=== PATIENT | female | born 1965 | race Caucasian/White ===

== ENCOUNTER 2022-10-21 08:56 | Outpatient (OUT) | payer OTHER, SELFPAY ==
[2022-10-21 11:32] LABS: Basophils Absolute Auto 0.2 10^3/uL (0.0-0.1); Basophils Percent Auto 1.2 % (0.2-2.0); Eosinophils Absolute Auto 0.4 10^3/uL (0.0-0.7); Eosinophils Percent Auto 2.8 % (0.9-7.0); Hematocrit 42.2 % (36.0-48.0); Hemoglobin 12.5 g/dL (12.0-16.0); Immature Granulocytes Abs Auto 0.09 10^3/uL (0.00-0.03); Immature Granulocytes Pct Auto 0.7 % (0.0-0.5); Lymphocytes Absolute Auto 3.2 10^3/uL (1.2-3.8); Lymphocytes Percent Auto 23.2 % (20.5-60.0); Mean Corpuscular HGB Conc 29.6 g/dL (29.9-35.2); Mean Corpuscular Volume 87.7 fL (81.0-99.0); Mean Platelet Volume 10.6 fL (9.5-13.5); Monocytes Absolute Auto 0.8 10^3/uL (0.3-0.8); Monocytes Percent Auto 5.6 % (1.7-12.0); Neutrophils Absolute Auto 9.1 10^3/uL (1.4-6.5); Neutrophils Percent Auto 66.5 % (43.0-75.0); Platelet Count 333 10^3/uL (150-450); Red Blood Count 4.81 10^6/uL (4.20-5.40); Red Cell Distribution Width 16.1 % (11.0-15.0); White Blood Count 13.6 10^3/uL (4.0-11.0)
[2022-10-21 12:19] LABS: Estimated Average Glucose 160 mg/dL; Glycohemoglobin A1C 7.2 % (4.5-6.2)
[2022-10-21 12:38] LABS: Alanine Aminotransferase 27 U/L (14-59); Albumin Globulin Ratio 0.7; Albumin Level 3.2 g/dL (3.4-5.0); Alkaline Phosphatase 132 U/L (46-116); Anion Gap 15.5; Aspartate Amino Transferase 16 U/L (15-37); BUN Creatinine Ratio 18.8; Bilirubin Total 0.3 mg/dL (0.2-1.0); Calcium 9.4 mg/dL (8.5-10.1); Carbon Dioxide 24.5 mmol/L (21.0-32.0); Chloride 103 mmol/L (98-107); Cholesterol 189 mg/dL (<=200); Estimated GFR (African America >60 (>=60); Estimated GFR (Non-African Ame >60 (>=60); Free T3 2.15 pg/mL (2.18-3.98); Globulin 4.3 g/dL; Glucose 158 mg/dL (74-106); HDL Cholesterol 62 mg/dL (40-60); Sodium 139 mmol/L (136-145); Thyroid Stimulating Hormone 1.273 uIU/mL (0.358-3.740); Total Protein 7.5 g/dL (6.4-8.2); Triglycerides 117 mg/dL (<=150); VLDL CHOLESTEROL 23.4 mg/dL
[2022-10-22 11:09] LABS: Insulin 53.9 uIU/mL (2.6-24.9)
== END 2022-10-21 08:57 ==
LOC: LAB 10-28 08:57
PROVIDERS: PCP Internal Medicine; Visit Provider Family Medicine
DX: J43.2 Centrilobular emphysema (principal); B37.0 Candidal stomatitis; G47.10 Hypersomnia, unspecified; I51.89 Other ill-defined heart diseases
CPT/HCPCS: 36415; 80053; 80061; 82306; 83036; 83525; 83540; 84436; 84443; 84481; 85025

== ENCOUNTER 2022-11-16 21:00 | Outpatient (OUT) | payer OTHER, SELFPAY | END 2022-11-16 21:01 | disposition home or self-care (01) | LOC: SLEEP 11-17 07:30 | PROVIDERS: PCP Internal Medicine; Visit Provider Internal Medicine | DX: G47.33 Obstructive sleep apnea (adult) (pediatric) (principal) | CPT/HCPCS: 95810 ==

== ENCOUNTER 2022-12-15 10:11 | Outpatient (OUT) | payer OTHER, SELFPAY ==
--- NOTE | 2022-12-15 10:42 | CT_ITS ---
[address] [address] Patient Name: NITIN LEONARD MRN: [id number] date: 1965 Sex: F Assigned Patient Location: CT Current Patient Location: Accession/Order Number: [id number] Exam Date: 12/15/2022 10:38 Report Date: 12/16/2022 08:05 At the request of: PUJA LOPEZ Procedure: CT lung screening low-dose EXAMINATION: CT lung screening low-dose HISTORY: History of tobacco dependence Z87.891 COMPARISON: No relevant comparison available. TECHNIQUE: Axial, Coronal, and Sagittal images were created without the administration of IV contrast material. Dose reduction techniques were achieved by using automated exposure control and/or adjustment of mA and/or kV according to patient size and/or use of iterative reconstruction technique. FINDINGS: LUNGS: Mild emphysematous changes and scattered mild discoid atelectasis or scarring. No suspicious nodules. PLEURA: No mass, effusion, or pneumothorax. VASCULATURE: No abnormality. DANIEL: No mass or pathologic adenopathy. MEDIASTINUM: No mass or pathologic adenopathy. CARDIAC: No enlargement, pericardial thickening, or significant calcification. AORTA: No aneurysm or dissection. CHEST WALL: No mass or axillary adenopathy BONES: No bone lesion or fracture. LIMITED ABDOMEN: No suspicious findings. Limited images of the upper abdomen. OTHER: Negative. CT/CT lung screening low-dose IMPRESSION: 1. Lung-RADS Category 1 Negative. No nodules and definitely benign nodules. Continue annual screening with LDCT in 12 months. Electronically authenticated by: CELIA MUSE Date: 12/16/2022 08:05
== END 2022-12-15 10:12 | disposition home or self-care (01) ==
LOC: CT 10:11
PROVIDERS: PCP Internal Medicine; Visit Provider Internal Medicine
DX: Z87.891 Personal history of nicotine dependence (principal)
CPT/HCPCS: 71271

== ENCOUNTER 2023-01-14 07:11 | Outpatient (RCR) | payer OTHER, SELFPAY ==
--- NOTE | 2022-10-08 12:10 | CR1_ITS ---
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
--- NOTE | 2022-10-08 12:11 | CR1_ITS ---
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
--- NOTE | 2022-11-05 15:31 | CR1_ITS ---
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
--- NOTE | 2022-12-04 08:02 | CR1_ITS ---
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
--- NOTE | 2023-01-01 15:22 | CR1_ITS ---
The [facility] Test Date: 2023-01-01 Pat Name: NITIN LEONARD Department: Room: - Gender: Female Director Of Guidance: : 1965 Requested By: JARRELL COPE Order Number: [id number] Ricki MD: OMID MATUTE Interpretive Statements Session Date: Electronically Signed On 01-02-2023 7:36:34 EDT by OMID MATUTE
--- NOTE | 2023-01-14 15:24 | CR1_ITS ---
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
== END 2023-01-14 15:57 | disposition home or self-care (01) ==
LOC: CR 07:11
PROVIDERS: PCP Family Medicine; Visit Provider Internal Medicine
DX: J43.2 Centrilobular emphysema (principal)
CPT/HCPCS: 94625

== ENCOUNTER 2023-03-06 12:43 | Outpatient (OUT) | payer OTHER, SELFPAY ==
[2023-03-06 12:56] LABS: Hemoglobin 11.9 g/dL (12.0-16.0)
--- NOTE | 2023-03-06 13:00 | RT_ITS ---
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 Findings were considered accurate and reproducible, with exception of plethysmography which did not meet ATS standards. Both pre- and post-bronchodilator values utilized for spirometry. Due to software limitations, no prior studies (if performed previously) are currently available for comparison. Spirometry (based on pre-bronchodilator values): -FEV1/FVC: Reduced @ 46% -FEV1: Severely reduced @ 42% -FVC: Reduced @ 71% -There is no significant bronchodilator response. Lung volumes by plethysmography: -RV: Increased @ 179% -TLC: Increased @ 130% Diffusion capacity: -DLCO: Normal @ 86% when corrected for Hb 11.9g/dL Flow-volume loop: -Severe obstructive pattern Impressions: -Spirometry suggests severe obstruction. An elevated RV and TLC suggest air trapping and hyperinflation respectively. The diffusion capacity is normal. Overall study compatible with COPD or asthma with loss of bronchoreversibility. Clinical correlation required. Electronically Signed On 03-09-2023 17:07:31 EST by Michael Archibald
[2023-03-06] MEDS: ALBUTEROL SULFATE 2.5 MG/3 ML VIAL NEB IH (14:28)
== END 2023-03-06 12:44 | disposition home or self-care (01) ==
LOC: CARD 12:44
PROVIDERS: PCP Internal Medicine; Visit Provider Internal Medicine
DX: J45.50 Severe persistent asthma, uncomplicated (principal); Z51.81 Encounter for therapeutic drug level monitoring
CPT/HCPCS: 36415; 85018; 94060; 94726; 94729

== ENCOUNTER 2023-03-13 11:36 | Outpatient (OUT) | payer OTHER, SELFPAY ==
[2023-03-13 12:00] LABS: Theophylline 9.4 ug/mL (10.0-20.0)
== END 2023-03-13 11:37 | disposition home or self-care (01) ==
LOC: LAB 11:37
PROVIDERS: PCP Family Medicine; Visit Provider Internal Medicine
DX: Z51.81 Encounter for therapeutic drug level monitoring (principal); Z79.899 Other long term (current) drug therapy; J45.50 Severe persistent asthma, uncomplicated
CPT/HCPCS: 36415; 80198

== ENCOUNTER 2023-04-16 09:27 | Outpatient (OUT) | payer OTHER, SELFPAY ==
[2023-04-16 10:11] LABS: Chol HDL Ratio 2.6; Cholesterol 188 mg/dL (<=200); HDL Cholesterol 71 mg/dL (40-60); Triglycerides 108 mg/dL (<=150); VLDL CHOLESTEROL 21.6 mg/dL
== END 2023-04-16 09:28 | disposition home or self-care (01) ==
LOC: LAB 09:27
PROVIDERS: PCP Family Medicine; Visit Provider Internal Medicine Interventional Cardiology
DX: E78.2 Mixed hyperlipidemia (principal)
CPT/HCPCS: 36415; 80061

== ENCOUNTER 2023-04-16 09:32 | Outpatient (OUT) | payer OTHER, SELFPAY ==
[2023-04-16 10:05] LABS: Anion Gap 12.4; BUN Creatinine Ratio 17.4; Calcium 9.1 mg/dL (8.5-10.1); Carbon Dioxide 27.6 mmol/L (21.0-32.0); Chloride 104 mmol/L (98-107); Estimated GFR (African America >60 (>=60); Estimated GFR (Non-African Ame >60 (>=60); Glucose 123 mg/dL (74-106); Sodium 140 mmol/L (136-145)
[2023-04-16 10:23] LABS: Estimated Average Glucose 180 mg/dL; Glycohemoglobin A1C 7.9 % (4.5-6.2)
== END 2023-04-16 09:33 | disposition home or self-care (01) ==
LOC: LAB 09:32
PROVIDERS: PCP Family Medicine; Visit Provider Family Medicine
DX: E78.2 Mixed hyperlipidemia (principal); R73.09 Other abnormal glucose
CPT/HCPCS: 36415; 80048; 80061; 83036

== ENCOUNTER 2023-06-26 11:05 | Outpatient (OUT) | payer OTHER, SELFPAY ==
--- OUTSIDE RECORDS SUMMARY | 2023-06-26 11:20 | XMS_ITS | CCD ---
Author Name Unknown Address [address] [place] [address] Organization [facility] Care Team Providers Care Gis Manager Name Role Phone Jarrell Rouse Primary Care Physician [phone] SAMSA ., PUJA Attending Unavailable HOY ., DR VIEYRA Primary Care Unavailable SAMSA ., PUJA Admitting Unavailable SAMSA ., PUJA Consulting Unavailable AHDOOTPHUC Consulting Unavailable SAMSA ., PUJA Attending Unavailable SAMSA ., PUJA Admitting Unavailable HOY ., DR VIEYRA Primary Care Unavailable SAMSA ., PUJA Consulting Unavailable HOY ., DR VIEYRA Primary Care Unavailable HOY ., DR VIEYRA Consulting Unavailable HOY ., DR VIEYRA Admitting Unavailable HOY ., DR VIEYRA Attending Unavailable SAMSA ., PUJA Consulting Unavailable HOY ., DR VIEYRA Primary Care Unavailable HOY ., DR VIEYRA Admitting Unavailable HOY ., DR VIEYRA Attending Unavailable HOY ., DR VIEYRA Primary Care Unavailable HOY ., DR VIEYRA Consulting Unavailable HOY ., DR VIEYRA Admitting Unavailable HOY ., DR VIEYRA Attending Unavailable ZILUCINDA, DR ANDRIY Abarca Consulting Unavailable JAYASHREECHNY .CEDRIC Consulting Unavailabl e HOY ., DR VIEYRA Primary Care Unavailable WEST, DR DANTE Boone Consulting Unavailable PAY ., DR VAIL Attending Unavailable PAY ., DR VAIL Admitting Unavailable PAY ., DR VAIL Consulting Unavailable HOY ., DR VIEYRA Primary Care Unavailable TAWNY, DR DANTE Boone Attending Unavailable TAWNY, DR DANTE Boone Admnelson Unavailable TAWNY, DR DANTE Boone Consulting Unavailable HOY ., DR VIEYRA Primary Care Unavailable HOY ., DR VIEYRA Consulting Unavailable HOY ., DR VIEYRA Admitting Unavailable HOY ., DR VIEYRA Attending Unavailable ZILUCINDA, DR ANDRIY Abarca Consulting Unavailable HOY ., DR VIEYRA Primary Care Unavailable TAWNY, DR DANTE Boone Consulting Unavailable HOY ., DR VIEYRA Attending Unavailable HOY ., DR VIEYRA Admitting Unavailable SAMSA ., PUJA Admitting Unavailable SAMSA ., PUJA Consulting Unavailable HOY ., DR VIEYRA Primary Care Unavailable SAMSA ., PUJA Attending Unavailable SAMSA ., PUJA Attending Unavailable HOY ., DR VIEYRA Primary Care Unavailable KENYON, DR DANTE Boone Consulting Unavailable SAMSA ., PUJA Admitting Unavailable SAMSA ., PUJA Consulting Unavailable HOY ., DR VIEYRA Primary Care Unavailable HOY ., DR VIEYRA Consulting Unavailable HOY ., DR VIEYRA Admitting Unavailable HOY ., DR VIEYRA Attending Unavailable SAMSA ., PUJA Admitting Unavailable HOY ., DR VIEYRA Primary Care Unavailable SAMSA ., PUJA Attending Unavailable HOY ., DR VIEYRA Primary Care Unavailable HOY ., DR VIEYRA Consulting Unavailable HOY ., DR VIEYRA Admitting Unavailable HOY ., DR VIEYRA Attending Unavailable WEST, DR DANTE Boone Consulting Unavailable ASHLEY, CORWIN Consulting Unavailable STANG, Candace L Admitting Unavailable STANG Candace L Attending Unavailable NONE, XXXX Referring Unavailable Evin RENTERIA Attending Unavailable NONE, XXXX Referring Unavailable MYRA, Evin J Admitting Unavailable Evin RENTERIA Attending Unavailable MYRA, Evin J Referring Unavailable MYRA, Evin J Admitting Unavailable Stanton Holt Consulting UnavailStanton Pagan Consulting Unavaila Stanton Sebastian Consulting Unavaila ble Evin RENTERIA Attending Unavailable MYRA, Evin J Referring Unavailable RENTERIA, Evin J Admitting Unavailable RENTERIA, Evin J Attending Unavailable RENTERIA, Evin J Admitting Unavailable SAMSA, PUJA P Referring Unavailable Evin RENTERIA J Attending Unavailable Bradley RENTERIAel J Admitting Unavailable ANDREA JOHN Attending Unavailable ANDREA JOHN Attending Unavailable JUDE CHAN Attending Unavailable JUDE CHAN Attending Unavailable JUDE CHAN M Attending Unavailable JUDE CHAN M Attending Unavailable JUDE CHAN M Attending Unavailable JUDE CHAN M Attending Unavailable Allergies Allergy Classification Reported Allergen(s) Allergy Type Date of Onset Reaction(s) Facility (7 sources) Acetaminophen / oxyCODONE; Translations: [acetaminophen-ox ycodone] Drug Allergy Eruption of skin (disorder) [facility] [place] (7 sources) acetaminophen / propoxyphene; Translations: [acetaminophen-pr opoxyphene] Drug Allergy Eruption of skin (disorder) [facility] [place] (1 source) Acetaminophen / oxyCODONE Drug Allergy [address] [facility] (1 source) Darvocet-N 100 Drug allergy (disorder) [address] [facility] (1 source) No Known Medication Allergies; Translations: [No Known Medication Allergies] Propensity to adverse reactions (disorder) [facility] (1 source) Acetaminophen / oxyCODONE; Translations: [OXYCODONE-ACETAM INOPHEN] Drug Allergy 3 [facility] Rep[facility] (1 source) PROPOXYPHENE N-ACETAMINOPHEN; Translations: [PROPOXYPHENE N-ACETAMINOPHEN] Propensity to adverse reactions to drug (disorder) 3 [facility] Medications Current Medications Medication Drug Class(es) Dates Sig (Normalized) Sig (Original) ALPRAZolam 0.5 mg oral tablet (6 sources) Benzodiazepine Start: 12-26-19 take 1 tablet by mouth three times daily as needed for anxiety Xanax 0.5 mg Tab 0.5 mg = 1 tab(s), Oral, TID, PRN for anxiety, Refills(s) 0 Start Date: 12/26/19 Status: Ordered atorvastatin 40 mg oral tablet (2 sources) HMG-CoA Reductase Inhibitor Start: 07-15-19 take 1 tablet by mouth at bedtime atorvastatin 40 mg Tab 40 mg = 1 tab(s), Oral, Bedtime, # 30 tab(s), Refills(s) 5, [id number], 153, cm, 07/14/22 10:59:00 EDT, Height/Length Dosing, 97, kg, 07/14/22 10:59:00 EDT, Weight Dosing Start Date: 07/14/22 Status: Ordered Breztri Aerosphere inhalation aerosol (6 sources) Start: 06-05-19 Breztri Aerosphere inhalation aerosol Refill(s) 0 Start Date: 06/05/22 Status: Ordered 24 hr buPROPion hydrochloride 300 mg extended release oral tablet (6 sources) Aminoketone Start: 12-26-19 take 1 tablet by mouth once daily buPROPion 300 mg XL /24 hrs 300 mg = 1 tab(s), Oral, Daily, Refills(s) 0, Depression Start Date: 12/26/19 Status: Ordered Dupixent Pre-filled Syringe (6 sources) Start: 06-05-19 Dupixent Pre-filled Syringe Refills(s) 0 Start Date: 06/05/22 Status: Ordered fluticasone / salmeterol (6 sources) Corticosteroid, beta2-Adrenergic Agonist Start: 12-26-19 Advair 250 mcg-50 mcg Powder 1 inh, Inhalation, BID, Refill(s) 0, Shortness of breath or wheezing Start Date: 12/26/19 Status: Ordered Home Oxygen (6 sources) Start: 06-05-19 Home Oxygen L/min, Daily, Refill(s) 0, Oxygen - Continuous or Nocturnal Diagnosis: Portable 02 for physician visits, oxygen conservation Start Date: 06/05/22 Status: Ordered hydroCHLOROthiazide 12.5 mg oral capsule (2 sources) Thiazide Diuretic Start: 10-14-19 End: 04-11-20 take 1 capsule by mouth once daily hydrochlorothiazide 12.5 mg Cap 12.5 mg = 1 cap(s), Oral, Daily, X 30 day(s), # 30 cap(s), Refills(s) 5, [facility]: [id number], 153, cm, 10/13/22 11:19:00 EDT, Height/Length Dosing, 101.4, kg, 10/13/22 11:19:00 EDT, Weight Dosing Start Date: 10/13/22 Stop Date: 04/11/23 Status: Ordered lisinopril 10 mg oral tablet (6 sources) Angiotensin Converting Enzyme Inhibitor Start: 12-26-19 take 1 tablet by mouth once daily lisinopril 10 mg Tab 10 mg = 1 tab(s), Oral, Daily, Refills(s) 0, High blood pressure Start Date: 12/26/19 Status: Ordered meloxicam 15 mg oral tablet (6 sources) Nonsteroidal Anti-inflammatory Drug Start: 12-26-19 take 1 tablet by mouth once daily meloxicam 15 mg Tab 15 mg = 1 tab(s), Oral, Daily, Refills(s) 0, Inflammation Start Date: 12/26/19 Status: Ordered pantoprazole 40 mg delayed release oral tablet (6 sources) Proton Pump Inhibitor Start: 12-26-19 Protonix 40 mg Tab-DR 40 mg = 1 tab(s), Oral, Daily, Refills(s) 0, Control of stomach acid Start Date: 12/26/19 Status: Ordered simvastatin 20 mg oral tablet (4 sources) HMG-CoA Reductase Inhibitor Start: 12-26-19 take 1 tablet by mouth once daily at bedtime simvastatin 20 mg Tab 20 mg = 1 tab(s), Oral, Once a day (at bedtime), Refills(s) 0, High cholesterol Start Date: 12/26/19 Status: Ordered Ventolin HFA 90 mcg/inh Aerosol (6 sources) Start: 12-26-19 take 2 puff(s) by inhalation four times daily Ventolin HFA 90 mcg/inh Aerosol 2 puff(s), Inhalation, QID Shortness of breath or wheezing, Refill(s) 0 Start Date: 12/26/19 Status: Ordered Completed/Discontinued Medications Medication Drug Class(es) Dates Sig (Normalized) Sig (Original) Vitamin B12 500 mcg oral tablet (5 sources) Start: 12-28-2019 take 1 tablet by mouth once daily Vitamin B12 500 mcg oral tablet 500 microgram = 1 tab(s), Oral, Daily, Refills(s) 0, Prophylaxis Start Date: 12/28/19 Status: Ordered Vitamin D3 5000 intl units oral tab (5 sources) Start: 12-28-2019 take 1 tablet by mouth once daily Vitamin D3 5000 intl units oral tab 5,000 International_Unit = 1 tab(s), Oral, Daily, Refills(s) 0, Prophylaxis Start Date: 12/28/19 Status: Ordered Problems Active Problems Problem Classification Problem Date Documented Da te Episodic/Chronic Anxiety disorders (7 sources) Mixed anxiety and depressive disorder; Translations: [Anxiety disorder, unspecified] Onset: 2 12-26-2019 Chronic Asthma (11 sources) Asthma; Translations: [Severe persistent asthma, uncomplicated] Onset: 2 12-26-2019 Chronic Chronic obstructive pulmonary disease and bronchiectasis (7 sources) Chronic obstructive lung disease; Translations: [Chronic obstructive pulmonary disease, unspecified] Onset: 2 Chronic Congestive heart failure; nonhypertensive (1 source) Unspecified diastolic (congestive) heart failure; Translations: [UNSPECIFIED DIASTOLIC HEART FAILURE] Onset: 2 Chronic Disorders of lipid metabolism (9 sources) Hypercholesterolemia; Translations: [Hyperlipidemia] Onset: 3 12-26-2019 Chronic Esophageal disorders (6 sources) Gastroesophageal reflux disease 12-28-2019 Chronic Essential hypertension (3 sources) Essential (primary) hypertension; Translations: [ESSENTIAL PRIMARY HYPERTENSION] Onset: 2 Chronic Headache; including migraine (4 sources) Headache; including migraine; Translations: [HEADACHE UNSPECIFIED] Onset: 2 Hypertension with complications and secondary hypertension (1 source) Hypertensive heart disease with heart failure; Translations: [HTN HEART DISEASE W/HEART FAIL] Onset: 2 Chronic Nutritional deficiencies (6 sources) Vitamin D deficiency 12-26-2019 Chronic Other gastrointestinal disorders (6 sources) Dysphagia 12-28-2019 Episodic Other gastrointestinal disorders (6 sources) Occult blood in stools 12-28-2019 Episodic Other lower respiratory disease (1 source) Dyspnea; Translations: [Shortness of breath] Onset: 3 Episodic Other nutritional; endocrine; and metabolic disorders (6 sources) Body mass index 30+ - obesity 12-28-2019 Chronic Respiratory failure; insufficiency; arrest (adult) (5 sources) Chronic respiratory failure with hypoxia; Translations: [Dependence on supplemental oxygen] Onset: 2 Chronic Substance-related disorders (7 sources) Smoker; Translations: [Nicotine dependence] Onset: 3 12-26-2019 Chronic Unclassified (1 source) CONTACT W/AND (SUSP) EXPOS COVID-19; Translations: [CONTACT W/AND (SUSP) EXPOS COVID-19] Onset: 2 Past or Other Problems Problem Classification Problem Date Documented Da te Episodic/Chronic Cardiac dysrhythmias (1 source) Tachycardia, unspecified; Translations: [TACHYCARDIA UNSPECIFIED] Onset: 01-10-2022 Episodic Deficiency and other anemia (1 source) Anemia, unspecified; Translations: [ANEMIA UNSPECIFIED] Onset: 10-24-2021 Episodic Other aftercare (1 source) Other custodial (current) drug therapy; Translations: [OTH FCI CURRENT DRUG THERAPY] Onset: 01-15-2022 Episodic Other connective tissue disease (1 source) Myalgia, unspecified site; Translations: [MYALGIA UNSPECIFIED SITE] Onset: 01-10-2022 Episodic Other lower respiratory disease (1 source) Other nonspecific abnormal finding of lung field; Translations: [OTH NONSPECIFIC ABN FIND LNG FIELD] Onset: 12-11-2021 Episodic Other lower respiratory disease (4 sources) Other forms of dyspnea; Translations: [OTHER FORMS OF DYSPNEA] Onset: 10-22-2021 Episodic Other lower respiratory disease (2 sources) Shortness of breath; Translations: [Shortness of breath] Onset: 10-23-2022 Episodic Other skin disorders (3 sources) Localized swelling, mass and lump, head; Translations: [LOCALIZED SWELLING MASS AND LUMP HEAD] Onset: 01-10-2022 Episodic Residual codes; unclassified (5 sources) Localized edema; Translations: [LOCALIZED EDEMA] Onset: 10-24-2021 Episodic Screening and history of mental health and substance abuse codes (5 sources) Personal history of nicotine dependence; Translations: [PERSONAL HISTORY OF NICOTINE DEPEND] Onset: 12-10-2021 Episodic Skin and subcutaneous tissue infections (1 source) Cellulitis of face; Translations: [CELLULITIS OF FACE] Onset: 01-15-2022 Episodic Varicose veins of lower extremity (1 source) Varicose veins of bilateral lower extremities with pain; Translations: [VARICOSE VNS REG LOW EXTREM W/PAIN] Onset: 12-06-2021 Episodic Viral infection (1 source) Zoster with other complications; Translations: [ZOSTER WITH OTHER COMPLICATIONS] Onset: 01-15-2022 Episodic Results Test Name Value Interpretation Reference Range Facility Office Visiton 04-22-2023 Follow-up visit [id number] Nitin Leonard 1965 F Date Provider Department Center 04/22/2023 ANDREA VILLAFANA [facility] Family History Problem Relation Age of Onset Diabetes Mother Stroke Father Family Status - Relation Status Age at Mother Father Level of Service:73089 NM OFFICE/OUTPATIENT ESTABLISHED MOD MDM 30 MIN Normal [facility] Referrals Officeon 3 Referrals Office [id number] CD:127 Reached patient on the phone, she states she found a boat finisher in [place]. 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 She is a former patient of Dr. Meng ennis and does not wish to follow-up with him. She also has a known history of hypertension as well as COPD diagnosed by PFTs several years ago. She is on intermittent oxygen. She claims that she may have had COVID diagnosed in around 2019 and 2019 but did not have testing available at that time. Ever since she is gotten sick she has had progressively worsening shortness of breath, dyspnea on exertion to the point where she gets short of breath just getting dressed. She was scheduled for PFTs recently but had to cancel due to exposure to COVID. In addition the patient complains of substernal chest pressure particularly when she gets anxious, described as an elephant pushing on her chest. The patient has decreased exercise capacity over the last several months to the point where she is unable to walk 2 blocks or 2 flights of stairs. She also has unilateral right lower extremity edema on occasion. She has never been tested for sleep apnea. She currently sees a boat finisher who referred her to our office. Apparently she had undergone a stress test in Dr. Mann's office a couple years ago which was reportedly abnormal but she did not receive a cardiac catheterization. We do not have those records available today. On further history her father has no coronary disease but her mother had coronary disease and PCI. Sister has no coronary disease. Patient is a very pleasant 57-year-old referred to our office for shortness of breath. To better evaluate her dyspnea on exertion she underwent a 2D echo with Doppler on 07/09/2022 with the following results: (07/09/2022 11:28 EST Echo Transthoracic Complete) Interpretation Summary Normal LV and RV. No significant valve disease. Normal estimated PA pressure. Abnormal diastolic filling pattern. In addition she underwent a Lexiscan/MPI on 06/12/2022 with the following results: (06/12/2022 14:52 EST NM Myocardial Spect Rest/Stress 1 Day) CONCLUSIONS: Negative Lexiscan nuclear stress test. Overall low risk stress. [1] Patient is now here in follow-up to go over her testing. Testing results given to the patient. Patient's main complaint is retention of water. Patient's main complaint is dyspnea on exertion, as well as severe fatigue and tiredness all day long. The patient is an active snore, wakes up tired, and takes a nap every single day just to function. She has never had a sleep study. She denies any exertional anginal symptoms. In our office today her blood pressure is 138/92and pulse is 76 and regular. Physical exam demonstrates very distant breath sounds, moderate obesity, 2+ carotid upstroke, no carotid bruits, regular rate and rhythm with normal S1/S2, no S3, S4 or murmurs are noted. She has trivial lower extremity edema.. EKG dated 06/05/2022 shows normal sinus rhythm, normal axis, normal intervals, no evidence of previous myocardial infarction, essentially normal EKG. Lipids dated 06/10/2022 show an HDL of 67 and LDL 223. [1] Review of Systems Constitutional: no fever, no chills, no weakness, no fatigue Respiratory: no shortness of breath, no cough, no orthopnea, no wheezing Cardiovascular: no chest pain, no palpitations, no edema Neuro: no dizziness no light headed no syncope Additional ROS info: Except as noted in the above Review of Systems and in the History of Present Illness all other systems have been reviewed and are negative or noncontributory. Physical Exam General: alert, no acute distress Neck: Supple, noJVD nocarotid bruit Cardiovascular: regular rate and rhythm, no murmur normal peripheral perfusion Respiratory: Lungs CTA, respirations non labored Extremities: no edema Neurological: oriented x 4, LOC appropriate for age, sensation equal & normal bilaterally, speech normal Skin: Warm, dry, intact- no rash or concerning lesions Follow-up No qualifying data available Problem List/Past Medical History Ongoing Anxiety and depression Asthma BMI 33.0-33.9,adult Dysphagia GERD (gastroesophageal reflux disease) Hypercholesterolemia Occult blood in stools Smoker Vitamin D deficiency Historical No qualifying data Procedure/Surgical History Ablation, Closed fracture of tibia and fibula, shaft, Lumbar discectomy. Medications Advair 250 mcg-50 mcg Powder, 1 inh, Inhalation, BID atorvastatin 40 mg Tab, 40 mg= 1 tab(s), Oral, Bedtime, 5 refills Breztri Aerosphere inhalation aerosol buPROPion 300 mg XL /24 hrs, 300 mg= 1 tab(s), Oral, Daily Dupixent Pre-filled Syringe Home Oxygen, Daily hydrochlorothiazide 12.5 mg Cap hydrochlorothiazide 12.5 mg Cap, 12.5 mg= 1 cap(s), Oral, Daily, 5 refills lisinopril 10 mg Tab, 10 mg= 1 tab(s), Oral, Daily (more content not included)... Normal [facility] Comment on above: Result Comment: Elec tronically Signed By: Myra CAMPBELL, Evin Pearce Other Comment: Proba ble no-show. Office Visiton 10-23-2022 Follow-up visit [id number] Nitin Leonard 1965 F Date Provider Department Center 10/23/2022 ANDREA VILLAFANA [facility] Family History Problem Relation Age of Onset Diabetes Mother Stroke Father Family Status - Relation Status Age at Mother Father Level of Service:40945 NM OFFICE/OUTPATIENT NEW MODERATE MDM 45-59 MINUTES Reason for Visit and Comments: Establish Care [42] - DIASTOLIC DYSFUNCTION HOY Normal [facility] Consent for Treatmenton 10-02 Consent for Treatment [id number] D:127 Normal [facility] Heart and Vascular Office/Cl inic Noteon 10-13-2022 Heart and Vascular Office/Clinic Note History of Present Illness Patient is a very pleasant 57-year-old moderately obese nondiabetic female with ongoing tobacco use of about 3 cigarettes/day but 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 She is a former patient of Dr. Meng ennis and does not wish to follow-up with him. She also has a known history of hypertension as well as COPD diagnosed by PFTs several years ago. She is on intermittent oxygen. She claims that she may have had COVID diagnosed in around 2018 and 2019 but did not have testing available at that time. Ever since she is gotten sick she has had progressively worsening shortness of breath, dyspnea on exertion to the point where she gets short of breath just getting dressed. She was scheduled for PFTs recently but had to cancel due to exposure to COVID. In addition the patient complains of substernal chest pressure particularly when she gets anxious, described as an elephant pushing on her chest. The patient has decreased exercise capacity over the last several months to the point where she is unable to walk 2 blocks or 2 flights of stairs. She also has unilateral right lower extremity edema on occasion. She has never been tested for sleep apnea. She currently sees a boat finisher who referred her to our office. Apparently she had undergone a stress test in Dr. Mann's office a couple years ago which was reportedly abnormal but she did not receive a cardiac catheterization. We do not have those records available today. On further history her father has no coronary disease but her mother had coronary disease and PCI. Sister has no coronary disease. Patient is a very pleasant 57-year-old referred to our office for shortness of breath. To better evaluate her dyspnea on exertion she underwent a 2D echo with Doppler on 07/09/2022 with the following results: (07/09/2022 11:28 EST Echo Transthoracic Complete) Interpretation Summary Normal LV and RV. No significant valve disease. Normal estimated PA pressure. Abnormal diastolic filling pattern. In addition she underwent a Lexiscan/MPI on 06/12/2022 with the following results: (06/12/2022 14:52 EST NM Myocardial Spect Rest/Stress 1 Day) CONCLUSIONS: Negative Lexiscan nuclear stress test. Overall low risk stress. [1] Patient is now here in follow-up to go over her testing. Testing results given to the patient. Patient's main complaint is retention of water. Patient's main complaint is dyspnea on exertion, as well as severe fatigue and tiredness all day long. The patient is an active snore, wakes up tired, and takes a nap every single day just to function. She has never had a sleep study. She denies any exertional anginal symptoms. In our office today her blood pressure is 138/92and pulse is 76 and regular. Physical exam demonstrates very distant breath sounds, moderate obesity, 2+ carotid upstroke, no carotid bruits, regular rate and rhythm with normal S1/S2, no S3, S4 or murmurs are noted. She has trivial lower extremity edema.. EKG dated 06/05/2022 shows normal sinus rhythm, normal axis, normal intervals, no evidence of previous myocardial infarction, essentially normal EKG. Lipids dated 06/10/2022 show an HDL of 67 and LDL 223. Review of Systems Constitutional: no fever, no chills, no weakness, no fatigue Respiratory: no shortness of breath, no cough, no orthopnea, no wheezing Cardiovascular: no chest pain, no palpitations, no edema Neuro: no dizziness no light headed no syncope Additional ROS info: Except as noted in the above Review of Systems and in the History of Present Illness all other systems have been reviewed and are negative or noncontributory. Physical Exam General: alert, no acute distress Neck: Supple, noJVD nocarotid bruit Cardiovascular: regular rate and rhythm, no murmur normal peripheral perfusion Respiratory: Lungs CTA, respirations non labored Extremities: 1+ edema Neurological: oriented x 4, LOC appropriate for age, sensation equal & normal bilaterally, speech normal Skin: Warm, dry, intact- no rash or concerning lesions Assessment/Plan 1. Dyspnea on exertion: The patient has known COPD, and has never been evaluated for obstructive sleep apnea. Recommend that she have a sleep study. Patient has excessive daytime somnolence and mild lower extremity edema. 2. Lower extremity edema: Recommend starting her on hydrochlorothiazide 12.5 mg p.o. daily going forward. I advised her to use her KATHY hose as well. 3. Hyperlipidemia: The patient has profoundly elevated LDL but has not had a repeat check. Recommend repeating her fasting lipid profile. We switched her from Zocor to Lipitor back in June 2022. If her LDL is less than 130 will continue her Lipitor if not she may require switching to high-dose Crestor. 4. Return to office with Dr. Renteria in 1 month. Follow-up No qualifying data available Problem List/Past Medical History Ongoing Anxiety and depression Ast (more content not included)... Normal [facility] Comment on above: Result Comment: Elec tronically Signed By: Myra CAMPBELL, Evin Pearce\.trever\Date and Time Signed: 10/13/22 11:50 EDT Physician Orderon 10-13-2022 Physician Order [id number] CD:127 Normal [facility] Coding Summary.on 07-23-2022 Coding Summary. CD:[id number] Gh0 bWw+PGhlYWQ+CU2HWDBuX36 gvPUmsF1yO9BJFGrOWidmDL PVVNbMQjRmexCzJQ6xrFFfC XJu IC8+YZ6wMRUaQtxlnOKnw0N 8lQD7J42jmz7cSOulwNC1WZ AlPwDeojlqk2zrlHz7BIppI mluOyBt UFLvzU00AVY3xY81Nu27kPX hhSEtw9axcQo1CdDzTITwHL N0hYebWDimq6GcHUSeA72ba WKlz9V8 HBMoyLbexNXvUcShwSF1gH7 iGCefclauo3ypqbzoHzq7oo 90qWGpe6M4tHW5H3EltoE5D GJvbGQg GxjxkBAZpJ5dxnvzl1baccx tLoVkCACyPQe0MNr7MZJinC odLnPpQV29NEJ8PXRrgjUmQ 2FsLWFs dByjOxO1i6X1Yc3HG5ZIKqj cU2YLOARHHHkakJR+PC90cj 26P7RrCphgLsu7XTAxQVM2z LB5bW3c PYIjGGfiv1I0nPG9S6SwmuZ kra0pm3sfVGUyYFsgE68hnS Xkw5E1XAAzgLF0KBAedFbeC iBzaG93 Oyc+SGUkzEzgh1QpBoueg4i nc6fwcXv0IfmuLWVpagRejF ulZDG9s0HaBg5pWJOpeMC4y NA0pB8b RxLlPhK2MDmuF502ThYblIH oAhxbU78oU8SzgXG+PHRyPj n9CBXqwIwxAX0mP5BvNVGxs mctbGVm kInuUM9pDBPmeqviWFTjlS4 vCPGyG4l1FdErSuG7OMnpT6 AxACLkhfxxFj93oO0wBvHxF dS9OMcf F5EvbmU5ABFdoHQbVVyeVZZ 4U65ny2K5QQNxQZCpXWG8aP T6oJ5gvYgdiggspTActXcxf mVydGlj XSubAMcaO461SYDcoCfcZpM vZGluZyBEYXRlOiAgMDMvMj IvMjAyMzwvdGQ+CHJyHAE2x WxlPSAn wMIrTUldSa7mhHcsrKycXU3 rPHWgovlbKAVsbA5eDJCtrX BlrFbkCQ5rUYSiyxtmq941P iAxMHB0 RXVrqWEuX6TyoE2cBtHvGYX cMVHlC8AndPToJLnxY668YE hsUsX1UEHniqSmD3KgPIEvu WduOiB0 q6K3Qp4Up4UbrvvpX2DejTY gNnIvCfdhPSd6D6CdPmeplE I+LG19EFPrXZ01DQo1ZCE3i WxlPSdi NYBwR5MxuB6kKbGjEPZlOCT kOyc+PHRhYmxlIHdpZHRoPS qxFVTlQsZcwXysGH0aEf0nR GVyLWNv mKgwmEWnSmNos4xiCWOwMRx sDJ9uoNytH9SnrRH4CERqa8 y0Nt35D82dX5AeiGS+PGNvb KW2iMZ0 nX4iPcTxZhX7ISwoB367XtW fkSBoBojxz0vri3asrDc6Ja Z8YQXcfeJkvRchQFY4q4CgM w29H37b IHdpZHRoPSIxNSUiIHZhbGl wmp4yxB4fRj3+UPRouDJ5oJ S1eY4kWfVjJgK2WOwpS976Z nRvcCIv Odrpt0qum6rngYh1NxIuILR jtkFlhNofGTR1z7UgNr96Z3 PpqHyle7AsWot8tl93tDKgh 9Z9uNY8 J7XrMFJaxjuciOVvoRwpCK6 iUMBbgvluSBAahE8qOFIgN1 i2PzCrLpW9DFahH2WirqW0O GJvbGQg GOCxpKFCyR9djzdbu6dxebh mXvQmKWQfHQy0PDn8JCKjkI koDyRhZDB5CuA4YTZ8gKTnj M9loAjo wpiihP9zYlk+RNI5nMAjcVO EWZ6zGjynqBY+RKAxKTQ8bK nbETooZSQkdW1nXQXrG2h5W iAwLjA1 IBshX0IznfC2TLFhoVFyRUJ ydQRHiS7isskvn3qqddvdZy QkCJXaQDg6HGw8BHMzoXoaH iBsZWZ0 LvK4QSD5eXTdnV1rsNyctnb yrM8nDyt+LgwaeYixYEY5BN t8O0AzKjh1SXXpkWlgGX9sj GFkZGlu Tk4pjKsdzEmzZM2iMQIawlw kv438AuOof1ykMHHvwJGpXM spPJI1Q24oo8N1CVIiJKWfG KZ7xGX5 aU6bvKajxofybLJysOsimoR tnNyfILceQIzbY743CPTfnO uwAyGnHFr0K1JwLox3CWBew HfaBB0x dYYvNPqbTf7bwMiepJqfUS5 fAJUmqznud088WfYge4wxAG NmcVYsDKgvBKB4L93ef9B1B CMwMDAw SRM5oCZ5iY7puMsbbfplfHQ mdDsgdmVydGljYWwtYWxpZ2 34YRIyvWvkSeFtaJt1Y9GfI pw8BRXi lAlyYC6bnKVpRNliWo7tsVv ibViuQW5zPTLcjigmb818Nt Lxq9dnHSAgtFJuPBehIVY1N 80ft4I1 NSPaTUBtXFA1wHA5fD9qiAq nbjogbGVmdDsgdmVydGljYW zbPLrbM917ZZFnsJjbAfSnl GllbnQg VCuzXZw0S5TpKvqqyND+PC9 2TWMcCJ01fNEwqFRyo0nbxD n2CwVdNVWkQSI4kTeeGZull 3JkZXIt J30kaWXtj4T6BOYmfDzyeVB sCdVifRP2fK4eNYxluqrwm5 fyevlpPdzcc2qulm24mX20L 29sIHdp ZHRoPSIzMCUiIHZhbGlnbj0 trQ5oKw4+XDUdeIM5mRF5vY 0pOUWnZiA2NOjlC992CfCce CIvPjxj q2ryg9nmbBt4PtT1UDTonqE siMtwHCS6j2VuWa25I66rBJ dpZHRoPSIyMCUiIHZhbGlnb d4gfW4b Ii8+SXVvuXZ5cNV7sU0lGsG cSvV8UAikN598CmBcxPCsGo xyG12kZ2JncGP+FYIhUck0N CBzdHls YS0liNRcSSsbRy4nWSU6LgV iXrSbTZglO5YzNTTzglmvvt vdsCI5EZMmTASsbF87Tu3rs DogMTBw oZBNzF3usphha7nuazehMlA kMRCuKRq9PUq8BWDpfXyaPo RmWAC3ZoJ0CMM5yATgiJ3vp Glnbjog vE6jH5LwHNNzwvtuLo46eG1 iEdPuKfO9ACvkYtm+WlVSQS nrCGNTC9mkNVzysJP+PHRkI HJ5aBkx GRppIZKuhP2mTTRiA2x9TkX aKiE4PIpcM7WcFMOdsjmkCc 23uK8nExHePfS2TJshI8Wdk qK4SDKd yOEiGJmpGEW7S67dd6T5NQE rFHUkADQ0fMZ5cC6ifSewog ogbGVmdDsgdmVydGljYWwtY JzdS573 ZXXigIyuXqE9PjIvEoR6QlT 6U8FjPrz6QFCqsVuqIB5dsT MnNSngYm5czUqrzRlaHL8gE TBpbjtw ITQrsJ1uKJIleQNppIybPN2 eJHLodgomf366HtGbXKI4DO QfvZGxH3QnyW6iSuVgYGRpA XClK0Zw eMOcJWwoZ205KHibEfP8DGX epgFvX3TxMYTkuOdpBcZ5n7 W2Wx42YBOHTWJndrmicEM+P HRkIHN0 yRjgNKszMOTtjB7rVHOtN4q 8KlAfTkW7BVtmV2KzPAFici dfXh92lT1oJoUhBaK5CVzbJ 6JorkL6 KZSvpHDjUXfiCUO3U48tq7U 4YLDxMAPiGTD8hLU9nR1kjH lnbjogbGVmdDsgdmVydGljY WwtYWxp O147VEVreAnoVhKgqGIoXHi vdGQ+IQMhZDE6bGsbKKnfTM UulI7gQIKxB3t4SoRsDxG0J StnT0Np AIWeonvpAc46kJ9aWyEkZlD 3ONiuG3NguqQ0RXZhfCMpTB dePUK1J16ah6P7IGRhUJVkL TZ7wKZ3 iN6taMbmnywykEKhhNwywxZ ajAatLYeiGEmkY726LAXnwA sbUs17yQSqnLgdyyY5S3MxP jwvdHI+ PC26ZYBhFF67eLLhjGGse1a kuBv5ZtPvNPElPTD4rDkvEO unn6FxTYLaH11wnSUwn1X9M GNvbGxh rDBiZhYdoSH7eN6tEPvgysj tw0ynqmmaJalnu1nxzj26iW 08P38jRMhaDQInLRNsJZKcS HZhbGln ox0ztS9nPr8+MFXawEY2aJQ 3xE6uNsKrCpZ1OGogQ933Vo TptILbHzfew4wgk8glxJg3M jIwJSIg isUmtYtgPSP6j0MnZe04S51 sIHdpZHRoPSIyMCUiIHZhbG rohw7zuG3zDl1+DT2ct0uxm t43aR51 dHI+QQJeTRX3wVsaUOknDZH gkW6iQMdpXtZ9RRJlMbMatH 92kPPgUCfaAc7csYytzNzcN C1qASPl zaksj747GsPpu0cqGUKosWR uLMnbCDW1Y69vo4I1GVBiGZ RrJKO2fQU3pF8pqIzjgbhfi GVmdDsg udVdzZtfOTsbQSfpN663EIK ogDzfBkCdwSKlH9omrgQFEX 1lOjwvdGQ+WFTaAKX6zAcoD SdwYWRk sK7bXHWtQ3c3WcUbMsW1RXb zQ7VxvrC6NQJvmHEcSBDjiT LTmQ0rywltd5oilqjxRrNlJ DAwMDt0 JDq9SDNjhImqWzBeAKG1KwE 3RSN5dZCpnM4tzNkenakkiK 9wOyc+RklOOjwvdGQ+PHRkI PF2aIrz HBrgSKUvsF1qOWLmI6t5RaZ qGjJ0PFkoH7SkiyK2BBRpkI GtPPHbfGXOyQ2qwiuqe9kac jogIzAw YVIaRSn3ROg4XDMynMpeQbU gNRY3AfR6PUA2xLZhbJ2ddG cuucrlxA1rQbr+TVJOOjwvd GQ+PHRk RMQ6kTtpLDpnSCZfsW3nPSZ eA5k3QyRzYcV2SCjsI4Anjt F8SRDkyDIlLENasUWJzX3jo worm2tu kmqzOjYrFZWfALc3DBs9BQF itVqnRfMoMIA9MaF9QAE3jM CvoM8jzPmnemumyZ0uXxq+U XC1BKK3 NB64JO90M1VkBupmdHMocSU +PHRhYmxlIHdpZHRoPScxMD UpRwHpaGxnUK4bHf5hSYVhF WNvbGxh cHNl (more content not included)... Normal [facility] Coding Summary.on 07-16-2022 Coding Summary. CD:[id number] Gh0 bWw+PGhlYWQ+EL6NRKUvK14 knJArzV1fQ3MTDCxGFdcmLY DVDMcUOjNftkAyYS9qoGPeY XJu IC8+BO9wFBYdHmkggMIga0W 0rKT9M59pru6lYXnwtVY4PJ DsBjWqtnpez3dcoIc6BGiwQ mluOyBt LERldL50LBT9jF70Bm74yZB diQPot9tzwJk4FeUfSYDoQW W5dAacDKppw2BpYQBjB64yu MCej2D9 ODSnqYzqyILkHgYilPO7gI9 mMQbedqxwm0mspuavNqm0hp 70pYMxi3Y5rDQ8A6WufmV0T GJvbGQg YceavKSUnM1jhcgrq5aoaxi xOtAxYWZnVOh0KSu0DOQhyW xfQjTtCP70LEQ1TKKvftLkR 2FsLWFs kOohFgV3e8S5Xe7RI4BWHzv wP8QJIVJBWZrzjOP+PC90cj 47O8QjQckrQuq7ULGiYTV1x XD2lD3e DSIyDOukb0A7dMS3W3GwtiQ kli6uj5jeBPMfSCbqY67skZ Dqm5R7HJWgfEK0IQFibEbkP iBzaG93 Oyc+QFRlcWtey2TzCkvyf9w th1bvlTe7WcevYTWbvmPwuR coIJF7b9KcNq3aKNSgbUS1q KF7kO7f AaSsEpC0FVlrF589EiGngWD uTuukZ54aT2WweQL+PHRyPj v8SOAayAqaVG1tX2DxUDMvu mctbGVm hEouYJ0lSLXqvlsyPVYcsW7 tHPVtD2z3MzOqRgZ7YYflR9 SrBMZzcbpjFh77mG4mCrReU rM5XJwm Z7LkdwT0KYWiyLPsSCucRGK 3R92po1X8JOTxXDOhHTH9tG R1mC0mhEwzgabnxDCfiKkkt mVydGlj NAzsTYyxW504SZBbfLkbDbH vZGluZyBEYXRlOiAgMDMvMT UvMjAyMzwvdGQ+MIYvBKO9x WxlPSAn kIYmPRcnNx9lzDyhfSwzDQ3 yAJMvxiytYYNoxY5wRAGriD WdfGvfBX6fYEQnsubaa080R iAxMHB0 GHKifZSxT0PzxQ6jFoGfGAT cFGOfF2WokXXpSWvrJ859IW qlUpQ2CXPnrzEoC9VeCYTua WduOiB0 x4X9Ot6Vt8DcjkgzG5RkhMB vXgGuOtkvGVo8R4MaKztlgK I+IA75ZLFaRZ06TQs6AUO7l WxlPSdi OGPkD6BvgV8jIoMjTVFhBBI kOyc+PHRhYmxlIHdpZHRoPS kwRDOcAiUkeVsvPQ9qQl6yF GVyLWNv hSnabXRoOfZyo1lgGXKcPPp sUF9ffOycZ6DvbSS6SQQnt4 x6My92I41hY2CkxDP+PGNvb ZD9zMH5 yX0uWfCfVwT0YQpwD988YcX yxCCgFxxrz6kfq0regBl0Kj X4MRJkvkMkdGzdHBJ2n7UpV x97P21p IHdpZHRoPSIxNSUiIHZhbGl wnj4xoQ3yVo9+OEIafVW5dF X4dD5nEyLtLkT2GHvkV533M nRvcCIv Xpymo6ksy6karJm8XiEbXKV rbmHtyLgaIEE4b8BqAa25E4 PxrRfvh9MyKge8ly71qYRux 3G1rUM9 O7AxFOQiwiusqUMkgWlkXH4 gVJBtfvtcFLQhtT1aIVWyJ1 n8GxEcMyW1QBdxF2VaknJ2U GJvbGQg SKAmsJSAqC5evffam2kmiyl iVeKhASAxHGl1BRx3FYMavD jxOoXfONS0EsO3XAV0kZFig X4gbQpr mpfgeB3bUwc+RGT3hGUjyWK SER1nXvedsVW+JQJjAGQ7lK yjGTqfWTHyoE9mXEPtE1o0P iAwLjA1 TLhkR9QwzxS3WCBfgOTjAON sdJWGyU4eiutht5wnzqorUt TuCRWnKLd3ZSm0BAAyaPueP iBsZWZ0 RsD8RMY2tWQntR9hjZapipw idN3kYcz+ZsknhClaTYY5ZO c2T1XvVgt6HVQxlShnZA5xf GFkZGlu Zb7skQxkwLkmRY0rFNEfszt yd745FgApa8isRFZhgJWrLE bhOKX2M29ea6E2KFOrVCOtG HN3lMS0 bB0cnJeriwioaVTzpXagvmR xvXcbQBvtHLzpM905DRAhzM uiEoVkNNe5M2MqLlx7TTDdd RrpRV9p nBDeJEjbQh6pqTyshEupYU2 wMOLnivpii143UaSxz0leCG RffSYsUTmjYYJ8H04ms6V9A CMwMDAw MZQ3aNY3aP9rxHttyscehFJ mdDsgdmVydGljYWwtYWxpZ2 07WPOasJiqDoBuqGg1W0EzF sw7ERBi yMkgXA4qlBFfQXgqVz6ohIm rgUomCW7xDTRvffwin076Nm Qqz9zpNDWrxPSzYJghQPJ1R 47qa0N2 JZBrBQRcVGN3rKH4nI7goXa nbjogbGVmdDsgdmVydGljYW aaIGivJ404QBWrdHkhBzBuo GllbnQg ZUkqSDo6O9JpVaesgRH+PC9 1ZMSxNI28tVXiaMHkd4cdgB j7TaQaWLQrLKY7dWqcLBnvx 3JkZXIt X70zbNXzn0Q9WREsoWbgaZV jJiPofTJ5yH9lEGnfdhdde0 sajaazYygbt8clyt06jM66U 29sIHdp ZHRoPSIzMCUiIHZhbGlnbj0 jvC8dKe3+AYNaxBT0cNG5nQ 8zZVWuHzP9LLptI066ZtQyy CIvPjxj w6hdd4zayKj3IfS5KXOiboB ruLjzUAD7r1QiXa01E95rTH dpZHRoPSIyMCUiIHZhbGlnb f9feZ4k Ii8+OVBnzAR1nFX4nJ5wFnW aRdM4EAxtV067UoZxsIPrYw dkN18kD8HgeJK+SUGxJjg2U CBzdHls HV2qjREjHOfkZk6xWKG8XpE tBeKbDTekT2HjJSFjhwcrlf pgcLE6NLDlZCKhkQ87Ld4qy DogMTBw qEZWcB6ipsbpm4uivpzcWmC rWYWoCMx0LOc4KIOqyOdrGv KcKGZ4XmA0ATQ4yCGmhO9fw Glnbjog xB5aZ0LzAQLokyvtXp12qA7 pNiXuVjM1PQhsOmi+WlVSQS rfQXVEP2huCXoggUD+PHRkI CJ2aTie RNecOHThsU1kHYCvL3j5RtF yDoQ1DEwdA7AmAPWzuwbpHs 61fX3iFjEjBaI9MNwgZ5Nkx jP9ZQYe tFAaQUdbZCK2Q92yj3L0HYD rNNUgFQB4lSY5vM4yfHgavo ogbGVmdDsgdmVydGljYWwtY EqpG541 FGHffVveOyY6OqYhAtM2LqX 5N6ZqXvh2EGSusXgrWX9ixJ RmVFyfGy2hrZhxlQsxWB6qH TBpbjtw PDMarT5cUOZavICxtVelDL2 tTOYvkeilt405MuTaHUF3MW GqcMTbE1ZtdR5uHpQwSFPgO IQeF2Aq uJNeYMvqY620STuyQyM4UDW cniGrE5OkGXDoiJalKoU6u5 N4Fg19FODNSZOjzfcjmUA+P HRkIHN0 cBfsBUxuGWDwkQ6uUBSyQ0a 4TiWkAlA4KIjoM6FdRKXjxo afBt31jL8vSpYpPcS4VTqbE 1PiinT5 DUBvqPZjVTjsBJA1I67qk4C 4TIMrOVYsONG9sPO0pX7qiJ lnbjogbGVmdDsgdmVydGljY WwtYWxp F008CUGfiCizWaMnuJYyFPo vdGQ+WGXkCQN8xVnpLUiyPM NdtO1kBXMoB8j4HxKqFbZ4Y NyuC6Ot EGEgjllfFi77lE6xIhHnJiU 3PCjjT2RcoeX7YVPbcIXfSH mcSEH1E27od8J4CLVdWYGxY AL3hTU3 aF5gjYdbnukccPLbxXtoxjJ etIkpACawSMdlA339JOLieN lnYe00rOTfiIvdurI0E7IdL jwvdHI+ EV78ZGEyPX91nIEqmZFpl7c bbYg1GbPtCAAcPPY6eFlvZA bfn4XkJGErK66xkVBlm8F7W GNvbGxh eIVlNyTwvMH8jF1qAZmcuqe of1afsvbmDfdbw7vrhd68zB 76X96aMQojFIMdRROrSIEdO HZhbGln vk4ujU0kQb8+DBZvqTN2zXD 7qU5rRiXpVqV6QDciP698Yd CnpNWfHfvgo4pzn3vgoIb6T jIwJSIg uyLqoHyvKHN3m9IvZb11Y78 sIHdpZHRoPSIyMCUiIHZhbG tfpj9qrF7zTy8+UK0ie1wck w59tO58 dHI+ECVhWIW9gJwtOFulQZR rxL0vQVpbKkU5REUhFaErdG 91oYQwCXliJa5fyMlzmRkcQ G8dCZIt sllel118KyKkb5tkAMPplJS nGWzfZSI3X31jn6N5QLBsIK NjSBC6fLI3dH0mbCiezvaxp GVmdDsg taNsoIfjYSxoTIvrR206PJD kuIrkVzHxkTEiL1zvcjUKXF 1lOjwvdGQ+LNDuWQJ1jKcnT SdwYWRk tP7hMFAeJ1v2MwSjHuJ0WBv gT6JhgaK3ZEUhhBSpZKGycW LEaF1cgolge2qzbqnuQhVyV DAwMDt0 YOa6ZBFwkNdfAoCgRPZ8QrD 8NXQ5aHGzaV2vtOtpcrktrJ 9wOyc+RklOOjwvdGQ+PHRkI TH0tLuw OUpxTLSozS4dOQCuB2m6DmX fBgF8WGioT7ShxzU0ZUKtzD DbSHOztUKAhZ7uvcjqv6wxs jogIzAw LGCvNCp3ABs9TWJnoPslOwX yQWJ1OtG7JGZ5sZKcaQ1exF epncmtsC9iCky+TVJOOjwvd GQ+PHRk SIH9jJmxSRhgNVBaeR8uJBZ cB9d7UbKoRaR5GIjuV5Sfsk Z8UHZfpALaNZZjmRLUeU7im ckxb5th sbmuEjHcMAJoBLy4WQr3CGX gjUwaSaZeWIG1EbT4ROI6lI LymJ2juLghfwlcsM8sTju+U YT4GIY6 GJ73JQ07H5VrGiqsjXJhdDF +PHRhYmxlIHdpZHRoPScxMD GkVaHrgClzKO9sVl6mCYZvU WNvbGxh cHNl (more content not included)... Normal [facility] Consent for Treatmenton 07-02 Consent for Treatment [id number]#1.00C D:127 Normal [facility] Heart and Vascular Office/Cl inic Noteon 07-14-2022 Heart and Vascular Office/Clinic Note Chief Complaint testing f/u History of Present Illness Nitin Leonard is a 57 year old female patient recently seen by Dr. Renteria for further evaluation of dyspnea with exertion. She was referred to MD by her boat finisher. She has hypertension and hyperlipidemia. She is a recently reformed cigarette smoker with 33-[id number]-lvxv history. She states since her last visit with Dr. Renteria she quit with assistance of [employer]. She was ordered echocardiogram and stress testing and is here today to review results. Stress was negative for ischemia/infarction. Echocardiogram shows normal LV, no significant valve disease, normal RVSP, diastolic dysfunction. Since her last visit, she had PFTs ordered by her boat finisher. I do not have these results at time of exam, but she tells me they worsened . Sees her boat finisher next month. She has stopped smoking and feels that her breathing is improving with this. She denies any real chest discomfort. Review of Systems PHQ Score Initial Depression Screen Score: 0 Constitutional: no fever, no chills, no weakness, no fatigue Respiratory: Positive, chronic, improving post smoking cessation shortness of breath, no cough, no orthopnea, no wheezing Cardiovascular: no chest pain, no palpitations, no edema Neuro:no dizziness no light headed no syncope Additional ROS info: Except as noted in the above Review of Systems and in the History of Present Illness all other systems have been reviewed and are negative or noncontributory. Physical Exam Vitals & Measurements HR: 84(Peripheral) BP: 124/72 SpO2: 93% HT: 60 in HT: 153 cm WT: 97 kg WT: 213.4 lb BMI: 41.44 General: alert, no acute distress Neck: Supple, noJVD nocarotid bruit Cardiovascular: regular rate and rhythm, no murmur normal peripheral perfusion Respiratory: Lungs CTA, respirations non labored Extremities:no edema Neurological: oriented x 4, LOC appropriate for age, sensation equal & normal bilaterally, speech normal Skin: Warm, dry, intact- no rash or concerning lesions Cardiac Diagnostics (06/12/2022 14:52 EST NM Myocardial Spect Rest/Stress 1 Day) FINDINGS: Uptake of the tracer was homogeneous with no identifiable ischemia or infarction. The TID ratio was 1.07. The ejection fraction was 74%. End-diastolic volume was 76 mL. CONCLUSIONS: Negative Lexiscan nuclear stress test. Overall low risk stress. [1] (07/09/2022 11:28 EST Echo Transthoracic Complete) Interpretation Summary Normal LV and RV. No significant valve disease. Normal estimated PA pressure. Abnormal diastolic filling pattern. [2] Assessment/Plan 1. Shortness of breath (R06.02: Shortness of breath) Shortness of breath that is multifactorial. She does have known COPD and has home oxygen. She tells me her recent PFTs showed worsening of function, she follows up with her boat finisher next month. She does state that her breathing is improved since smoking cessation. Her echocardiogram shows normal LV function, no significant valve disease, normal RVSP, diastolic dysfunction. Her stress MPI was negative for ischemia. We discussed potential causes of dyspnea could be obstructive CAD, however, as her symptoms are improving, her noninvasive cardiac testing is reassuring, and abnormal PFTs, will hold off on coronary angiogram at this time. Offered to get a CT coronary artery calcium score. Patient declines. She will follow-up closely with MD in the office. She is on aspirin and statin. 2. Hyperlipidemia (E78.5: Hyperlipidemia, unspecified) Reviewed recent lipid panel. LDL is significantly uncontrolled. Recommend stopping simvastatin and using higher dose atorvastatin. Check lipids in 6 to 8 weeks after making change. Ordered: Lipid Panel 3. COPD without exacerbation (J44.9: Chronic obstructive pulmonary disease, unspecified) She reports recent PFTs with worsening function. She will follow-up with her boat finisher. 4. Smoker (F17.200: Nicotine dependence, unspecified, uncomplicated) She has quite smoking since last visit and her breathing is improved. Orders: atorvastatin, 40 mg = 1 tab(s), Oral, Bedtime, # 30 tab(s), Refills(s) 5, Pharmacy: [facility] #[id number], 153, cm, 07/14/22 10:59:00 EDT, Height/Length Dosing, 97, kg, 07/14/22 10:59:00 EDT, Weight Dosing Follow-up With When Contact Information Myra CAMPBELL, Evin Pearce Within 3 months [address] [place] [address]- [phone] Additional Instructions: 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 Problem List/Past Medical History Ongoing Anxiety and depression Asthma BMI 33.0-33.9,adult Dysphagia GERD (gastroesophageal reflux disease) Hypercholesterolemia Occult blood in stools Smoker Vitamin D deficiency Historical No qualifying data Procedure/Surgical History Ablation, Closed fracture of tibia and fibula, shaft, Lumbar discectomy. Medications Advair 250 mcg-50 mcg Powder, 1 inh, Inhalation, BID atorvastatin 40 mg Tab, 40 mg= 1 tab(s), Oral, Bedtime, 5 refills Alba (more content not included)... Normal [facility] Comment on above: Result Comment: Elec tronically Signed By: Candace LOPEZ CNP\.trever\Date and Time Signed: 07/14/22 16:02 EDT Progress Note-Nurseon 2022 Progress Note-Nurse [id number]#1.00 CD:127 Normal [facility] Consent for Treatmenton Consent for Treatment [id number]#1.00C D:127 Normal [facility] Pre-Certification Formon Pre-Certification Form [id number]#1.00C D:127 Normal [facility] Stress EKG Tracingson 2022 Stress EKG Tracings [id number]#1.00 CD:127 Normal [facility] Physician Orderon 06-18-2022 Physician Order [id number]#1.00 CD:127 Normal [facility] Coding Summary.on 06-17-2022 Coding Summary. CD:[id number] Gh0 bWw+PGhlYWQ+IV5YEYNvT23 yqWQzwX6OY1aWXV6KHYMZJX JHOJ6IIZ5cuIQ9UPxsN2Shn iAv PxgrfKMyOT83KPv7VDB1yVn yEHwlmV6ojJVuO7a8EiMbBZ 30xD96UZhvZNJmNaJ8NuCxu jsgbWFy K1xcThNssICoShw+PHRhYmx lIHdpZHRoPScxMDAlJyBzdH toET2uVr7iALOkTTSdqLnxy HNlOiBj f3tsRMPwBMwjIE1hxLqgK1I lgLP6YGUve0j3Wt94tJC+PH QtADW5sYodLIanw378AgBhd 7zlCYU7 lERmPNbkOTV1Z19di0U3GRH nGVAzZKG6bYM8oV2fhHnrbi giQ4BrxJUgVoO8NNU5uSHjo U5yqIva rmdikN1xWcp+I41UDW8KHNP PFX5OJez6J2RzMqnqbGB+PC 90RROrYP93mCMowFXaw3afg Og8PzVi XSEoEYS8xFmtQPkgp0InHVO oT30kfIHpc7A2GECycZpafB ZrEtWdxMU9kH8iFWhuxkwox 2hvdzsn Oqtna5iaam01nX34P13rTAn xDZVyDYE5NMQrXUBhgLynom 4axV5cUb6+TXdka0ruq9oto Jy6ViKc JMCudvNdbNyhSHH2l0IqYk2 5K8LciLxdq8DkHei3ov74kG Ank8M2rMT7CUjbKAAmgV4bH WxlZnQ6 ZYPaCgQbfA64pEIiGIazVe9 khNpevEnfVE7gVSRojxuhLT TezS9oSASujQLdkXroOE7jO TBpbjtm z735AiCzHDE0GUHnpQJtB1U ryC2qEoUqPILhDDJuA3YtkW TbORhsW677LMjbAgA5RJMiy xMmV8Es WPSvxRsyFrV8l4P4Xp4Hb5G yqsgoUVE4KNjiTJIpWeC1Df SqAcC6O2TzFpb2OBBowNxdS M1eF2Uq AUSibbubtvsmjUV4ZJXcKXJ pbY64lBDdSQsnWn5fv9P4w4 96AYFhNEVtuX26Fd4wiZxjU TBwdCBU gC0vnnjrh6yztiieBuZrMRN hVTd7APj0EALpxGqvWpIkJV O8EvZ0FQS0nOOtgZ4wuWmam kgtgH4o Oyc+O73obM7bBVB6LXV7tjx nXQGilyEaYR20CB43F9OyNd wvdGFibGU+PGRpdiBzdHlsZ Z7wOoLi u6nrf5XnYJtzP9SoBRFzJTk fAxj7FJKwWOU7bHR8jB6gQY BaNQcyf0Y2nAJ9D1FdjcDim g4hm6mm TPAuQFlbI98gsWMdx2F9OBH qfEP1QUJgnDkrBvGztM20Cs c+YEHeiQmzg4JpLyghh1fzh 0sknGt3 EwEsHOFpuoDqhPfnFBZ1i0H dMz81U11rQAdsWXItIIIrQH ImFAQlaAvclq2qzV5zZh0+P GNvbCB3 zRL1nH2iFOXaKpK3ARihW79 5VjRqvTLeQsyig9dsp8oovY n3CjFkYZOuaeSixJklGMW7b 6HyBo79 Z46gBMxlLCSiOEEgILFqSPH prIaoyd3dhY0gFi0+PC9jb2 biys28sG41qBJ+LGVgGHN5f WxlPSdw THXzeA7fXIaaQcB0YUOcYjG wrX74mYJtQLubSu1nwMqjnC okPY1lMGXfptaha183FzJmw 2xkIDEw fLNkYYqdYQS7P84pp8T2LEB eSYIrJVI7sQT8pY6rhQjdsc ogbGVmdDsgdmVydGljYWwtY PwvJ953 IHRvcDsnPlBhdGllbnQgTmF cFPh3N7HmIkx5TRZmnQfzFA 6fsVPlIOtfXh1dtTexbFfrH S1pBMMh phvry107ZuDqd1rfJGPimWH lQUxwMEW0T68ij3V4FICtCB ZyTHJ1mZM9yT4nhQwzrfpws GVmdDsg wzZkcTqjBMbbDNdeY559GEW qiSbaAvIzvwQqMLVmmDU4LR 30TU03vJNyu7U6aME4B7NhN GRpbmct azazcNN2WMWmIJPwcG63Qb9 ygYdiNr6jGSIjACG2NIZexK DxF3MniV0sFdVrOLHvXEEkA 3RleHQt AWkxW720CUtgScU8IJZmdrT hK5YyZAJhlBzsSpP5m2N0Ko 7RA0T5EU41OX22vIXwp5N3d UP0N2Zz RYTahvhhtitqnIQ6ZBFbAQW tcG81Qy9mvPzfVh0rERIgBU D7PFEokZVpB4LkaK3nNqKjY DAwMDAw Y8BrgWPhYDiqO615NUaeMcZ 1OUHvfpRuD4DtGMEylZqaZs Q3j0K2Zg5PZCn2PN59VU91m QGmc9G1 sCI4I3TuCYWtflpyunqsqOH 8GYSbALKrhR94Ja4ayNhyNl 6sIUTnHOA2EYSenYBhK6Pyx G7jMyUl NOKsXFXmI9TphKFiTUtcM99 1FGfaMvX3EVDaeyEsS9DhJD MwrUznSqQ8x4L2Lu2ORLYbQ Y04HEE3 xNT6LH26CH63M0AeLwhnqYO ibGU+PHRhYmxlIHdpZHRoPS guKCOaCoQtmNwlZC9cXd8kF GVyLWNv lZoohQBjSpUvs0qfRHKaBSv bGH6xuUjrI3JghYK8DYCap8 d9Mg68T66vS2KuyFI+PGNvb SN1sUE0 hQ6iJyKcInH5GHpeZ409ZmM xhGPxNnghk7tvu8gehVc4Iz X1ODPmcpDjmZmqCEF1w0QiV z95C47j IHdpZHRoPSIxNSUiIHZhbGl lme5awP2sMw7+CWKfzSR0dR N5mQ2zAfBeLpJ4LWpfE910U nRvcCIv Ebgsb0xwy9onjRm9BqKlTGI iijDitLjeFSO1z7UwUc06I5 JlyOrob0IlXkd6tf99wARqa 2T6kXZ5 U5PmPDUjgatgtAGoaXfhMS7 wUVZgdpgoMSKkoP3jCQIkX5 r7OlOpYiZ1AFdyJ1JbjpB2Q DEwcHQg QTsvWKO3R12si9X0JGTcGAE zSLD9zMD2bG4lyVjbmyngqB VmdDsgdmVydGljYWwtYWxpZ 246IHRv mAnfTWAknP2wANGisOZqoPg gHW1gNQXslrrfDvyFPkHpED VXE9kRSTx8E8FvQiv6BOOnj QffFF9g vYLhINawPb2sbZxnmRtoUJ7 vDUZenhewWATlnL6fVHUeuW OyqGpgJL8xZAGlzjdii820J iAxMHB0 YPWzyDGjN3WdzK2zFdMmJDA uXGUxJ7ZadADtQOggG504MW xaDbL8HZImyzNsA1IlJSLll WduOiB0 k2Z1Gq7iWZ9bJw0cNIM3WI3 9JJ23wBCbf4Y3lGY1A3NgJA DewlknevzzeGV1WDLiFUCmx Q63hIYl SGurUg3mn3M0c503EJXbGRE anE67Kr7kqSwtHVTpeIEQuT 2cvoafh0seozskZwMpSJXcE Vu8TFr7 KQEzyRiwDgGzLDL3RrW3KNQ 3tUFtzG0pwHaqwtdtgO1iNz c+XRppJDUayaC2A6RyVxe9W CBzdHls FQ2bqARvFUdtRc2kpXxqfVb zCL2pBXZazblwZAKewX6uXD BsjRNgvHelGN6dVYXofwsdm 250OiAx KEE1LTKmkCUeE1BqrO9zVsY xJNKvVGPqZ1SfvJLlNBrdH5 53AUpqNjO1RELficHrC7LtE WFsaWdu IqR5l7I2Ug3GTU9xrPL9O3U ySxa3ZENvvHijJA9gcPHtTU lqUu6rxWobrDlcIZ6vGCIrb jtwYWRk iI7vCRTodROjiVouDM8jEYG uicddy660XgKfJDL2COSssD SoP7WvrW2mOcTtBQEzVOXnQ 3RleHQt GBqyE980XFauSuW2ZLZjayM hX0SsYMQkhBscJoN9f0R3Mo 8ElXCkKRKsEJ88OZ89MC41X 3RyPjwv dGFibGU+PHRhYmxlIHdpZHR iGFyzVMDzEuUguNbxRF1iCi 9yZGVyLWNvbGxhcHNlOiBjb 2xsYXBz TJaiPV7vfOtfS9GuvTT0OSI hq6z5Wq13Y45zB4PgiES+PG EihVS6kOT2uU8wPsXzOxK4V SuvV173 JpNjbJVbVxkyd9yrh5noiIs 5KwGqUSJebiWwkDnuXCY1d5 RnMp75L64xJIfaQDOvFDYgS CUiIHZh dWetye2apT8pHr8+PGNvbCB 1dRS7iS6iDjDoReG2AOpcT1 76BwRzbOPhAoheG97rB7Msr XA+PHRy Sfg8EJDviAblGA7mkHPlJDa xBy8sRQT7OoBvAaAwMVkzV2 BlZJElhvmxrhqotTY9DAOzD DUwaW47 Zk0jjPldUr1yJDXsVIY8JQK ubOHtP1SvfN1wRkUoYGAsRV AcI4OaoWWeKXsvA320HTiqY cQ0OQPz rvByB9KpFYGnwDgrSsE8c4G 6Rz4VgOpoySFmMY0xOyIbSE p2D8KxJtp2GFXomNtbVV2vj GFkZGlu Mi3uvVqvkIzpCH0oWKNflnc xc732AhKrs5hrVSNqcPUsSZ xvNUK7B03iy6E0SDMmWWQwK PS3gWO5 oW1blLyxmzsnyOZdvOyxlpZ snNzvOJtqWXknX451XKGfcN efOcLIQji9L4KnCur7TIKue BooHT9p gZNiKNdjNt3abEepoUxaKP7 zGTOjgpmyy691LrIds3baNV ArzQYtVGioJAS8M63dy4O0F CMwMDAw KXB9fHQ2yM9fiDxioglvqBT mdDsgdmVydGljYWwtYWxpZ2 91LYUngGbuSn9NVey1A4VzU ty9NGYt fBxsLQ9wrMCsULgjCr5yuCr bbYtwEA2iUDHfuuams591Qh Ogu1crFBVawMVvPUbjGTN6W 22vc8N1 IWCkNIKnNXF2aCF7sF3njRy nbjogbGVmdDsgdmVydGljYW suPFrkV262ERIaxGbjJrEkc WVyOjwv dGQ+CG88eh33A2EpGkzeWid 3NERaBEA8kFI4tM6qOKZfUQ hdb1L7mWS8F7QjbvBhwx1fe 2xsYXBz ZTog (more content not included)... Normal [facility] NM Myocardial Spect Rest/Str ess 1 Dayon 06-17-2022 NM Myocardial Spect Rest/Stress 1 Day Exam Date/Time: 06/12/2022 14:52 EST Reason for Exam: R06.09;Chest pain Report PROCEDURE: Lexiscan nuclear stress test. INDICATIONS: Chest pain. PROCEDURE DETAILS: The patient was stressed according to Lexiscan protocol without event. The patient had no symptoms. Heart rate and blood pressure were appropriate. EKG was sinus rhythm with premature atrial complexes, nonspecific ST-T wave changes. This did not change throughout the test. The patient received 9.8 mCi of Cardiolite for rest images and 26.9 mCi of Cardiolite for stress images. Review of raw images did not demonstrate motion or attenuation artifact. FINDINGS: Uptake of the tracer was homogeneous with no identifiable ischemia or infarction. The TID ratio was 1.07. The ejection fraction was 74%. End-diastolic volume was 76 mL. CONCLUSIONS: Negative Lexiscan nuclear stress test. Overall low risk stress. FINAL REPORT Signed (Electronic Signature): 06/17/2022 12:42 pm Signed by: Yanet CAMPBELL, Stanton Bautista Transcribed by: chelle Technologist: VARUN Technical Comments Rest Dose (mCi Tc99m Cardiolite): 9.8 Stress Dose (mCi Tc99M Cardiolite): 26.9 Normal [facility] Coding Summary.on 06-16-2022 Coding Summary. CD:[id number] Gh0 bWw+PGhlYWQ+XN3PPQAvW50 ydFBhoR7ON9yQCG1PYHPDYD MIGG1FKL1ifKD7CNfoY3Vbi iAv XetimSUkRR32TQb8YYN2yMz xWYqtxS0rzYKgM2i9NsUiII 64xH34HVtuAUSdApF1HcKng jsgbWFy O2zjPtIypQMaLes+PHRhYmx lIHdpZHRoPScxMDAlJyBzdH wuSE0fFa3kOYNlHGAoxOoqd HNlOiBj v4bpIVMeHQrfOG1ycUnvO4F vbXB9XYTon2w0Vh54sZA+PH XzJON6wPpgHZsqk075EvDoj 9dmNWR1 bUErSAqsEPQ7N48ds4A3YVW eQDYuNGI7yCF7wT9shQazjs ayU1BkfDAyAcV2TSA3sDQyd J3zyVle jegntG9qCtl+G81XDK6MDNU UQP1RMaw5C1VuWqrrnKD+PC 90KSGiDX08bBVleDXqm0qel Dd8AeGu WQZuSJP0eMpbNSlsl2HgOAD mD59geYJsq6T3ANSjgCtjoC GnJjJicDE4rF3iDRhpfuyoo 2hvdzsn Whnts0ftah13rI62P39kVVp mMVNyKFB4WDIiEYZgfBtypq 9txM1tOe3+PDncj3aul9cgp Ct5SrGn LAMszlCqbFfiJIS0d7JhJv7 0V4IqsWunw7IcMdh6wv10aW Kwx3D9qEH2YYsnEQRxaZ6bE WxlZnQ6 JGUjBhSkyF73fWCzVUndMp7 erQigaBcbCP7kWLBbwravRN QaeS6aKDPijCYliFuiPU8qB TBpbjtm a009JmZjSIV1LVJquPCmR6H yqI0wAcTfSQSwCAQmU8XquJ EfGSvsX529YShrXpP2UTKmz tObI2Lm OSKqjHwoGhF1a4J0Ft9Lx5J ioqxtENU8MEzgTJTgOfIiTe RcArQ0C8SpMtf5JAWoyJxlG U6hA3Jp CAHnpjlyuprjfWH2JQQpGHC xfY33eABqTFobUx4at8X7b7 88LRQjOZTfwW08Rm5ggNewI TBwdCBU fQ8oyzzaa2mlzgpnXgQqNQS kVKo0NEr2CHEgpDlcBgNtXC Y8LoE4VGP7zWIgoS5vmFnrl iayzB7m Oyc+Z03iaD1nBAP6EKV8lew bZKKgruKrGE47PS45O3IxDh wvdGFibGU+PGRpdiBzdHlsZ P1zXgWn e8xjm8FoNQnvO2AfUWPbIEm mHvn4YSCrIHT9aEB2eM8pTR YnCFezs3G0kTO1W1CmowYks u7mn8xf RUHjYWxdB88apJCbt7P1ZKV ckGC3JUCbqNecOhVuuK77Gk c+ZQJhnQshe1AqVjsqy9jer 2ulvGk8 HeCyMRTfrkKutWttRCK1w7Y xMl58M01jENutOGMhQBFiPC QiXMNgaLecdm0lzG9lWt4+P GNvbCB3 mME2uS5mASMrWqL6XNwpB41 8AwCmzWJkEqgfg4weq1vpjM o8SeDfXTDvguDphGgyPSW0j 7GeIx90 J69lQOifHQHnZBJeDZEdIOX xtGnycg5koX2dEk2+PC9jb2 ngzj41eS78yRA+FCRgYEO2z WxlPSdw VINgaB6vFLctKlX4AUBiLkH fmE84wOZhTIpaBh4sgUzmwP aoNQ2wGPWgvjear495VdQeg 2xkIDEw nEAuTYlcLWI1V74fw3K1TDT gWYEfPPX9tVD3jM4stDpikd ogbGVmdDsgdmVydGljYWwtY PooI629 IHRvcDsnPlBhdGllbnQgTmF mYAl2K0LjHpf8FTHkvFsjXK 0doQAgPUwjIy1luMgsqMmyQ K8nDPXc ldbit487GpKqn7ueMIYzwKJ jTBvhHIU6I76qp9S9MLOqFI NlHQR2rUT8kX1xqLpvsnlvv GVmdDsg wdUfbQnmACooIUgmR378KBD gyMwzYkJajkRyEZPcpCV5MW 37CN97cBYgp1R0kTW5G1TtT GRpbmct xzuegNJ6ULIiJHFzgS79Ob0 keSrmOy4dOBUfGFS0VIAmmM QmX6FooN2iWcOkMTIqXJHkZ 3RleHQt CUzhW241HZwsBmV6PYBiccE vP7GkQSZekBmfGxO1a8B8Bi 4ZY2Z4LM68MT33wXSfs2C7e UO7F5Ku ARZyqzqrstwfnXB4VSToBZP kvH31Zn6gdDquFo4bGWOwGA W2JXWgjDRaH5CvnQ4bRaDpO DAwMDAw E8WunLDzTPceA556RYiuZhE 8UNNjvmFhQ4NxKOAvhMumIf V5u3M7Sy7RSEy9PY40ID13l JBbl9O2 eHJ5P5IqUEUlrgcvdjjqtIA 0BDJmHDCweX12Po2kqFfnQd 5dQDOlDPD5YGOuaPAsX8Xku P9xPlPf WZUqSGNdA2LfdEGjPYkcC01 0VYkiNtH3BTAeagVzE5VjFJ NviYwuIhC6p0A1Hq4PLEDeF X03ZQM8 wYE4WE11LM88M5EjAbnimRP ibGU+PHRhYmxlIHdpZHRoPS inFXZkFqGsuBjdQS1aEg2bV GVyLWNv iOnroNEeBzOcv3lmHBKiZNt nEC0skDlnK6YqnIP4ISFzl6 x3Ev06M08gS5NziUK+PGNvb FA4eOK8 yI0rJnFiCqC0TRpbB357PjY urGStRgpup1ggv0xngRl9Hs H2WGCfstQleLplXTG7d0QgC p22Y04f IHdpZHRoPSIxNSUiIHZhbGl rez6mpS7iXh0+SIUxoXW2lZ X9hJ1aDhYlFvP0OUzzE616O nRvcCIv Ighdd6czf4pzaDu1NxPzBMM dvaBzzRjaYIK7f4WvQj65W2 PzuJdqu8CnGjm7qy08dKHar 1Q9gFK9 Q7MaDQIjwkkdwTWkgZwsTN6 sDWVjnnipUAHydN2rWEZlG9 k0LtZiGyH5NZezE1EiibC7L DEwcHQg MOlkPJQ3C44ox5J0MKRsTAF mXFH2cVT0sK6awCmcicyiiR VmdDsgdmVydGljYWwtYWxpZ 246IHRv pBtmXQUsnU9qAIVbpJGbcZw fPI1mJRLybcjpRmnRFoMiCL YJD1gPPAw6I9PwWwl1XYSif BnaZG3a zBTzKVvrDq0yzAkidNdzRD6 wQIVkzjlfYQMndO6wVVSfoF DvjXngJD6bZWYrdqmsy508Q iAxMHB0 NNJmoAJyC6IygS5mLpMxKKL uXZYhM1NcdUMdUQseZ465TY qmYmW3EEYmohOjA9KsQEYlj WduOiB0 w6J0Cb6lSD6sEg9bTSY1BX1 9CW05nLSbj6H7lAL6H8LdGN BgiqmvkrluvPS2ZHDtBRBrk E56hGDo MKcwSu8wk8X8u090BLRvPDI uwU60Ol2zqEraIDLvtWOWzP 5qnxvgz5ofrthhWnRkKCVaZ Pb5QUn7 SREyvDpaUxGpRGJ6YkT3YNP 9zKNlcZ1anNoesgkqgR3fZg c+NLwfCKWgcyM6H1ZmKxx9A CBzdHls GX9foBShMSzeBu8ebZvjkDd xTM4tDVIcdnhrCQHmjS5uSY MbnQKfmLleXH9aMACuxcsdn 250OiAx GJU0RGTxgNAfB1UetK0aWwC hZYYwRPPsB5CnfFZkJXbqD0 45JBkbQpJ5PTXxjsTjC0CwW WFsaWdu TlI9p9Z7Xy0XGR7lqCO4E6M rUry7PSCncLpsIH7wzWZcOR yuEf2uoCrhbFufDW1sCVAxn jtwYWRk zC4xYELocEPxuXgfEX9sFQF gwciwc451TlRpODV1KMHkaV BxV7VnzP5eSgRsZCMyUWXdE 3RleHQt FYjjZ632GDghKqX5GKRouyZ oR9UiEDHpmItcNgC7q8I9Jh 2QtMZnOGGnTY20OK94TP59D 3RyPjwv dGFibGU+PHRhYmxlIHdpZHR uWTflCTJyUtThiTunSG0nKt 9yZGVyLWNvbGxhcHNlOiBjb 2xsYXBz OGjmDQ2ooCouG5YtbSN7RRI zs5x3Pr16Y40cE6KtdYJ+PG XlmDN5bGI2bL1lYfQjWkJ2T OhvW028 BjVgxALxSqhpj9zol1nyrBu 9QsQpSWFkicSlxGggISF9w6 PcFk42G63dHVkuAOSwJSNuY CUiIHZh tIindl5ccG8pDc1+PGNvbCB 5fDA0wK4yChFoKsJ4JXveX4 98QcRssQUeOxhxF35aH4Yfg XA+PHRy Zor9HIJruIyrNO2plHQhFBe pOh6aQXL3ZcWuXpAlSUbzJ6 GxPOJqqpozseabpEQ3DBPzR DUwaW47 Kc5ppCjoVp8gFLDcWYK5DQL mfOYlL3FifJ9xQzYmVZHpQC YaS1RtkOLsXNhlW989FSilZ yA6YXTo dhDmW4BbFBQngNfkFsP2w7L 7Bo6PgEwvwZXvNC1fJvJsSY c0K4ZgKmg2OCLacHbwIE3rc GFkZGlu Oj6rmJmdcAcoEZ1aQZJufro gr797AcCfh2lhJOFgqJFkZE umCPZ9Z50gw2W9GQLmMHQtX CQ8cKC3 nU2ihJimhzihiEBnkEsytiS koTyzMWboHXkbR098BTCduV qcLxGINge6O7NnCtv4ENEfl QxiWX5c iADqGZzwUn6tvQtbeQvzND4 iWGLbbvwat574DyKke8mtJO FapWGnKKuwRDU4Q57sa8U7X CMwMDAw HZK1nYD4kD3gqQyxjmkwtFD mdDsgdmVydGljYWwtYWxpZ2 48BQJkiNzbTp6XEse0N0WmI bl1FEVv jXucYZ1sbQUaNPuqHn9diRs kkZroAG1eQKLtyjyhl958Rh Pqb4mpHNZvzJAoYCufVJR4I 67fo0V2 WTZvQEMjRAN9iJY3wG8cnYa nbjogbGVmdDsgdmVydGljYW wfOUklF671ITMwfGiyGpBew WVyOjwv dGQ+VK11ue01M8JwPscuGsb 3WLXpHFV9fJI2xC1fYCZgBO ppo7V1wWQ7E6QgjnUynn6mk 2xsYXBz ZTog (more content not included)... Normal [facility] Coding Summary.on 06-13-2022 Coding Summary. CD:[id number] Gh0 bWw+PGhlYWQ+JT3CIFKqD91 frZGowT3AA5mFTS6LIFJQTJ HVGU8XYP5scXO1PUitX9Ghu iAv WzavfVYtJM50DOm8IFC4rYf tSWsusN0nyZCsX2s2DeRpAS 30lF65LWdfBAKiFnA0LoYlg jsgbWFy P3ngQkHneJYcQsf+PHRhYmx lIHdpZHRoPScxMDAlJyBzdH fhAV3nYn4yQZBwFKGfxMovf HNlOiBj l9txRELcKWejWR9vjVckU9M ntHR4VLVwr6i2Zy83eZM+PH BjDVQ9zZraFLkzc683PlGqt 4lsDKD4 bQYlSUvsTLC7V11zh5E7FZO tPSJsGZK4iFH0dN9uqWunlw nhL6XedEOrLsP6BGI4qJHsh U1wtPrq vxqgmY6nZbk+V43DUJ3SOZP FPL8FWki7P7IgXvmnvUM+PC 94UPHnAU38xXEdaFDmd7sgg Oz9AsDd XSMvVVW3bEytJGuwn5XiIXR hL14swXZay1K7OPLxzGhdxP DhRwDjuFV7qX2dEDijmdbmq 2hvdzsn Ecmgh7nebd02aI09E85dVJp cZLLiIBL6SCYmXGQymGetxk 7dvJ2jNk6+PHtdw0ivv8bny Ni9RiBl BHOfxcUztHfpIQR1k5CzMf6 3U7MhvXgaf5NvIns3gg39vV Tcj7J0aYL4KYkvEBPblA5uG WxlZnQ6 WIXgQkRorW63dZVdUZjvXq7 imZpvdHqxAB0oCNYlcmibTO KcyO1uQQNtuUOnvTwlLJ0vS TBpbjtm v119XjOcOQE1ZISjzISjJ8T mbQ5bThPkFXGhPNNdE6HipM QuAPodI543VOanVhC4EUJkx aYpK4Bk RHJlbWjyDaP5v0X2Pq0Nd4N nifyuQUY4SIkvCGScRyHdZi PkEwC0M2VyKos2XKVrqBcsM U0oY6Tr HLZvakjvyckljVV1RGScNXT ioF31aHGwZAebZr6ga6D4m0 86OXFcEJGcrE13Gp3gxHnnB TBwdCBU mR1sbrisd7nijsadGlBuDKY iGUg5RWe7LWMkzGwpXwEvSL B2UeI5AIE0ySYrcM0zjTyth fxrcP4i Oyc+W07vfE3bSML4ZDA6mmj dUXEloiVtFM36NS27G8CdSp wvdGFibGU+PGRpdiBzdHlsZ G3xRuJu l9ulm4YlUMhvP0TeKEKmWHd vFvf0EUKvKPY7kOA9oW9oWD KmOFtla2R6yFA2Y9WqutShj y3ou0tk BPYyKSvaN32xiQCvh3X0SQF jlIY5OWCcaXueWoImcK44Jb c+DVGosSwpu3CqMdwbw7zad 0tiqCq0 PmWqRQOprnShqIedYOQ4y4A tWm89K36lMHwqIJGfGCGyMU ToBIRxcJkolf2kuM8qXn2+P GNvbCB3 fLA2hB7qKIOuXkC3BAgzP45 9AjGnwVWoZlemq0utw5kexN r8JfZqOCJtoeElfCrrWVL1m 2AfVh16 Y96hHVraVCUuVDSqTBOeAMD jhKpwdm3ksX6wQa4+PC9jb2 xeuk48vB70hOC+EVDxMMW8v WxlPSdw CFWmxC4dYWfcYfL0CJPnTgV wnK46nIEkIWxaWa2qnWnkgH yjGM2cHWBbtywmd459UlNtl 2xkIDEw gUPeHMoyDRJ8C68hl0P4LHQ cZOMyGNB3ePA2oF6gxQvvyc ogbGVmdDsgdmVydGljYWwtY TbuQ798 IHRvcDsnPlBhdGllbnQgTmF bUQh3U3EhSkv0SPYimStfIU 3pgCKeFFqsFw6ydYlxhSfyE I3lYNFc soxto119HhGix9yrOUFqoLN kFZtmKBQ9E05bd8I7WDVvUV ZkXNC3rYC9iO6zsUjtqykof GVmdDsg ykJvnHvyYCmhZIovC142MOR rzCwfHiVmtdZrWZXpvEH6LQ 77FK89sWZlw8Q9xHG2E7WaP GRpbmct trdzbAO4JEQpZGCisZ71Nk0 fzPhiWa1eXDPiVOD9UCXboX TvQ0HnjM5yYeDnWKEzUKZiQ 3RleHQt TCilI086TBufXtL3PTXeakY iH0AgLBDhlNvoUoS0r4V2Yd 3VB1E1YO86YL88lGXlm9X6u FQ5I2Sh HUGpsxdwxycirQX4LPFeHHT jvL37Kg2elWydKd6kHGMjQD M9MCVibBJsC9RtbX7dOmJiR DAwMDAw Z9XebPLvHSvvJ716CGbhBfF 6TTYkqfNtV6TtRNZcyObiPh D5n0K1Su0GMBz3PA19JG00t HVdb9J9 pXU6G9FlBFWyncbiovpcwWZ 2NMErMDGipA17Ch9pgLhbBh 8oOSBkKMR5ODUssVWfT8Jfs K8qOqTz UUJqSSCgJ3HsgJFwNDlyA13 8LChiWrM6FJOyzdQmT9FzLW VzlPjbStG1z6P7Pw2DZHYtE Q41QCR8 xRY8WU62ID36C1TnWqekfBQ ibGU+PHRhYmxlIHdpZHRoPS qxHLSbXqJeaSyvSX6xDd6wS GVyLWNv sAnyxMNeBjHfg6dlOWGjTWf sMN3ztElcV7VrnMG1REGzi0 w8Wz31R55vF8NpjLM+PGNvb JN3oAG6 nK8uFoYiRbL9KNpkD388AtO saAJcPdhlm8qoj0bkzKo0Ie S3YUSyzrQzaRkqYLH7t5TqC z75R37b IHdpZHRoPSIxNSUiIHZhbGl avv7wfZ1jRw5+DFUhfJO1pO I1cG7jLgPiEvE5YIhkP832W nRvcCIv Pypde1jap9mrcNx4XxQaKKK lwdLowGzoIQB5a9CfOp67V6 KtxQqwm1RwBab5no73sJIkd 6H4jVY6 F1AaUBHlzrgktMVoiUbsGN7 uABKxwvdtBJRgsY8jXYUtS9 o7PyHuWlA5GDznH8XyruU1Q DEwcHQg KRrdMLR4F32qb5X7GXQeBQO pQFW2jPG5zK4rhBndyjxlnV VmdDsgdmVydGljYWwtYWxpZ 246IHRv fVehAYDorL9kHZNicLCnhXo wTY0uKCLfgscrAedJEtXrMJ SML7dCAKv9G2DlKrr7FZSui IabWX1v jXHyKWtqRg6pmKiggLihYI0 oJLElayehCZUooE1hRMNsxD HfgQvrUA5bFIIwaykty929L iAxMHB0 LJZotODtY5IlyM3vHyXmPKO mHLCzR2MrqQGtNAysP050SZ qgZfM5LZCoxbLmD7DjRKDrd WduOiB0 j5G0Wb4oEF2tPf2sNIA3ZS6 5XJ04xRIov1L5rRY1C6CbPV WyqrcesgeriXP4NFJjGFUtd Z26wIOq TFpjHh6vl0K0k842IFOaAMO gpK85Rb4ttDmdQFQbpASEnH 8qfopjo5ogjphcKzNnIDLcB St6SKi9 ICVwvSnbJzAbYMG6HqD0IYJ 1nSEwtE4nwFkqqtbwhG2yHr c+CFbyGQYrocP6E7EpZoh7I CBzdHls MN1qtUSzQDkxXr3kqYtpkXw lZR4mVSAkkmmxGUIsrT1hYJ CsxHUjuVutAX8eQXExowafq 250OiAx GIC7DBYetMHmG9TrzL6qHhK oDMWqKMWbM1LjtLLaTBqnY7 73TOsnBmY4QQRmlzTiK8PuW WFsaWdu GsH6t8B4Bk4QRB3kzAS6G7J kTro6SPUiaLadAO1wgSRrDR ktDd6zhNltyJnbON8lMBDvp jtwYWRk iN7mSRTdrOXyoPbqRE1eWTI apbrhe690UsBeFZD3DTGdvM TiG3IkiX5mGzXiJJEhWSUfO 3RleHQt QPzmM795HHpaXqT2VVJyhzE mD8FmBZTkhLufRqK8z8E4Yi 6DkCVwNVCxMT56KF05ZJ17K 3RyPjwv dGFibGU+PHRhYmxlIHdpZHR iFGeyIOJjWfUkkFuaVT0mXo 9yZGVyLWNvbGxhcHNlOiBjb 2xsYXBz NJvbMG4ffQshY2WfsVS1QPN wt0k4Dm59Z29dV1NqzJY+PG SofTT4bMF2yC0pPrWgGeX3B OczA197 HfKygPFqYtsvf0fwk7bieMk 3UdOgHZKwwtHofFtiLFE9r1 EiUv13D23oEVmoZLDeQNRbB CUiIHZh zEvlku7ztK6xHc3+PGNvbCB 4mAQ5jS7iCnQkRuY5MLbgP4 72ZoUhcWAcIaxsR17hF2Ngc XA+PHRy Cjc8XFKudUfqAR2ciIKxZVm hOa3cFGW0HjZxUtMoDXicV8 SkWPQabjliahxqfEJ2HOXhZ DUwaW47 Dt4rmQlvOx1eGFOgWUR2BIC ggIPxF7FokS5sYfGcNERuKR NoB0QiuDEgUGlqZ277ZTimS zZ3IEEd bnXjK4BbFMLfeWrjXzA8u7O 5Ho3PnGyptGLvRK8wWpHwTB t3I0GyCdu2XQNqcNkxVB9kc GFkZGlu Hw0vwZoeqBjuUR0rJYLtyei rf077ShGsy4ufNPUgwPAuTN uzMRG4N18sq1C3GWMhKAQbW CN8lZT8 lV6xjFrzwibbdZYynPjgghE mtNifLSksQUtfN511LWMkvP gqCbFYPhv0R7LtMdq2VBYyt FoqJJ9d dKLqVWmgRb4tbLiufFfzCN6 eVKHmijuya415ByRie7zrAW VtwMMgBEepQOD0Y84zz9Z4K CMwMDAw NLH6lCL5kD1lxIyrzvtbpRU mdDsgdmVydGljYWwtYWxpZ2 01PCIfyFadWv8LZkf1P9NtJ yg1STMz fEthBM0wgTQkYUsqHt7sgZl fuIeeMY5vYFJpzsloq005Tl Ifq6dyHIHpfYLpLPacKKM9B 82gm6J7 COOpBKAbPQZ5jHX5vH1chVf nbjogbGVmdDsgdmVydGljYW tzUVfxT147HGDwoOajPiWkn WVyOjwv dGQ+IX26ae70T9SaNkmfGxv 7QHVlHWE8bPZ1wT8hLSTsFT bza2W1cXV1Y3GgdqXxkt9cx 2xsYXBz ZTog (more content not included)... Normal [facility] Consent for Treatmenton Consent for Treatment [id number]#1.00C D:127 Normal [facility] CHEMISTRYOrdered By: SYSTEM SYSTEM on 06-10-2022 Cholesterol [Mass/Vol] 298 mg/dL High 120 - 200 mg/dL [facility] Cholesterol in HDL [Mass/Vol] 67 mg/dL Invalid Interpretation Code [facility] Cholesterol in LDL [Mass/Vol] 223 mg/dL High <=129mg/dL [facility] Cholesterol in VLDL [Mass/Vol] 25 mg/dL Normal 7 - 40 mg/dL [facility] Triglyceride [Mass/Vol] 123 mg/dL Normal <=149mg/dL [facility] Consent for Treatmenton Consent for Treatment [id number]#1.00C D:127 Normal [facility] Lipid Panelon 06-10-2022 Cholesterol [Mass/Vol] 298 mg/dL High 120-200 [facility] Comment on above: Performed By: #### [id number] ####[facility] [address] [place] [address] Cholesterol in HDL [Mass/Vol] 67 mg/dL Invalid Interpretation Code [facility] Comment on above: Result Comment: HDL > or equal to 60 mg/dL: Low cardiovascular risk HDL < 40 mg/dL : High cardiovascular risk Performed By: #### 2 [id number] ####[facility] [address] [place] [address] Cholesterol in LDL [Mass/Vol] 223 mg/dL High <=129 [facility] Comment on above: Performed By: #### 2 [id number] ####[facility] [address] [place] [address] Cholesterol in VLDL [Mass/Vol] 25 mg/dL Normal 7-40 [facility] Comment on above: Performed By: #### 2 [id number] ####[facility] [address] [place] [address] Triglyceride [Mass/Vol] 123 mg/dL Normal <=149 [facility] Comment on above: Performed By: #### 2 [id number] ####[facility] [address] [place] [address] Pre-Certification Formon Pre-Certification Form [id number]#1.00 CD:127 Normal [facility] CARDIAC STRESS TESTon 2022 CARDIAC STRESS TEST CARDIAC STRESS TEST NOTE DATE: 06/06/2022 SIX MINUTE WALK STUDY INDICATIONS: Chronic hypoxic respiratory failure. Six minute walk study was initiated according to standard protocol. Baseline blood pressure was 145/90, heart rate 81, saturation was 92% on room air. MMRC was 3. Patient ambulated for two minutes with desaturation dropping to 88% on room air. This test was stopped and a new six minute walk test was initiated. Patient was placed on 2 liters a minute oxygen, with a saturation of 96% on this flow rate, with a heart rate of 81. Patient ambulated for six minutes with oxygenation remaining at 91% or greater on 2 liters a minute. At end of six minutes, heart rate was 110 with a Luis Angel Score of 4. At recovery, on 2 liters a minute, she was 95% with a Luis Angel Score of 1, heart rate 91 and blood pressure of 145/80. There was one stop secondary to knee pain. Total distance ambulated was 283 meters which is 63% predicted walk distance. IMPRESSIONS: Ambulatory desaturations noted, with recovery achieved at 2 liters a minute supplemental O2. RECOMMENDATIONS: Oxygen at 2 liters a minute with ambulation/activity. Clinical correlation required. Normal [facility] HEMOGLOBINon 06-06-2022 Hemoglobin (Bld) [Mass/Vol] 12.9 g/dL Normal 12.0-16.[address] [facility] Comment on above: Performed By: #### H GB #### [facility] [address] [place] [address] Dr. Saroj Cano PULMONARY FUNCTION TESTon PULMONARY FUNCTION TEST PULMONARY FUNCTION TEST NOTE DATE: 06/06/2022 SIX MINUTE WALK STUDY INDICATIONS: Chronic hypoxic respiratory failure. Six minute walk study was initiated according to standard protocol. Baseline blood pressure was 145/90, heart rate 81, saturation was 92% on room air. MMRC was 3. Patient ambulated for two minutes with desaturation dropping to 88% on room air. This test was stopped and a new six minute walk test was initiated. Patient was placed on 2 liters a minute oxygen, with a saturation of 96% on this flow rate, with a heart rate of 81. Patient ambulated for six minutes with oxygenation remaining at 91% or greater on 2 liters a minute. At end of six minutes, heart rate was 110 with a Luis Angel Score of 4. At recovery, on 2 liters a minute, she was 95% with a Luis Angel Score of 1, heart rate 91 and blood pressure of 145/80. There was one stop secondary to knee pain. Total distance ambulated was 283 meters which is 63% predicted walk distance. IMPRESSIONS: Ambulatory desaturations noted, with recovery achieved at 2 liters a minute supplemental O2. RECOMMENDATIONS: Oxygen at 2 liters a minute with ambulation/activity. Clinical correlation required. 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 She no longer works in a [employer]a shop. She is a former patient of Dr. Meng ennis and does not wish to follow-up with him. She also has a known history of hypertension as well as COPD diagnosed by PFTs several years ago. She is on intermittent oxygen. She claims that she may have had COVID diagnosed in around 2018 and 2019 but did not have testing available at that time. Ever since she is gotten sick she has had progressively worsening shortness of breath, dyspnea on exertion to the point where she gets short of breath just getting dressed. She was scheduled for PFTs recently but had to cancel due to exposure to COVID. In addition the patient complains of substernal chest pressure particularly when she gets anxious, described as an elephant pushing on her chest. The patient has decreased exercise capacity over the last several months to the point where she is unable to walk 2 blocks or 2 flights of stairs. She also has unilateral right lower extremity edema on occasion. She has never been tested for sleep apnea. She currently sees a boat finisher who referred her to our office. Apparently she had undergone a stress test in Dr. Meng Berrios's office a couple years ago which was reportedly abnormal but she did not receive a cardiac catheterization. We do not have those records available today. On further history her father has no coronary disease but her mother had coronary disease and PCI. Sister has no coronary disease. Patient is a very pleasant 57-year-old referred to our office for shortness of breath. In our office today her blood pressure is 131/78 and pulse is 84 and regular. Physical exam demonstrates very distant breath sounds, moderate obesity, 2+ carotid upstroke, no carotid bruits, regular rate and rhythm with normal S1/S2, no S3, S4 or murmurs are noted. She has trivial lower extremity edema.. EKG dated 06/05/2022 shows normal sinus rhythm, normal axis, normal intervals, no evidence of previous myocardial infarction, essentially normal EKG. Lipids are pending. Review of Systems Constitutional: no fever, no sweats, no weakness Skin: no rash, no lesions, nobruising/petechiae ENMT: no sore throat, no congestion, no hoarseness Respiratory: no shortness of breath, no cough, no orthopnea, no wheezing Cardiovascular: no chest pain, no palpitations, no edema Gastrointestinal: no nausea, no vomiting, no diarrhea, no GI bleeding Genitourinary: no anuria/oliguria no hematuria Musculoskeletal: no back pain, no trauma Neurologic: no headache, no dizziness, no numbness, no weakness Psychiatric: no sleeping problems, no irritability, no anxiety/depression. Heme/Lymph: no bleeding tendency, no bruising tendency Allergy/Immunologic: no recurrent infections, no impaired immunity Additional ROS info: Except as noted in the above Review of Systems and in the History of Present Illness all other systems have been reviewed and are negative or noncontributory. Physical Exam General: alert, no acute distress Skin: warm, dry intact Head: atraumatic, normocephalic Neck: Trachea midline, no JVD, no bruit Eye: normal conjunctiva, sclera clear ENMT: oral mucosa moist Cardiovascular: regular rate and rhythm, nomurmur normal peripheral perfusion Respiratory: Lungs CTA, respirations non labored Chest wall: no deformity. Gastrointestinal: soft, non distended, no tenderness, no guarding. Back: No tenderness, Normal ROM, Normal alignment. Extremities: no edema, no deformity, no trauma Neurological: oriented x 4, LOC appropriate for agesensation equal & normal bilaterally, speech normal Psychiatric: cooperative, affect appropriate for age, normal judgement, normal psychiatric thoughts. Assessment/Plan 1. Dyspnea on exertion: The patient has known COPD, and is awaiting repeat pulmonary function test. I strongly recommended that she discontinue all tobacco products. In addition recommend that she undergo a repeat 2D echo with Doppler to evaluate her LV function, pulmonary pressures and valvular status. In addition she will undergo a Lexiscan/MPI to evaluate for possible ischemia given her chest pain/pressure. If either 1 of these are grossly abnormal, she may require additional evaluation with a cardiac catheterization and possibly right heart catheterization as well. In the meantime we will start the patient on baby aspirin and she will continue her lisinopril. Patient may benefit from diuretic therapy once we can evaluate her LV function and pulmonary pressures. 2. Hyperlipidemia: Patient has known hyperlipidemia and is currently on simvastatin. Repeat lipids are pending. 3. Tobacco cessation: I strongly recommended the patient discontinue all tobacco products. She is going to reschedule her pulmonary function t (more content not included)... Normal [facility] Comment on above: Result Comment: Elec tronically Signed By: Myra CAMPBELL, Evin Green.br\Date and Time Signed: 06/05/22 11:21 EST Referrals Officeon 3 Referrals Office [id number] D:127 Normal [facility] XR CHEST 2 Von 04-22-2022 XR CHEST 2 V EXAMINATION: XR CHES T 2 V, , 04/22/2022 11:33 AM EST INDICATION: Acute severe exacerbation of severe persistent asthma HISTORY: Ordering Provider Reason for Exam: Technologist Note: Additional: COMPARISON: Chest x-ray of 01/07/2022. TECHNIQUE: Chest x-ray: Two views. FINDINGS: No pneumothorax, pleural effusion or focal airspace consolidation. Heart is normal in size. Bony thorax is unremarkable. IMPRESSION: No acute cardiopulmonary process. Electronically authenticated by: PHUC LEMON Date: 2022-04-22 17:[address] [facility] CBC AUTO DIFFon 01-12-2022 BASO # 0.0 103/ul Normal 0.0-0.1 [facility] Comment on above: Performed By: #### C BC #### [facility] [address] [place], [place] [address] Dr. Saroj Cano Basophils/100 WBC (Bld) 0.3 % Normal 0.2-2.0 [facility] Comment on above: Performed By: #### C BC #### [facility] [address] [place], [place] [address] Dr. Saroj Cano EO # 0.0 103/ul Normal 0.0-0.7 [facility] Comment on above: Performed By: #### C BC #### [facility] [address] [place] [address] [address] Saroj Cano Eosinophils/100 WBC (Bld) 0.1 % Critically low 0.9-7.0 [facility] Comment on above: Performed By: #### C BC #### [facility] [address] [place] [address] [address] Saroj Cano Erythrocyte distribution width (RBC) [Ratio] 15.0 % Normal 11.0-15.0 [facility] Comment on above: Performed By: #### C BC #### [facility] [address] [place] [address] Dr. Saroj Cano Hematocrit (Bld) [Volume fraction] 38.0 % Normal 36.0-48.0 [facility] Comment on above: Performed By: #### C BC #### [facility] [address] [place] [address] Dr. Saroj Cano Hemoglobin (Bld) [Mass/Vol] 11.6 g/dL Critically low 12.0-16.0 [facility] Comment on above: Performed By: #### C BC #### [facility] [address] [place] [address] Dr. Saroj Cano IG # 0.11 10e3/ul Critically high 0.00-0.03 [facility] Comment on above: Performed By: #### C BC #### [facility] [address] [place] [address] Dr. Saroj Cano IG % 0.8 % Critically high 0.0-0.5 [facility] Comment on above: Performed By: #### C BC #### [facility] [address] [place] [address] Dr. Saroj Cano LYMPH # 3.8 103/ul Normal 1.2-3.[address] [facility] Comment on above: Performed By: #### C BC #### [facility] [address] [place] [address] Dr. Saroj Cano Lymphocytes/100 WBC (Bld) 26.4 % Normal 20.5-60.0 [facility] Comment on above: Performed By: #### C BC #### [facility] [address] [place] [address] Dr. Saroj Cano MANUAL DIFF REQ NO Normal [facility] Comment on above: Performed By: #### C BC #### [facility] [address] [place] [address] Dr. Saroj Cano MCH (RBC) [Entitic mass] 28.2 pg Normal 26.7-34.0 [facility] Comment on above: Performed By: #### C BC #### [facility] [address] [place] [address] Dr. Saroj Cano MCHC (RBC) [Mass/Vol] 30.5 g/dL Normal 29.9-35.2 [facility] Comment on above: Performed By: #### C BC #### [facility] [address] [place] [address] Dr. Saroj Cano MCV (RBC) [Entitic vol] 92.5 fL Normal 81.0-99.0 [facility] Comment on above: Performed By: #### C BC #### [facility] [address] [place] [address] Dr. Saroj Cano MONO # 1.0 103/ul Critically high 0.3-0.8 [facility] Comment on above: Performed By: #### C BC #### [facility] [address] [place] [address] Dr. Saroj Cano Monocytes/100 WBC (Bld) 7.2 % Normal 1.7-12.0 [facility] Comment on above: Performed By: #### C BC #### [facility] [address] [place] [address] Dr. Saroj Cano NEUT # 9.4 103/ul Critically high 1.4-6.5 [facility] Comment on above: Performed By: #### C BC #### [facility] [address] [place] [address] Dr. Saroj Cano Neutrophils/100 WBC (Bld) 65.2 % Normal 43.0-75.0 [facility] Comment on above: Performed By: #### C BC #### [facility] [address] [address] [address] Saroj Cano Platelet mean volume (Bld) [Entitic vol] 10.5 fL Normal 9.5-13.5 [facility] Comment on above: Performed By: #### C BC #### [facility] [address] [address] [address] Saroj Cano PLT 263 103/ul Normal 150-450 [facility] Comment on above: Performed By: #### C BC #### [facility] [address] [address] [address] Saroj Cano RBC 4.11 106/ul Critically low 4.20-5.40 [facility] Comment on above: Performed By: #### C BC #### [facility] [address] [address] [address] Saroj Cano WBC 14.5 103/ul Critically high 4.0-11.0 [facility] Comment on above: Performed By: #### C BC #### [facility] [address] [address] [address] Saroj Cano CRPon 01-12-2022 CRP 0.2 mg/dL Normal <=1.0 [facility] Comment on above: Performed By: #### C MP, CRP #### [facility] [address] [place] [address] Dr. Saroj Cano PROF 14(COMP METB)on 022 Albumin [Mass/Vol] 2.6 g/dL Critically low 3.4-5.0 [facility] Comment on above: Performed By: #### C MP, CRP #### [facility] [address] [address] [address] Saroj Cano Albumin/Globulin [Mass ratio] 0.8 {ratio} Normal [facility] Comment on above: Performed By: #### C MP, CRP #### [facility] [address] [place] [address] Dr. Saroj Cano ALP [Catalytic activity/Vol] 80 U/L Normal 46-116 [facility] Comment on above: Performed By: #### C MP, CRP #### [facility] [address] [address] [address] Saroj Cano ALT [Catalytic activity/Vol] 27 U/L Normal 14-59 [facility] Comment on above: Performed By: #### C MP, CRP #### [facility] [address] [address] [address] Saroj Cano Anion gap [Moles/Vol] 13.1 mmol/L Normal [facility] Comment on above: Performed By: #### C MP, CRP #### [facility] [address] [address] [address] Saroj Cano AST [Catalytic activity/Vol] 8 U/L Critically low 15-37 [facility] Comment on above: Performed By: #### C MP, CRP #### [facility] [address] [address] [address] Saroj Cano Bilirubin [Mass/Vol] 0.1 mg/dL Critically low 0.2-1.0 [facility] Comment on above: Performed By: #### C MP, CRP #### [facility] [address] [address] [address] Saroj Cano Calcium [Mass/Vol] 8.9 mg/dL Normal 8.5-10.1 [facility] Comment on above: Performed By: #### C MP, CRP #### [facility] [address] [address] [address] Saroj Cano Chloride [Moles/Vol] 107 mmol/L Normal 98-[address] [facility] Comment on above: Performed By: #### C MP, CRP #### [facility] [address] [address] [address] Saroj Cano CO2 [Moles/Vol] 26.8 mmol/L Normal 21.0-32.0 [facility] Comment on above: Performed By: #### C MP, CRP #### [facility] [address] [address] [address] Saroj Cano Creatinine [Mass/Vol] 0.70 mg/dL Normal 0.55-1.02 [facility] Comment on above: Performed By: #### C MP, CRP #### [facility] [address] [address] [address] Saroj Cano EGFR-AF [place]THER[place] >60 Normal >=60 [facility] Comment on above: Performed By: #### C MP, CRP #### [facility] [address] [address] [address] Saroj Cano EGFR-NON AF [place] >60 Normal >=60 [facility] Comment on above: Performed By: #### C MP, CRP #### [facility] [address] [address] [address] Saroj Cano Globulin (S) [Mass/Vol] 3.3 g/dL Normal [facility] Comment on above: Performed By: #### C MP, CRP #### [facility] [address] [address] [address] Saroj Cano Glucose [Mass/Vol] 153 mg/dL Critically high 74-106 [facility] Comment on above: Performed By: #### C MP, CRP #### [facility] [address] [address] [address] Saroj Cano Potassium [Moles/Vol] 3.9 mmol/L Normal 3.5-5.1 [facility] Comment on above: Performed By: #### C MP, CRP #### [facility] [address] [address] [address] Saroj Cano Protein [Mass/Vol] 5.9 g/dL Critically low 6.4-8.2 [facility] Comment on above: Performed By: #### C MP, CRP #### [facility] [address] [address] [address] Saroj Cano Sodium [Moles/Vol] 143 mmol/L Normal 136-145 [facility] Comment on above: Performed By: #### C MP, CRP #### [facility] [address] [address] [address] Saroj Cano Urea nitrogen [Mass/Vol] 23.0 mg/dL Critically high 7.0-18.0 [facility] Comment on above: Performed By: #### C MP, CRP #### [facility] [address] [place] [address] Dr. Saroj Cano Urea nitrogen/Creatinine [Mass ratio] 32.9 mg/mg Normal [facility] Comment on above: Performed By: #### C MP, CRP #### [facility] [address] [place] [address] Dr. Saroj Cano CBC AUTO DIFFon 01-11-2022 BASO # 0.0 103/ul Normal 0.0-0.1 [facility] Comment on above: Performed By: #### P TT, PT #### [facility] [address] [place] [address] Dr. Saroj Cano Basophils/100 WBC (Bld) 0.3 % Normal 0.2-2.0 [facility] Comment on above: Performed By: #### P TT, PT #### [facility] [address] [place] [address] Dr. Saroj Cano EO # 0.0 103/ul Normal 0.0-0.7 [facility] Comment on above: Performed By: #### P TT, PT #### [facility] [address] [place] [address] Dr. Saroj Cano Eosinophils/100 WBC (Bld) 0.0 % Critically low 0.9-7.0 [facility] Comment on above: Performed By: #### P TT, PT #### [facility] [address] [place] [address] Dr. Saroj Cano Erythrocyte distribution width (RBC) [Ratio] 14.7 % Normal 11.0-15.0 [facility] Comment on above: Performed By: #### P TT, PT #### [facility] [address] [place] [address] Dr. Saroj Cano Hematocrit (Bld) [Volume fraction] 41.1 % Normal 36.0-48.0 [facility] Comment on above: Performed By: #### P TT, PT #### [facility] [address] [place] [address] Dr. Saroj Cano Hemoglobin (Bld) [Mass/Vol] 12.5 g/dL Normal 12.0-16.0 [facility] Comment on above: Performed By: #### P TT, PT #### [facility] [address] [place] [address] Dr. Saroj Cano IG # 0.05 10e3/ul Critically high 0.00-0.03 [facility] Comment on above: Performed By: #### P TT, PT #### [facility] [address] [place] [address] Dr. Saroj Cano IG % 0.7 % Critically high 0.0-0.5 [facility] Comment on above: Performed By: #### P TT, PT #### [facility] [address] [place] [address] Dr. Saroj Cano LYMPH # 1.7 103/ul Normal 1.2-3.8 [facility] Comment on above: Performed By: #### P TT, PT #### [facility] [address] [place] [address] Dr. Saroj Cano Lymphocytes/100 WBC (Bld) 23.5 % Normal 20.5-60.0 [facility] Comment on above: Performed By: #### P TT, PT #### [facility] [address] [place] [address] Dr. Saroj Cano MANUAL DIFF REQ NO Normal [facility] Comment on above: Performed By: #### P TT, PT #### [facility] [address] [place] [address] Dr. Saroj Cano MCH (RBC) [Entitic mass] 27.8 pg Normal 26.7-34.0 [facility] Comment on above: Performed By: #### P TT, PT #### [facility] [address] [place] [address] Dr. Saroj Cano MCHC (RBC) [Mass/Vol] 30.4 g/dL Normal 29.9-35.2 [facility] Comment on above: Performed By: #### P TT, PT #### [facility] [address] [place] [address] Dr. Saroj Cano MCV (RBC) [Entitic vol] 91.3 fL Normal 81.0-99.[address] [facility] Comment on above: Performed By: #### P TT, PT #### [facility] [address] [place] [address] Dr. Saroj Cano MONO # 0.2 103/ul Critically low 0.3-0.8 [facility] Comment on above: Performed By: #### P TT, PT #### [facility] [address] [place] [address] Dr. Saroj Cano Monocytes/100 WBC (Bld) 2.7 % Normal 1.7-12.[address] [facility] Comment on above: Performed By: #### P TT, PT #### [facility] [address] [place] [address] Dr. Saroj Cano NEUT # 5.2 103/ul Normal 1.4-6.5 [facility] Comment on above: Performed By: #### P TT, PT #### [facility] [address] [place] [address] Dr. Saroj Cano Neutrophils/100 WBC (Bld) 72.8 % Normal 43.0-75.0 [facility] Comment on above: Performed By: #### P TT, PT #### [facility] [address] [place] [address] Dr. Saroj Cano Platelet mean volume (Bld) [Entitic vol] 10.1 fL Normal 9.5-13.[address] [facility] Comment on above: Performed By: #### P TT, PT #### [facility] [address] [place] [address] Dr. Saroj Cano PLT 220 103/ul Normal 150-[address] [facility] Comment on above: Performed By: #### P TT, PT #### [facility] [address] [place] [address] Dr. Saroj Cano RBC 4.50 106/ul Normal 4.20-5.[address] [facility] Comment on above: Performed By: #### P TT, PT #### [facility] [address] [place] [address] Dr. Saroj Cano WBC 7.2 103/ul Normal 4.0-11.0 [facility] Comment on above: Performed By: #### P TT, PT #### [facility] [address] [place] [address] Dr. Saroj Cano CRPon 01-11-2022 CRP 1.9 mg/dL Critically high <=1.0 [facility] Comment on above: Performed By: #### I HANNAH #### [facility] [address] [place] [address] Dr. Saroj Cano PROF 14(COMP METB)on 022 Albumin [Mass/Vol] 2.8 g/dL Critically low 3.4-5.0 [facility] Comment on above: Performed By: #### I HANNAH #### [facility] [address] [place] [address] Dr. Saroj Cano Albumin/Globulin [Mass ratio] 0.8 {ratio} Normal [facility] Comment on above: Performed By: #### I HANNAH #### [facility] [address] [place] [address] Dr. Saroj Cano ALP [Catalytic activity/Vol] 96 U/L Normal 46-116 [facility] Comment on above: Performed By: #### I HANNAH #### [facility] [address] [place] [address] Dr. Saroj Cano ALT [Catalytic activity/Vol] 35 U/L Normal 14-59 [facility] Comment on above: Performed By: #### I HANNAH #### [facility] [address] [place] [address] Dr. Saroj Cano Anion gap [Moles/Vol] 12.2 mmol/L Normal [facility] Comment on above: Performed By: #### I HANNAH #### [facility] [address] [place] [address] Dr. Saroj Cano AST [Catalytic activity/Vol] 11 U/L Critically low 15-37 [facility] Comment on above: Performed By: #### I HANNAH #### [facility] [address] [place] [address] Dr. Saroj Cano Bilirubin [Mass/Vol] 0.2 mg/dL Normal 0.2-1.0 [facility] Comment on above: Performed By: #### I HANNAH #### [facility] [address] [place] [address] Dr. Saroj Cano Calcium [Mass/Vol] 9.1 mg/dL Normal 8.5-10.1 [facility] Comment on above: Performed By: #### I HANNAH #### [facility] [address] [place] [address] Dr. Saroj Cano Chloride [Moles/Vol] 105 mmol/L Normal 98-107 [facility] Comment on above: Performed By: #### I HANNAH #### [facility] [address] [place] [address] Dr. Saroj Cano CO2 [Moles/Vol] 25.8 mmol/L Normal 21.0-32.0 [facility] Comment on above: Performed By: #### I HANNAH #### [facility] [address] [place] [address] Dr. Saroj Cano Creatinine [Mass/Vol] 0.66 mg/dL Normal 0.55-1.02 [facility] Comment on above: Performed By: #### I HANNAH #### [facility] [address] [place] [address] Dr. Saroj Cano EGFR-AF [place] >60 Normal >=60 [facility] Comment on above: Performed By: #### I HANNAH #### [facility] [address] [place] [address] Dr. Saroj Cano EGFR-NON AF [place] >60 Normal >=60 [facility] Comment on above: Performed By: #### I HANNAH #### [facility] [address] [place] [address] Dr. Saroj Cano Globulin (S) [Mass/Vol] 3.5 g/dL Normal [facility] Comment on above: Performed By: #### I HANNAH #### [facility] [address] [place] [address] Dr. Saroj Cano Glucose [Mass/Vol] 166 mg/dL Critically high 74-106 [facility] Comment on above: Performed By: #### I HANNAH #### [facility] [address] [address] [address] Saroj Cano Potassium [Moles/Vol] 4.0 mmol/L Normal 3.5-5.1 [facility] Comment on above: Performed By: #### I HANNAH #### [facility] [address] [address] [address] Saroj Cano Protein [Mass/Vol] 6.3 g/dL Critically low 6.4-8.2 [facility] Comment on above: Performed By: #### I HANNAH #### [facility] [address] [address] [address] Saroj Cano Sodium [Moles/Vol] 139 mmol/L Normal 136-145 [facility] Comment on above: Performed By: #### I HANNAH #### [facility] [address] [place] [address] Dr. Saroj Cano Urea nitrogen [Mass/Vol] 10.0 mg/dL Normal 7.0-18.0 [facility] Comment on above: Performed By: #### I HANNAH #### [facility] [address] [place] [address] Dr. Saroj Cano Urea nitrogen/Creatinine [Mass ratio] 15.2 mg/mg Normal [facility] Comment on above: Performed By: #### I HANNAH #### [facility] [address] [place] [address] Dr. Saroj Cano ACETONE SERUMon 01-10-2022 ACETONE Negative Normal NEGATIVE [facility] Comment on above: Performed By: #### P TT, PT #### [facility] [address] [place] [address] Dr. Saroj Cano CBC AUTO DIFFon 01-10-2022 BASO # 0.1 103/ul Normal 0.0-0.1 [facility] Comment on above: Performed By: #### I HANNAH #### [facility] [address] [place] [address] Dr. Saroj Cano Basophils/100 WBC (Bld) 0.9 % Normal 0.2-2.0 [facility] Comment on above: Performed By: #### I HANNAH #### [facility] [address] [address] [address] Saroj Cano EO # 0.1 103/ul Normal 0.0-0.7 [facility] Comment on above: Performed By: #### I HANNAH #### [facility] [address] [address] [address] Saroj Cano Eosinophils/100 WBC (Bld) 0.8 % Critically low 0.9-7.0 [facility] Comment on above: Performed By: #### I HANNAH #### [facility] [address] [place] [address] Dr. Saroj Cano Erythrocyte distribution width (RBC) [Ratio] 15.1 % Critically high 11.0-15.0 [facility] Comment on above: Performed By: #### I HANNAH #### [facility] [address] [place] [address] Dr. Saroj Cano Hematocrit (Bld) [Volume fraction] 46.1 % Normal 36.0-48.0 [facility] Comment on above: Performed By: #### I HANNAH #### [facility] [address] [place] [address] Dr. Saroj Cano Hemoglobin (Bld) [Mass/Vol] 14.1 g/dL Normal 12.0-16.0 [facility] Comment on above: Performed By: #### I HANNAH #### [facility] [address] [place] [address] Dr. Saroj Cano IG # 0.05 10e3/ul Critically high 0.00-0.03 [facility] Comment on above: Performed By: #### I HANNAH #### [facility] [address] [place] [address] Dr. Saroj Cano IG % 0.6 % Critically high 0.0-0.5 [facility] Comment on above: Performed By: #### I HANNAH #### [facility] [address] [place] [address] Dr. Saroj Cano LYMPH # 2.7 103/ul Normal 1.2-3.[address] [facility] Comment on above: Performed By: #### I HANNAH #### [facility] [address] [place] [address] Dr. Saroj Cano Lymphocytes/100 WBC (Bld) 30.5 % Normal 20.5-60.0 [facility] Comment on above: Performed By: #### I HANNAH #### [facility] [address] [place] [address] Dr. Saroj Cano MANUAL DIFF REQ NO Normal [facility] Comment on above: Performed By: #### I HANNAH #### [facility] [address] [place] [address] Dr. Saroj aCno MCH (RBC) [Entitic mass] 28.3 pg Normal 26.7-34.[address] [facility] Comment on above: Performed By: #### I HANNAH #### [facility] [address] [place] [address] Dr. Saroj Cano MCHC (RBC) [Mass/Vol] 30.6 g/dL Normal 29.9-35.[address] [facility] Comment on above: Performed By: #### I HANNAH #### [facility] [address] [place] [address] Dr. Saroj Cano MCV (RBC) [Entitic vol] 92.4 fL Normal 81.0-99.0 [facility] Comment on above: Performed By: #### I HANNAH #### [facility] [address] [place] [address] Dr. Saroj Cano MONO # 0.9 103/ul Critically high 0.3-0.8 [facility] Comment on above: Performed By: #### I HANNAH #### [facility] [address] [place] [address] Dr. Saroj Cano Monocytes/100 WBC (Bld) 9.8 % Normal 1.7-12.[address] [facility] Comment on above: Performed By: #### I HANNAH #### [facility] [address] [place] [address] Dr. Saroj Cano NEUT # 5.1 103/ul Normal 1.4-6.[address] [facility] Comment on above: Performed By: #### I HANNAH #### [facility] [address] [address] [address] Saroj Cano Neutrophils/100 WBC (Bld) 57.4 % Normal 43.0-75.[address] [facility] Comment on above: Performed By: #### I HANNAH #### [facility] [address] [place] [address] Dr. Saroj Cano Platelet mean volume (Bld) [Entitic vol] 9.6 fL Normal 9.5-13.[address] [facility] Comment on above: Performed By: #### I HANNAH #### [facility] [address] [address] [address] Saroj Cano PLT 214 103/ul Normal 150-450 [facility] Comment on above: Performed By: #### I HANNAH #### [facility] [address] [place] [address] Dr. Saroj Cano RBC 4.99 106/ul Normal 4.20-5.[address] [facility] Comment on above: Performed By: #### I HANNAH #### [facility] [address] [place] [address] Dr. Saroj Cano WBC 8.9 103/ul Normal 4.0-11.[address] [facility] Comment on above: Performed By: #### I HANNAH #### [facility] [address] [place] [address] FACIAL BONES W CONon 09-0 CT FACIAL BONES W CON EXAMINATION: CT FACIAL BONES W CON HISTORY: Orbital cellulitis ; right eye pain and swelling for 4 days; new onset left eye swelling COMPARISON: No relevant comparison available. TECHNIQUE: Axial, Coronal, and Sagittal CT images created with IV contrast. Dose reduction techniques were achieved by using automated exposure control and/or adjustment of mA and/or kV according to patient size and/or use of iterative reconstruction technique. FINDINGS: FACIAL BONES: No bony lesion or fracture. SINUSES: No visible mass, significant fluid or mucosal thickening. NASAL FOSSA: No mass, fracture, or significant septal deviation. SKULL BASE: No mass or bone destruction. ORBITS: Edema/swelling of the periorbital soft tissues/subcutaneous fat without involvement of the globes or intraorbital contents. OTHER: No lymphadenopathy. Unremarkable nasopharynx, oropharynx, and oral cavity. IMPRESSION: 1. Bilateral periorbital edema without intraorbital involvement. Electronically authenticated by: ANDRIY VASQUEZ Date: 2022-01-10 16:[address] [facility] CULTURE BLOODon 01-10-2022 Microscopic examination of blood, culture Culture Observations: NO GROWTH AT 5 DAYS. Normal [facility] Comment on above: Performed By: #### P TT, PT #### [facility] [address] [address] [address] Saroj Cano Microscopic examination of blood, culture Culture Observations: NO GROWTH AT 5 DAYS. Normal [facility] Comment on above: Performed By: #### P TT, PT #### [facility] [address] [place] [address] Dr. Saroj Cano [facility] SARS-CoV-2 (COVID-19) RNA RIC+probe Ql (Unsp spec) Not detected Normal NOT DETECTED [facility] Comment on above: Result Comment: When diagnostic testing is negative, the possibility of a false negative should be considered in the context of a patient's recent exposures and the presence of clinical signs and symptoms consistent with SARS-CoV-2. This test is not yet approved or cleared by the [place] FDA. When there are no FDA-approved or cleared tests available, and other criteria are met, FDA can make tests available under an emergency access mechanism called an Emergency Use Authorization (EUA). The EUA for this test is supported by the [place] Health and Human Service's declaration that circumstances exist to justify the emergency use of in vitro diagnostics for the detection and/or diagnosis of the virus that causes COVID-19. This EUA will remain in effect for the duration of the COVID-19 declaration justifying emergency of IVDs, unless it is terminated or revoked by the FDA (after which the test may no longer be used). Performed By: #### I HANNAH #### [facility] [address] [place] [address] Dr. Saroj Cano LACTATE/LACTIC ACIDon 2021 Lactate [Moles/Vol] 1.7 mmol/L Normal 0.4-1.9 [facility] Comment on above: Performed By: #### L ACT #### [facility] [address] [address] [address] Saroj Cano PH VENOUS BLOODon 01-10-2022 PCO2 VENOUS 44.1 mmHg Normal 40.0-52.0 [facility] Comment on above: Performed By: #### P HVEN #### [facility] [address] [address] [address] Saroj Cano pH VENOUS 7.403 Normal 7.330-7.430 [facility] Comment on above: Performed By: #### P HVEN #### [facility] [address] [place] [address] Dr. Saroj Cano PROF 14(COMP METB)on 022 Albumin [Mass/Vol] 3.3 g/dL Critically low 3.4-5.0 [facility] Comment on above: Performed By: #### P TT, PT #### [facility] [address] [place] [address] Dr. Saroj Cano Albumin/Globulin [Mass ratio] 0.9 {ratio} Normal [facility] Comment on above: Performed By: #### P TT, PT #### [facility] [address] [place] [address] Dr. Saroj Cano ALP [Catalytic activity/Vol] 103 U/L Normal 46-116 [facility] Comment on above: Performed By: #### P TT, PT #### [facility] [address] [place] [address] Dr. Saroj Cano ALT [Catalytic activity/Vol] 43 U/L Normal 14-59 [facility] Comment on above: Performed By: #### P TT, PT #### [facility] [address] [place] [address] Dr. Saroj Cano Anion gap [Moles/Vol] 15.6 mmol/L Normal [facility] Comment on above: Performed By: #### P TT, PT #### [facility] [address] [address] [address] Saroj Cano AST [Catalytic activity/Vol] 16 U/L Normal 15-37 [facility] Comment on above: Performed By: #### P TT, PT #### [facility] [address] [address] [address] Saroj Cano Bilirubin [Mass/Vol] 0.3 mg/dL Normal 0.2-1.0 [facility] Comment on above: Performed By: #### P TT, PT #### [facility] [address] [address] [address] Saroj Cano Calcium [Mass/Vol] 9.4 mg/dL Normal 8.5-10.1 [facility] Comment on above: Performed By: #### P TT, PT #### [facility] [address] [address] [address] Saroj Cano Chloride [Moles/Vol] 103 mmol/L Normal 98-107 [facility] Comment on above: Performed By: #### P TT, PT #### [facility] [address] [place] [address] Dr. Saroj Cano CO2 [Moles/Vol] 26.8 mmol/L Normal 21.0-32.0 [facility] Comment on above: Performed By: #### P TT, PT #### [facility] [address] [place] [address] Dr. Saroj Cano Creatinine [Mass/Vol] 1.00 mg/dL Normal 0.55-1.02 [facility] Comment on above: Performed By: #### P TT, PT #### [facility] [address] [place] [address] Dr. Saroj Cano EGFR-AF [place] >60 Normal >=60 [facility] Comment on above: Performed By: #### P TT, PT #### [facility] [address] [place] [address] Dr. Saroj Cano EGFR-NON AF [place] 57 mL/min/1.73m2 Critically low >=60 [facility] Comment on above: Performed By: #### P TT, PT #### [facility] [address] [place] [address] Dr. Saroj Cano Globulin (S) [Mass/Vol] 3.7 g/dL Normal [facility] Comment on above: Performed By: #### P TT, PT #### [facility] [address] [address] [address] Saroj Cano Glucose [Mass/Vol] 151 mg/dL Critically high 74-106 [facility] Comment on above: Performed By: #### P TT, PT #### [facility] [address] [address] [address] Saroj Cano Potassium [Moles/Vol] 3.5 mmol/L Normal 3.5-5.1 [facility] Comment on above: Performed By: #### P TT, PT #### [facility] [address] [place] [address] Dr. Saroj Cano Protein [Mass/Vol] 7.0 g/dL Normal 6.4-8.2 [facility] Comment on above: Performed By: #### P TT, PT #### [facility] [address] [place] [address] Dr. Saroj Cano Sodium [Moles/Vol] 142 mmol/L Normal 136-145 [facility] Comment on above: Performed By: #### P TT, PT #### [facility] [address] [place] [address] Dr. Saroj Cano Urea nitrogen [Mass/Vol] 9.0 mg/dL Normal 7.0-18.0 [facility] Comment on above: Performed By: #### P TT, PT #### [facility] [address] [place] [address] Dr. Saroj Cano Urea nitrogen/Creatinine [Mass ratio] 9.0 mg/mg Normal [facility] Comment on above: Performed By: #### P TT, PT #### [facility] [address] [place] [address] Dr. Saroj Cano PROTIMEon 01-10-2022 INR Coag (PPP) [Relative time] 1.01 {INR} Normal [facility] Comment on above: Performed By: #### P TT, PT #### [facility] [address] [place] [address] Dr. Saroj Cano INR GUIDELINES SEE BELOW Normal [facility] Comment on above: Result Comment: EVGENY RED INR: 2.0 - 3.0 CONDITIONS NOT LISTED BELOW 2.5 - 3.5 FOR PROSTHETIC HEART VALVE REPLACEMENT 2.5 - 3.5 RECURRENT THROMBOSIS Performed By: #### P TT, PT #### [facility] [address] [place] [address] Dr. Saroj Cano PT Coag (PPP) [Time] 10.9 s Normal 9.0-11.[address] [facility] Comment on above: Performed By: #### P TT, PT #### [facility] [address] [place] [address] Dr. Saroj Cano PTTon 01-10-2022 aPTT Coag (Bld) [Time] 25.2 s Normal 22.3-36.[address] [facility] Comment on above: Performed By: #### P TT, PT #### [facility] [address] [place] [address] Dr. Saroj Cano BNPon 01-07-2022 Natriuretic peptide B (Bld) [Mass/Vol] 246.0 pg/mL Normal <=900.[address] [facility] Comment on above: Performed By: #### I HANNAH #### [facility] [address] [place] [address] Dr. Saroj Cano CBC AUTO DIFFon 01-07-2022 BASO # 0.1 103/ul Normal 0.0-0.1 [facility] Comment on above: Performed By: #### I HANNAH #### [facility] [address] [place] [address] Dr. Saroj Cano Basophils/100 WBC (Bld) 0.6 % Normal 0.2-2.[address] [facility] Comment on above: Performed By: #### I HANNAH #### [facility] [address] [place] [address] Dr. Saroj Cano EO # 0.1 103/ul Normal 0.0-0.[address] [facility] Comment on above: Performed By: #### I HANNAH #### [facility] [address] [place] [address] Dr. Saroj Cano Eosinophils/100 WBC (Bld) 0.5 % Critically low 0.9-7.0 [facility] Comment on above: Performed By: #### I HANNAH #### [facility] [address] [place] [address] Dr. Saroj Cano Erythrocyte distribution width (RBC) [Ratio] 15.2 % Critically high 11.0-15.0 [facility] Comment on above: Performed By: #### I HANNAH #### [facility] [address] [place] [address] Dr. Saroj Cano Hematocrit (Bld) [Volume fraction] 47.5 % Normal 36.0-48.0 [facility] Comment on above: Performed By: #### I HANNAH #### [facility] [address] [place] [address] Dr. Saroj Cano Hemoglobin (Bld) [Mass/Vol] 14.6 g/dL Normal 12.0-16.0 [facility] Comment on above: Performed By: #### I HANNAH #### [facility] [address] [place] [address] Dr. Saroj Cano IG # 0.05 10e3/ul Critically high 0.00-0.03 [facility] Comment on above: Performed By: #### I HANNAH #### [facility] [address] [place] [address] Dr. Saroj Cano IG % 0.5 % Normal 0.0-0.5 [facility] Comment on above: Performed By: #### I HANNAH #### [facility] [address] [place] [address] Dr. Saroj Cano LYMPH # 1.4 103/ul Normal 1.2-3.[address] [facility] Comment on above: Performed By: #### I HANNAH #### [facility] [address] [place] [address] Dr. Saroj Cano Lymphocytes/100 WBC (Bld) 15.4 % Critically low 20.5-60.0 [facility] Comment on above: Performed By: #### I HANNAH #### [facility] [address] [place] [address] Dr. Saroj Cano MANUAL DIFF REQ NO Normal [facility] Comment on above: Performed By: #### I HANNAH #### [facility] [address] [place] [address] Dr. Saroj Cano MCH (RBC) [Entitic mass] 27.9 pg Normal 26.7-34.0 [facility] Comment on above: Performed By: #### I HANNAH #### [facility] [address] [place] [address] Dr. Saroj Cano MCHC (RBC) [Mass/Vol] 30.7 g/dL Normal 29.9-35.2 [facility] Comment on above: Performed By: #### I HANNAH #### [facility] [address] [place] [address] Dr. Saroj Cano MCV (RBC) [Entitic vol] 90.6 fL Normal 81.0-99.0 [facility] Comment on above: Performed By: #### I HANNAH #### [facility] [address] [place] [address] Dr. Saroj Cano MONO # 0.8 103/ul Normal 0.3-0.8 [facility] Comment on above: Performed By: #### I HANNAH #### [facility] [address] [place] [address] Dr. Saroj Cano Monocytes/100 WBC (Bld) 8.9 % Normal 1.7-12.0 [facility] Comment on above: Performed By: #### I HANNAH #### [facility] [address] [place] [address] Dr. Saroj Cano NEUT # 6.9 103/ul Critically high 1.4-6.5 [facility] Comment on above: Performed By: #### I HANNAH #### [facility] [address] [place] [address] Dr. Saroj Cano Neutrophils/100 WBC (Bld) 74.1 % Normal 43.0-75.0 [facility] Comment on above: Performed By: #### I HANNAH #### [facility] [address] [place] [address] Dr. Saroj Cano Platelet mean volume (Bld) [Entitic vol] 9.3 fL Critically low 9.5-13.[address] [facility] Comment on above: Performed By: #### I HANNAH #### [facility] [address] [address] [address] Saroj Cano PLT 213 103/ul Normal 150-[address] [facility] Comment on above: Performed By: #### I HANNAH #### [facility] [address] [address] [address] Saroj Cano RBC 5.24 106/ul Normal 4.20-5.40 [facility] Comment on above: Performed By: #### I HANNAH #### [facility] [address] [address] [address] Saroj Cano WBC 9.3 103/ul Normal 4.0-11.[address] [facility] Comment on above: Performed By: #### I HANNAH #### [facility] [address] [place] [address] HEAD WO CONon 01-07-2022 CT HEAD WO CON EXAMINATION: CT HEAD WO CON, 01/07/2022 11:03 AM EDT HISTORY: pain COMPARISON: None. TECHNIQUE: CT scan of the head was performed without IV contrast. CT dose reduction technique was used, including Automated Exposure Control. FINDINGS: BRAIN: No edema, hemorrhage, mass, acute infarction, or inappropriate atrophy. CSF SPACES: No hydrocephalus, subarachnoid hemorrhage, or mass. Appropriate for age. SKULL: No fracture, mass, or other significant visible lesion. SINUSES: No significant mucosal thickening or fluid on the limited views. ORBITS: No appreciable abnormality on the limited views. OTHER: Negative IMPRESSION: No acute intracranial abnormality Electronically authenticated by: DANTE HECTOR Date: 2022-01-07 12:[address] [facility]on SARS-CoV-2 (COVID-19) RNA RIC+probe Ql (Unsp spec) Not detected Normal NOT DETECTED [facility] Comment on above: Result Comment: When diagnostic testing is negative, the possibility of a false negative should be considered in the context of a patient's recent exposures and the presence of clinical signs and symptoms consistent with SARS-CoV-2. This test is not yet approved or cleared by the [place] FDA. When there are no FDA-approved or cleared tests available, and other criteria are met, FDA can make tests available under an emergency access mechanism called an Emergency Use Authorization (EUA). The EUA for this test is supported by the [place] of Health and Human Service's declaration that circumstances exist to justify the emergency use of in vitro diagnostics for the detection and/or diagnosis of the virus that causes COVID-19. This EUA will remain in effect for the duration of the COVID-19 declaration justifying emergency of IVDs, unless it is terminated or revoked by the FDA (after which the test may no longer be used). Performed By: #### C VDTB #### [facility] [address] [place] [address] Dr. Saroj Cano PROF CHEM 8 (BAS METB)on Anion gap [Moles/Vol] 9.7 mmol/L Normal [facility] Comment on above: Performed By: #### I HANNAH #### [facility] [address] [place] [address] Dr. Saroj Cano Calcium [Mass/Vol] 9.5 mg/dL Normal 8.5-10.1 [facility] Comment on above: Performed By: #### I HANNAH #### [facility] [address] [place] [address] Dr. Saroj Cano Chloride [Moles/Vol] 103 mmol/L Normal 98-[address] [facility] Comment on above: Performed By: #### I HANNAH #### [facility] [address] [place] [address] Dr. Saroj Cano CO2 [Moles/Vol] 29.3 mmol/L Normal 21.0-32.0 [facility] Comment on above: Performed By: #### I HANNAH #### [facility] [address] [place] [address] Dr. Saroj Cano Creatinine [Mass/Vol] 0.90 mg/dL Normal 0.55-1.[address] [facility] Comment on above: Performed By: #### I HANNAH #### [facility] [address] [place] [address] Dr. Saroj Cano EGFR-AF [place] >60 Normal >=60 [facility] Comment on above: Performed By: #### I HANNAH #### [facility] [address] [address] [address] Saroj Cano EGFR-NON AF [place] >60 Normal >=60 [facility] Comment on above: Performed By: #### I HANNAH #### [facility] [address] [address] [address] Saroj Cano Glucose [Mass/Vol] 151 mg/dL Critically high 74-106 [facility] Comment on above: Performed By: #### I HANNAH #### [facility] [address] [address] [address] Saroj Cano Potassium [Moles/Vol] 4.0 mmol/L Normal 3.5-5.1 [facility] Comment on above: Performed By: #### I HANNAH #### [facility] [address] [address] [address] Saroj Cano Sodium [Moles/Vol] 138 mmol/L Normal 136-145 [facility] Comment on above: Performed By: #### I HANNAH #### [facility] [address] [address] [address] Saroj Cano Urea nitrogen [Mass/Vol] 15.0 mg/dL Normal 7.0-18.0 [facility] Comment on above: Performed By: #### I HANNAH #### [facility] [address] [address] [address] Saroj Cano Urea nitrogen/Creatinine [Mass ratio] 16.7 mg/mg Normal [facility] Comment on above: Performed By: #### I HANNAH #### [facility] [address] [address] [address] Saroj Cano TROPONIN, HIGH SENSITIVITYon 01-07-2022 HSTROP 9.6 pg/mL Normal 4.0-51.3 [facility] Comment on above: Result Comment: CUT- OFF POINTS HAVE BEEN ESTABLISHED BASED ON THE FOURTH UNIVERSAL DEFINITIONS OF MYOCARDIAL INFARCTION. THE UPPER REFERENCE LIMIT (URL) OF TROPONIN, DEFINED THE 99TH PERCENTILE OF cTnI DISTRIBUTION IN A REFERENCE POPULATION, HAS BEEN CONFIRMED THE DECISION THRESHOLD FOR [place] DIAGNOSIS. Performed By: #### I HANNAH #### [facility] [address] [address] [address] Saroj Cano XR CHEST 1 Von 01-07-2022 XR CHEST 1 V EXAMINATION: XR CHES T 1 V HISTORY: SHORTNESS OF BREATH COMPARISON: 10/21/2021 TECHNIQUE: AP portable erect FINDINGS: LUNGS: No significant pulmonary parenchymal abnormalities. VASCULATURE: No increased pulmonary vasculature. PLEURA: No pneumothorax, effusion, or pleural thickening. CARDIAC: No cardiomegaly or cardiac silhouette abnormality. MEDIASTINUM: No visible mass or adenopathy. BONES: No fracture or visible bone lesion. OTHER: Negative. IMPRESSION: No acute disease. Electronically authenticated by: DANTE HECTOR Date: 2022-01-07 10:39 Normal [facility] CT LUNG CANCER SCREENINGon 0 12-10-2021 CT LUNG CANCER SCREENING EXAMINATION: CT LUNG CANCER SCREENING HISTORY: Nicotine dependence COMPARISON: No relevant comparison available. TECHNIQUE: Axial, Coronal, and Sagittal images were created without the administration of IV contrast material. Dose reduction techniques were achieved by using automated exposure control and/or adjustment of mA and/or kV according to patient size and/or use of iterative reconstruction technique. FINDINGS: LUNGS: Mild centrilobular emphysema. Scattered subcentimeter solid pulmonary nodules the largest is identified in the left lower lobe axial image 125 measuring 5 mm in diameter. Some linear opacities are identified in the lingula and right middle lobe, atelectasis and/or scar is favored. PLEURA: No mass, effusion, or pneumothorax. VASCULATURE: No abnormality. DANIEL: No mass or pathologic adenopathy. MEDIASTINUM: No mass or pathologic adenopathy. CARDIAC: No enlargement, pericardial thickening, or significant calcification. AORTA: No aneurysm or dissection. CHEST WALL: No mass or axillary adenopathy BONES: No bone lesion or fracture. LIMITED ABDOMEN: No suspicious findings. Limited images of the upper abdomen. OTHER: Negative. IMPRESSION: Mild emphysema and scattered subcentimeter solid pulmonary nodules. LUNG SCREENING: Lung-RADS Category 2- Benign Appearance or Behavior. Nodules with a very low likelihood of becoming a clinically active cancer due to size or lack of growth. 2. Continue annual screening with LDCT in 12 months. Electronically authenticated by: DANTE HECTOR Date: 2021-12-10 14:[address] [facility] VC COMP CONSULTATIONon 12-02 VC COMP CONSULTATION Patient: ELZA LEONARD Exam Date: 12/02/2021 : 1965 Gender:F Ordering : DR JARRELL ROUSE . Admission #: [id number] Family : Order #: [id number] CLICK HERE TO VIEW EXAM RADIOLOGY REPORT PROCEDURE: VC VEIN CENTER CONSULTATION VEIN CENTER - OFFICE VISIT INITIAL COMPARISON: None. PROGRESS NOTES: [age] year old female who presents with a 15 year history of bulging, dilated veins, leg pain and swelling, muscle cramping, edema. The patient's back space leg symptoms symmetric bilaterally. There has been a progression of symptoms. This increases with prolonged standing and prolonged sitting which the patient does for her job. The patient describes an improvement with rest and elevation. The patient denies any signs and symptoms to suggest arterial ischemia. The patient describes a family history varicose veins, diabetes mellitus, and hypertension. The patient has drinking and smoking history of prior smoker; occasional alcohol consumption. Patient has a past medical history significant for tobacco abuse, long-term use of inhaled steroids, asthma, hypertension, hyperlipidemia. The patient denies a history of deep venous thrombus or pulmonary embolus. See separate history and physical for medication list. No prior treatment for varicose or spider veins. Current occasional use of compression stockings. After review of nurse notes, history and physical exam I discussed at length the pathophysiology of venous hypertension and possible treatments, therapies and strategies available. We discussed at length the importance of elevating the lower extremities above the level of the heart, increased physical activity and compression stocking use. Ultrasound venous reflux study performed on November 25, 2021 was discussed at length with the patient. The report demonstrates dilated, incompetent great saphenous vein bilaterally with associated branch saphenous varicosities. Back space. PHYSICAL EXAM: The right leg demonstrates several varicosities, a few spider veins, no ulceration, mild edema, no skin discoloration. The left leg demonstrates several varicosities, a few spider veins, no ulceration, mild edema, no skin discoloration. Both thighs, legs and feet were symmetrically warm to the touch. Good posterior tibial and dorsalis pedis pulses were present bilaterally. IMPRESSION: 1. Bilateral lower extremity venous insufficiency 2. Bilateral lower extremity varicose veins 3. Mild bilateral lower extremity subcutaneous edema 4. No flow significant arterial disease 5. CEAP: C3, EC, , NM PLAN: 1. Continued use of compression stockings 2. Elevated legs and increased physical activity symptomatic relief 3. Endovenous laser ablation of bilateral great saphenous veins followed by microfoam chemical ablation of incompetent branch saphenous varicosities bilaterally. Nurse notes, history and physical were reviewed and confirmed, see attached forms. The nurse was present throughout the physical exam and consultation Dictated by: Andriy Vasquez M.D. on 12/02/2021 at 15:34 Approved by: Andriy Vasquez M.D. on 12/02/2021 at 15:40 Normal [facility] ECHOCARDIO M/2D COMPLETEon 0 11-29-2021 ECHOCARDIO M/2D COMPLETE Patient: NITIN LEONARD Exam Date: 11/29/2021 : 1965 Gender:F Ordering : DR JARRELL ROUSE . Admission #: [id number] Family : Order #: [id number] CLICK HERE TO VIEW EXAM ECHOCARDIOGRAM REPORT PROCEDURE: CARDIO PULMONARY ECHOCARDIO M/2D COMP INDICATIONS: Edema, COPD, hypertension COMPARISON: None. DESCRIPTION: COMPLETE ECHOCARDIOGRAM Real-time transthoracic echocardiography with 2D, M-mode, spectral and color flow Doppler performed. QUALITY: 60 200# BP 120/82 HR 73 Technically difficult due to patients condition. LEFT VENTRICLE: Normal chamber size. Normal left ventricular wall thickness. Normal ventricular systolic function. LV EF: Normal left ventricular ejection fraction, (>55%). DIASTOLIC: Normal diastolic function. ATRIAL SEPTUM: Visually appears intact. LEFT ATRIUM: Normal chamber size. RIGHT ATRIUM: Normal chamber size. RIGHT VENTRICLE: Normal chamber size. Normal right ventricular systolic function. TRICUSPID VALVE: Normal mobility and thickness. No stenosis with no regurgitation. Unable to assess right-sided pressures due to lack of measurable tricuspid regurgitation. MITRAL VALVE: Normal mobility and thickness. No evidence of mitral valve stenosis. Mitral annular calcification. No mitral regurgitation. AORTIC VALVE: Normal trileaflet appearance. No visible sclerosis. Normal leaflet mobility. No evidence of aortic valve stenosis. No aortic regurgitation. AORTIC ROOT: Normal diameter and appearance. PULMONIC VALVE: Not well visualized. No stenosis. No regurgitation. PERICARDIUM: No evidence of pericardial effusion. IVC: Collapses with inspirations. PLEURA: CONCLUSION: 1. Normal ventricular systolic function. LVEF is 55 to 60%. 2. No significant valvular dysfunction. 3. No pericardial effusion. Dictated by: Andrea John M.D. on 11/29/2021 at 17:41 Approved by: Andrea John M.D. on 11/29/2021 at 17:43 Normal [facility] VC VENOUS REFLUX REG LMTon 0 11-25-2021 VC VENOUS REFLUX REG LMT Patient: NITIN LEONARD Exam Date: 11/25/2021 : 1965 Gender:F Ordering : DR JARRELL ROUSE . Admission #: [id number] Family : Order #: [id number] CLICK HERE TO VIEW EXAM RADIOLOGY REPORT PROCEDURE: VEIN CENTER ULTRASOUND VENOUS REFLUX BILATERAL LIMTED COMPARISON: None. INDICATIONS: Localized edema R60.0 TECHNIQUE: Duplex imaging of the lower extremity to assess the deep and superficial venous system for the presence of deep or superficial venous incompetence and to document the location and severity of disease. The study includes evaluation of the great saphenous vein (GSV), anterior accessory saphenous vein (AASV) and small saphenous vein (SSV). Patient scanned in reverse Trendelenburg and standing. FINDINGS: RIGHT LOWER EXTREMITY: Saphenofemoral Junction Reflux: Yes 8.0mm 2.2 sec GSV: Diam (mm) Reflux/ Time (sec) Proximal Thigh 7.5 Yes 1.1 Mid Thigh 6.3 Yes 1.2 Distal Thigh 6.6 Yes 1.0 Prox Calf 4.4 No Mid Calf 3.1 Yes 0.7 Saphenopopliteal Junction Reflux: 4.1mm No SSV: Proximal Calf 3.5 No Mid Calf 2.8 No AASV: Proximal Thigh 5.1 Yes 0.4 Mid Thigh 3.5 No Distal Thigh Thrombi: No acute or chronic thrombus visualized Compressibility: Normal Flow: Normal Preforator: Dist/med calf 2.7mm with 0s reflux. Mid/med calf 3.8mm with 0s reflux. Tech Note: Incompetent SFJ and GSV. Patent varicose vein mid/med calf 2.2mm with 0s reflux. Patient varicose vein dist/med thigh arising off of GSV 5.2mm with 0.4s reflux. Patent varicose vein mid/posterior thigh 4.6mm with 0s reflux. LEFT LOWER EXTREMITY: Saphenofemoral Junction Reflux: Yes 9.3 mm 0.9 sec GSV: Diam (mm) Reflux/Time (sec) Proximal Thigh 8.0 No Mid Thigh 7.0 Yes 0.8 Distal Thigh 6.2 Yes 0.8 Prox Calf 3.9 No Mid Calf 3.2 Yes 1.0 Saphenopopliteal Junction Relux: 3.4 mm No SSV: Proximal Calf 2.9 Yes 0.4 Mid Calf 2.8 No AASV: Proximal Thigh 4.6 No Mid Thigh 3.6 No Distal Thigh Thrombi: No acute or chronic thrombus visualized Compressibility: Normal Flow: Normal Pipe Chipper: Dist/med calf 2.2mm with 0s reflux. Tech Note: Incompetent SFJ and GSV. Patent varicose vein dist/med calf 2.3mm with 0s reflux. Patent varicose vein anterior knee 2.4mm with 0s reflux. CONCLUSION: 1. Dilated, incompetent great saphenous vein bilaterally along with a few abnormally dilated branch saphenous varicosities, right greater than left. 2. Correlate with clinical symptoms. Consultation for venous ablation should be considered.. Dictated by: Andriy Vasquez M.D. on 11/26/2021 at 13:20 Approved by: Andriy Vasquez M.D. on 11/26/2021 at 14:[address] [facility] BNPon 10-22-2021 Natriuretic peptide B (Bld) [Mass/Vol] 207.0 pg/mL Normal <=900.0 [facility] Comment on above: Performed By: #### I HANNAH #### [facility] [address] [place] [address] Dr. Saroj Cano CBC AUTO DIFFon 10-22-2021 BASO # 0.1 103/ul Normal 0.0-0.1 [facility] Comment on above: Performed By: #### P TT, PT #### [facility] [address] [address] [address] Saroj Cano Basophils/100 WBC (Bld) 0.9 % Normal 0.2-2.0 [facility] Comment on above: Performed By: #### P TT, PT #### [facility] [address] [place] [address] Dr. Saroj Cano EO # 0.2 103/ul Normal 0.0-0.[address] [facility] Comment on above: Performed By: #### P TT, PT #### [facility] [address] [place] [address] Dr. Saroj Cano Eosinophils/100 WBC (Bld) 1.6 % Normal 0.9-7.[address] [facility] Comment on above: Performed By: #### P TT, PT #### [facility] [address] [place] [address] Dr. Saroj Cano Erythrocyte distribution width (RBC) [Ratio] 14.3 % Normal 11.0-15.[address] [facility] Comment on above: Performed By: #### P TT, PT #### [facility] [address] [place] [address] Dr. Saroj Cano Hematocrit (Bld) [Volume fraction] 41.6 % Normal 36.0-48.[address] [facility] Comment on above: Performed By: #### P TT, PT #### [facility] [address] [place] [address] Dr. Saroj Cano Hemoglobin (Bld) [Mass/Vol] 12.9 g/dL Normal 12.0-16.[address] [facility] Comment on above: Performed By: #### P TT, PT #### [facility] [address] [place] [address] Dr. Saroj Cano IG # 0.05 10e3/ul Critically high 0.00-0.03 [facility] Comment on above: Performed By: #### P TT, PT #### [facility] [address] [place] [address] Dr. Saroj Cano IG % 0.5 % Normal 0.0-0.[address] [facility] Comment on above: Performed By: #### P TT, PT #### [facility] [address] [place] [address] Dr. Saroj Cano LYMPH # 2.5 103/ul Normal 1.2-3.[address] [facility] Comment on above: Performed By: #### P TT, PT #### [facility] [address] [place] [address] Dr. Saroj Cano Lymphocytes/100 WBC (Bld) 25.0 % Normal 20.5-60.[address] [facility] Comment on above: Performed By: #### P TT, PT #### [facility] [address] [place] [address] Dr. Saroj Cano MANUAL DIFF REQ NO Normal [facility] Comment on above: Performed By: #### P TT, PT #### [facility] [address] [place] [address] Dr. Saroj Cano MCH (RBC) [Entitic mass] 27.7 pg Normal 26.7-34.[address] [facility] Comment on above: Performed By: #### P TT, PT #### [facility] [address] [place] [address] Dr. Sraoj Cano MCHC (RBC) [Mass/Vol] 31.0 g/dL Normal 29.9-35.[address] [facility] Comment on above: Performed By: #### P TT, PT #### [facility] [address] [place] [address] Dr. Saroj Cano MCV (RBC) [Entitic vol] 89.3 fL Normal 81.0-99.[address] [facility] Comment on above: Performed By: #### P TT, PT #### [facility] [address] [place] [address] Dr. Saroj Cano MONO # 0.9 103/ul Critically high 0.3-0.8 [facility] Comment on above: Performed By: #### P TT, PT #### [facility] [address] [place] [address] Dr. Saroj Cano Monocytes/100 WBC (Bld) 8.8 % Normal 1.7-12.[address] [facility] Comment on above: Performed By: #### P TT, PT #### [facility] [address] [place] [address] Dr. Saroj Cano NEUT # 6.2 103/ul Normal 1.4-6.[address] [facility] Comment on above: Performed By: #### P TT, PT #### [facility] [address] [address] [address] Saroj Cano Neutrophils/100 WBC (Bld) 63.2 % Normal 43.0-75.0 [facility] Comment on above: Performed By: #### P TT, PT #### [facility] [address] [place] [address] Dr. Saroj Cano Platelet mean volume (Bld) [Entitic vol] 9.9 fL Normal 9.5-13.5 [facility] Comment on above: Performed By: #### P TT, PT #### [facility] [address] [place] [address] Dr. Saroj Cano PLT 305 103/ul Normal 150-[address] [facility] Comment on above: Performed By: #### P TT, PT #### [facility] [address] [place] [address] Dr. Saroj Cano RBC 4.66 106/ul Normal 4.20-5.[address] [facility] Comment on above: Performed By: #### P TT, PT #### [facility] [address] [place] [address] Dr. Saroj Cano WBC 9.8 103/ul Normal 4.0-11.0 [facility] Comment on above: Performed By: #### P TT, PT #### [facility] [address] [place] [address] Dr. Saroj Cano FREE THYROXINE INDEX T7on FTI 3.70 Normal 1.30-4.[address] [facility] Comment on above: Performed By: #### P TT, PT #### [facility] [address] [place] [address] Dr. Saroj Cano T3U 37.0 % Normal 30.0-39.[address] [facility] Comment on above: Performed By: #### P TT, PT #### [facility] [address] [place] [address] Dr. Saroj Cano T4 [Mass/Vol] 10.00 ug/dL Normal 4.80-13.90 [facility] Comment on above: Performed By: #### P TT, PT #### [facility] [address] [place] [address] Dr. Saroj Cano IRONon 10-22-2021 Iron [Mass/Vol] 68.0 ug/dL Normal 50.0-170.0 [facility] Comment on above: Performed By: #### I HANNAH #### [facility] [address] [place] [address] Dr. Saroj Cano PROF 14(COMP METB)on 022 Albumin [Mass/Vol] 3.0 g/dL Critically low 3.4-5.0 [facility] Comment on above: Performed By: #### P TT, PT #### [facility] [address] [place] [address] Dr. Saroj Cano Albumin/Globulin [Mass ratio] 0.8 {ratio} Normal [facility] Comment on above: Performed By: #### P TT, PT #### [facility] [address] [place] [address] Dr. Saroj Cano ALP [Catalytic activity/Vol] 129 U/L Critically high 46-116 [facility] Comment on above: Performed By: #### P TT, PT #### [facility] [address] [place] [address] Dr. Saroj Cano ALT [Catalytic activity/Vol] 23 U/L Normal 14-59 [facility] Comment on above: Performed By: #### P TT, PT #### [facility] [address] [place] [address] Dr. Saroj Cano Anion gap [Moles/Vol] 12.7 mmol/L Normal [facility] Comment on above: Performed By: #### P TT, PT #### [facility] [address] [place] [address] Dr. Saroj Caon AST [Catalytic activity/Vol] 13 U/L Critically low 15-37 [facility] Comment on above: Performed By: #### P TT, PT #### [facility] [address] [place] [address] Dr. Saroj Cano Bilirubin [Mass/Vol] 0.2 mg/dL Normal 0.2-1.0 [facility] Comment on above: Performed By: #### P TT, PT #### [facility] [address] [place] [address] Dr. Saroj Cano Calcium [Mass/Vol] 8.8 mg/dL Normal 8.5-10.1 [facility] Comment on above: Performed By: #### P TT, PT #### [facility] [address] [place] [address] Dr. Saroj Cano Chloride [Moles/Vol] 106 mmol/L Normal 98-107 [facility] Comment on above: Performed By: #### P TT, PT #### [facility] [address] [place] [address] Dr. Saroj Cano CO2 [Moles/Vol] 28.1 mmol/L Normal 21.0-32.0 [facility] Comment on above: Performed By: #### P TT, PT #### [facility] [address] [place] [address] Dr. Saroj Cano Creatinine [Mass/Vol] 0.72 mg/dL Normal 0.55-1.02 [facility] Comment on above: Performed By: #### P TT, PT #### [facility] [address] [place] [address] Dr. Saroj Cano EGFR-AF NORTHER[place] IRISH >60 Normal >=60 [facility] Comment on above: Performed By: #### P TT, PT #### [facility] [address] [place] [address] Dr. Saroj Cano EGFR-NON AF [place]THER[place]ISH >60 Normal >=60 [facility] Comment on above: Performed By: #### P TT, PT #### [facility] [address] [place] [address] Dr. Saroj Cano Globulin (S) [Mass/Vol] 3.7 g/dL Normal [facility] Comment on above: Performed By: #### P TT, PT #### [facility] [address] [place] [address] Dr. Saroj Cano Glucose [Mass/Vol] 122 mg/dL Critically high 74-106 [facility] Comment on above: Performed By: #### P TT, PT #### [facility] [address] [address] [address] Saroj Cano Potassium [Moles/Vol] 3.8 mmol/L Normal 3.5-5.1 [facility] Comment on above: Performed By: #### P TT, PT #### [facility] [address] [address] [address] Saroj Cano Protein [Mass/Vol] 6.7 g/dL Normal 6.4-8.2 [facility] Comment on above: Performed By: #### P TT, PT #### [facility] [address] [address] [address] Saroj Cano Sodium [Moles/Vol] 143 mmol/L Normal 136-145 [facility] Comment on above: Performed By: #### P TT, PT #### [facility] [address] [address] [address] Saroj Cano Urea nitrogen [Mass/Vol] 13.0 mg/dL Normal 7.0-18.0 [facility] Comment on above: Performed By: #### P TT, PT #### [facility] [address] [address] [address] Saroj Cano Urea nitrogen/Creatinine [Mass ratio] 18.1 mg/mg Normal [facility] Comment on above: Performed By: #### P TT, PT #### [facility] [address] [address] [address] Saroj Cano TSHon 10-22-2021 TSH 1.202 uIU/mL Normal 0.358-3.740 [facility] Comment on above: Performed By: #### I HANNAH #### [facility] [address] [place] [address] Dr. Saroj Cano US ELVA DOP LEG LTon 10-23-19 US ELVA DOP LEG LT EXAMINATION: US ELVA DOP LEG LT HISTORY: Dyspnea COMPARISON: No relevant comparison available. TECHNIQUE: Grayscale, color and Doppler ultrasound FINDINGS: Region: Left leg Thrombus: None Flow: Normal Augmentation: Normal Compressibility: Normal IMPRESSION: No deep vein thrombus in the left leg *Exam performed in accordance with [facility] practice guidelines- Peripheral venous ultrasound, July 28, 2009. Electronically authenticated by: DANTE HECTOR Date: 2021-10-22 07:07 Normal [facility] XR CHEST 2 Von 10-21-2021 XR CHEST 2 V EXAM: XR CHEST 2 V EXAM: XR CHEST 2 V INDICATION: 56 years old Female Dyspnea COMPARISON: April 24, 2021 FINDINGS: The cardiac silhouette is normal. There is no pulmonary edema. The lungs are clear. There is no pneumonia. There is no pneumothorax. There is no abnormal foreign body. IMPRESSION: There is no acute abnormality. Electronically authenticated by: CORWIN ASHLEY Date: 2021-10-21 17:53 Normal [facility] CARDIAC STRESS/REST INJE CTIONon 10-09-2020 [facility] CARDIAC STRESS/REST INJECTION Patient Name: NITIN LEONARD STUDY: MYOCARDIAL PERFUSION STRESS TEST WITH LEXISCAN Performing facility: [facility], [address] [place] [address], [address], [address] Provider: Chiquis Laguna MD PCP: Dr. Lily Rouse Supervising provider: Carlos Knox DO, [facility] INDICATION: Chest Pain; HISTORY: Gender: F; Age: 55 y/o ; Height: 154.94 cm; Weight: 84.2532158 kg. High Cholesterol; Palpitations; HTN; Chest Pain; SOB; COPD; Denies smoking. COMPARISON: No comparison. ACCESSION NUMBER(S): [id number]; [id number]; [id number] ORDERING CLINICIAN: CHIQUIS LAGUNA TECHNIQUE: ONE DAY protocol. Stress injection: Date:10-09-20, 34.1 mCi of Myoview IV 20 seconds after rapid injection of Lexiscan. Rest injection: Date: 10-09-20, 11.1 mCi of Myoview IV at rest. The patient had a rapid injection of 0.4 mg of Lexiscan IV over 10 seconds. Imaging was performed by gated tomographic technique. Reason for Lexiscan: dizziness/unsteady/fall risk STRESS TEST DATA: Resting heart rate was 81 BPM. Resting blood pressure was 150/100 mmHg. Peak blood pressure was 160/100 mmHg. Peak heart rate was 104 BPM. TEST TERMINATED DUE TO: Protocol completed FINDINGS: STRESS TEST RESULTS: Resting electrocardiogram revealed normal sinus rhythm. There were no significant ischemic ECG changes or dysrhythmias. The patient did not have chest pains/symptoms during procedure. There was a normal recovery phase. IMAGING RESULTS: Image quality was good. Rest and stress tomographic images were reviewed and revealed normal perfusion without evidence of ischemia, myocardial infarction, or left ventricular dilatation with stress. Overall left ventricular systolic function appeared to be normal without regional wall motion abnormalities. Ejection fraction was 68%. TID is 0.87 and is normal. There was no evidence of attenuation artifact. IMPRESSION: Normal Lexiscan Myoview cardiac perfusion stress test. No evidence of ischemia or myocardial infarction by perfusion imaging. Normal left ventricular systolic function, ejection fraction 60%. No previous studies are available for comparison. Electronically signed by: HODA SLAUGHTER MD [facility] Vital Signs Date Time Vital Sign Value Performing Clinician Slime wheeler 07-14-2022 10:49-0400 Blood Pressure Location Candace LOPEZ [facility] 07-14-2022 10:49-0400 Diastolic blood pressure 72 mm[Hg] Candace LOPEZ [facility] 07-14-2022 10:49-0400 Heart rate 84 /min Candace LOPEZ [facility] 07-14-2022 10:49-0400 SaO2% (BldA) [Mass fraction] 93 % Candace LOPEZ [facility] 07-14-2022 10:49-0400 Systolic blood pressure 124 mm[Hg] Candace LOPEZ [facility] 06-05-2022 10:42-0500 Blood Pressure Location Evin Renteria [facility] 06-05-2022 10:42-0500 Diastolic blood pressure 78 mm[Hg] Evin Renteria [facility] 06-05-2022 10:42-0500 Heart rate 84 /min Evin Renteria [facility] 06-05-2022 10:42-0500 SaO2% (BldA) [Mass fraction] 91 % Evin Renteria [facility] 06-05-2022 10:42-0500 Systolic blood pressure 131 mm[Hg] Evin Renteria [facility] Encounters Encounter Date Encounter Type Care Provider Facility Start: 06-02-2023 End: 06-02-2023 ambulatory JUDE Rajput DUSTIN Not Available Start: 04-28-2023 End: 04-28-2023 ambulatory JUDE Rajput DUSTIN Not Available Start: 04-22-2023 End: 04-22-2023 ambulatory [facility] Start: 04-21-2023 End: 04-21-2023 ambulatory JUDE Rajput DUSTIN Not Available Start: 04-14-2023 End: 04-14-2023 ambulatory JUDE Rajput DUSTIN Not Available Start: 04-07-2023 End: 04-07-2023 ambulatory JUDE Rajput DUSTIN Not Available Start: 03-30-2023 End: 03-30-2023 ambulatory JUDE Rajput DUSTIN Not Available Start: 11-10-2022 End: 11-11-2022 Pre-admission assessment Evin Renteria [facility] Start: 10-23-2022 End: 10-23-2022 ambulatory [facility] Start: 10-13-2022 End: 10-14-2022 ambulatory Evin RENTERIA Facility:[facility] Start: 09-10-2022 End: 10-01-2022 ambulatory PUJA JOHN Daly Facility: Start: 07-14-2022 End: 07-15-2022 ambulatory Candace LOPEZ Facility:[facility] Start: 07-14-2022 End: 07-14-2022 Patient encounter procedure Candace LOPEZ [facility] Start: 07-09-2022 End: 07-10-2022 ambulatory Evin RENTERIA Facility:[facility] Start: 07-09-2022 End: 07-09-2022 Patient encounter procedure Evin Pearce Myra [facility] Start: 06-12-2022 End: 06-13-2022 ambulatory Evin Pearce RENTERIA Facility:[facility] Start: 06-12-2022 End: 06-12-2022 Patient encounter procedure Evin Pearce Renteria [facility] Start: 06-10-2022 End: 06-11-2022 ambulatory Evin RENTERIA Facility:[facility] Start: 06-10-2022 End: 06-10-2022 Patient encounter procedure Evin Renteria [facility] Start: 06-06-2022 End: 06-07-2022 ambulatory PUJA SAMSA . Facility: Start: 06-05-2022 End: 06-06-2022 ambulatory PUJA P SAMSA Facility:[facility] Start: 06-05-2022 End: 06-05-2022 Patient encounter procedure Evin Renteria [facility] Start: 05-29-2022 ambulatory PUJA SAMSA . Facility :[facility] Start: 04-22-2022 End: 04-23-2022 ambulatory PUJA SAMSA . Facility:[facility] Start: 01-20-[address] JARRELL ROUSE . Facili ty:[facility] Start: 01-10-2022 End: 01-12-[address] JARRELL ROUSE . Facility:[facility] Start: 01-07-2022 End: 01-07-[address] JARRELL ROUSE . Facility:[facility] Start: 01-01-[address] JARRELL ROUSE . Facili ty:[facility] Start: 12-10-2021 End: 12-11-2021 ambulatory PUAJ SAMSA . Facility:[facility] Start: 12-02-2021 End: 12-03-[address] JARRELL ROUSE . Facility:[facility] Start: 11-29-2021 End: 07-30-[address] JARRELL ROUSE . Facility: Start: 11-25-2021 End: 11-26-[address] JARRELL ROUSE . Facility:[facility] Start: 10-22-2021 End: 10-23-[address] JARRELL ROUSE . Facility:[facility] Start: 10-21-2021 End: 10-22-[address] JARRELL ROUSE . Facility:[facility] Procedures Date Procedure Procedure Detail Performing Clinician Closed fracture of t ibia and fibula, shaft (disorder) Evin Renteria Destructive procedure Evin Renteria Excision of lumbar intervertebral disc Evin Renteria Comment on above: L4-L5- Dr. Corado Payers Date Payer Category Payer Unknown 2018 Unknown [id number] 1965 Unknown [id number] 2.16.84 0.1.648763.3.579.2.593 1965 Unknown [id number] 2.16.84 0.1.903492.3.579.2.593 1965 Unknown [id number] 2.16.84 0.1.892458.3.579.2.593 1965 Unknown [id number] 2.16.84 0.1.295572.3.579.2.593 1965 Unknown [id number] 2.16.84 0.1.380794.3.579.2.593 1965 Unknown [id number] 2.16.84 0.1.633733.3.579.2.593 1965 Unknown [id number] 2.16.84 0.1.676967.3.579.2.593 1965 Unknown [id number] 2.16.84 0.1.747024.3.579.2.593 1965 Unknown [id number] 2.16.84 0.1.015680.3.579.2.593 1965 Unknown [id number] 2.16.84 0.1.328914.3.579.2.593 1965 Unknown [id number] 2.16.84 0.1.466797.3.579.2.593 1965 Unknown [id number] 2.16.84 0.1.734342.3.579.2.593 1965 Unknown [id number] 2.16.84 0.1.736689.3.579.2.593 1964 Unknown [id number] 2.16.84 0.1.494414.3.579.2.593 1964 Unknown [id number] 2.16.8 40.1.465893.3.579.2.727 1965 Unknown [id number] 2.16.8 40.1.098486.3.579.2.727 1964 Unknown [id number] 2.16.8 40.1.386349.3.579.2.727 1965 Unknown [id number] 2.16.8 40.1.976380.3.579.2.727 1964 Unknown [id number] 2.16.8 40.1.293399.3.579.2.727 1964 Unknown [id number] 2.16.8 40.1.486908.3.579.2.727 1964 Unknown [id number] 2.16.84 0.1.230675.3.579.2.1259 1964 Unknown [id number] 2.16.840 .1.084552.3.579.2.1259 1964 Unknown [id number] 2.16.840 .1.359273.3.579.2.1259 1964 Unknown [id number] 2.16.840 .1.753706.3.579.2.1259 1964 Unknown [id number] 2.16.840 .1.392054.3.579.2.1259 1964 Unknown [id number] 2.16.840 .1.477560.3.579.2.1259 1960 Self-pay [id number] 1960 Unknown [id number] Social History Date Type Detail Facility Start: 12-28-2019 End: 10-13-2022 Tobacco smoking status Ex-smoker (finding) [facility] Tobacco smoking status Smokeless tobacco user within last 30 days [facility] Sex Assigned At Female [facility] Functional Status Date Assessment Result Facility 07-14-2022 Functional Status No [facility] 06-05-2022 Functional Status No [facility] Clinical Notes 06-05-2022 to 04-22-2023 [facility] Note Date & Type Note Facility 04-22-2023 Note AR Cardiology - [facility] Subjective Nitin Leonard is a 58 y.o. year old female patient being seen for 6 mo follow up hypertension and hyperlipidemia. At last visit in October 2022, atorvastatin was increased to 80mg daily. She had repeat lipid panel last week. Says when she gets very SOB her HR goes up to 130-140's at rest. Does feel flutters when HR is very elevated. Denies chest pain. Feels good today. Patient Active Problem List Diagnosis Vitamin D deficiency Smoker Occult blood in stools Hypercholesterolemia GERD (gastroesophageal reflux disease) Dysphagia BMI 33.0-33.9,adult Asthma Anxiety and depression Family History Problem Relation Name Age of Onset Diabetes Mother Stroke Father Social History Tobacco Use Smoking status: Former Types: Cigarettes Smokeless tobacco: Never Substance Use Topics Alcohol use: Yes HPI Nitin is seen in follow up. She was initially seen on 10/23/2022 as a new patient referred from Dr. Rouse's office. She is a 58-year-old woman who has history of hypertension and hyperlipidemia on treatment. She was previously investigated for shortness of breath on exertion. She was evaluated by another cardiology group and her echocardiogram 07/2022 and stress test 06/2022 were nonrevealing. PFTs 06/2022 showed severe obstructive physiology. At most recent visit of 10/23/2022 I increased atorvastatin to 80 mg daily for control of her hyperlipidemia. She has no chest pain. She has significant symptoms of shortness of breath on exertion, NYHA class II-III. She has no significant lower extremity edema. She does not have elevated heart rate with exertion. She has to rest or use oxygen and then her heart rate comes down. No significant palpitations at rest. Review of Systems Cardiovascular: Positive for dyspnea on exertion, irregular heartbeat, leg swelling (RLE) and palpitations. Respiratory: Positive for cough, shortness of breath, snoring and wheezing. Musculoskeletal: Positive for arthritis and back pain. All other systems reviewed and are negative. Objective Visit Vitals BP 110/70 (BP Location: Left arm, Patient Position: Sitting) Pulse 90 Ht 1.524 m (5') Wt 98.4 kg (217 lb) SpO2 94% BMI 42.38 kg/m??? Smoking Status Former BSA 2.04 m??? Physical Exam Constitutional: Appearance: She is well-developed. She is obese. She is not ill-appearing. HENT: Head: Normocephalic and atraumatic. Nose: Nose normal. Eyes: General: No scleral icterus. Pupils: Pupils are equal, round, and reactive to light. Neck: Thyroid: No thyromegaly. Vascular: No JVD. Cardiovascular: Rate and Rhythm: Normal rate and regular rhythm. Pulses: Radial pulses are 2+ on the right side and 2+ on the left side. Heart sounds: Normal heart sounds. No murmur heard. No friction rub. No gallop. Pulmonary: Effort: Pulmonary effort is normal. No respiratory distress. Breath sounds: Normal breath sounds. Decreased air movement present. No wheezing or rales. Chest: Chest wall: No tenderness. Abdominal: General: Bowel sounds are normal. There is no distension. Palpations: Abdomen is soft. Tenderness: There is no abdominal tenderness. Musculoskeletal: General: No swelling. Cervical back: Neck supple. Skin: General: Skin is warm and dry. Neurological: General: No focal deficit present. Mental Status: She is alert and oriented to person, place, and time. Psychiatric: Mood and Affect: Mood normal. Behavior: Behavior is cooperative. Judgment: Judgment normal. Allergies Allergies Allergen Reactions Oxycodone-Acetaminophen Rash Propoxyphene N-Acetaminophen Rash Medications Current Outpatient Medications: albuterol 90 mcg/actuation inhaler, Inhale 90 puffs if needed each day., Disp: , Rfl: ALPRAZolam (Xanax) 0.5 mg tablet, Take 0.5 mg by mouth if needed in the morning, at noon, and at bedtime., Disp: , Rfl: aspirin 81 mg EC tablet, Take 81 mg by mouth in the morning., Disp: , Rfl: atorvastatin (Lipitor) 80 mg tablet, Take 1 tablet (80 mg) by mouth in the morning., Disp: 90 tablet, Rfl: 3 Breztri Aerosphere 160-9-4.8 mcg/actuation HFA aerosol inhaler, 160 puffs in the morning and at bedtime., Disp: , Rfl: buPROPion XL (Wellbutrin XL) 300 mg 24 hr tablet, Take 300 mg by mouth in the morning., Disp: , Rfl: desvenlafaxine (Pristiq) 100 mg 24 hr tablet, Take 50 mg by mouth in the morning., Disp: , Rfl: dilTIAZem CD (Cardizem CD) 240 mg 24 hr capsule, Take 240 mg by mouth in the morning., Disp: , Rfl: Dupixent Pen 300 mg/2 mL pen injector, , Disp: , Rfl: gabapentin (Neurontin) 600 mg tablet, Take 600 mg by mouth in the morning and at bedtime., Disp: , Rfl: hydroCHLOROthiazide (Microzide) 12.5 mg capsule, Take 12.5 mg by mouth., Disp: , Rfl: lisinopril 10 mg tablet, Take 10 mg by mouth in the morning., Disp: , Rfl: meloxicam (Mobic) 15 mg tablet, Take 15 mg by mouth in the morning., Disp: , Rfl (more content not included)... [facility] 10-23-2022 Note [place] Cardiology - [facility] Subjective Nitin Leonard is a 57 y.o. year old female patient being seen for Establish Care (DIASTOLIC DYSFUNCTION ANATOLIY) Patient Active Problem List Diagnosis Vitamin D deficiency Smoker Occult blood in stools Hypercholesterolemia GERD (gastroesophageal reflux disease) Dysphagia BMI 33.0-33.9,adult Asthma Anxiety and depression Family History Problem Relation Name Age of Onset Diabetes Mother Stroke Father Social History Tobacco Use Smoking status: Former Types: Cigarettes Smokeless tobacco: Never HPI Nitin is seen as a new patient referred from Dr. Rouse's office. She is a 57-year-old woman who has history of hypertension and hyperlipidemia on treatment. She was previously investigated for shortness of breath on exertion. She was evaluated by another cardiology group and her echocardiogram and stress test were nonrevealing. PFTs showed severe obstructive physiology. She has no chest pain. She has significant symptoms of shortness of breath on exertion, NYHA class II-III. She has no significant lower extremity edema. Review of Systems Eyes: Positive for blurred vision and vision loss in right eye. Cardiovascular: Positive for irregular heartbeat. Respiratory: Positive for cough, shortness of breath, snoring and wheezing. Musculoskeletal: Positive for arthritis and back pain. All other systems reviewed and are negative. Objective Visit Vitals BP 106/65 (BP Location: Left arm, Patient Position: Sitting, BP Cuff Size: Large adult) Pulse 87 Ht 1.524 m (5') Wt 98 kg (216 lb) SpO2 93% BMI 42.18 kg/m??? Smoking Status Former BSA 2.04 m??? Physical Exam Constitutional: Appearance: She is well-developed. She is obese. She is not ill-appearing. HENT: Head: Normocephalic and atraumatic. Nose: Nose normal. Eyes: General: No scleral icterus. Pupils: Pupils are equal, round, and reactive to light. Neck: Thyroid: No thyromegaly. Vascular: No JVD. Cardiovascular: Rate and Rhythm: Normal rate and regular rhythm. Pulses: Radial pulses are 2+ on the right side and 2+ on the left side. Heart sounds: Normal heart sounds. No murmur heard. No friction rub. No gallop. Pulmonary: Effort: Pulmonary effort is normal. No respiratory distress. Breath sounds: Normal breath sounds. Decreased air movement present. No wheezing or rales. Chest: Chest wall: No tenderness. Abdominal: General: Bowel sounds are normal. There is no distension. Palpations: Abdomen is soft. Tenderness: There is no abdominal tenderness. Musculoskeletal: General: No swelling. Cervical back: Neck supple. Skin: General: Skin is warm and dry. Neurological: General: No focal deficit present. Mental Status: She is alert and oriented to person, place, and time. Psychiatric: Mood and Affect: Mood normal. Behavior: Behavior is cooperative. Judgment: Judgment normal. Allergies Allergies Allergen Reactions Oxycodone-Acetaminophen Rash Propoxyphene N-Acetaminophen Rash Medications Current Outpatient Medications: albuterol 90 mcg/actuation inhaler, Inhale 90 puffs if needed each day., Disp: , Rfl: ALPRAZolam (Xanax) 0.5 mg tablet, Take 0.5 mg by mouth if needed in the morning, at noon, and at bedtime., Disp: , Rfl: aspirin 81 mg EC tablet, Take 81 mg by mouth in the morning., Disp: , Rfl: Breztri Aerosphere 160-9-4.8 mcg/actuation HFA aerosol inhaler, 160 puffs in the morning and at bedtime., Disp: , Rfl: buPROPion XL (Wellbutrin XL) 300 mg 24 hr tablet, Take 300 mg by mouth in the morning., Disp: , Rfl: desvenlafaxine (Pristiq) 100 mg 24 hr tablet, Take 50 mg by mouth in the morning., Disp: , Rfl: dilTIAZem CD (Cardizem CD) 240 mg 24 hr capsule, Take 240 mg by mouth in the morning., Disp: , Rfl: gabapentin (Neurontin) 600 mg tablet, Take 600 mg by mouth in the morning and at bedtime., Disp: , Rfl: hydroCHLOROthiazide (Microzide) 12.5 mg capsule, Take 12.5 mg by mouth., Disp: , Rfl: lisinopril 10 mg tablet, Take 10 mg by mouth in the morning., Disp: , Rfl: meloxicam (Mobic) 15 mg tablet, Take 15 mg by mouth in the morning., Disp: , Rfl: metoprolol tartrate (Lopressor) 25 mg tablet, Take 25 mg by mouth in the morning and at bedtime., Disp: , Rfl: montelukast (Singulair) 10 mg tablet, Take 10 mg by mouth in the morning., Disp: , Rfl: pantoprazole (ProtoNix) 40 mg EC tablet, Take 40 mg by mouth before breakfast. Do not crush, chew, or split., Disp: , Rfl: predniSONE (Deltasone) 10 mg tablet, Take 10 mg by mouth., Disp: , Rfl: atorvastatin (Lipitor) 80 mg tablet, Take 1 tablet (80 mg) by mouth in the morning., Disp: 90 tablet, Rfl: 3 Recent Labs Blood testing 06/10/2022: Cholesterol 298, triglycerides 123, HDL 67, LDL 223. Blood testing 10/21/2022: Hemoglobin 12.5, platelets 333, potassium 4.0, BUN 15, creatinine 0.8, EGFR more than 60, hemoglobin A1c 7.2%, ALT normal, alkaline phosphatase mil (more content not included)... [facility] 10-13-2022 Evaluation + Plan note Future Scheduled TestsLipid Panel 10/13/22Lipid Panel 08/25/22 [facility] 07-12-2022 Note Echocardiology Procedure Exam Date/Time Accession # Ordering Echo Transthoracic 07/09/2022 11:28 EST [id number] Evin Renteria MD Complete CPT code 81716 81315 Reason for Exam (Echo Transthoracic Complete) R06.09;Shortness of breath (SOB) Report Version: 1 Study ID: [id number] [facility] [address] [place] [address] Adult Echocardiogram Report Name: NITIN LEONARD Study Date: 07/09/2022, 11: 00 AM Patient Location: [facility] : 1965 (MM/DD/YYYY) Gender: Female Age: 57 Years Height: 152.4 cm BP: 131 / 80 mmHg Weight: 95.256 kg HR: 70 bpm BSA: 1.91 m? Ordering Physician: Evin Renteria Referring Physician: Evin Renteria Performed By: Mila Flores RDMS, [facility] Reason For Study: Shortness of breath (SOB) Interpretation Summary Normal LV and RV. No significant valve disease. Normal estimated PA pressure. Abnormal diastolic filling pattern. Procedure A complete two-dimensional transthoracic echocardiogram was performed (2D, M-mode, spectral and color flow Doppler). Study quality is good. Left Ventricle The left ventricle is normal in size. moderate left ventricular hypertrophy. Ejection Fraction = 55-60%. The left ventricular wall motion is normal. Grade I diastolic dysfunction, (abnormal relaxation pattern). Left Atrium The left atrial size is normal. Right Atrium Right atrial size is normal. Echocardiology Report Right Ventricle The right ventricular systolic function is normal. The right ventricle is normal size. The right ventricular wall motion is normal. Aortic Valve The aortic valve is trileaflet. No aortic regurgitation. There is no aortic stenosis. Mitral Valve The mitral valve is normal in structure and function. There is no mitral regurgitation noted. No mitral valve stenosis. Tricuspid Valve Structurally normal tricuspid valve. No evidence of tricuspid regurgitation. Pulmonic Valve No evidence of stenosis. There is no pulmonic valve regurgitation. Arteries The aortic root is normal in size. Normal ascending aorta. Pulmonary artery diameter is normal. Venous The inferior vena cava is normal in size, and collapses normally with respiration. Effusion There is no pericardial effusion. Left Ventricle IVSd: 1.51 cm LVIDd: 4.0 cm LVPWd: 1.16 cm LVIDs: 2.01 cm EDV(MOD-sp4): 74.4 ml LVLd ap4: 7.1 cm ESV(MOD-sp4): 31.4 ml LVLs ap4: 6.4 cm EDV(MOD-sp2): 38.3 ml LVLd ap2: 7.3 cm ESV(MOD-sp2): 17.4 ml LVLs ap2: 6.4 cm Right Ventricle TAPSE: 2.6 cm Aortic Valve LV V1 max: 116.4 cm/sec LV V1 max P.4 mmHg Ao max P.3 mmHg Ao V2 max: 144.4 cm/sec Aorta Ao root diam: 3.1 cm asc Aorta Diam: 3.6 cm Atria LA dimension: 3.7 cm Diastolic funtion Med Peak E' Gm: 7.0 cm/sec Lat Peak E' Gm: 7.4 cm/sec MV dec time: 0.28 sec MV E max gm: 78.8 cm/sec MV A max gm: 110.5 cm/sec Ao max P.3 mmHg Ao root area: 7.5 cm? Ao root diam: 3.1 cm Ao V2 max: 144.4 cm/sec AV VR: 0.81 EDV(MOD-sp4): 74.4 ml EDV(Teich): 70.2 ml Echocardiology Report EF(MOD-sp4): 57.8 % EF(Teich): 81.7 % ESV(MOD-sp4): 31.4 ml ESV(Teich): 12.8 ml FS: 49.9 % IVC Diam: 1.42 cm IVSd: 1.51 cm LA dimension: 3.7 cm LV V1 max: 116.4 cm/sec LV V1 max P.4 mmHg LVIDd: 4.0 cm LVIDs: 2.01 cm LVLd ap4: 7.1 cm LVLs ap4: 6.4 cm LVPWd: 1.16 cm MV A max gm: 110.5 cm/sec MV dec time: 0.28 sec MV E max gm: 78.8 cm/sec MV E/A: 0.71 RAP systole: 3.0 mmHg RVDd: 3.0 cm RVIDd/LVIDd: 0.74 SV(MOD-sp4): 43.0 ml TAPSE: 2.6 cm asc Aorta Diam: 3.6 cm E/E' Lat: 10.7 E/E' Med: 11.3 EDV(MOD-sp2): 38.3 ml EF (MOD-bp): 56.4 % EF(MOD-sp2): 54.6 % ESV(MOD-sp2): 17.4 ml Lat Peak E' Gm: 7.4 cm/sec LVLd ap2: 7.3 cm LVLs ap2: 6.4 cm Med Peak E' Gm: 7.0 cm/sec Electronically signed by: Stanton Holt MD 07/12/2022, 10: 31 PM FINAL REPORT Dictated: 07/09/2022 11:00 am Stanton Holt MD Signed (Electronic Signature): 07/12/2022 9:31 pm Signed by: Stanton Holt MD Transcribed by: [facility] Technologist: [facility] 06-18-2022 Hospital Discharg e instructions Follow Up Care 06/18/2022 13:52:29 With:Evin Renteria MD Address: [address] [place] [id number] When:3 months Comments: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 [facility] 06-05-2022 Evaluation + Plan note Future Scheduled TestsLipid Panel 06/05/22NM Myocardial Spect Rest/Stress 1 Day 06/05/22Echo Transthoracic Complete 06/05/22 [facility] Evaluation + Plan note Future Appointments Appointment Date:06/12/2022 12:00:00 PM Scheduled Provider: Location[facility] Appointment Type:NM Myocard Spect Multi Rest/Stress-Res Appointment Date:06/12/2022 01:00:00 PM Scheduled Provider: Location[facility] Appointment Type:NM Myocard Spect Multi Rest/Stress - R Appointment Date:06/12/2022 01:30:00 PM Scheduled Provider: Location[facility] Appointment Type:NM Myocard Spect Multi Rest/Stress-Str Appointment Date:06/12/2022 02:30:00 PM Scheduled Provider: Location[facility] Appointment Type:NM Myocar Spect Multi Rest/Stress - St Appointment Date:07/09/2022 11:00:00 AM Scheduled Provider: Location[facility] Appointment Type:CV Echo (FT) Future Scheduled TestsNM Myocardial Spect Rest/Stress 1 Day 06/12/22Echo Transthoracic Complete 07/09/22 [facility] Evaluation + Plan note Future Appointments Appointment Date:07/09/2022 11:00:00 AM Scheduled Provider: Location[facility] Appointment Type:CV Echo (FT) Future Scheduled TestsEcho Transthoracic Complete 07/09/22 [facility] Evaluation + Plan note Future Appointments Appointment Date:07/14/2022 11:00:00 AM Scheduled Provider:Candace LOPEZ CNP Location:.[facility] Clinic Appointment Type:Cardiology Follow Up (FT) [facility] Evaluation + Plan note Future Appointments Appointment Date:10/13/2022 11:15:00 AM Scheduled Provider:Evin Renteria MD Location:FT.Cardiology Clinic Appointment Type:Cardiology Follow Up (FT) Future Scheduled TestsLipid Panel 08/25/22 [facility] Hospital course Narrative No data available for this section [facility] Hospital Discharge instructions No data available for this section [facility] Progress note No data available for this section [facility] Summary Purpose Family History No Family History Records FoundNo Family History Records FoundNo Family History Records FoundNo Family History Records FoundNo Family History Records Found Advance Directives No Advanced Directives Records FoundNo Advanced Directives Records FoundNo Advanced Directives Records FoundNo Advanced Directives Records FoundNo Advanced Directives Records Found Additional Source Comments INFORMATION SOURCE (unrecogn ized section and content) DATE CREATED AUTHOR 10/12/2020 [place] [facility] DATE CREATED AUTHOR AUTHOR'S ORGANIZ ATION 10/10/2022 [facility] DATE CREATED AUTHOR AUTHOR'S ORGANIZ ATION 12/11/2022 Aric Godo [facility] DATE CREATED AUTHOR AUTHOR'S ORGANIZ ATION 04/23/2023 [facility] DATE CREATED AUTHOR AUTHOR'S ORGANIZ ATION 06/03/2023 [facility] EPIC Patient Care team informatio n (unrecognized section and content) Personnel Name: Jarrell Rouse MD Address: Address: [address] [place] [address] Personnel Name: Jarrell Rouse MD Address: Address: [address] [place] [address] Personnel Name: Jarrell Rouse MD Address: Address: [address] [place] [address] Personnel Name: Jarrell Rouse MD Address: Address: [address] [place] [address] Personnel Name: Jarrell Rouse MD Address: Address: [address] [place] [address] Personnel Name: Jarrell Rouse MD Address: Address: [address] [place] [address] FOR RECORDS PERTAINING TO PATIENTS WHO ARE OR HAVE BEEN ENROLLED IN A CHEMICAL DEPENDENCY/SUBSTANCEABUSE PROGRAM, SOME INFORMATION MAY BE OMITTED. This clinical summary was aggregated from multiple sources. Caution should be exercised in using it in the provision of clinical care. This summary normalizes information from multiple sources, and as a consequence, information in this document may materially change the coding, format and clinical context of patient data. In addition, data may be omitted in some cases. CLINICAL DECISIONS SHOULD BE BASED ON THE PRIMARY CLINICAL RECORDS. [employer] provides no warranty or guarantee of the accuracy or completeness of information in this document.
[2023-06-26 11:33] LABS: Ammonia 38 umol/L (11-32)
[2023-06-26 11:36] LABS: Estimated Average Glucose 160 mg/dL; Glycohemoglobin A1C 7.2 % (4.5-6.2)
[2023-06-26 12:11] LABS: Basophils Absolute Auto 0.2 10^3/uL (0.0-0.1); Basophils Percent Auto 1.3 % (0.2-2.0); Eosinophils Absolute Auto 0.8 10^3/uL (0.0-0.7); Eosinophils Percent Auto 5.7 % (0.9-7.0); Hematocrit 40.9 % (36.0-48.0); Hemoglobin 11.6 g/dL (12.0-16.0); Immature Granulocytes Abs Auto 0.06 10^3/uL (0.00-0.03); Immature Granulocytes Pct Auto 0.4 % (0.0-0.5); Lymphocytes Absolute Auto 3.6 10^3/uL (1.2-3.8); Lymphocytes Percent Auto 26.7 % (20.5-60.0); Mean Corpuscular HGB Conc 28.4 g/dL (29.9-35.2); Mean Corpuscular Hemoglobin 24.2 pg (26.7-34.0); Mean Corpuscular Volume 85.4 fL (81.0-99.0); Mean Platelet Volume 10.8 fL (9.5-13.5); Monocytes Absolute Auto 0.8 10^3/uL (0.3-0.8); Monocytes Percent Auto 5.7 % (1.7-12.0); Neutrophils Absolute Auto 8.1 10^3/uL (1.4-6.5); Neutrophils Percent Auto 60.2 % (43.0-75.0); Platelet Count 371 10^3/uL (150-450); Red Blood Count 4.79 10^6/uL (4.20-5.40); Red Cell Distribution Width 18.7 % (11.0-15.0); White Blood Count 13.4 10^3/uL (4.0-11.0)
[2023-06-26 12:15] LABS: Alanine Aminotransferase 16 U/L (14-59); Albumin Globulin Ratio 0.8; Alkaline Phosphatase 104 U/L (46-116); Anion Gap 17.2; Aspartate Amino Transferase 11 U/L (15-37); BUN Creatinine Ratio 15.6; Bilirubin Total 0.3 mg/dL (0.2-1.0); Calcium 9.2 mg/dL (8.5-10.1); Carbon Dioxide 24.6 mmol/L (21.0-32.0); Chloride 106 mmol/L (98-107); Chol HDL Ratio 2.2; Cholesterol 154 mg/dL (<=200); Estimated GFR (African America >60 (>=60); Estimated GFR (Non-African Ame >60 (>=60); Free T3 2.52 pg/mL (2.18-3.98); Globulin 3.9 g/dL; Glucose 143 mg/dL (74-106); HDL Cholesterol 69 mg/dL (40-60); Potassium 3.8 mmol/L (3.5-5.1); Sodium 144 mmol/L (136-145); Thyroid Stimulating Hormone 1.657 uIU/mL (0.358-3.740); Total Protein 6.9 g/dL (6.4-8.2); Triglycerides 129 mg/dL (<=150); VLDL CHOLESTEROL 25.8 mg/dL
== END 2023-06-26 11:06 | disposition home or self-care (01) ==
LOC: LAB 11:05
PROVIDERS: PCP Family Medicine; Visit Provider Family Medicine
DX: R41.3 Other amnesia (principal); W19.XXXA Unspecified fall, initial encounter; J44.9 Chronic obstructive pulmonary disease, unspecified
CPT/HCPCS: 36415; 80053; 80061; 82140; 82306; 83036; 83540; 83880; 84436; 84443; 84481; 85025

== ENCOUNTER 2023-06-29 09:47 | Outpatient (OUT) | payer OTHER, SELFPAY ==
--- NOTE | 2023-06-29 09:50 | MR_ITS ---
[facility] [place] [id number] Patient Name: NITIN LEONARD MRN: [facility]:[id number] date: 1965 Sex: F Assigned Patient Location: MRI Current Patient Location: MRI Accession/Order Number: [id number] Exam Date: 06/29/2023 10:00 Report Date: 06/29/2023 11:25 At the request of: JARRELL COEP Procedure: MR head/brain wo con MR head/brain wo con, 06/29/2023 10:00 AM EST INDICATION: memory loss R41.3 COMPARISON: There is no appropriate prior study for comparison. TECHNIQUE: Multiplanar, multisequential MRI images of brain were obtained without injection of contrast. FINDINGS: The sensitivity of the study has been decreased due to motion artifact. The cerebral sulci as well as ventricular system are appropriate for age. There is no restricted diffusion. There is no intracranial mass, mass effect, midline shift, intra or extra-axial fluid collection or large hemorrhage. Hyperintensities on T2 and FLAIR images in the high radiata and centrum semiovale with sparing of U fibers are nonspecific, statistically most likely consistent with mild microvascular ischemic changes. Normal flow-void in the intracranial vessels is noted. There is status post bilateral lens replacement. The visualized portions of orbits, mastoid air cells as well as paranasal sinuses are unremarkable. MR/MR head/brain wo con IMPRESSION: No acute intracranial process is noted. No finding to suggest a specific neurodegenerative process. Electronically authenticated by: MELODY MACHADO Date: 06/29/2023 11:25
--- OUTSIDE RECORDS SUMMARY | 2023-06-29 09:58 | XMS_ITS | CCD ---
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 (1 source) Darvocet-N 100 Drug allergy (disorder) [address] [facility] (1 source) No Known Medication Allergies; Translations: [No Known Medication Allergies] Propensity to adverse reactions (disorder) [facility] (1 source) Acetaminophen / oxyCODONE; Translations: [OXYCODONE-ACETAM INOPHEN] Drug Allergy 3 [facility] (1 source) PROPOXYPHENE N-ACETAMINOPHEN; Translations: [PROPOXYPHENE N-ACETAMINOPHEN] Propensity to adverse reactions to drug (disorder) 3 [facility] Medications Current Medications Medication Drug [...] 30 tab(s), Refills(s) 5, [id number], 153, cm, 07/14/22 10:59:00 EDT, Height/Length Dosing, [...] # 30 cap(s), Refills(s) 5, [facility]: [facility] #[id number], 153, cm, 10/13/22 11:19:00 EDT, Height/Length Dosing, [...] 10-24-2021 Episodic Other aftercare (1 source) Other prison (current) drug therapy; Translations: [OTH USP CURRENT DRUG THERAPY] Onset: 01-15-2022 Episodic Other [...] Range Facility Office Visiton 04-22-2023 Follow-up visit [id number] Nitin Leonard 1965 F Date Provider Department Center 04/22/2023 ANDREA VILLAFANA [facility] Family History Problem Relation Age of Onset Diabetes Mother Stroke Father Family Status - Relation Status Age at Mother Father Level of Service:66734 [place] OFFICE/OUTPATIENT ESTABLISHED MOD MDM 30 MIN Normal [facility] Referrals Officeon 3 Referrals Office [id number] CD:127 Reached patient on the phone, she states she found a automation driver in [place]. [facility]/Cl inic Noteon [...] for sleep apnea. She currently sees a automation driver who referred her to our office. Apparently [...] Oral, Daily (more content not included)... [facility] Comment on above: Result Comment: Elec tronically Signed By: Myra CAMPBELL, Evin Pearce Other Comment: Proba ble no-show. Office Visiton 10-23-2022 Follow-up visit [id number] Nitin Leonard 1965 F Date Provider Department Center 10/23/2022 ANDREA VILLAFANA [facility] Family History Problem Relation Age of Onset Diabetes Mother Stroke Father Family Status - Relation Status Age at Mother Father Level of Service:33450 [place] OFFICE/OUTPATIENT NEW MODERATE MDM 45-59 MINUTES Reason for Visit and Comments: Establish Care [42] - DIASTOLIC DYSFUNCTION HOY Normal [facility] Consent for Treatmenton 10-02 Consent for Treatment [id number] D:127 [facility]/Cl inic Noteon [...] for sleep apnea. She currently sees a automation driver who referred her to our office. Apparently [...] depression Ast (more content not included)... [facility] Comment on above: Result Comment: Elec tronically Signed By: Myra CAMPBELL, Evin Pearce\.trever\Date and Time Signed: 10/13/22 11:50 EDT Physician Orderon 10-13-2022 Physician Order [id number] CD:127 [facility] Coding Summary.on 07-23-2022 Coding Summary. CD:[id number]:[id number] Gh0 bWw+PGhlYWQ+EN2MXTMwR43 uaNElaJ7eE0GAWTbHVnvgSI AGGBxDVnHmasUvIO7whECiS XJu IC8+ZY3nMTXwVccmxWRbb1O 6uOW0L13otj0gHUutqYY9FV PuTbGcyhsxk9malVp2XBozP mluOyBt HACjwF39MKA8zT33To90cLS rgMPno2tgiWa0ArIdLPNgXX V2hBzyWYzpt3VnZKEcU80yx UYwz7R0 XHGmtSiwwDJeLhZqwOO5oH0 oOIddmgvzd6moucpgNmq6ma 89xLCpx4I6dRW9H7VgpyK8F GJvbGQg OhommJXLnX6eqrutk6clhmb rAoWiGBWxXLe9NNl6GULkvL mnHlPwEB52GHH9LMFawtRdW 2FsLWFs kUruTxV6q6S0Ip1MV8VIAmn uE3PJTGEMLPxpgDX+PC90cj 32J8BgSpjbFjv7QPEwANE3e KU0sN9t KWDbEMtfc0J5rQS6X4RvdvN biy2qu2ufTFIpZKkrX55mjF Unt0U0DROpcZI6JMMrdLdzI iBzaG93 Oyc+DUHsuEvku3YiQcwfb4j fh1gyiYe9YalyBEDkltWalX egHFB4d4NvRb8hFALupQH2k EY4fH4t YwLqAbO7HIclN687AcFzmDI kZijuF03zV5UztCC+PHRyPj s5XWCwrAoeZV9jA9WzVVEfu mctbGVm wHrpON2qAEElyhbqZXIosY3 mYRUpK2b2JmCyQtW3AFyyP9 NtNDRrkyxdAn79oX6dQoEzI vD5DEoa I6QwdjS9UJTnxXSuHJdzGET 7I09ut6D8GNGmQJOvEVX8yM Y1jU8laAhfgprdkFBxmRixt mVydGlj TWxqYOemH839VIAjfRkpWyN vZGluZyBEYXRlOiAgMDMvMj IvMjAyMzwvdGQ+VXJsHOV9m WxlPSAn dFJmRKhxFi4qjQbpcAmbGJ5 uDXYlejniFGNmkL3kBEKyuH PvkUtyII1aCASifcacu068P iAxMHB0 HISnwBIcX6WjuS3wYcPfRPH vLMNnL5OtdHGaHMyvN500JB xkEgV2XSWukuYxS4RyGNIkc WduOiB0 i8V5Md9Pk5CfnywaL0GafEQ mVaPtJtkoCYp6G0ReRycoxQ I+OQ34VHXiJI20BVr1ZFM3v WxlPSdi FQBtC2GmkQ3xBiCvZBZuBFR kOyc+PHRhYmxlIHdpZHRoPS faKAHqZiLuzKrqZE6mMj6rJ GVyLWNv fLftpHHfXbThd5gqHPOzXPl eQJ9ncUioX0NsdET2PJZbt5 s0Rs80G19jS7KwkXN+PGNvb YJ9pPS7 lQ1sGeHmVvZ8HEbiU802VrE lnKSlYfxod2xri9yjkYj5Hl B1PJHjioPhsCbwHFJ8v6PnI q09L24u IHdpZHRoPSIxNSUiIHZhbGl vel9nwR8iJs4+XNOcdZY0yY K0eI6aFyEgWzN7AAqyB147N nRvcCIv Hagpu8lku9fxgWu3WyWsKHB uusEuqLeqQMH9s5UgHt97H7 XbiZdfo2UfGvb7si81cPDcl 0L5sLM9 E2AkHEDynommeDOenMvzIC8 fPDKclblsMCWvtE3pSLYbM1 d0UcEwZpB4FXisF8ReueG0S GJvbGQg YGHbtBVXsL6gpcuag0qyuvv kDlDfPULoONw6ZId5FFCcuB ovZmQtJBY2JlE9ULV0iKWap U0xmGrg fatqyH3zCtx+MJU7yNZgrIX GWP8uCeqtkKO+UCQaRSN1rB dsHRctEEEdrN3eIDScJ6g8O iAwLjA1 IPxgW8IjwuU1ZAJzfUIiXRN hjYINqX2xdylia3mxznisTk ZeZSRxPSd0YJn2FJLjhMtwC iBsZWZ0 AbA7JDN3cEMjlH3xcItgiwh ohD0oDzt+EnsekQfhLFZ4FY e5A2KdTpu7MUBppDwtYU8wb GFkZGlu Ep5ntFjlqCvjFF0qAMZpjve ps830HmDtd2quDAAwzOMnWE owWGE7A89us6I8ZTOkIAOrB IF3ePL6 vZ8dzKhgzctrzOWlyHpxtrT aaBecXIijNDbgH914KZUpvQ ebGaEqNUk2J7ToWxd7IGQqa QsbIM4h tRIpXPsdFr3wzCuelJniIZ1 pQADuvezkz401QsShf4odBZ SggCXjUNsiNQW5D97al7S8F CMwMDAw WQX5xTY4jI6nfVqwhxjzfMP mdDsgdmVydGljYWwtYWxpZ2 68CXGhzNlqDoRxaXz0G7RlU ip4ZYGb lGdgKB3ygJEmPYxxBg1flXs qaVinGS5gPFOktueei020Wf Rai2wxTRKipHXdSBgmUPW2B 16oe4X9 CUGjVRNnWLO7pMZ8xD8mmGt nbjogbGVmdDsgdmVydGljYW jjLBsqX149PPPzdYxpYoUcl GllbnQg BJyoODz1M8BhXzjfkBJ+PC9 6KQLlFG66yNVedXPfy3lywJ e3PiDfBPPmYSV3iPpySOfln 3JkZXIt W33pvDHyf3D6VCXqzAalkOA wZsZlhEU5bW9uAAprylgia9 dwkkcyTcgaq9irah07xG32D 29sIHdp ZHRoPSIzMCUiIHZhbGlnbj0 viI4lGi1+MYBjvPF4bVI3oI 7zZSUnHxY0HHljA380LaWpg CIvPjxj u9ptf3inxNg6GkN9QXZcypC ztEpkWLT6o8PkTb78N87rLN dpZHRoPSIyMCUiIHZhbGlnb h6ndM3p Ii8+YJVlbJN0mEO9fX8iBiS xGzL5CBfjG975JgYxvFPrSc fwC87uG4PctSH+GRWhSnb5K CBzdHls BB0jqAIvMHnuGr2pAVR7FhW gVgXsQUbpS8QaRXSiodajhn noeAO1YDEfDRRdoD97Kx3rx DogMTBw kAFHiS1pommcs8cqvqbrWhS gIUFlMFx9DRy0MUUthPynYg IbDFU3HhO6XNO5bNMqgY8pz Glnbjog qR0yS3ZjLWIcbrzeGh93cD3 kLlCmVaM2YXbpJaj+WlVSQS obGOMMT0vcXSbbiMO+PHRkI JP3mWbs UQqeYSSwcF8rYXCqF1w6LoI aXhI5YKkvY5ToVILwsqfsGc 56jJ6tBlWnQlI1WWojJ7Rmi sM3AGNi aKKhJIbpCHU3T57sp0Z7OOL xZHFfTZO2eVI3nW7qkOytsp ogbGVmdDsgdmVydGljYWwtY OnwJ840 UEFejCmaLuI2LlVkSxC6ScN 2X0UlNeq7WRSgnHvpBZ2bcF UpEQxjYw3qvLeiyUsaTL2pB TBpbjtw ZOPykJ3ySSEgtYImeAteXH3 tRBQslgyeu752EjImNRV6BJ CgmQChO7WafV4wIzUyMQCaH WVhV9Ki wXWbLDdwC426GIalDsK0GGH azsLvB8HvVXNxkLqoTpK1j3 S2Vn40KSAYMIBfkimipUC+P HRkIHN0 nAjpKQkyCQTivT0kMDMzQ5n 5LoQbMxB6PAwlN6VgWDIucp kdRy47sS3xBbVyPgU7GJdcZ 2FaxtK1 FHDziEGdZLuoZPD4V79td3D 9MQYbVTNzNGV9iSE0uZ5fyC lnbjogbGVmdDsgdmVydGljY WwtYWxp F184YYMekRoiHpBqnSHcDXe vdGQ+ETRuEKO1oWsfDUfqNM QjgB8sSGZuA2l3DjLvJjO2N KepX8Eh FGYjvtcnYl51sG8xVsAlUaV 5HSniG4NbzpT4TUDuzVVqSN keMUS4Z39tp7T9AFNdKAYwO IV1mWJ0 cA9ceZekwjxjyIXjiUuncmV niZpnGFxeHNjsW695USFsgI tiXj30tHNlsFuhonU6B9SmI jwvdHI+ LG83WYWkFV80pTMmpIQya6y xsKv4LqGrKLFhZYC3fKceKD amz5JaWXIrT43zxRQgq9L1L GNvbGxh yLRjJaBpjTE6qP9jIZqkdzv kd4borzobGwccq3masi17wT 99I37pQRyhHRUzVNNmIZRsV HZhbGln if5juQ6dUu7+SJWatPY4cML 9kC5yTuBkUpR8IWbjW212Su MqtBObDskua2xop0nhxKi3U jIwJSIg ikLkgSsjOLL0h6ZzSm49U83 sIHdpZHRoPSIyMCUiIHZhbG zpxz3ukQ1sKr5+PR7tf4qwl s55hA60 dHI+NLObSOF8aYplVTfhNAR kyO4hTQtoIeJ9YWEkPhVgkP 89iWSrVXruZx2twEswhThpJ O7yPWIr ukmud569KsCwh6vhWRDdhBI dDOjfLFY1P99se2U8RZOcIQ SnFPA0rKI9nG7xzUxjmrrnj GVmdDsg usRsbOefDLzmDOnrR563SNY nqRygIyAdzOHwF6sbklDGYG 1lOjwvdGQ+IKLaCUN0lZvkX SdwYWRk pX3aHPGpI8d8TdIeFaR0UAw hU8HpblZ0TKCyjSChEPGkoE OLxP6yaypce4wuavhhWmSjH DAwMDt0 INh4ROOvzPxyZvBnCGA0ZuR 3KUI0rXTtjY8wnJujdttcqI 9wOyc+RklOOjwvdGQ+PHRkI FK3eWvz JAjfWMMupJ9dOZGtB1f8GeJ cFbE6ULdlN7GqjtI5ILWpaM PeYNLisCIIyP6osfurc3hle jogIzAw LGFnTQp7APc9CTNdbJfhNiU aTZR5McV8SVI8bFMpeK6huL zwnltriM9xCup+TVJOOjwvd GQ+PHRk MUA0xCxcKQglDCPtkC5rHEV rO1w1PaXaYiM6NRhbU6Uluh J4TBIpjWIkZTOvuPMOoQ2ac ttng4bp lrjdNyFhGXYzQDu7RTl4WGM ywDjwLeKnYNS6EkQ0WCE2eW DwbA6ztEusujwqbU6hFan+U FX4JFE2 CV01SR34J8EpShpdfVOhlTA +PHRhYmxlIHdpZHRoPScxMD HtItAodRrjZY2eCp9lKYQiP WNvbGxh cHNl (more content not included)... [facility] Coding Summary.on 07-16-2022 Coding Summary. CD:[id number]:[id number] Gh0 bWw+PGhlYWQ+RA0AWRVjS95 dkQMkrO9zQ4KMOTnCSlwdKH LTMXgSRwUqlwWrWP0yvOJbK XJu IC8+JO9pRBVwQbhlzNRab9N 7xKB5V22cfq2hRGtdyXT1FP WhEbXwbosus4xzlLt0FZftS mluOyBt XVMscV49MRL3oO56Wi57iVL ezUEbg5ykkNl6AbZwQXSoKG W5gErbFSaxd9VsOCGdZ13qh JMee2Z3 UQPqmDzhhFShLwYhpZV8fN6 bXRmcedvkx8nxdcjfAht3zd 89jGOix0M6vVI1Q2DnliY6M GJvbGQg FancrIEJaF9giarum5jktre zVfJvSLJvHHr6UEa7DLFigB lxTySqMZ24MEK9CFNtejLaX 2FsLWFs bJxjQbT3b5H5Wb3VX4PZYcf wT1TDMFIHVRbyjYF+PC90cj 04U3UoOyjuUyj3LSEcNDU3o OC4oD7c KDZwPYyjo2E8zGW9V9MbyvZ vup9jk2ptXCKqLSlwN00gpJ Lni4D1QCKqmUE6PQBmjCxkA iBzaG93 Oyc+YAIiqEwmb8TaNpcbz5q nz4xviAc8HpcfIRNpahTyvU yvKUM5a9CcWv5bFLBzfMA5s EI7sR9m ShEiReV1FPngQ428NfBjhXF hFbomS29cW0WpgEN+PHRyPj i4DGHbaApbNT2hU6MxDZIvp mctbGVm nTciUI3fPKBmarrqIIGswO4 mLRQdF9k1GgMgOwW2KBnqP2 MtZIDykcyaEt57eG2mYeCvB aO9PGnd U9KcaqU1KIMtsZSrPGhtWLV 8O44tn8V1XVInDQDhYKT0rH U9eI4kuPxcyqpupRQkhHtsk mVydGlj GQigDPgzM684ZNWpvSzfMsE vZGluZyBEYXRlOiAgMDMvMT UvMjAyMzwvdGQ+IEVnYNE4a WxlPSAn zVBbTOpjFd8rxZmrkJnbZD9 iHARzjlxzIQUelE2pBMXqqB OhqAzkIN9sXPMkzpliu999C iAxMHB0 MGGceSDgZ2ZiuZ9rArYqWCU lDXTqP8HvwGPjCRanS685VJ teAzD9RNAafbOoS0DtWEDjx WduOiB0 o4J1On5Qu5HlrcezN0VoaEK pSiJlXbkuPUu7H7DrSxacjY I+DG09NJRuRC05IKg9YCH3c WxlPSdi HFMkH7SovI5xGgSwMEWyQEG kOyc+PHRhYmxlIHdpZHRoPS lmEXCkDyPdtMnmNY2mKr3vN GVyLWNv tRigmOExKuQzh1yyVRNpRCo lLZ7ygQmgF1CskSG2TIKxu1 k8Mc96O48bS4UnpFA+PGNvb GO1uNS5 aH5pJhCaVqI7SNxxU125QhI ipHXwPhpdx5fbz2xjbTv7Rl C9BEFyibMsdAwfCTG9n2WbJ i19L29g IHdpZHRoPSIxNSUiIHZhbGl aen8akD7nLm6+ETYjfLY6yC X2uM1fNzGxPiY8OSuuV972I nRvcCIv Mifzx2kbz4ugwXh0VwAdGRU hudNqdZvsUTR2z2NrJn55W4 WjtCfik0VfRda2mb73pUQwk 5F7oYQ8 A7AlBYAwcemzrTQcqYqcUN4 dAYNsxlsbCGSogO0pFUBgU3 s4QoQxGkB0LTasF3MchjI7X GJvbGQg HFIztPKCmD5ijawzm6kyjor oRqQvUJFaBJt0FOp1BIOjsH kzMlWxCCH6KjC5PSS5yTOfl B9pwBep gfrrmK5gQdu+VZF3mWGocEL RUC6fWzzxvEW+SRPsTMA9dQ kwSHthYIIzvN2jBZSuV9y0X iAwLjA1 VIixQ8EedeI4FYAqlWHiGRV ujRLGmA8wakdnx5atzintEp HeFMNjMEs7ZMu5BBEiqGhjE iBsZWZ0 ArD5SLJ0mHUbtJ2wfDlpttc zwM0lVqu+WsgcwRpaTRF5YC m2T2NuRxn0PKBqdZkuCD6fy GFkZGlu Ck0ywPrtzVsuTA7xZUKlfba wm903VbYwk4ziWXJvqCZuMJ fcFYZ0Q83wd2L5FNKfIXIdB GV0wNI6 mB6btZajeeitzFRieYszvtD bqClzCZciPJxtY790UHPwaB lcKoDdCGp4X2EyQnr1YGKot HywLR9s fEIuDQlvKa5vnUwtnXnxKB9 oOPQtvkgcd200HcPtp8rqFR WrkOPwMPdrBIB4W30hj9E5F CMwMDAw HMT6zTT4bG1qzBohlyuhhAY mdDsgdmVydGljYWwtYWxpZ2 97FXRqjTvdNsSepXe0K2WuP ub6HAVr mKnkZY0vnJZoBTvaZn1guGg gdRdxDJ0aKMTwwuhkx155Ic Ulw1zwFCFyyWGhIUueNMB7S 01yg3O1 VYQoGLUpWUL6dIY9hD5wdGd nbjogbGVmdDsgdmVydGljYW ggVIxoM488DEApmJtrSxHnu GllbnQg NCarALn6S8RiCjocsEK+PC9 3LTMdED60mWDvaXNjd0yncD i8ZbOrXJUtVRX4kXddHHqte 3JkZXIt H84zkMAdp3I5OUEklKokyPU jBzYtrQW1fI1zNFfcuwtea4 jmfvjhTzdqa1uaai43mI02R 29sIHdp ZHRoPSIzMCUiIHZhbGlnbj0 rcW5oKb1+OPFhmER3yXT8jX 5jGTHkQjZ5IWxhF207AaEnk CIvPjxj w4seu2tnhDq8FfZ8CIOqzsP jsXjmGSW6d4DsIj30R39zTR dpZHRoPSIyMCUiIHZhbGlnb f3lrY3d Ii8+LWAwePI0bVJ4lE9hWyR yDuW7VGcwR452SyUwxZLuLa pmW90qQ3QfbAE+WTKpGok4N CBzdHls AP1txVVoAAzsHd7jVIN9SfJ xYoFrHMqnA0IhOAZarcisex jxyPN7VJOnMQVnqI30Sy1wu DogMTBw zBDXpW8wraypz0dadzcuOvI jLHCbECt8QDa5TRUtxSaeAx UuWOU1MdG5GGN9mTZirN7my Glnbjog nV9lS0AlCHFuagiuTf66zX1 yJiRyPdV3NPbtUnn+WlVSQS ggMKSPT8ewGHuizGQ+PHRkI YM2rAxb SLprCSPapA1aUYWhX7l1JrR rSnL9UVrjP2RgYSLlrkiqJw 99lP4tDjPjCiY9AFwtM6Lgd tB2MOZs wVBoLRpwHVV1I18lm0X5ZBG wCTFqAWO4wIE4oR0ouTnwps ogbGVmdDsgdmVydGljYWwtY GyhE556 ZAQecRunJnI4HxBqAbL5UwL 0R2UhZwm6QODzwFseUW7xpS MbDNyvEb9psHzrdLpdCR2bP TBpbjtw HCTpjR9cWXEdcRQtnDerBD8 gTQGmpcoqw764JxHpHSJ6YE OziHXqL9HzuC7qRdLfBHGtG JFdC4Yt yJGpMWyjI750MHdcEzT8HSM hkpPaF6TgRYLiiXptQeA0p1 M7Cc40VPGPKDXochhrtTV+P HRkIHN0 pDvdOBksSCOjiT6iMMWrA2f 2YoFkJqX5UIyqX6CtCFIfdt pvKr66lJ8qSkKqQlM0VPafE 1HwyuD2 ARGxqRIiDYqoHER2D66sp4K 7SGDuJKTxNEF0dRT4nJ7lmU lnbjogbGVmdDsgdmVydGljY WwtYWxp Y285SNMrgJjoIzThjERwYSi vdGQ+XTSsXQZ6wZevEXyfTL RqkJ1cXPLfX1m4RkVtYnZ9A VwsQ0Ka ADTiuiebYn13mF4kLvGlKyM 0RKwnS7FugaD5ASFogTKmFK aqSXL6I35rl1Q8FZZqONArF CR3zJD2 wD0tmTssgskwoBCbkCbyiaG doMytUHudBKlpM610WLDbvP dzBg09kLTatQpwbuM2S1XbE jwvdHI+ IA83PLVxXS54hYXlgBFet2o ujXl6JtWyBVWkQYJ4eCnqGB aci3XcKJVlX88auGYke2H6T GNvbGxh mWGdStXksYV4dR6gNSrqysm lg2kdmnakSdrbz7mdwn13eO 96Y57oXPnrAGYgMWMyUMRgB HZhbGln xx7vdQ1aRb0+DOQcmIR7yVK 9wI0vBcKrSvQ3BHejA332Lq OdaXDzLvsae3gro2cvbIr9U jIwJSIg gxNjcSfyHRG1j4AwWx84V02 sIHdpZHRoPSIyMCUiIHZhbG pmtd2zeJ5pOo1+YD6hf1ltt d60rE39 dHI+QHRuWPP8xQisXTslYRW zgR2vHJsqSrN6FYEqUvScaX 07kRUyEKgdKl8vmTugxYzbI Q2dVDFu gqhcz265YuVka2brFPOpgZM eHNxvDBO3Z71su0P3WZRtVP QsEHW0iMJ9aX3lfTwrqugdq GVmdDsg naDzwEjjMXfxJRwnQ205TSJ psJjjAtLbcWMxE5ocxkYMUB 1lOjwvdGQ+PKRaTMH0kJfuW SdwYWRk mV4bPQUxS2x6XfKjZlZ9SNr yR1CppfJ8VEXigHEhEWCfzM PAwD5imscxr6uioixxBjJtV DAwMDt0 ZFp3GTPapTanZxBtHAC8YkX 7JEO7fLRzcJ2zbKurmoovkJ 9wOyc+RklOOjwvdGQ+PHRkI ET0vTjj BAevLTHdcU4pSBDtJ1s9HeW rAsS7EZjfU7PpmfL9LSSakB GlMLPshCAEhY5pfdpmz5hiq jogIzAw ZULkTLq9ZNw2PIQxkKlhNmX cGLC0LjC5OGG6xBJqyE2dxX ejtznqiP9sUcj+TVJOOjwvd GQ+PHRk QLB9uJfyVIlxBVKkbB5lRVN nK8r1XrTmNwE7WKosI8Vuqb T7OECsmRYrXDGeoGNSuG0qj myfq2gu qjupQlVeWMBoAGn3GPb8LVN puFhoBtJwBLA7FaC8ETE6uX JziW1ojRmjdgrsfH7qIot+U TZ1YNI2 XJ69KX39A3CfTmlkmDQqnKD +PHRhYmxlIHdpZHRoPScxMD TfLhOrtIbpJB9lOw0gGEFuQ WNvbGxh cHNl (more content not included)... [facility] Consent for Treatmenton 07-02 Consent for Treatment [id number]#1.00C D:127 [facility] Heart and Vascular Office/Cl inic Noteon 07-14-2022 Heart and Vascular Office/Clinic Note Chief Complaint testing f/u History of Present Illness Nitin Leonard is a 57 year old female patient recently seen by Dr. Renteria for further evaluation of dyspnea with exertion. She was referred to MD by her automation driver. She has hypertension and hyperlipidemia. She is a recently reformed cigarette smoker with 93-mvvl-jxos history. She states since her last visit with Dr. Renteria she quit with assistance of [employer]. She was ordered echocardiogram and stress testing and is here today to review results. Stress was negative for ischemia/infarction. Echocardiogram shows normal LV, no significant valve disease, normal RVSP, diastolic dysfunction. Since her last visit, she had PFTs ordered by her automation driver. I do not have these results at time of exam, but she tells me they worsened . Sees her automation driver next month. She has stopped smoking and [...] of function, she follows up with her automation driver next month. She does state that her [...] worsening function. She will follow-up with her automation driver. 4. Smoker (F17.200: Nicotine dependence, unspecified, uncomplicated) She has quite smoking since last visit and her breathing is improved. Orders: atorvastatin, 40 mg = 1 tab(s), Oral, Bedtime, # 30 tab(s), Refills(s) 5, Pharmacy: [id number], 153, cm, 07/14/22 10:59:00 EDT, Height/Length Dosing, 97, kg, 07/14/22 10:59:00 EDT, Weight Dosing Follow-up With When Contact Information Myra CAMPBELL, Evin Pearce Within 3 months [address] [place] [address]- [phone] Additional Instructions: 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 Problem List/Past Medical History Ongoing Anxiety and [...] refills Alba (more content not included)... [facility] Comment on above: Result Comment: Elec tronically Signed By: Candace LOPEZ CNP\.trever\Date and Time Signed: 07/14/22 16:02 EDT Progress Note-Nurseon 2022 Progress Note-Nurse [id number] [id number]#1.00 CD:127 [facility] Consent for Treatmenton Consent for Treatment [id number]#1.00C D:127 [facility] Pre-Certification Formon Pre-Certification Form [id number]#1.00C D:127 [facility] Stress EKG Tracingson 2022 Stress EKG Tracings [id number]#1.00 CD:127 [facility] Physician Orderon 06-18-2022 Physician Order [id number] [id number]#1.00 CD:127 [facility] Coding Summary.on 06-17-2022 Coding Summary. CD:[id number]:[id number] Gh0 bWw+PGhlYWQ+BC3ZAMJqT03 kqUMhaB6LK8cBBJ3JJRTMJZ YJHL3ZLG4feGS4DOaiX2Snc iAv HcsexBVwLT62QJy2HBR3rWg zYXmeqX4tuDOaC4e1UfLqWK 86gQ28XLdpBJOsQeO7NfEji jsgbWFy K8ztGpBfnTSnIme+PHRhYmx lIHdpZHRoPScxMDAlJyBzdH emXW7qRo5lMKQnDBWtwXphi HNlOiBj o5ioJEMiOBqsNC7aiPyfF4W xuAN0SYOzh5k5Gh03nYJ+PH KeULO2eBwcZRxqq159FtQeu 3tyYAM6 jZCvYKbzRCN2K68tk5F9BNP uUDDpEPU2tMU5pQ4voHhhfq piA3DpmRByZyO6EUD3yHZkw L5opCvl dbotaB0oOjq+X35JKD2MWHN DFA1TGst6T5PpBpzhyFT+PC 19DAPtNH10uTWtmGMia6kim Jv2NqRu ZCOdRVR9wSldUDdnx0QpIEV kG57wkLMid8V4OZIxkDmkwL LsMpYvmFH3nO2yRGrvdhhnp 2hvdzsn Vtilg8afis21fY69E49jYSj qRWVuWRG7DSAnODOkqFgbfb 2acJ3jVt5+PRpdg9exr8vma Oh0JxDg QLFeipEmrEmlXSM9g5JkPz8 1O8CnwUkwr1KiKch0hv47zX Kzp0B4jXV4DItnGOWkdY2rL WxlZnQ6 KZDkSfIzcO41vDPtSEkqSc0 cxFohcHwkVY1gWVXylaltDS LotE2aTLTyoLPieCyvBU1qM TBpbjtm o192LyKrZOY0XTEhqPBaJ5Z xfY6iZlLqGZBsFQVgZ9QlqX AzZOakH614FVpzLtM4DSPiv pStN1Ou RKKybCziOhW5g3F3As8Jz2A sjgcmVHD9LUgbKSBbTtT8Nf DzNeV7M1LgSzh9FWSamRfhI G2zG0Aj OAXkvzlsngsrpKY5FWJiEGG urB64lCAoDCnnAd5da4A1b5 36VQVrSMUcfX65Vs9wsOwtL TBwdCBU vP5enhjbx5vaiiopWnHtRNA aUMb1UIf3XVXffSkaMbKyLW V9ZiN4CVK5bQQwbL5noFxmg pdnlR9p Oyc+C48lqA1zHWT9EVP4gki eCITgybZvDB65AK52E5CbMq wvdGFibGU+PGRpdiBzdHlsZ I7yBoMz a4rot0FlPPbqF0HjKECsXEg nKkr1EGDbKLM0qRG0xF5cEU MsLPkga6M7nUY6P2VbfdNoi n6rw1hi DBViWVwpV80ppPIay0B2YOP noND5LOGtrEpoVvCxvN39Te c+TTSsnVzxo3TyHibpf1yfa 0fdnRl5 BwNtBRKvfbBrmOfyRCE3k8T gBu45B51vZFyvXKEgMERgEO FyVWFtnUmdtu1mhK5uKk6+P GNvbCB3 xBW0wG7dGXTuNhI4BTcnV34 5NbAwwSFyXlrfd5rvk9sxvI o6MgSbNNWgzfPbtYfaAIJ5e 6IdTy57 R61sVHkjDPEbWHNzODXpYYH qmDkpey2inB8pEg5+PC9jb2 yvci46zO06vLP+UIJwUYK7x WxlPSdw PFOjzS6eOMldJwM8XLVrTgO mhJ72pDKnUNchYa7vaKzlnF vtTD9fUCOpqkete760VkEuz 2xkIDEw vRRzDRglCES5B46ob5X9XMB eIDEuMBD6qFX6sV6mjQpwxx ogbGVmdDsgdmVydGljYWwtY ChaK068 IHRvcDsnPlBhdGllbnQgTmF xTLk7G3MjYbp0VTHhpLgzAZ 9tgDFyWDksCu8zrGglcTpbI R9tCVWs tbsju760LkUfi0lsQQYibAF pSYuwYDB9F41jt4A0SOBzAJ NkPWT5gRT9pS7wiSxnawpgp GVmdDsg glBonUoeVBluMWceY108UMD azLsbQmCltcQgKXOfyHJ9WV 95PM40zOOwx8X7gMA4Z9ZsV GRpbmct obrypRB8GHMhXJUcwM12Em3 coYfuVx3sDBUwDCW6DGWlnW PuC5WefP1tTeLeYQQwKJGgE 3RleHQt VAjrL092XXanOoG5ZJUymjZ nH3WcLALieEbgDeT8y7G4Qq 2RT1G9VT07LD92uMFaj0I4o TU9Q6Ib ACPjekfybgexdPA7GZOlSEN nmF64Fh9wsNmeEb0nOGKlDS K8TLFknFQwQ6GvuP5wNpOoY DAwMDAw L9LmhNOgAGzyS895HRpgJrD 1PQBoqrUgU2LaMEBdpVgjIf I1f0Y7Pw2OWBa7DA25RU46i NWbp9G2 rLH7S0LrEFUrcgcqjvhlcPT 2JCJxJQAbrM98Xz6cgIqkVu 5kKBOkXPA6HLWamAFkK7Qvt N6yRmPi MMXeWLPkE7DvuVEhIMgpT00 5EYcoNvQ9NMXeubOoQ7EtKK BuwWwqZuP6m1G6Ko2DQOCrA K98QVO9 uSN5ZS15EH17H5FoBtaknYU ibGU+PHRhYmxlIHdpZHRoPS brXVJqOcZknFvwXW7pOp8rO GVyLWNv gCljlIUtOlEnk2otGRPsGYg sSV9doAofL0YvdYW7BGYwd6 v1Cm70Z17cZ9KhkYB+PGNvb MG5hWX2 cP9yPtOrXxG1PFceM678BkB gwTLjCtvtk9ufj7nrgUl6Zm V5WYVhzzMdoXgqUCH3k5ZqR i59Z98w IHdpZHRoPSIxNSUiIHZhbGl kjb4vjY5zDt6+EGNaqXX0sH H6rR7hYwWgXdV0ROomW495Z nRvcCIv Nvbpx5unf3ciaMr5WfIbLUY vtwLxlXayONG3v1YeFn76H8 OtfEgfi0FzUbd3nb47cXKxr 1X9hPE0 Y1YuBSWnfvtcyCWxhFpsDH4 zRCVrbkrmNLNfiV7mJINyK2 t4JsIwZnU0WDrmM1CqvoY6O DEwcHQg WMsxDFF5C57mn8P6JQHfKTU dVGQ3wWX1hX2mjVkeapeslK VmdDsgdmVydGljYWwtYWxpZ 246IHRv zTgaXZMseV2rWYJewNDajUy kAN0zEKFhrsmaDlxEUyIsDI SUZ4jRNKp7Z4LlMik7JJHrl ExdST4s wXXfMVfmYq4dfCjgzIrfJL5 cMPXnfspiTNKkmP7pFOZybQ AylGvvKG2vGWLwlunpw598Q iAxMHB0 KPQmrMSxP6GjcP4xMgMfIRU vVMPhK1CyvKWeROzaH212RU ppIwH5PWHzqmDrM7FiYEQwv WduOiB0 t6E3Sr5pUK0pWy0cRVB5AD3 4ZN29jXSlb7I6hQY3K1UaZH LoqpyyccakvWH0NSHnMPDga Z24nOQg ROwmXz4in1X0m109WTVnOGM gcX83Wp5czKauYOWqzBVYmL 7fgjgcy3xveryuCgNoCGFeA Yc3IWn7 AEWktHikItQgPWM7UgQ0NWX 5zKIkeX4gwLonpiozwP2mIj c+EOtnRYEvrkX6U0GdKwo6I CBzdHls PS0waQXcFDpcEq3qpRcrcPk vKY8bCEZwjkquZKPbmY1yPO RowPXskNxtXU4fNZUdbikaa 250OiAx TBM5TMYfoNSuO5YnrE1wXjQ vCNAyVRCxI3IowEJaGDckN3 61QKytFyX0YHMqvxRxR0UkL WFsaWdu ArQ7f8O0Wo0EZS9pjPP5H4A tOdp6QNEboBeeXQ6ghUCeLX kyEx8cmXhuyZepHY4hWBQpu jtwYWRk nK4mUJImmDAuhLkkDZ7uRLL rlrvzo896DsDtGNL9UECbaX LmC5MewK4bKaAsDPXuMZPgC 3RleHQt YRfwN770QZqlFuY3DJPlnmJ hC4ZrDVBgtVwqIcV0t0B5Gw 3WwZJgLWShMO53WC35WD61D 3RyPjwv dGFibGU+PHRhYmxlIHdpZHR yUSjgXZEvEnWkqNvmLD0iJh 9yZGVyLWNvbGxhcHNlOiBjb 2xsYXBz JKbrZR4nuGxzU4FfpIL4ZUD bs9g5Ad97L74oE9SnsME+PG PshSG2iEH5yZ3qKrRjZiH2D EcoP282 PqEjiBBiLuwlv9mxu9qbeUm 4ZwAbDTCgkuGzlTbaJQX3p6 ByIa62J34hVRnlXNWqPJKcY CUiIHZh lXeoys3hkF8sMm1+PGNvbCB 1eMD8rM2yCaNfIcO2ZZpvG0 28XoLzaFKmWpirY83cY3Ade XA+PHRy Hap0ICAjaKadHG9zcBEuPVh gGq3zZNS5KjAqPkPzVEymW5 TbDEFglyyxezjqnAE7PBBjN DUwaW47 Ch9wfRsyKk6nUOLkHSG9WPY jvSVmS8UnwV0tItJqHYMhIN HmM0JfoQOtMHrpQ749WOxeT yK6RIUd bsFeY6LkTTOceDrqIiO6k7S 1Xd6HzAlkgHPjQM7iJwLtBY b6G7YkAwa8MJKhlRhmTI8io GFkZGlu En9qwJwnpFxnTT1mEABucgx tu050MvXrz4yyUPIpfNUtFM msYVY0C75sf3N9EOHgXEEwW HV6zUF5 oT2vgMdcdnbxzJJeyJmizlX esCcpRMiaMHvsV842XEAzoG soXiYCTtn7I1CnRsj9EKHiq BiaXO5p nHUhISsoUq0jpCuugEreHZ7 kNELieqsys134XsYwe7kiZS XqlPSeMMboRUB9Y56gq4L0Z CMwMDAw VPU1gFF2nS4wfBfokmmfsDO mdDsgdmVydGljYWwtYWxpZ2 73LHEsgPdaOr5RNtz4V5AfW jj4ILTf vPypJK0aaHNsXSlmKf4dbRk wtRgaJK8nVOCnjrubu107Sh Yzb0hfKQRycVMrVHvwCDD4R 59vk9K8 HKMyTRCmCYP9nEZ8jK3bnTv nbjogbGVmdDsgdmVydGljYW wcKRgrW440ZTRlmJwoUtKkb WVyOjwv dGQ+DJ75gg88C5GpOjewRjo 2VAOrTEK0rVG2jN3rTCBzTO hsd9R5pKE3E9FjntNlek2xt 2xsYXBz ZTog (more content not included)... [facility] NM Myocardial Spect Rest/Str ess 1 [...] Stress Dose (mCi Tc99M Cardiolite): 26.9 [facility] Coding Summary.on 06-16-2022 Coding Summary. CD:[id number]:5137000A Gh0 bWw+PGhlYWQ+QV8SEBZvS70 toGCjjO9TU5qOQC7RTHZXXP FWDQ5UZF8ipDS0MXcdF2Zed iAv SchmjCPrJU58ZAb5TCW4nEk qMYsxuO5zxGQlS4z7NaRpUM 11hQ84MRykVOVpWbI2SbRsw jsgbWFy Y6rmWyZfwEQkBht+PHRhYmx lIHdpZHRoPScxMDAlJyBzdH bnMA2dNu1iVLMdBFTtgNadv HNlOiBj c5jcMTDcDRxgHJ8jkXunC8R hjQM5TLXul1h0Ow63yXU+PH LnYBM9jKmrDZbic825IdYvr 0rmDTB4 wKOmOBpkGYK3X71ua3R2ZVX gWXBwSFI2oDJ8lR3xmQdbhu ofP6BwuYVhCsZ1KVS2bAQlp B3lqHwt rdiukT5sNws+S70XST7SOWM RDB5YXif6O6NrSwzxuJS+PC 66XOAqSG41zFRrjNHgs4mam Md0MbUx DJRpIPF6aIqyDZczv9MmYVN uL28ibRPbz6W8VXGoqFereT ZcTzFacXF2nY1ySDrtqehhh 2hvdzsn Xkuwy3xwzl07fL86U42fRWc oWPOiYHY0CMEpJKOedDjatb 9qwD4mMp8+IPhrj7fni8sxc Gm1ZuLk YCGmjuXruIlfZZA4a1DcHe0 6W7CuvVbri2TvXef1mz56sU Tcf5U6zZO4ZCrfBTAweW2kC WxlZnQ6 CGEfHlOavA80gATyWIbrYy6 ehFnfkYptWA0gVQIbhzchZL HrcF6qCJElrUOieSciIW9xP TBpbjtm t337MxJwMSL2BAIfcEHzG4U riZ9yAuBaSYIwZNOhI7IckJ VgLLjdY622AOwmIfV8HCCtn qSnA9Sb WGXvkBkaNvV3j1I9Pr7Yb1A jokskWFB5WLbzQFKkJuLwHu SaCwQ2K9IuNoz3SBUumRceE D8mT4Gw WSLdigvyhhxmoWZ3XCGhQND wjV80bTGiHNlaNo4ox9I3f2 53AVOpORUnuM10Ga0qzUbmA TBwdCBU bR2tflbow1tvgqreMwZqYBV wFBk6DUo6FDHpvCujEtBdAJ N9EwW4QRW7pLJprH4jjBact vpmsQ7u Oyc+E47mjP2rWLF5XAN2nci zEWXodfLvKF16ET87Q7FgHg wvdGFibGU+PGRpdiBzdHlsZ L6kIyCv s5vva0LfDQfyZ4NbYUDzXHe uLri1FVJgSYI5fQJ9bT9rKG BiOEaeo8O3kWR3M8CdulRdu c8ys0eh IBFtSOitN19qlDMbt0S3DJQ ksLB3SODalBgeVpMpaB58Wz c+TQObiWxmh1JkEzrlu0pbk 3ruwKf8 XsQqUFGnadCtbCbuVTN5h7W jXv69A92lVEglVINpIRAtBP FuVZQdpPasnz6ycF5gId1+P GNvbCB3 fTA3xL4bWEDkBoW6LMikG86 0UdUwaZClMkjkk3cng8xjaY t7HrXvCMUxblTxqYmxWVR2y 5LzNz17 T60zFBurCYMbIOLeSVYbLQW xqYmsiz5tkA7qZb0+PC9jb2 vyyn00kS73uJX+LJTmKCR7p WxlPSdw MACcbT0oDNokYyS3TAOtCmQ fvF05hTXmXSfxWt1apAlhwQ ztSU6lCFVtuofuw842MpKsv 2xkIDEw mUQbVJmjJML6C99wv0V5EIQ tBNNvDWZ0vFW9aM4ckSstyh ogbGVmdDsgdmVydGljYWwtY NxgH295 IHRvcDsnPlBhdGllbnQgTmF cGQz0J4VwRbo4UDNbkHmmCJ 2wqXZrXChuAx9loSdxhLtdN J1dMSKp izxsr384LuBhu1gzXPCzqZM mWBaeVYG4N15cw7Z1UOXzRP LdLWN7xKX9uV2euWtspbprg GVmdDsg swLgmXhoECqvTFqwT943MLA ywYmvKzOgcwMeJLEjyDJ2TL 27ZG70xXAap6H6hKC5U9AtV GRpbmct ofkenDH1JDAyTELlpN10Fb0 ipItcPz3mYLPvYGU5CVSywD HsM8BopD1yIiXaFHCzSOJrR 3RleHQt PDmqL796JKzsMvE4BCUeppF iD9AuIBTbySpfTpL0o9F0Ff 9NT5N5BG22JI27eCUms6R9o KM8R0Ei UGGyarukihyaqYP3FZNtSOL dkI23Se7hxAlrOm4vTTIiLK U4VEZucQKzQ9LaoG9cJqXnL DAwMDAw P5QqxFZyNYsnL001KHxgPkJ 8XZEcjtIeW9SaFPDrtGsnZn Y6y6E6Xp7MFVr4QW13WK93j OZay6U4 oBZ0D6NcTFGeunbgmxvgjUK 4UVRyXFCfrJ64Xo6gqCxcIm 3xSCSmLQM2VTEukMJrT3Gcj M5fVpSp JRMzOGTqO4XxwLYoZDhiE59 5VTfgUsM0MWOybsCxJ6LxMJ TflRjaSaF7y0K0Cn6TWFHyV B36QIA8 jXB7TM26VM66Z1KaLcogvCW ibGU+PHRhYmxlIHdpZHRoPS lbJZTnMjPvoHxxGU3jVt9xU GVyLWNv jKvraLKkAeFtt9dhYDGjQCy vWB0slUkwV6MqqGO9BTWjy2 k3Mm67M32tT8RkcHS+PGNvb UC0oTU9 gN8tMeYuQjK8OWyzD407KgE vlCIlHqrkh0dfh8xknOm5Pa C1LTPoqwKptHcbJZF1t2ZyU z73Z15j IHdpZHRoPSIxNSUiIHZhbGl xfv9jdQ9cXq1+NUHdnSQ4bA A4xT3jLgZjAtB7UGlsR690Z nRvcCIv Grnsk5ltc9xuqEz2SaGsUCK dziRzvHmzTJE2e7OyMr04E4 DovVjhs2PsNph0ec09wURnq 2I7yWU5 A9YzNQNugqpgfIXlaVvcAX5 gSMDjfawlHKRrzV9iIEEtU0 j3XqDbPaJ6LUduR2LnhuF1X DEwcHQg AVlrBEN6U44zp4R8RCXnJBM iBGU8lUD7tN0qsSnicxinuK VmdDsgdmVydGljYWwtYWxpZ 246IHRv rQzvNDPfjK4tHXWqrHOvdTc hFJ7aVWBeovjlGssDBkIuXV QBF4iKFBj4G1RwQyf5NBDxt AtsRZ9s iUCoUEpwJw5fyGpvdYjoIX6 gWONzhxexVSNklB0dOFOeaN RkvEarZK9xHTHxkzggx138Z iAxMHB0 PWOsqYEtE0TdkJ3sWkVoPFK cZZDxG3AbtJKcCKuvY317QL anNxO0ZMHncuUsL0QlMCMfw WduOiB0 m4F1Tv1rFZ5dQd9pPOL2DA8 3FZ08jZSxq2L2mOZ9Q5DsVS EnhavlvcodnUP6NLOuTJScd F49ySIq BYvpYy3xs6G6o314ZAUvGIR ulR49Vg8ezOarVQQlzNDGsJ 5ylnfwe0vmctuxJpPcSDAoY Gu0BPm1 MZXoxJkzAdHiQGP0FlT6CSG 7cXZivS8oiKnnhmbkmK2sOh c+ZCvjFJQuqxA3L0VsSur9R CBzdHls JD1nbJVnSRjlUw4qkSuvgOs oMJ6lBMWruyzkURPkbN9pKQ PiiFBheRvqJP2yPXHdbyfwb 250OiAx OKA7CBSmtNRkJ6CmaO5uCwB aNCHfPYCzY6NguTOrALsjY1 75JHiyNyA6RVKshnTsR0KbO WFsaWdu ZvO5v1D1Mn4MYH7mbAE1X3W zPex2EVKxuCcfJI1exDStUM ofRq1lzWxyiEmjOS1zOVMep jtwYWRk nM5kAXNuhWYamRexKB4cLZM mipprv894NoWrSHU3QKEroU GcD5DycP9uXkBfUUSjMXNhY 3RleHQt JTgvX610JJhfGfC0XEInsaF sD1LdUZHflPxhDxV4b3Z5Pg 4MvNFsIHIrTK33NH74HP20V 3RyPjwv dGFibGU+PHRhYmxlIHdpZHR dWIysMQLuKgUzzWnmFE4hQq 9yZGVyLWNvbGxhcHNlOiBjb 2xsYXBz VVvmCR8jbEyuT9NqiHX4IGP sk0s4Vi04M71uY0FspNJ+PG NwwOJ8pRE1iQ8zSeMrChM8C EobV408 VfNvtTUqMgjfw1cxi0rokRl 5RvErEJBgguFqeTfiTQU8e6 YuXm49E20uHYxbGRJjDMHlH CUiIHZh gAqugb5uiS7pNn6+PGNvbCB 1bZQ4mY7pYsPnFjE6TEjhS5 34XrQqiOArHdjlK01yV1Nif XA+PHRy Fdk1SFRjiDqjKI3wpPOpTZt sRs9mQFM8GiAdBsLeXJguS1 ZfFYZdaehvkdmbqHE2YUPgW DUwaW47 Jf7qbYsnNo1gXIHeJDT9CDC txEChE1XpiO8lRhFrQSCaMP ZpY6EcpYHnSXxdT165WXtgM nU7SBHn sbIxB3QkPWQywVtwToS0f7W 5Dk5WnLdieMDwPP0jMlQhTP g3R4GyHxv8PDUnnAhbSX1ak GFkZGlu Yl0fbKvdnUqgPY8eUQAnjzu hl885OnKwa1cnEONqgYVeAF csBXH4Z77io8R1YMDdZUAhK EL1eJP5 lT2emNrmeqxxdMMzoPwdlvQ jeIdyBOcgGMamG698NOCerM kmByABDgk7S1DaWct8XXFuj UobSV9k mRHiWAgiWq4qgLiiaNkgKL8 gYOCohcxyx104EmAlz4ohFE RqcAFnSXtxJRL1X64va6I9G CMwMDAw EPE2cAZ8jQ4obUorxfymtYB mdDsgdmVydGljYWwtYWxpZ2 44GJInjUpeFp1RLkz3V9ElI jc4FZPb iMddMW5beLRmCZlbWx9mmOs mzRifPS5cDJYztirys707Gf Skv9wxKNZaqCGqPEglAEQ8O 57dh5P6 ZOFzOSQpDZG7wKD9dJ4cjWj nbjogbGVmdDsgdmVydGljYW pwDAhqU996EWVbzHhrXpMtg WVyOjwv dGQ+YE65md17H8RaSuoyFif 1VDDgEYS1eHM7sU0iSBIkJO caw7Q9uAA7P6EnszWman4ue 2xsYXBz ZTog (more content not included)... [facility] Coding Summary.on 06-13-2022 Coding Summary. CD:[id number]:[id number] Gh0 bWw+PGhlYWQ+KS3QQSJgC69 uzCDczQ6KY2nLKM6NVWCITX WNCJ2YID0dbCO2QGmtF9Koa iAv UvxgaZUfYZ29XQz3RJA8gVa dRJfvjU4mpGGeM5s0HpToUR 23wC58PHmjTNXnYqX4OuZoy jsgbWFy Z8hfNeAbgACcQjo+PHRhYmx lIHdpZHRoPScxMDAlJyBzdH azHF1jZc5sGQStIEXzcRoff HNlOiBj f1hsTROyNKoyHN5ibMlgO6J ruMC8SPRpo2c7Lp95aMK+PH PcDBT1yHazTGxxd049GnCxo 1ehICB6 wNDbKVqmDLM4O75ca0X1WSU wALOgTJQ9sFD4zH9wgKbqkl xjL9XzfAAoMaV9MZJ2eAWnk U1ufZnv pjlsvY3mOsw+K90YAE1WAWM RGU7RScl2D6WqMqypuJV+PC 47YNErHV52vXHhsEOvo5pub Zw6QzJd PQLlBUU7rXkcMAfkz2TjWFJ qK81rbBNlc1O1KSRmrDaexU IuMhPssNA6qX8nEVarxredu 2hvdzsn Ekqep4gvvr22nW27C27lXBa aIROhYKI7ZSJbHOWgzSnugp 4auI9tKx6+TTzih9zqt1pfi Xm8IzAx PGHspqYlbJuxJYX8u4MjHe0 2E1JayAjek2HeGqm7su74zV Avr6U4aCQ4EBidCTMzgD3tE WxlZnQ6 FLYiAnLgeN22rMVoGJzrEy6 rpMgagSkyGS5tLEYpolihIK YbwY4vNAJfsGFwxDukIF5sQ TBpbjtm e460PiRyWTN2ULXraJFsX8I arY4cAcApNIQiCVQoN6QltD TqDElnM193THohVhY9APIrz dGdC8Tm MVOtkMbdWdB3v5J8Gh8Nn2U znftxHZX6SYveJRBnWlVaMy BjTtQ9X8VuLlj8PATglTxdR T9rT9Cu SZWvzudtvslzyYZ3SRJmIOP yfF72yZZnZSqnPf9ww8D8k0 23ZWBfSJFbzF42Em8qtEkoV TBwdCBU wB7rbcoyg5caxkszMqApHDX uNUj9AOu7DPVzqXpcNxMaKY W0PtQ6YIV7hZWluE5ltMnkn uokvS8m Oyc+L80goS8jXHE3JMH9wls yTCMgxpYnQD59AW35S7LsPe wvdGFibGU+PGRpdiBzdHlsZ N7dYfDy l5bnr0XhPJagK1DzXVPoYAo zFsx1KDBiKGK5bGR0dM8aET ZcDQduh7X7mDM0N0IypaYpu i3pn8in SOJwZWwxD66beANck3I4ZHT csHG1LXCnqJocMwPwpN47Td c+ZWAipGkkl5CoRerea8rvz 7wzaAy0 CuNkUBEslmFyiYsxIVQ1x4F rRo53D40nGFpwJQYrABYoZC OmHEEqbFnzbr5riV5hCf8+P GNvbCB3 xBA2zS0pBCWjSmI6PAftF03 8IeYtlNDpCnqlp8uqz2aqhR p7EcFtMTLpcxHrcXejNBN3i 0SlEj30 I03rSJhyJBGwZPQzXZKkOHU mpNoqzs7syF7jQc7+PC9jb2 neqt23uA88dEA+DXKbTSJ2g WxlPSdw DLEwpA3rAIpwHjU5CDOoAsR kkS47dWCyHPpqZm1qoQvftW jzQE6zCQWvpujjs580JrDws 2xkIDEw rUDeQAmgMKD7Z59qu5M2YUF gBPOfVYO2nRA7xA3yiYtdth ogbGVmdDsgdmVydGljYWwtY QarQ938 IHRvcDsnPlBhdGllbnQgTmF iBNh4C3LbLdi1RNRwlJqaJE 9ogYKrONehKh0iqWzjcHdrF J5bGAAq meoys594EiYkx9rfSOJgqHY vAFatABY4F05xg0K9KBWsQQ NaDLC0lEB9cA4gtNyikucle GVmdDsg tpUhaTapIPreBPxlA113IWR erPzmFgNohbMzMDJihOD9UT 55UU92rTJip0P4aXX3F1KbT GRpbmct dsltrWP0RJPlVZUotO65Rq6 nwAfuNt1dDFZlQPU0YLHmoI LeG9CzgH1vClXqKXNfELTmH 3RleHQt GXhcE336AWdxOkV7VESghlC jU6CuUHJybNzgWnX9m2M1Ry 1VW9R7HC37VF97qDQnl8C6n TI7W0Nl DTVbjgdfqoorbXV7SCRsQAH kkK71Ef0qpNifSy2oLEBhZT J8FSVakXUfN9AwqZ0eKaJnU DAwMDAw P3JceUYsAAqqA005EXwyPiG 1JGZpuzJuV2VwLFUctTpqQw V0f3E8Qo9QFSt6LI25JC95j JVgw4B2 oMS3F0ThWGMvzfexbqfrcMW 7JXWxJLPtyR46Ao6vwUyrRo 9zEMVxNFD4QUZpyETcP7Ujw Y6iXtRb AJQxVACuM7ZyaSAtSDwnK47 2IVbtTeS5GQBekeVrS9KmPS SknHxnYoC2f9S3Cy2FWKKgI G61XSL5 uEC0RO73SI39T7NzSvllgJU ibGU+PHRhYmxlIHdpZHRoPS ubALTvFpQgqXsbXA6mGf5gC GVyLWNv fEyetDBkBkBfn0qkJBVsIRg nIR9vtWycU3RolPS6PAEzd3 j1Ea42S11aZ4LhrJH+PGNvb PX7jLG8 oL1pBgZoNwF1DHajU215DbO tmVPdFempi5jye8sscJg3Vm S0HEBoycTuqHtiGCI3i1PoB f50N67r IHdpZHRoPSIxNSUiIHZhbGl pus5lwP4zEd9+GHKpcGK1yJ O4zZ5pCyIcUcS4WJksB278Y nRvcCIv Bhaey0cza4rcnDe4XxXnIJJ lfgRamIfzAFF1g1AaVe24V2 YgiVsuw7MpQrx0uq57cINwh 9K5uXS9 E7OqSEPssivulPDmcVnfEQ4 iVTPcywlyDJRfeR7rYMErU4 l5TsJpBmN2SGhuI9OpcmK7Z DEwcHQg EZtqQYP1T21jq7E4GQIxFQY lHKP7fFF6uC1zwVrdrtechH VmdDsgdmVydGljYWwtYWxpZ 246IHRv zUymFWUdxZ6qIPFcvJZdsQe sZM6cRLRnnhkgDoyWIlUtIY HNF7tZQSd3J5EsWts0ISEjz GeaMF0o tRXyVRkgRo2xlTghrNufJU2 fTQQwodiuPHUxmY0aPTFhoX PqsYgsWW0rWFNhfienz124Z iAxMHB0 LOLsfVEvY8FxoF6yVnMyLOD hGFFlZ1VumPNxNEfmV511HP hyOpQ3TIIeeiUhW9GaWOOer WduOiB0 g3U6Sm9wVY4zZl7yPQE4YF4 6DL77qVYgr2E0cOW6Z7JgQF UktrmjccghrOT8WANfICCyb Z75fNVm UBkmCt9di6H0q639YPNiBEA zrM40Tc1hwNdrLTLqvOEZaW 5qxdeer9izphchZjQwJBThG Io3QKc4 GZXqmAitLyJuXTE4HbR9LZT 3mLQyaW3reWpwtrnfnB0aJp c+YShxRSTkmtD1X2RbCtv6G CBzdHls CG9vyHYdGCzvDk8lzTymhBz aTD7gLKCfsohiEEQuhP2fBS QhwYWhdUldEU5cRHAeojahb 250OiAx CXX5GXCpiJKoK2AaaD5qGwT nWYYvDVBaV8BldNIcEFpwR1 22MNrsRbI9FHAhnbWsC0LvX WFsaWdu LmT4e4U2Ns2FTX9viKB3Y7N jNzh8UQIkyBmaOI7etDAjLO frZh3xqFxgoImiOK1aKBSft jtwYWRk uA7jHLKufHJqpWcbZY7bCFZ crpwny522OfEhSYG4CGMmxS RtD0QgcL1bOaTnUHInEYVbA 3RleHQt OFlzQ524VMawZaR2UROcyeC nY4VzUROriDwuTiL4p0I5Gf 0RsUCjGONcGT85RG91PM17Y 3RyPjwv dGFibGU+PHRhYmxlIHdpZHR uKZkpNLPiUlOlyDjzLX9fXb 9yZGVyLWNvbGxhcHNlOiBjb 2xsYXBz SVexGC5geMxjU4OtlKP5VTA ji0h0Fl74D93jN8HizKY+PG FncZQ6kTC4zD1fCwQtRqZ8E IwkI712 LvSphAHsHyeub8csz7fjhVd 3WwRjXFOnksNdiNesPHP2v3 WeUn92Y43nIOplOCVcIMGyE CUiIHZh gHxdiq7pqZ8qUa4+PGNvbCB 0yDZ8iN5fPpAkNtR7BEgdV8 40PwVqwPJxPfdyY91fB7Nfh XA+PHRy Zli6ZZIuhMpdPM4sqVNlOAp uQy8rYYN1VbSfWlIjZGcoE1 LiJNLzcrtsixisaYB4HRKgU DUwaW47 Jo5tsBpwOe3uWAHuFXE0KEP faDUhF0MloK5kIuEqMGEcUN UkW5QigRTiGRquZ509QOraJ rG9GTMb qaXoE7BkJEXybBpsKaL5h6V 8Lo3IvYjzjHNpGT1mAfPiYK u5T4JgDed9PRMdkAqhGF9ph GFkZGlu Ap4xkIcrbMbhFY4nPOJrorj jk232RhNbv1uoSZHriTOfWD usVSB4K48gi5X0EHXlTTZuT OK0lKU1 jN5rqFcnwibmmCWpzEjeznZ frIiuNTliVAfwP170MTRmzJ zuUzIKEbb3F0BzUjw8EEGxo NanLQ1c nHFcTZlcOa5ckGtvuRliZQ9 zOVAhjkrwr445OuXja9dhUO InjKErKSwfNJP7J60rx9I3R CMwMDAw TEV6lIU3mH5soMyphycncSS mdDsgdmVydGljYWwtYWxpZ2 81CACgqZkeCv6UTni7J2FsP hn4FTDx sXpzFO6htZTvONhoHv3baXl axOlfIJ1cGKOtlerel617Xr Kep2lhOLZjrGQqWSvdDWQ2W 90fs2Q3 IUUoDHYhOHF2qYS3fO6okDh nbjogbGVmdDsgdmVydGljYW bzVRogJ242PIXjvOkrVlYfl WVyOjwv dGQ+GD07hz90A7RxQvctAdd 6NSQsNZH7dXL5hI0lIGAwMW hpy3Z3qRQ9R7EncrCeae0gw 2xsYXBz ZTog (more content not included)... [facility] Consent for Treatmenton Consent for Treatment [id number]#1.00C D:127 [facility] CHEMISTRYOrdered By: SYSTEM SYSTEM on 06-10-2022 [...] Remisol Consent for Treatmenton Consent for Treatment [id number]#1.00C D:127 [facility] Lipid Panelon 06-10-2022 Cholesterol [Mass/Vol] 298 mg/dL High 120-200 [facility] Comment on above: Performed By: #### 2 [id number] ####[facility] [address] [place] [address] Cholesterol in HDL [Mass/Vol] 67 mg/dL Invalid Interpretation Code [facility] Comment on above: Result Comment: HDL > or equal to 60 mg/dL: Low cardiovascular risk HDL < 40 mg/dL : High cardiovascular risk Performed By: #### 2 [id number] ####[facility] [address] [place] [address] Cholesterol in LDL [Mass/Vol] 223 mg/dL High <=129 [facility] Comment on above: Performed By: #### 2 [id number] ####[facility] [address] [place] [address] Cholesterol in VLDL [Mass/Vol] 25 mg/dL Normal 7-40 [facility] Comment on above: Performed By: #### 2 [id number] ####[facility] [address] [place] [address] Triglyceride [Mass/Vol] 123 mg/dL Normal <=149 [facility] Comment on above: Performed By: #### 2 [id number] ####[facility] [address] [place] [address] Pre-Certification Formon Pre-Certification Form [id number]#1.00 CD:127 [facility] CARDIAC STRESS TESTon 2022 CARDIAC STRESS [...] ambulation/activity. Clinical correlation required. Normal [facility] HEMOGLOBINon 06-06-2022 Hemoglobin (Bld) [Mass/Vol] 12.9 g/dL Normal 12.0-16.[address] [facility] Comment on above: Performed By: #### H GB #### [facility] [address] [place] [address] Dr. Saroj Cano PULMONARY FUNCTION TESTon PULMONARY [...] minute with ambulation/activity. Clinical correlation required. 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 She no longer works in a [employer] shop. She is a former patient of [...] for sleep apnea. She currently sees a automation driver who referred her to our office. Apparently [...] function t (more content not included)... [facility] Comment on above: Result Comment: Elec tronically Signed By: Myra CAMPBELL, Evin Green.br\Date and Time Signed: 06/05/22 11:21 EST Referrals Officeon 3 Referrals Office [id number]#1.00C D:127 [facility] XR CHEST 2 Von 04-22-2022 XR [...] LEMON Date: 2022-04-22 17:[address] [facility] CBC AUTO DIFFon 01-12-2022 BASO # 0.0 103/ul Normal 0.0-0.1 [facility] Comment on above: Performed By: #### C BC #### [facility] [address] [place], [place] [address] Dr. Saroj Cano Basophils/100 WBC (Bld) 0.3 % Normal 0.2-2.0 [facility] Comment on above: Performed By: #### C BC #### [facility] [address] [place], [place] [address] Dr. Saroj Cano EO # 0.0 103/ul Normal 0.0-0.7 [facility] Comment on above: Performed By: #### C BC #### [facility] [address] [place] [address] [address] Saroj Cano Eosinophils/100 WBC (Bld) 0.1 % Critically low 0.9-7.0 [facility] Comment on above: Performed By: #### C BC #### [facility] [address] [place] [address] [address] Saroj Cano Erythrocyte distribution width (RBC) [Ratio] 15.0 % Normal 11.0-15.0 [facility] Comment on above: Performed By: #### C BC #### [facility] [address] [place] [address] Dr. Saroj Cano Hematocrit (Bld) [Volume fraction] 38.0 % Normal 36.0-48.0 [facility] Comment on above: Performed By: #### C BC #### [facility] [address] [place] [address] Dr. Saroj Cano Hemoglobin (Bld) [Mass/Vol] 11.6 g/dL Critically low 12.0-16.0 [facility] Comment on above: Performed By: #### C BC #### [facility] [address] [place] [address] Dr. Saroj Cano IG # 0.11 10e3/ul Critically high 0.00-0.03 [facility] Comment on above: Performed By: #### C BC #### [facility] [address] [place] [address] Dr. Saroj Cano IG % 0.8 % Critically high 0.0-0.5 [facility] Comment on above: Performed By: #### C BC #### [facility] [address] [place] [address] Dr. Saroj Cano LYMPH # 3.8 103/ul Normal 1.2-3.[address] [facility] Comment on above: Performed By: #### C BC #### [facility] [address] [place] [address] Dr. Saroj Cano Lymphocytes/100 WBC (Bld) 26.4 % Normal 20.5-60.0 [facility] Comment on above: Performed By: #### C BC #### [facility] [address] [place] [address] Dr. Saroj Cano MANUAL DIFF REQ NO Normal [facility] Comment on above: Performed By: #### C BC #### [facility] [address] [place] [address] Dr. Saroj Cano MCH (RBC) [Entitic mass] 28.2 pg Normal 26.7-34.0 [facility] Comment on above: Performed By: #### C BC #### [facility] [address] [place] [address] Dr. Saroj Cano MCHC (RBC) [Mass/Vol] 30.5 g/dL Normal 29.9-35.2 [facility] Comment on above: Performed By: #### C BC #### [facility] [address] [place] [address] Dr. Saroj Cano MCV (RBC) [Entitic vol] 92.5 fL Normal 81.0-99.0 [facility] Comment on above: Performed By: #### C BC #### [facility] [address] [place] [address] Dr. Saroj Cano MONO # 1.0 103/ul Critically high 0.3-0.8 [facility] Comment on above: Performed By: #### C BC #### [facility] [address] [place] [address] Dr. Saroj Cano Monocytes/100 WBC (Bld) 7.2 % Normal 1.7-12.0 [facility] Comment on above: Performed By: #### C BC #### [facility] [address] [place] [address] Dr. Saroj Cano NEUT # 9.4 103/ul Critically high 1.4-6.5 [facility] Comment on above: Performed By: #### C BC #### [facility] [address] [place] [address] Dr. Saroj Cano Neutrophils/100 WBC (Bld) 65.2 % Normal 43.0-75.0 [facility] Comment on above: Performed By: #### C BC #### [facility] [address] [address] [address] Saroj Cano Platelet mean volume (Bld) [Entitic vol] 10.5 fL Normal 9.5-13.5 [facility] Comment on above: Performed By: #### C BC #### [facility] [address] [place] [address] [address] Saroj Cano PLT 263 103/ul Normal 150-450 [facility] Comment on above: Performed By: #### C BC #### [facility] [address] [address] [address] Saroj Cano RBC 4.11 106/ul Critically low 4.20-5.40 [facility] Comment on above: Performed By: #### C BC #### [facility] [address] [address] [address] Saroj Cano WBC 14.5 103/ul Critically high 4.0-11.0 [facility] Comment on above: Performed By: #### C BC #### [facility] [address] [address] [address] Saroj Cano CRPon 01-12-2022 CRP 0.2 mg/dL Normal <=1.0 [facility] Comment on above: Performed By: #### C MP, CRP #### [facility] [address] [place] [address] Dr. Saroj Cano PROF 14(COMP METB)on 022 Albumin [Mass/Vol] 2.6 g/dL Critically low 3.4-5.0 [facility] Comment on above: Performed By: #### C MP, CRP #### [facility] [address] [address] [address] Saroj Cano Albumin/Globulin [Mass ratio] 0.8 {ratio} Normal [facility] Comment on above: Performed By: #### C MP, CRP #### [facility] [address] [place] [address] Dr. Saroj Cano ALP [Catalytic activity/Vol] 80 U/L Normal 46-116 [facility] Comment on above: Performed By: #### C MP, CRP #### [facility] [address] [address] [address] Saroj Cano ALT [Catalytic activity/Vol] 27 U/L Normal 14-59 [facility] Comment on above: Performed By: #### C MP, CRP #### [facility] [address] [address] [address] Saroj Cano Anion gap [Moles/Vol] 13.1 mmol/L Normal [facility] Comment on above: Performed By: #### C MP, CRP #### [facility] [address] [address] [address] Saroj Cano AST [Catalytic activity/Vol] 8 U/L Critically low 15-37 [facility] Comment on above: Performed By: #### C MP, CRP #### [facility] [address] [address] [address] Saroj Cano Bilirubin [Mass/Vol] 0.1 mg/dL Critically low 0.2-1.0 [facility] Comment on above: Performed By: #### C MP, CRP #### [facility] [address] [address] [address] Saroj Cano Calcium [Mass/Vol] 8.9 mg/dL Normal 8.5-10.1 [facility] Comment on above: Performed By: #### C MP, CRP #### [facility] [address] [address] [address] Saroj Cano Chloride [Moles/Vol] 107 mmol/L Normal 98-[address] [facility] Comment on above: Performed By: #### C MP, CRP #### [facility] [address] [address] [address] Saroj Cano CO2 [Moles/Vol] 26.8 mmol/L Normal 21.0-32.0 [facility] Comment on above: Performed By: #### C MP, CRP #### [facility] [address] [address] [address] Saroj Cano Creatinine [Mass/Vol] 0.70 mg/dL Normal 0.55-1.02 [facility] Comment on above: Performed By: #### C MP, CRP #### [facility] [address] [address] [address] Saroj Cano EGFR-AF BOTSWANAN >60 Normal >=60 [facility] Comment on above: Performed By: #### C MP, CRP #### [facility] [address] [address] [address] Saroj Cano EGFR-NON AF BOTSWANAN >60 Normal >=60 [facility] Comment on above: Performed By: #### C MP, CRP #### [facility] [address] [address] [address] Saroj Cano Globulin (S) [Mass/Vol] 3.3 g/dL Normal [facility] Comment on above: Performed By: #### C MP, CRP #### [facility] [address] [address] [address] Saroj Cano Glucose [Mass/Vol] 153 mg/dL Critically high 74-106 [facility] Comment on above: Performed By: #### C MP, CRP #### [facility] [address] [address] [address] Saroj Cano Potassium [Moles/Vol] 3.9 mmol/L Normal 3.5-5.1 [facility] Comment on above: Performed By: #### C MP, CRP #### [facility] [address] [address] [address] Saroj Cano Protein [Mass/Vol] 5.9 g/dL Critically low 6.4-8.2 [facility] Comment on above: Performed By: #### C MP, CRP #### [facility] [address] [address] [address] Saroj Cano Sodium [Moles/Vol] 143 mmol/L Normal 136-145 [facility] Comment on above: Performed By: #### C MP, CRP #### [facility] [address] [address] [address] Saroj Cano Urea nitrogen [Mass/Vol] 23.0 mg/dL Critically high 7.0-18.0 [facility] Comment on above: Performed By: #### C MP, CRP #### [facility] [address] [place] [address] Dr. Saroj aCno Urea nitrogen/Creatinine [Mass ratio] 32.9 mg/mg Normal [facility] Comment on above: Performed By: #### C MP, CRP #### [facility] [address] [place] [address] Dr. Saroj Cano CBC AUTO DIFFon 01-11-2022 BASO # 0.0 103/ul Normal 0.0-0.1 [facility] Comment on above: Performed By: #### P TT, PT #### [facility] [address] [place] [address] Dr. Saroj Cano Basophils/100 WBC (Bld) 0.3 % Normal 0.2-2.0 [facility] Comment on above: Performed By: #### P TT, PT #### [facility] [address] [place] [address] Dr. Saroj Cano EO # 0.0 103/ul Normal 0.0-0.7 [facility] Comment on above: Performed By: #### P TT, PT #### [facility] [address] [place] [address] Dr. Saroj Cano Eosinophils/100 WBC (Bld) 0.0 % Critically low 0.9-7.0 [facility] Comment on above: Performed By: #### P TT, PT #### [facility] [address] [place] [address] Dr. Saroj Cano Erythrocyte distribution width (RBC) [Ratio] 14.7 % Normal 11.0-15.0 [facility] Comment on above: Performed By: #### P TT, PT #### [facility] [address] [place] [address] Dr. Saroj Cano Hematocrit (Bld) [Volume fraction] 41.1 % Normal 36.0-48.0 [facility] Comment on above: Performed By: #### P TT, PT #### [facility] [address] [place] [address] Dr. Saroj Cano Hemoglobin (Bld) [Mass/Vol] 12.5 g/dL Normal 12.0-16.0 [facility] Comment on above: Performed By: #### P TT, PT #### [facility] [address] [place] [address] Dr. Saroj Cano IG # 0.05 10e3/ul Critically high 0.00-0.03 [facility] Comment on above: Performed By: #### P TT, PT #### [facility] [address] [place] [address] Dr. Saroj Cano IG % 0.7 % Critically high 0.0-0.5 [facility] Comment on above: Performed By: #### P TT, PT #### [facility] [address] [place] [address] Dr. Saroj Cano LYMPH # 1.7 103/ul Normal 1.2-3.8 [facility] Comment on above: Performed By: #### P TT, PT #### [facility] [address] [place] [address] Dr. Saroj Cano Lymphocytes/100 WBC (Bld) 23.5 % Normal 20.5-60.0 [facility] Comment on above: Performed By: #### P TT, PT #### [facility] [address] [place] [address] Dr. Saroj Cano MANUAL DIFF REQ NO Normal [facility] Comment on above: Performed By: #### P TT, PT #### [facility] [address] [place] [address] Dr. Saroj Cano MCH (RBC) [Entitic mass] 27.8 pg Normal 26.7-34.0 [facility] Comment on above: Performed By: #### P TT, PT #### [facility] [address] [place] [address] Dr. Saroj Cano MCHC (RBC) [Mass/Vol] 30.4 g/dL Normal 29.9-35.2 [facility] Comment on above: Performed By: #### P TT, PT #### [facility] [address] [place] [address] Dr. Saroj Cano MCV (RBC) [Entitic vol] 91.3 fL Normal 81.0-99.[address] [facility] Comment on above: Performed By: #### P TT, PT #### [facility] [address] [place] [address] Dr. Saroj Cano MONO # 0.2 103/ul Critically low 0.3-0.8 [facility] Comment on above: Performed By: #### P TT, PT #### [facility] [address] [place] [address] Dr. Saroj Cano Monocytes/100 WBC (Bld) 2.7 % Normal 1.7-12.[address] [facility] Comment on above: Performed By: #### P TT, PT #### [facility] [address] [place] [address] Dr. Saroj Cano NEUT # 5.2 103/ul Normal 1.4-6.5 [facility] Comment on above: Performed By: #### P TT, PT #### [facility] [address] [place] [address] Dr. Saroj Cano Neutrophils/100 WBC (Bld) 72.8 % Normal 43.0-75.0 [facility] Comment on above: Performed By: #### P TT, PT #### [facility] [address] [place] [address] Dr. Saroj Cano Platelet mean volume (Bld) [Entitic vol] 10.1 fL Normal 9.5-13.[address] [facility] Comment on above: Performed By: #### P TT, PT #### [facility] [address] [place] [address] Dr. Saroj Cano PLT 220 103/ul Normal 150-[address] [facility] Comment on above: Performed By: #### P TT, PT #### [facility] [address] [place] [address] Dr. Saroj Cano RBC 4.50 106/ul Normal 4.20-5.[address] [facility] Comment on above: Performed By: #### P TT, PT #### [facility] [address] [place] [address] Dr. Saroj Cano WBC 7.2 103/ul Normal 4.0-11.0 [facility] Comment on above: Performed By: #### P TT, PT #### [facility] [address] [place] [address] Dr. Saroj Cano CRPon 01-11-2022 CRP 1.9 mg/dL Critically high <=1.0 [facility] Comment on above: Performed By: #### I HANNAH #### [facility] [address] [place] [address] Dr. Saroj Cano PROF 14(COMP METB)on 022 Albumin [Mass/Vol] 2.8 g/dL Critically low 3.4-5.0 [facility] Comment on above: Performed By: #### I HANNAH #### [facility] [address] [place] [address] Dr. Saroj Cano Albumin/Globulin [Mass ratio] 0.8 {ratio} Normal [facility] Comment on above: Performed By: #### I HANNAH #### [facility] [address] [place] [address] Dr. Saroj Cano ALP [Catalytic activity/Vol] 96 U/L Normal 46-116 [facility] Comment on above: Performed By: #### I HANNAH #### [facility] [address] [place] [address] Dr. Saroj Cano ALT [Catalytic activity/Vol] 35 U/L Normal 14-59 [facility] Comment on above: Performed By: #### I HANNAH #### [facility] [address] [place] [address] Dr. Saroj Cano Anion gap [Moles/Vol] 12.2 mmol/L Normal [facility] Comment on above: Performed By: #### I HANNAH #### [facility] [address] [place] [address] Dr. Saroj Cano AST [Catalytic activity/Vol] 11 U/L Critically low 15-37 [facility] Comment on above: Performed By: #### I HANNAH #### [facility] [address] [place] [address] Dr. Saroj Cano Bilirubin [Mass/Vol] 0.2 mg/dL Normal 0.2-1.0 [facility] Comment on above: Performed By: #### I HANNAH #### [facility] [address] [place] [address] Dr. Saroj Cano Calcium [Mass/Vol] 9.1 mg/dL Normal 8.5-10.1 [facility] Comment on above: Performed By: #### I HANNAH #### [facility] [address] [place] [address] Dr. Saroj Cano Chloride [Moles/Vol] 105 mmol/L Normal 98-107 [facility] Comment on above: Performed By: #### I HANNAH #### [facility] [address] [place] [address] Dr. Saroj Cano CO2 [Moles/Vol] 25.8 mmol/L Normal 21.0-32.0 [facility] Comment on above: Performed By: #### I HANNAH #### [facility] [address] [place] [address] Dr. Saroj Cano Creatinine [Mass/Vol] 0.66 mg/dL Normal 0.55-1.02 [facility] Comment on above: Performed By: #### I HANNAH #### [facility] [address] [place] [address] Dr. Saroj Cano EGFR-AF BOTSWANAN >60 Normal >=60 [facility] Comment on above: Performed By: #### I HANNAH #### [facility] [address] [place] [address] Dr. Saroj Cano EGFR-NON AF BOTSWANAN >60 Normal >=60 [facility] Comment on above: Performed By: #### I HANNAH #### [facility] [address] [place] [address] Dr. Saroj Cano Globulin (S) [Mass/Vol] 3.5 g/dL Normal [facility] Comment on above: Performed By: #### I HANNAH #### [facility] [address] [place] [address] Dr. Saroj Cano Glucose [Mass/Vol] 166 mg/dL Critically high 74-106 [facility] Comment on above: Performed By: #### I HANNAH #### [facility] [address] [address] [address] Saroj Cano Potassium [Moles/Vol] 4.0 mmol/L Normal 3.5-5.1 [facility] Comment on above: Performed By: #### I HANNAH #### [facility] [address] [address] [address] Saroj Cano Protein [Mass/Vol] 6.3 g/dL Critically low 6.4-8.2 [facility] Comment on above: Performed By: #### I HANNAH #### [facility] [address] [address] [address] Saroj Cano Sodium [Moles/Vol] 139 mmol/L Normal 136-145 [facility] Comment on above: Performed By: #### I HANNAH #### [facility] [address] [place] [address] Dr. Saroj Cano Urea nitrogen [Mass/Vol] 10.0 mg/dL Normal 7.0-18.0 [facility] Comment on above: Performed By: #### I HANNAH #### [facility] [address] [place] [address] Dr. Saroj Cano Urea nitrogen/Creatinine [Mass ratio] 15.2 mg/mg Normal [facility] Comment on above: Performed By: #### I HANNAH #### [facility] [address] [place] [address] Dr. Saroj Cano ACETONE SERUMon 01-10-2022 ACETONE Negative Normal NEGATIVE [facility] Comment on above: Performed By: #### P TT, PT #### [facility] [address] [place] [address] Dr. Saroj Cano CBC AUTO DIFFon 01-10-2022 BASO # 0.1 103/ul Normal 0.0-0.1 [facility] Comment on above: Performed By: #### I HANNAH #### [facility] [address] [place] [address] Dr. Saroj Cano Basophils/100 WBC (Bld) 0.9 % Normal 0.2-2.0 [facility] Comment on above: Performed By: #### I HANNAH #### [facility] [address] [address] [address] Saroj Cano EO # 0.1 103/ul Normal 0.0-0.7 [facility] Comment on above: Performed By: #### I HANNAH #### [facility] [address] [address] [address] Saroj Caon Eosinophils/100 WBC (Bld) 0.8 % Critically low 0.9-7.0 [facility] Comment on above: Performed By: #### I HANNAH #### [facility] [address] [place] [address] Dr. Saroj Cano Erythrocyte distribution width (RBC) [Ratio] 15.1 % Critically high 11.0-15.0 [facility] Comment on above: Performed By: #### I HANNAH #### [facility] [address] [place] [address] Dr. Saroj Cano Hematocrit (Bld) [Volume fraction] 46.1 % Normal 36.0-48.0 [facility] Comment on above: Performed By: #### I HANNAH #### [facility] [address] [place] [address] Dr. Saroj Cano Hemoglobin (Bld) [Mass/Vol] 14.1 g/dL Normal 12.0-16.0 [facility] Comment on above: Performed By: #### I HANNAH #### [facility] [address] [place] [address] Dr. Saroj Cano IG # 0.05 10e3/ul Critically high 0.00-0.03 [facility] Comment on above: Performed By: #### I HANNAH #### [facility] [address] [place] [address] Dr. Saroj Cano IG % 0.6 % Critically high 0.0-0.5 [facility] Comment on above: Performed By: #### I HANNAH #### [facility] [address] [place] [address] Dr. Saroj Cano LYMPH # 2.7 103/ul Normal 1.2-3.[address] [facility] Comment on above: Performed By: #### I HANNAH #### [facility] [address] [place] [address] Dr. Saroj Cano Lymphocytes/100 WBC (Bld) 30.5 % Normal 20.5-60.0 [facility] Comment on above: Performed By: #### I HANNAH #### [facility] [address] [place] [address] Dr. Saroj Cano MANUAL DIFF REQ NO Normal [facility] Comment on above: Performed By: #### I HANNAH #### [facility] [address] [place] [address] Dr. Saroj Cano MCH (RBC) [Entitic mass] 28.3 pg Normal 26.7-34.[address] [facility] Comment on above: Performed By: #### I HANNAH #### [facility] [address] [place] [address] Dr. Saroj Cano MCHC (RBC) [Mass/Vol] 30.6 g/dL Normal 29.9-35.[address] [facility] Comment on above: Performed By: #### I HANNAH #### [facility] [address] [place] [address] Dr. Saroj Cano MCV (RBC) [Entitic vol] 92.4 fL Normal 81.0-99.0 [facility] Comment on above: Performed By: #### I HANNAH #### [facility] [address] [place] [address] Dr. Saroj Cano MONO # 0.9 103/ul Critically high 0.3-0.8 [facility] Comment on above: Performed By: #### I HANNAH #### [facility] [address] [place] [address] Dr. Saroj Cano Monocytes/100 WBC (Bld) 9.8 % Normal 1.7-12.[address] [facility] Comment on above: Performed By: #### I HANNAH #### [facility] [address] [place] [address] Dr. Saroj Cano NEUT # 5.1 103/ul Normal 1.4-6.[address] [facility] Comment on above: Performed By: #### I HANNAH #### [facility] [address] [address] [address] Saroj Cano Neutrophils/100 WBC (Bld) 57.4 % Normal 43.0-75.[address] [facility] Comment on above: Performed By: #### I HANNAH #### [facility] [address] [place] [address] Dr. Saroj Cano Platelet mean volume (Bld) [Entitic vol] 9.6 fL Normal 9.5-13.[address] [facility] Comment on above: Performed By: #### I HANNAH #### [facility] [address] [address] [address] Saroj Cano PLT 214 103/ul Normal 150-450 [facility] Comment on above: Performed By: #### I HANNAH #### [facility] [address] [place] [address] Dr. Saroj Cano RBC 4.99 106/ul Normal 4.20-5.[address] [facility] Comment on above: Performed By: #### I HANNAH #### [facility] [address] [place] [address] Dr. Saroj Cano WBC 8.9 103/ul Normal 4.0-11.[address] [facility] Comment on above: Performed By: #### I HANNAH #### [facility] [address] [place] [address] FACIAL BONES W [...] VASQUEZ Date: 2022-01-10 16:[address] [facility] CULTURE BLOODon 01-10-2022 Microscopic examination of blood, culture Culture Observations: NO GROWTH AT 5 DAYS. Normal [facility] Comment on above: Performed By: #### P TT, PT #### [facility] [address] [address] [address] Saroj Cano Microscopic examination of blood, culture Culture Observations: NO GROWTH AT 5 DAYS. Normal [facility] Comment on above: Performed By: #### P TT, PT #### [facility] [address] [place] [address] Dr. Saroj Can[facility] SARS-CoV-2 (COVID-19) RNA RIC+probe Ql (Unsp spec) Not detected Normal NOT DETECTED [facility] Comment on above: Result Comment: When [...] for this test is supported by the [place] of [employer] Service's declaration that [...] Performed By: #### I HANNAH #### [facility] [address] [place] [address] Dr. Saroj Cano LACTATE/LACTIC ACIDon 2021 Lactate [Moles/Vol] 1.7 mmol/L Normal 0.4-1.9 [facility] Comment on above: Performed By: #### L ACT #### [facility] [address] [address] [address] Saroj Cano PH VENOUS BLOODon 01-10-2022 PCO2 VENOUS 44.1 mmHg Normal 40.0-52.0 [facility] Comment on above: Performed By: #### P HVEN #### [facility] [address] [address] [address] Saroj Cano pH VENOUS 7.403 Normal 7.330-7.430 [facility] Comment on above: Performed By: #### P HVEN #### [facility] [address] [place] [address] Dr. Saroj Cano PROF 14(COMP METB)on 022 Albumin [Mass/Vol] 3.3 g/dL Critically low 3.4-5.0 [facility] Comment on above: Performed By: #### P TT, PT #### [facility] [address] [place] [address] Dr. Saroj Cano Albumin/Globulin [Mass ratio] 0.9 {ratio} Normal [facility] Comment on above: Performed By: #### P TT, PT #### [facility] [address] [place] [address] Dr. Saroj Cano ALP [Catalytic activity/Vol] 103 U/L Normal 46-116 [facility] Comment on above: Performed By: #### P TT, PT #### [facility] [address] [place] [address] Dr. Saroj Cano ALT [Catalytic activity/Vol] 43 U/L Normal 14-59 [facility] Comment on above: Performed By: #### P TT, PT #### [facility] [address] [place] [address] Dr. Saroj Cano Anion gap [Moles/Vol] 15.6 mmol/L Normal [facility] Comment on above: Performed By: #### P TT, PT #### [facility] [address] [address] [address] Saroj Cano AST [Catalytic activity/Vol] 16 U/L Normal 15-37 [facility] Comment on above: Performed By: #### P TT, PT #### [facility] [address] [address] [address] Saroj Cano Bilirubin [Mass/Vol] 0.3 mg/dL Normal 0.2-1.0 [facility] Comment on above: Performed By: #### P TT, PT #### [facility] [address] [address] [address] Saroj Cano Calcium [Mass/Vol] 9.4 mg/dL Normal 8.5-10.1 [facility] Comment on above: Performed By: #### P TT, PT #### [facility] [address] [address] [address] Saroj Cano Chloride [Moles/Vol] 103 mmol/L Normal 98-107 [facility] Comment on above: Performed By: #### P TT, PT #### [facility] [address] [place] [address] Dr. Saroj Cano CO2 [Moles/Vol] 26.8 mmol/L Normal 21.0-32.0 [facility] Comment on above: Performed By: #### P TT, PT #### [facility] [address] [place] [address] Dr. Saroj Cano Creatinine [Mass/Vol] 1.00 mg/dL Normal 0.55-1.02 [facility] Comment on above: Performed By: #### P TT, PT #### [facility] [address] [place] [address] Dr. Saroj Cano EGFR-AF BOTSWANAN >60 Normal >=60 [facility] Comment on above: Performed By: #### P TT, PT #### [facility] [address] [place] [address] Dr. Saroj Cano EGFR-NON AF BOTSWANAN 57 mL/min/1.73m2 Critically low >=60 [facility] Comment on above: Performed By: #### P TT, PT #### [facility] [address] [place] [address] Dr. Saroj Cano Globulin (S) [Mass/Vol] 3.7 g/dL Normal [facility] Comment on above: Performed By: #### P TT, PT #### [facility] [address] [address] [address] Saroj Cano Glucose [Mass/Vol] 151 mg/dL Critically high 74-106 [facility] Comment on above: Performed By: #### P TT, PT #### [facility] [address] [address] [address] Saroj Cano Potassium [Moles/Vol] 3.5 mmol/L Normal 3.5-5.1 [facility] Comment on above: Performed By: #### P TT, PT #### [facility] [address] [place] [address] Dr. Saroj Cano Protein [Mass/Vol] 7.0 g/dL Normal 6.4-8.2 [facility] Comment on above: Performed By: #### P TT, PT #### [facility] [address] [place] [address] Dr. Saroj Cano Sodium [Moles/Vol] 142 mmol/L Normal 136-145 [facility] Comment on above: Performed By: #### P TT, PT #### [facility] [address] [place] [address] Dr. Saroj Cano Urea nitrogen [Mass/Vol] 9.0 mg/dL Normal 7.0-18.0 [facility] Comment on above: Performed By: #### P TT, PT #### [facility] [address] [place] [address] Dr. Saroj Cano Urea nitrogen/Creatinine [Mass ratio] 9.0 mg/mg Normal [facility] Comment on above: Performed By: #### P TT, PT #### [facility] [address] [place] [address] Dr. Saroj Cano PROTIMEon 01-10-2022 INR Coag (PPP) [Relative time] 1.01 {INR} Normal [facility] Comment on above: Performed By: #### P TT, PT #### [facility] [address] [place] [address] Dr. Saroj Cano INR GUIDELINES SEE BELOW Normal [facility] Comment on above: Result Comment: EVGENY RED INR: 2.0 - 3.0 CONDITIONS NOT LISTED BELOW 2.5 - 3.5 FOR PROSTHETIC HEART VALVE REPLACEMENT 2.5 - 3.5 RECURRENT THROMBOSIS Performed By: #### P TT, PT #### [facility] [address] [place] [address] Dr. Saroj Cano PT Coag (PPP) [Time] 10.9 s Normal 9.0-11.[address] [facility] Comment on above: Performed By: #### P TT, PT #### [facility] [address] [place] [address] Dr. Saroj Cano PTTon 01-10-2022 aPTT Coag (Bld) [Time] 25.2 s Normal 22.3-36.[address] [facility] Comment on above: Performed By: #### P TT, PT #### [facility] [address] [place] [address] Dr. Saroj Cano BNPon 01-07-2022 Natriuretic peptide B (Bld) [Mass/Vol] 246.0 pg/mL Normal <=900.[address] [facility] Comment on above: Performed By: #### I HANNAH #### [facility] [address] [place] [address] Dr. Saroj Cano CBC AUTO DIFFon 01-07-2022 BASO # 0.1 103/ul Normal 0.0-0.1 [facility] Comment on above: Performed By: #### I HANNAH #### [facility] [address] [place] [address] Dr. Saroj Cano Basophils/100 WBC (Bld) 0.6 % Normal 0.2-2.[address] [facility] Comment on above: Performed By: #### I HANNAH #### [facility] [address] [place] [address] Dr. Saroj Cano EO # 0.1 103/ul Normal 0.0-0.[address] [facility] Comment on above: Performed By: #### I HANNAH #### [facility] [address] [place] [address] Dr. Saroj Cano Eosinophils/100 WBC (Bld) 0.5 % Critically low 0.9-7.0 [facility] Comment on above: Performed By: #### I HANNAH #### [facility] [address] [place] [address] Dr. Saroj Cano Erythrocyte distribution width (RBC) [Ratio] 15.2 % Critically high 11.0-15.0 [facility] Comment on above: Performed By: #### I HANNAH #### [facility] [address] [place] [address] Dr. Saroj Cano Hematocrit (Bld) [Volume fraction] 47.5 % Normal 36.0-48.0 [facility] Comment on above: Performed By: #### I HANNAH #### [facility] [address] [place] [address] Dr. Saroj Cano Hemoglobin (Bld) [Mass/Vol] 14.6 g/dL Normal 12.0-16.0 [facility] Comment on above: Performed By: #### I HANNAH #### [facility] [address] [place] [address] Dr. Saroj Cano IG # 0.05 10e3/ul Critically high 0.00-0.03 [facility] Comment on above: Performed By: #### I HANNAH #### [facility] [address] [place] [address] Dr. Saroj Cano IG % 0.5 % Normal 0.0-0.5 [facility] Comment on above: Performed By: #### I HANNAH #### [facility] [address] [place] [address] Dr. Saroj Cano LYMPH # 1.4 103/ul Normal 1.2-3.[address] [facility] Comment on above: Performed By: #### I HANNAH #### [facility] [address] [place] [address] Dr. Saroj Cano Lymphocytes/100 WBC (Bld) 15.4 % Critically low 20.5-60.0 [facility] Comment on above: Performed By: #### I HANNAH #### [facility] [address] [place] [address] Dr. Saroj Cano MANUAL DIFF REQ NO Normal [facility] Comment on above: Performed By: #### I HANNAH #### [facility] [address] [place] [address] Dr. Saroj Cano MCH (RBC) [Entitic mass] 27.9 pg Normal 26.7-34.0 [facility] Comment on above: Performed By: #### I HANNAH #### [facility] [address] [place] [address] Dr. Saroj Cano MCHC (RBC) [Mass/Vol] 30.7 g/dL Normal 29.9-35.2 [facility] Comment on above: Performed By: #### I HANNAH #### [facility] [address] [place] [address] Dr. Saroj Cano MCV (RBC) [Entitic vol] 90.6 fL Normal 81.0-99.0 [facility] Comment on above: Performed By: #### I HANNAH #### [facility] [address] [place] [address] Dr. Saroj Cano MONO # 0.8 103/ul Normal 0.3-0.8 [facility] Comment on above: Performed By: #### I HANNAH #### [facility] [address] [place] [address] Dr. Saroj Cano Monocytes/100 WBC (Bld) 8.9 % Normal 1.7-12.0 [facility] Comment on above: Performed By: #### I HANNAH #### [facility] [address] [place] [address] Dr. Saroj Cano NEUT # 6.9 103/ul Critically high 1.4-6.5 [facility] Comment on above: Performed By: #### I HANNAH #### [facility] [address] [place] [address] Dr. Saroj Cano Neutrophils/100 WBC (Bld) 74.1 % Normal 43.0-75.0 [facility] Comment on above: Performed By: #### I HANNAH #### [facility] [address] [place] [address] Dr. Saroj Cano Platelet mean volume (Bld) [Entitic vol] 9.3 fL Critically low 9.5-13.[address] [facility] Comment on above: Performed By: #### I HANNAH #### [facility] [address] [address] [address] Saroj Cano PLT 213 103/ul Normal 150-[address] [facility] Comment on above: Performed By: #### I HANNAH #### [facility] [address] [address] [address] Saroj Cano RBC 5.24 106/ul Normal 4.20-5.40 [facility] Comment on above: Performed By: #### I HANNAH #### [facility] [address] [address] [address] Saroj Cano WBC 9.3 103/ul Normal 4.0-11.[address] [facility] Comment on above: Performed By: #### I HANNAH #### [facility] [address] [place] [address] HEAD WO CONon [...] HECTOR Date: 2022-01-07 12:[address] [facility]on SARS-CoV-2 (COVID-19) RNA RIC+probe Ql (Unsp spec) Not detected Normal NOT DETECTED [facility] Comment on above: Result Comment: When [...] for this test is supported by the [place] [employer]'s declaration that [...] Performed By: #### C VDTB #### [facility] [address] [place] [address] Dr. Saroj Cano PROF CHEM 8 (BAS METB)on Anion gap [Moles/Vol] 9.7 mmol/L Normal [facility] Comment on above: Performed By: #### I HANNAH #### [facility] [address] [place] [address] Dr. Saroj Cano Calcium [Mass/Vol] 9.5 mg/dL Normal 8.5-10.1 [facility] Comment on above: Performed By: #### I HANNAH #### [facility] [address] [place] [address] Dr. Saroj Cano Chloride [Moles/Vol] 103 mmol/L Normal 98-[address] [facility] Comment on above: Performed By: #### I HANNAH #### [facility] [address] [place] [address] Dr. Saroj Cano CO2 [Moles/Vol] 29.3 mmol/L Normal 21.0-32.0 [facility] Comment on above: Performed By: #### I HANNAH #### [facility] [address] [place] [address] Dr. Saroj Cano Creatinine [Mass/Vol] 0.90 mg/dL Normal 0.55-1.[address] [facility] Comment on above: Performed By: #### I HANNAH #### [facility] [address] [place] [address] Dr. Saroj Cano EGFR-AF BOTSWANAN >60 Normal >=60 [facility] Comment on above: Performed By: #### I HANNAH #### [facility] [address] [address] [address] Saroj Cano EGFR-NON AF BOTSWANAN >60 Normal >=60 [facility] Comment on above: Performed By: #### I HANNAH #### [facility] [address] [address] [address] Saroj Cano Glucose [Mass/Vol] 151 mg/dL Critically high 74-106 [facility] Comment on above: Performed By: #### I HANNAH #### [facility] [address] [address] [address] Saroj Cano Potassium [Moles/Vol] 4.0 mmol/L Normal 3.5-5.1 [facility] Comment on above: Performed By: #### I HANNAH #### [facility] [address] [address] [address] Saroj Cano Sodium [Moles/Vol] 138 mmol/L Normal 136-145 [facility] Comment on above: Performed By: #### I HANNAH #### [facility] [address] [address] [address] Saroj Cano Urea nitrogen [Mass/Vol] 15.0 mg/dL Normal 7.0-18.0 [facility] Comment on above: Performed By: #### I HANNAH #### [facility] [address] [address] [address] Saroj Cano Urea nitrogen/Creatinine [Mass ratio] 16.7 mg/mg Normal [facility] Comment on above: Performed By: #### I HANNAH #### [facility] [address] [address] [address] Saroj Cano TROPONIN, HIGH SENSITIVITYon 01-07-2022 HSTROP 9.6 pg/mL Normal 4.0-51.3 [facility] Comment on above: Result Comment: CUT- OFF POINTS HAVE BEEN ESTABLISHED BASED ON THE FOURTH UNIVERSAL DEFINITIONS OF MYOCARDIAL INFARCTION. THE UPPER REFERENCE LIMIT (URL) OF TROPONIN, DEFINED THE 99TH PERCENTILE OF cTnI DISTRIBUTION IN A REFERENCE POPULATION, HAS BEEN CONFIRMED THE DECISION THRESHOLD FOR PR DIAGNOSIS. Performed By: #### I HANNAH #### [facility] [address] [address] [address] Saroj Cano XR CHEST 1 Von [...] by: DANTE HECTOR Date: 2022-01-07 10:39 Normal [facility] CT LUNG CANCER SCREENINGon 0 12-10-2021 CT [...] HECTOR Date: 2021-12-10 14:[address] [facility] VC COMP CONSULTATIONon 12-02 VC COMP CONSULTATION Patient: ELZA LEONARD Exam Date: 12/02/2021 : 1965 Gender:F Ordering : DR JARRELL ROUSE . Admission #: [id number] Family : Order #: [id number] CLICK HERE TO VIEW EXAM RADIOLOGY REPORT [...] arterial disease 5. CEAP: C3, EC, , OK PLAN: 1. Continued use of compression stockings [...] Vasquez M.D. on 12/02/2021 at 15:40 Normal [facility] ECHOCARDIO M/2D COMPLETEon 0 11-29-2021 ECHOCARDIO M/2D COMPLETE Patient: NITIN LEONARD Exam Date: 11/29/2021 : 1965 Gender:F Ordering : DR JARRELL ROUSE . Admission #: [id number] Family : Order #: [id number] CLICK HERE TO VIEW EXAM ECHOCARDIOGRAM REPORT [...] John M.D. on 11/29/2021 at 17:43 Normal [facility] VC VENOUS REFLUX REG LMTon 0 11-25-2021 VC VENOUS REFLUX REG LMT Patient: NITIN LEONARD Exam Date: 11/25/2021 : 1965 Gender:F Ordering : DR JARRELL ROUSE . 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 Tech [...] on 11/26/2021 at 14:[address] [facility] BNPon 10-22-2021 Natriuretic peptide B (Bld) [Mass/Vol] 207.0 pg/mL Normal <=900.0 [facility] Comment on above: Performed By: #### I HANNAH #### [facility] [address] [place] [address] Dr. Saroj Cano CBC AUTO DIFFon 10-22-2021 BASO # 0.1 103/ul Normal 0.0-0.1 [facility] Comment on above: Performed By: #### P TT, PT #### [facility] [address] [address] [address] Saroj Cano Basophils/100 WBC (Bld) 0.9 % Normal 0.2-2.0 [facility] Comment on above: Performed By: #### P TT, PT #### [facility] [address] [place] [address] Dr. Saroj Cano EO # 0.2 103/ul Normal 0.0-0.[address] [facility] Comment on above: Performed By: #### P TT, PT #### [facility] [address] [place] [address] Dr. Saroj Cano Eosinophils/100 WBC (Bld) 1.6 % Normal 0.9-7.[address] [facility] Comment on above: Performed By: #### P TT, PT #### [facility] [address] [place] [address] Dr. Saorj Cano Erythrocyte distribution width (RBC) [Ratio] 14.3 % Normal 11.0-15.[address] [facility] Comment on above: Performed By: #### P TT, PT #### [facility] [address] [place] [address] Dr. Saroj Cano Hematocrit (Bld) [Volume fraction] 41.6 % Normal 36.0-48.[address] [facility] Comment on above: Performed By: #### P TT, PT #### [facility] [address] [place] [address] Dr. Saroj Cano Hemoglobin (Bld) [Mass/Vol] 12.9 g/dL Normal 12.0-16.[address] [facility] Comment on above: Performed By: #### P TT, PT #### [facility] [address] [place] [address] Dr. Saroj Cano IG # 0.05 10e3/ul Critically high 0.00-0.03 [facility] Comment on above: Performed By: #### P TT, PT #### [facility] [address] [place] [address] Dr. Saroj Cano IG % 0.5 % Normal 0.0-0.[address] [facility] Comment on above: Performed By: #### P TT, PT #### [facility] [address] [place] [address] Dr. Saroj Cano LYMPH # 2.5 103/ul Normal 1.2-3.[address] [facility] Comment on above: Performed By: #### P TT, PT #### [facility] [address] [place] [address] Dr. Saroj Cnao Lymphocytes/100 WBC (Bld) 25.0 % Normal 20.5-60.[address] [facility] Comment on above: Performed By: #### P TT, PT #### [facility] [address] [place] [address] Dr. Saroj Cano MANUAL DIFF REQ NO Normal [facility] Comment on above: Performed By: #### P TT, PT #### [facility] [address] [place] [address] Dr. Saroj Cano MCH (RBC) [Entitic mass] 27.7 pg Normal 26.7-34.[address] [facility] Comment on above: Performed By: #### P TT, PT #### [facility] [address] [place] [address] Dr. Saroj Cano MCHC (RBC) [Mass/Vol] 31.0 g/dL Normal 29.9-35.[address] [facility] Comment on above: Performed By: #### P TT, PT #### [facility] [address] [place] [address] Dr. Saroj Cano MCV (RBC) [Entitic vol] 89.3 fL Normal 81.0-99.[address] [facility] Comment on above: Performed By: #### P TT, PT #### [facility] [address] [place] [address] Dr. Saroj Cano MONO # 0.9 103/ul Critically high 0.3-0.8 [facility] Comment on above: Performed By: #### P TT, PT #### [facility] [address] [place] [address] Dr. Saroj Cano Monocytes/100 WBC (Bld) 8.8 % Normal 1.7-12.[address] [facility] Comment on above: Performed By: #### P TT, PT #### [facility] [address] [place] [address] Dr. Saroj Cano NEUT # 6.2 103/ul Normal 1.4-6.[address] [facility] Comment on above: Performed By: #### P TT, PT #### [facility] [address] [address] [address] Saroj Cano Neutrophils/100 WBC (Bld) 63.2 % Normal 43.0-75.0 [facility] Comment on above: Performed By: #### P TT, PT #### [facility] [address] [place] [address] Dr. Saroj Cano Platelet mean volume (Bld) [Entitic vol] 9.9 fL Normal 9.5-13.5 [facility] Comment on above: Performed By: #### P TT, PT #### [facility] [address] [place] [address] Dr. Saroj Cano PLT 305 103/ul Normal 150-[address] [facility] Comment on above: Performed By: #### P TT, PT #### [facility] [address] [place] [address] Dr. Saroj Cano RBC 4.66 106/ul Normal 4.20-5.[address] [facility] Comment on above: Performed By: #### P TT, PT #### [facility] [address] [place] [address] Dr. Saroj Cano WBC 9.8 103/ul Normal 4.0-11.0 [facility] Comment on above: Performed By: #### P TT, PT #### [facility] [address] [place] [address] Dr. Saroj Cano FREE THYROXINE INDEX T7on FTI 3.70 Normal 1.30-4.[address] [facility] Comment on above: Performed By: #### P TT, PT #### [facility] [address] [place] [address] Dr. Saroj Cano T3U 37.0 % Normal 30.0-39.[address] [facility] Comment on above: Performed By: #### P TT, PT #### [facility] [address] [place] [address] Dr. Saroj Cano T4 [Mass/Vol] 10.00 ug/dL Normal 4.80-13.90 [facility] Comment on above: Performed By: #### P TT, PT #### [facility] [address] [place] [address] Dr. Saroj Cano IRONon 10-22-2021 Iron [Mass/Vol] 68.0 ug/dL Normal 50.0-170.0 [facility] Comment on above: Performed By: #### I HANNAH #### [facility] [address] [place] [address] Dr. Saroj Cano PROF 14(COMP METB)on 022 Albumin [Mass/Vol] 3.0 g/dL Critically low 3.4-5.0 [facility] Comment on above: Performed By: #### P TT, PT #### [facility] [address] [place] [address] Dr. Saroj Cano Albumin/Globulin [Mass ratio] 0.8 {ratio} Normal [facility] Comment on above: Performed By: #### P TT, PT #### [facility] [address] [place] [address] Dr. Saroj Cano ALP [Catalytic activity/Vol] 129 U/L Critically high 46-116 [facility] Comment on above: Performed By: #### P TT, PT #### [facility] [address] [place] [address] Dr. Saroj Cano ALT [Catalytic activity/Vol] 23 U/L Normal 14-59 [facility] Comment on above: Performed By: #### P TT, PT #### [facility] [address] [place] [address] Dr. Saroj Cano Anion gap [Moles/Vol] 12.7 mmol/L Normal [facility] Comment on above: Performed By: #### P TT, PT #### [facility] [address] [place] [address] Dr. Saroj Cano AST [Catalytic activity/Vol] 13 U/L Critically low 15-37 [facility] Comment on above: Performed By: #### P TT, PT #### [facility] [address] [place] [address] Dr. Saroj Cano Bilirubin [Mass/Vol] 0.2 mg/dL Normal 0.2-1.0 [facility] Comment on above: Performed By: #### P TT, PT #### [facility] [address] [place] [address] Dr. Saroj Cano Calcium [Mass/Vol] 8.8 mg/dL Normal 8.5-10.1 [facility] Comment on above: Performed By: #### P TT, PT #### [facility] [address] [place] [address] Dr. Saroj Cano Chloride [Moles/Vol] 106 mmol/L Normal 98-107 [facility] Comment on above: Performed By: #### P TT, PT #### [facility] [address] [place] [address] Dr. Saroj Cano CO2 [Moles/Vol] 28.1 mmol/L Normal 21.0-32.0 [facility] Comment on above: Performed By: #### P TT, PT #### [facility] [address] [place] [address] Dr. Saroj Cano Creatinine [Mass/Vol] 0.72 mg/dL Normal 0.55-1.02 [facility] Comment on above: Performed By: #### P TT, PT #### [facility] [address] [place] [address] Dr. Saroj Cano EGFR-AF BOTSWANAN >60 Normal >=60 [facility] Comment on above: Performed By: #### P TT, PT #### [facility] [address] [place] [address] Dr. Saroj Cano EGFR-NON AF BOTSWANAN >60 Normal >=60 [facility] Comment on above: Performed By: #### P TT, PT #### [facility] [address] [place] [address] Dr. Saroj Cano Globulin (S) [Mass/Vol] 3.7 g/dL Normal [facility] Comment on above: Performed By: #### P TT, PT #### [facility] [address] [place] [address] Dr. Saroj Cano Glucose [Mass/Vol] 122 mg/dL Critically high 74-106 [facility] Comment on above: Performed By: #### P TT, PT #### [facility] [address] [address] [address] Saroj Cano Potassium [Moles/Vol] 3.8 mmol/L Normal 3.5-5.1 [facility] Comment on above: Performed By: #### P TT, PT #### [facility] [address] [address] [address] Saroj Cano Protein [Mass/Vol] 6.7 g/dL Normal 6.4-8.2 [facility] Comment on above: Performed By: #### P TT, PT #### [facility] [address] [address] [address] Saroj Cano Sodium [Moles/Vol] 143 mmol/L Normal 136-145 [facility] Comment on above: Performed By: #### P TT, PT #### [facility] [address] [address] [address] Saroj Cano Urea nitrogen [Mass/Vol] 13.0 mg/dL Normal 7.0-18.0 [facility] Comment on above: Performed By: #### P TT, PT #### [facility] [address] [address] [address] Saroj Cano Urea nitrogen/Creatinine [Mass ratio] 18.1 mg/mg Normal [facility] Comment on above: Performed By: #### P TT, PT #### [facility] [address] [address] [address] Saroj Cano TSHon 10-22-2021 TSH 1.202 uIU/mL Normal 0.358-3.740 [facility] Comment on above: Performed By: #### I HANNAH #### [facility] [address] [place] [address] Dr. Saroj Cano US ELVA DOP LEG [...] by: DANTE HECTOR Date: 2021-10-22 07:07 Normal [facility] XR CHEST 2 Von 10-21-2021 XR CHEST [...] by: CORWIN ASHLEY Date: 2021-10-21 17:53 Normal [facility] CARDIAC STRESS/REST INJE CTIONon 10-09-2020 [facility] CARDIAC STRESS/REST INJECTION Patient Name: NITIN LEONARD STUDY: MYOCARDIAL PERFUSION STRESS TEST WITH LEXISCAN Performing facility: [facility], [address] [place] [address], [address], [address] Provider: Chiquis Laguna MD PCP: Dr. Lily Rouse Supervising provider: Carlos Knox DO, [facility] INDICATION: Chest Pain; HISTORY: Gender: F; Age: 55 y/o ; Height: 154.94 cm; Weight: 84.6124755 kg. High Cholesterol; Palpitations; HTN; Chest Pain; SOB; COPD; Denies smoking. COMPARISON: No comparison. ACCESSION NUMBER(S): [id number]; [id number]; [id number] ORDERING CLINICIAN: CHIQUIS LAGUNA TECHNIQUE: ONE DAY [...] comparison. Electronically signed by: HODA SLAUGHTER MD [facility] Vital Signs Date Time Vital Sign Value Performing Clinician Slime wheeler 07-14-2022 10:49-0400 Blood Pressure Location Candace LOPEZ [facility] 07-14-2022 10:49-0400 Diastolic blood pressure 72 mm[Hg] Candace LOPEZ [facility] 07-14-2022 10:49-0400 Heart rate 84 /min Candace LOPEZ [facility] 07-14-2022 10:49-0400 SaO2% (BldA) [Mass fraction] 93 % Candace LOPEZ [facility] 07-14-2022 10:49-0400 Systolic blood pressure 124 mm[Hg] Candace LOPEZ [facility] 06-05-2022 10:42-0500 Blood Pressure Location Evin Renteria [facility] 06-05-2022 10:42-0500 Diastolic blood pressure 78 mm[Hg] Evin Renteria [facility] 06-05-2022 10:42-0500 Heart rate 84 /min Evin Renteria [facility] 06-05-2022 10:42-0500 SaO2% (BldA) [Mass fraction] 91 % Evin Renteria [facility] 06-05-2022 10:42-0500 Systolic blood pressure 131 mm[Hg] Evin Renteria [facility] Encounters Encounter Date Encounter Type Care Provider Facility Start: 06-02-2023 End: 06-02-2023 ambulatory JUDE Rajput DUSTIN Not Available Start: 04-28-2023 End: 04-28-2023 ambulatory JUDE Rajput DUSTIN Not Available Start: 04-22-2023 End: 04-22-2023 ambulatory [facility] Start: 04-21-2023 End: 04-21-2023 ambulatory JUDE Rajput DUSTIN Not Available Start: 04-14-2023 End: 04-14-2023 ambulatory JUDE Rajput DUSTIN Not Available Start: 04-07-2023 End: 04-07-2023 ambulatory JUDE Rajput DUSTIN Not Available Start: 03-30-2023 End: 03-30-2023 ambulatory JUDE Rajput DUSTIN Not Available Start: 11-10-2022 End: 11-11-2022 Pre-admission assessment Evin Renteria [facility] Start: 10-23-2022 End: 10-23-2022 ambulatory [facility] Start: 10-13-2022 End: 10-14-2022 ambulatory Evin RENTERIA Facility:[facility] Start: 09-10-2022 End: 10-01-2022 ambulatory PUJA JOHN Daly Facility: Start: 07-14-2022 End: 07-15-2022 ambulatory Candace LOPEZ Facility:[facility] Start: 07-14-2022 End: 07-14-2022 Patient encounter procedure Candace LOPEZ [facility] Start: 07-09-2022 End: 07-10-2022 ambulatory Evin RENTERIA Facility:[facility] Start: 07-09-2022 End: 07-09-2022 Patient encounter procedure Evin Pearce Myra [facility] Start: 06-12-2022 End: 06-13-2022 ambulatory Evin Pearce RENTERIA Facility:[facility] Start: 06-12-2022 End: 06-12-2022 Patient encounter procedure Evin Pearce Renteria [facility] Start: 06-10-2022 End: 06-11-2022 ambulatory Evin RENTERIA Facility:[facility] Start: 06-10-2022 End: 06-10-2022 Patient encounter procedure Evin Renteria [facility] Start: 06-06-2022 End: 06-07-2022 ambulatory PUJA SAMSA . Facility: Start: 06-05-2022 End: 06-06-2022 ambulatory PUJA P SAMSA Facility:[facility] Start: 06-05-2022 End: 06-05-2022 Patient encounter procedure Evin Renteria [facility] Start: 05-29-2022 ambulatory PUJA SAMSA . Facility :[facility] Start: 04-22-2022 End: 04-23-2022 ambulatory PUJA SAMSA . Facility:[facility] Start: 01-20-[address] JARRELL ROUSE . Facili ty:[facility] Start: 01-10-2022 End: 01-12-[address] JARRELL ROUSE . Facility:[facility] Start: 01-07-2022 End: 01-07-[address] JARRELL ROUSE . Facility:[facility] Start: 01-01-[address] JARRELL ROUSE . Facili ty:[facility] Start: 12-10-2021 End: 12-11-2021 ambulatory PUJA SAMSA . Facility:[facility] Start: 12-02-2021 End: 12-03-2021 [...] Date Payer Category Payer Unknown 2018 Unknown [id number] 1965 Unknown [id number] 2.16.84 0.1.885661.3.579.2.593 1965 Unknown [id number] 2.16.84 0.1.097488.3.579.2.593 1965 Unknown [id number] 2.16.84 0.1.505099.3.579.2.593 1965 Unknown [id number] 2.16.84 0.1.986058.3.579.2.593 1965 Unknown [id number] 2.16.84 0.1.980226.3.579.2.593 1965 Unknown [id number] 2.16.84 0.1.476099.3.579.2.593 1965 Unknown [id number] 2.16.84 0.1.883848.3.579.2.593 1965 Unknown [id number] 2.16.84 0.1.283915.3.579.2.593 1965 Unknown [id number] 2.16.84 0.1.198834.3.579.2.593 1964 Unknown [id number] 2.16.84 0.1.020755.3.579.2.593 1965 Unknown [id number] 2.16.84 0.1.765298.3.579.2.593 1964 Unknown [id number] 2.16.84 0.1.638106.3.579.2.593 1965 Unknown [id number] 2.16.84 0.1.031088.3.579.2.593 1965 Unknown [id number] 2.16.84 0.1.194421.3.579.2.593 1965 Unknown [id number] 2.16.8 40.1.929359.3.579.2.727 1965 Unknown [id number] 2.16.8 40.1.667581.3.579.2.727 1965 Unknown [id number] 2.16.8 40.1.693928.3.579.2.727 1965 Unknown [id number] 2.16.8 40.1.182262.3.579.2.727 1964 Unknown [id number] 2.16.8 40.1.086771.3.579.2.727 1964 Unknown [id number] 2.16.8 40.1.473248.3.579.2.727 1964 Unknown [id number] 2.16.84 0.1.334534.3.579.2.1259 1964 Unknown [id number] 2.16.840 .1.236691.3.579.2.1259 1964 Unknown [id number] 2.16.840 .1.565140.3.579.2.1259 1964 Unknown [id number] 2.16.840 .1.850566.3.579.2.1259 1964 Unknown [id number] 2.16.840 .1.726443.3.579.2.1259 1965 Unknown [id number] 2.16.840 .1.678660.3.579.2.1259 1960 Self-pay [id number] 1960 Unknown [id number] Social History Date Type Detail Facility Start: 12-28-2019 End: 10-13-2022 Tobacco smoking status Ex-smoker (finding) [facility] Tobacco smoking status Smokeless tobacco user within last 30 days [facility] Sex Assigned At Female [facility] Functional Status Date Assessment Result Facility 07-14-2022 Functional Status No [facility] 06-05-2022 Functional Status No [facility] Clinical Notes 06-05-2022 to 04-22-2023 LaboratoryLaboratoryRadiologyRadiologyRadiologyLaboratory Note Date & Type Note Facility 04-22-2023 Note [facility] - [facility] Subjective Nitin Leonard is a [...] as a new patient referred from Dr. Rosue's office. She is a 58-year-old woman who [...] Disp: , Rfl (more content not included)... [facility] 10-23-2022 Note [facility] - [facility] Subjective Nitin Leonard is a [...] alkaline phosphatase mil (more content not included)... [facility] 10-13-2022 Evaluation + Plan note Future Scheduled TestsLipid Panel 10/13/22Lipid Panel 08/25/22 [facility] 07-12-2022 Note Echocardiology Procedure Exam Date/Time Accession # Ordering Echo Transthoracic 07/09/2022 11:28 EST [id number] Evin Renteria MD Complete CPT code 00249 47496 Reason for Exam (Echo Transthoracic Complete) R06.09;Shortness of breath (SOB) Report Version: 1 Study ID: [id number] [facility] [address] [place] [address] Adult Echocardiogram Report Name: NITIN LEONARD Study Date: 07/09/2022, 11: 00 AM Patient Location: [facility] : 1965 (MM/DD/YYYY) Gender: Female Age: 57 [...] Signed by: Stanton Holt MD Transcribed by: [facility] Technologist: [facility] 06-18-2022 Hospital Discharg e instructions Follow Up Care 06/18/2022 13:52:29 With:Evin Renteria MD Address: [address] [place] [id number] [phone] When:3 months Comments: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 [facility] 06-05-2022 Evaluation + Plan note Future Scheduled TestsLipid Panel 06/05/22NM Myocardial Spect Rest/Stress 1 Day 06/05/22Echo Transthoracic Complete 06/05/22 [facility] Evaluation + Plan note Future Appointments Appointment Date:06/12/2022 12:00:00 PM Scheduled Provider: Location[facility] Appointment Type:NM Myocard Spect Multi [...] Rest/Stress 1 Day 06/12/22Echo Transthoracic Complete 07/09/22 [facility] Evaluation + Plan note Future Appointments Appointment Date:07/09/2022 11:00:00 AM Scheduled Provider: Location:.[facility] Appointment Type:CV Echo (FT) Future Scheduled TestsEcho Transthoracic Complete 07/09/22 [facility] Evaluation + Plan note Future Appointments Appointment Date:07/14/2022 11:00:00 AM Scheduled Provider:Candace LOPEZ CNP Location:.[facility]iology Clinic Appointment Type:Cardiology Follow Up (FT) [facility] Evaluation + Plan note Future Appointments Appointment Date:10/13/2022 11:15:00 AM Scheduled Provider:Evin Renteria MD Location:[facility] Clinic Appointment Type:Cardiology Follow Up (FT) Future Scheduled TestsLipid Panel 08/25/22 [facility] Hospital course Narrative No data available for this section [facility] Hospital Discharge instructions No data available for this section [facility] Progress note No data available for this section [facility] Summary Purpose Family History No Family History Records FoundNo Family History Records FoundNo Family History Records FoundNo Family History Records FoundNo Family History Records Found Advance Directives No Advanced Directives Records FoundNo Advanced Directives Records FoundNo Advanced Directives Records FoundNo Advanced Directives Records FoundNo Advanced Directives Records Found Additional Source Comments INFORMATION SOURCE (unrecogn ized section and content) DATE CREATED AUTHOR 10/12/2020 [facility] DATE CREATED AUTHOR AUTHOR'S ORGANIZ ATION 10/10/2022 [facility] DATE CREATED AUTHOR AUTHOR'S ORGANIZ ATION 12/11/2022 A[facility] Good [facility] DATE CREATED AUTHOR AUTHOR'S ORGANIZ ATION 04/23/2023 [facility] DATE CREATED AUTHOR AUTHOR'S ORGANIZ ATION 06/03/2023 [facility] EPIC Patient Care team informatio n (unrecognized section and content) Personnel Name: Jarrell Rouse MD Address: Address: [address] [place] [address] Personnel Name: Jarrell Rouse MD Address: Address: [address] [place] [address] Personnel Name: Jarrell Rouse MD Address: Address: [address] [place] [place] [address] Personnel Name: Jarrell Rouse MD Address: Address: [address] [place] [address] Personnel Name: Jarrell Rouse MD Address: Address: [address] [place] [address] Personnel Name: Jarrell Rouse MD Address: Address: [address] [place] [address] FOR RECORDS PERTAINING TO PATIENTS WHO ARE [...] BE BASED ON THE PRIMARY CLINICAL RECORDS. [employer] provides no warranty or guarantee of the accuracy or completeness of information in this document.
== END 2023-06-29 09:48 | disposition home or self-care (01) ==
LOC: MRI 09:47
PROVIDERS: PCP Family Medicine; Visit Provider Family Medicine
DX: R41.3 Other amnesia (principal)
CPT/HCPCS: 70551

== ENCOUNTER 2023-12-01 09:50 | Outpatient (OUT) | payer OTHER, SELFPAY ==
--- OUTSIDE RECORDS SUMMARY | 2023-12-01 10:09 | XMS_ITS | CCD ---
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 Name Role Phone Jarrell Rouse Primary Care Physician [phone] SAMSA ., PUJA Attending Unavailable HOY ., DR VIEYRA Primary Care Unavailable SAMSA ., PUJA Admitting Unavailable SAMSA ., PUJA Consulting Unavailable PHUC LEMON Consulting Unavailable SAMSA ., PUJA Attending Unavailable [...] Unavailable HOY ., DR VIEYRA Attending Unavailable ZIEBER, DR ANDRIY Abarca Consulting Unavailable GRECHNY ., CEDRIC GRIFFIN Consulting Unavailabl e KARLAY ., DR VIEYRA Primary Care Unavailable WEST, DR DANTE Boone Consulting Unavailable PAY ., DR VAIL Attending Unavailable PAY ., DR VAIL Admitting Unavailable PAY ., DR VAIL Consulting Unavailable KARLAY ., DR VIEYRA Primary Care Unavailable TAWNY, DR DANTE Boone Attending Unavailable TAWNY, DR DANTE Boone Admitting Unavailable TAWNY, DR DANTE Boone Consulting Unavailable HOY ., DR VIEYRA Primary Care Unavailable HOY ., DR VIEYRA Consulting Unavailable HOY ., DR VIEYRA Admitting Unavailable HOY ., DR VIEYRA Attending Unavailable ZIEBER, DR ANDRIY Abarca Consulting Unavailable HOY ., DR VIEYRA Primary Care Unavailable WEST, DR DANTE Boone Consulting Unavailable HOY ., DR VIEYRA Attending Unavailable HOY ., DR VIEYRA Admitting Unavailable SAMSA ., PUJA Admitting Unavailable SAMSA ., PUJA Consulting Unavailable HOY ., DR VIEYRA Primary Care Unavailable SAMSA ., PUJA Attending Unavailable SAMSA ., PUJA Attending Unavailable HOY ., DR VIEYRA Primary Care Unavailable MELROSE, DR DANTE Boone Consulting Unavailable SAMSA ., [...] Consulting Unavailable STANG, Candace L Admitting Unavailable STANG, Candace L Attending Unavailable NONE, XXXX Referring Unavailable Evin RENTERIA J Attending Unavailable NONE, XXXX Referring Unavailable Bradley RENTERIAel J Admitting Unavailable Evin RENTERIA Attending Unavailable MYRA, Evin J Referring Unavailable MYRA Evin J Admitting Unavailable Stanton Holt Consulting Unavaila Stanton Sebastian Consulting Unavaila Stanton Sebastian Consulting Unavaila ble Evin RENTERIA Attending Unavailable MYRA, Evin J Referring Unavailable RENTERIA, Evin J Admitting Unavailable MYRA Evin J Attending Unavailable RENTERIA, Evin J Admitting Unavailable SAMSA, PUJA P Referring Unavailable RENTERIA, Evin J Attending Unavailable MYRA Evin J Admitting Unavailable JUDE CHAN Attending Unavailable JUDE CHAN Attending Unavailable JUDE CHAN M Attending Unavailable VENTURA CHANRY M Attending Unavailable JUDE CHAN M Attending Unavailable JUDE CHAN M Attending Unavailable OMBALLI, MARCO ANTONIOAMED Referring Unavailable OMBALLI, MARCO ANTONIOAMED Referring Unavailable OMBALLI, ALANIS Referring Unavailable OMBALLI, ALANIS Referring Unavailable SINDI, ALANIS Attending Unavailable ANDREA JOHN Attending Unavailable ANDREA JOHN Attending Unavailable Allergies Allergy Classification Reported Allergen(s) Allergy Type Date of Onset Reaction(s) Facility (7 sources) Acetaminophen / oxyCODONE; Translations: [acetaminophen-ox ycodone] Drug Allergy Eruption of skin (disorder) [facility] [place] (7 sources) acetaminophen / propoxyphene; Translations: [acetaminophen-pr opoxyphene] Drug Allergy Eruption of skin (disorder) [facility] [place] (1 source) Acetaminophen / oxyCODONE Drug Allergy 5 [facility] Repository (1 source) Darvocet-N 100 Drug allergy (disorder) 5 [facility] Repository (1 source) No Known Medication Allergies; Translations: [No Known Medication Allergies] Propensity to adverse reactions (disorder) [facility] Repository (1 source) Acetaminophen; Translations: [ACETAMINOPHEN] Drug Allergy 4 [facility] Repository (1 source) Acetaminophen / oxyCODONE; Translations: [OXYCODONE-ACETAM INOPHEN] Drug Allergy 3 [facility] Repository (1 source) oxyCODONE; Translations: [OXYCODONE] Drug Allergy 4 [facility] Repository (1 source) OTHER; Translations: [OTHER] Propensity to adverse reactions (disorder) 3 [facility] Repository (1 source) PROPOXYPHENE N-ACETAMINOPHEN; Translations: [PROPOXYPHENE N-ACETAMINOPHEN] Propensity to adverse reactions to drug (disorder) 3 [facility] Repository Medications Current Medications Medication Drug [...] (2 sources) HMG-CoA Reductase Inhibitor Start: 07-15-19 23 take 1 tablet by mouth at bedtime atorvastatin 40 mg Tab 40 mg = 1 tab(s), Oral, Bedtime, # 30 tab(s), Refills(s) 5, [id number], 153, cm, 07/14/22 10:59:00 EDT, Height/Length Dosing, [...] day(s), # 30 cap(s), Refills(s) 5, [facility]: [facility] #[id number], 153, cm, 10/13/22 11:19:00 EDT, Height/Length Dosing, [...] Chronic Chronic obstructive pulmonary disease and bronchiectasis (11 sources) Chronic obstructive lung disease; Translations: [Chronic [...] 10-24-2021 Episodic Other aftercare (1 source) 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 stratx -negative (fissure not complete). Dr Mosqueda to explain. nw Normal [facility] CT CHEST WO IV CONTRASTon CT CHEST WO IV CONTRAST CT CHEST WITHOUT CONTRAST HISTORY: Emphysema, [place] valve consult COMPARISON: 12/15/2022 TECHNIQUE: Routine CT chest without contrast. All CT scans at this facility use dose modulation, iterative reconstruction, and/or weight based dosing when appropriate to reduce radiation dose to as low as reasonably achievable. FINDINGS: Moderate to severe centrilobular emphysema. Mild atelectasis/scarring in the right middle lobe and lingula. Stable 0.2 cm nodule in the right lower lobe (series 3, image 81). No airspace disease/consolidation. Visualized structures in the lower neck are unremarkable. Visualized structures in the upper abdomen are unremarkable. Atherosclerotic thoracic aorta. Mild coronary artery calcifications. The central pulmonary arteries are unremarkable. No enlarged thoracic lymph nodes. No acute osseous abnormalities or aggressive osseous lesions. IMPRESSION: *Moderate to severe centrilobular emphysema. *Stable 0.2 cm nodule in the right lower lobe. Electronically signed: Puja Lozano. Normal [facility] Office Visiton 04-22-2023 Follow-up visit [id number] Nitin Leonard 1965 F Date Provider Department Center 04/22/2023 ANDREA VILLAFANA [facility] Family History Problem Relation Age of Onset Diabetes Mother Stroke Father Family Status - Relation Status Age at Mother Father Level of Service:08673 [place] OFFICE/OUTPATIENT ESTABLISHED MOD MDM 30 MIN Normal [facility] Referrals Officeon 3 Referrals Office [id number] CD:127 Reached patient on the phone, she states she found a driver wheelchair in [place]. 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 She no longer works in a [employer] shop. She is a former patient of [...] for sleep apnea. She currently sees a driver wheelchair who referred her to our office. Apparently [...] Oral, Daily (more content not included)... Normal [facility] Comment on above: Result Comment: Elec tronically Signed By: Myra CAMPBELL, Evin Pearce Other Comment: Proba ble no-show. Office Visiton 10-23-2022 Follow-up visit [id number] Nitin Leonard 1965 F Date Provider Department Center 10/23/2022 ANDREA VILLAFANA AMAN[facility] Family History Problem Relation Age of Onset Diabetes Mother Stroke Father Family Status - Relation Status Age at Mother Father Level of Service:20668 [place] OFFICE/OUTPATIENT NEW MODERATE MDM 45-59 MINUTES Reason for Visit and Comments: Establish Care [42] - DIASTOLIC DYSFUNCTION HOY Normal [facility] Consent for Treatmenton 10-02 Consent for Treatment [id number] D:127 Normal [facility] Vascular Office/Cl inic Noteon 10-13-2022 Heart and Vascular Office/Clinic Note History of Present Illness Patient is a very pleasant 57-year-old moderately obese nondiabetic female with ongoing tobacco use of about 3 cigarettes/day but used to smoke between 1 and 3 packs/day 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 She no longer works in a [employer] shop. She is a former patient of [...] for sleep apnea. She currently sees a driver wheelchair who referred her to our office. Apparently [...] depression Ast (more content not included)... Normal [facility] Comment on above: Result Comment: Elec tronically Signed By: Myra CAMPBELL, Evin Green.trever\Date and Time Signed: 10/13/22 11:50 EDT Physician Orderon 10-13-2022 Physician Order [id number] CD:127 Normal [facility] Coding Summary.on 07-23-2022 Coding Summary. CD:[id number] Gh0 bWw+PGhlYWQ+QY2MFKJdD61 sjHFuxY7uA6RSHEbODlnnNE XYPLuMQmNgryBbDG1ojYDrW XJu IC8+YY8bFVGhDmqkoUWts1R 7mSG3H85gbz3lWTbytYQ5EU WsFuJxjcxoy9reoIu7EDpuL mluOyBt BNWceO29ORT4zS86Ro43bJT oqZTsz3trlIh4SwCvWVQnCJ I4yWmqNFzkt7UfOZKdR54ez LBti5L8 OJUkwNerfGBtLrKxtAZ0uQ2 oSOmpimndv8iarbnyTwj0vj 18bIQod0T9jGM2A0KgvrD1K GJvbGQg QrsaoQOBpX9bumikl8cgbpk zZqCxAJQxDYv9JPe7HMAhcM kkItAsOM00AKJ2BFArkxVjC 2FsLWFs oJtyBmL0h8N8Xr7EL7PSWoq dI2PCWFDSNRroqSS+PC90cj 94R8NfVaxqTzp1SWOkPWX2t ZH2bD8i XAAoJAeyt7E3cMX6M1KqiaT oxe0yd0mhZCEuHCcvT78oyW Idt9Z1DZEnaAD9DXHyjWikK iBzaG93 Oyc+UOZifUkss5TrIocxg3x uv5xfdKl2TtqaEXIlfvQkpS heFQH3t0QjXv2gNILpdVU0b CI1mG6v OnVkToV2XRvpN834UuMkfOV gLyhzD09eJ7KlaNS+PHRyPj x3YQPlzTkvTR2mM4GaDANph mctbGVm sOrqSM1ePIFniummJIZeuN2 qXZUxN6z0HqIyCoH3XFitL9 UmEBGynvstFm92mE3xPxLtS uF1ITso Y6EzbsV7YNNfvUUeSJbfGFT 2B42xj1S9AHUfJVRaSNJ5bH Z2sQ0ytFoskpqkxRKnfVmre mVydGlj MUuuZMszO843GZXuyMngXvY vZGluZyBEYXRlOiAgMDMvMj IvMjAyMzwvdGQ+HPEbWJL9v WxlPSAn iWEfYOtyBt9jmNldkRcwIY7 wWEJbsvwgZSWzuQ5jAELgfW VgpYcpNU1aUOJfctksk373U iAxMHB0 EUAmkAPiC7UgzS8lZfZcMEQ bHDAnN3GrjBKeYXivN355YQ inPlA7IIZhtvJrM9RcSGDvi WduOiB0 j6T1Zk0Pt4MvegrnZ3BszWC lRaZoPdupJAi6E8FwOpnadO I+CA93BJEtUE46DDt6WHI0q WxlPSdi LKNmE9AzeN0pBxPqBVZpZIZ kOyc+PHRhYmxlIHdpZHRoPS gmRBMcDvJadWvyZP2zBu2oF GVyLWNv hKikcTKaZdSrw7uyPYBhRDe wGK5ycPokP5BhiKK1YSFra8 a4Ew75G66xE1FauLH+PGNvb CE4yUN1 kF3eYoNhNfL3BLfiG597QgN afWQuCqfpz2agt9zjmOm7Bb K3AIOsrfVxmEkmNWC8d5RhR b72F39u IHdpZHRoPSIxNSUiIHZhbGl hrb3zxT0yBl7+YPQkbHG9wO C8bS7rQpXsLyP2IMasB299A nRvcCIv Cvrym0vdo1zifRu3VlJrSZQ vdgLwcNwwTTA6c6LcIy68R1 OlrHdjf2ToRfa7ps32vFExq 3U9oBT7 N6MlBITxsukncXVflJohER8 iQSZrldneJCFweS9fJITzU5 x3XkXlBqD0ILjmH4EbvhI8A GJvbGQg BMJvzNJAeQ8vvuguw0erlmi aLuDjXXSySHc5DQl7OOHwzA ecVdNcQNN9SlF5OJU3cTRdc D8pnAxj omsbzT4nTfa+JEW5pSUgzYY BKY9oJheguWC+OOKeDYY1nC iiSOyvQCUjfU2cBPNvN2x4Z iAwLjA1 LDdcY9TqqdI6HEKouWYjRGT caXMOgI5bbpdqg3bbvykwYi JlFSPjICx2ZNu0DJVnnMuyZ iBsZWZ0 NaI6CAP2wXKfyO2ctYykofp yvZ0pCqh+AmzfsKbvKAE9VB u6L8CuLkd9XWLdoGtzIS5mz GFkZGlu Vg2cmMbsmScsYQ4rRNGwmce xf129CvNov5xrZPDljFRkKC hrIDC6G06vj6Q2VSNfWRQoG HD0zLH8 jK5laFtcirmmeBOziFkwfhS wiTbiMLlwOFgeO251KEIbuH baJgRxGOl5H8HmAku4YGRyt KnwJP9c cJGzVWyjUp2noJyxuCepXB4 pPGYvkkxqu221OqQfc9ueTE BjiUNaKHleVBC6K39kt8X6A CMwMDAw VIY0zYJ8lR8sjAuzcyxcfSF mdDsgdmVydGljYWwtYWxpZ2 55HHOvrUzoWuLwiZd5L4CnK lv4QGEs eHedOD7bzBIcGDvwVg8vhUr xsSjcSG5qNTWfcfqhn835Qe Iai7gaQWJrjLXmDGxnURP3E 92be6P5 ILNrQEBvRPQ6iDZ0sQ0rnPj nbjogbGVmdDsgdmVydGljYW sgHZakZ864WYZhaPeuVsJki GllbnQg JVhsPTf9O4VbXvygiTP+PC9 5NQDvGV79xOEitMHab1zhpT y6UaMvUAEsOJT6eDllNLmvv 3JkZXIt S63wlLFpl1X2ZRRvmRmyaPH wOmSsrAY4kT9rKNdtuvvsd2 fmmsuuUzlyj7unvb20iI94C 29sIHdp ZHRoPSIzMCUiIHZhbGlnbj0 esT8uEz8+NGLrgKV5zYV9fV 9oKNUpZhQ3AAhfF381XbUnk CIvPjxj x8frd1lnrRi9SwL6JTCjtaC kuPdyJBT3g2BpMf49V80gXH dpZHRoPSIyMCUiIHZhbGlnb z0nnJ5q Ii8+OCGmdBV1aOG8vF1qMhL pDeT7JXhxV989EcKonYLuPp hoV71sO2HzdRZ+QXWmXfe3V CBzdHls LR4ajPMnLWcoYw1zDYY2NnP pMgMqZUooY1RoHXFbucuzto aycUF1UTTfBXTvsK70Iu5le DogMTBw yHHAvT0herxpy1yuoovbVhS hLSEoENs6CTh0GQVkmMmwNw YbZWV3AlT3PXP1eNOmuQ1rp Glnbjog kK2iF7CxAHPmmvfwPn02fE4 bAuAbXmC1AXidTag+WlVSQS wpXIMCS9yoIRvsgJJ+PHRkI GS4zJry BZtgMJQzcA2gRKIaC4e8NyT iHmE3EWkfK7SwAQIaszenYu 50mU4lEaAaVlY0IHkwE6Wja vO8HLDz vGXpFSfzVUH5X51jg5W2QCB oHCZsLAY5hZK4lW1uaOpvsp ogbGVmdDsgdmVydGljYWwtY KjtE798 RBDosQfsZhA0DdFrBuX9FeH 7F6DsTqk8AWOldYjgXO2mlU NyLMbsVh2loTcdtIulBA8jZ TBpbjtw JVSmxV1oMECplGChqXlgIZ4 xCGCrivynl480LtQrJQS6VP QoiNDtR9PbdP2aCpJkBAZvY UHuC9Rd rRQiJXmxQ287IOmmGlL5UJU ttiAcO9DyCICmvTpyLeA3g2 J1Df16NWQEUAIlboevuTV+P HRkIHN0 vMwbFNixNHGkpJ3oAVJfR1k 3IxIxRtL6KVezV6UtWDBtzv kiRl64yG2fWjXsPmZ8ARxlE 8ZcouG9 JBYgyUKuGFkyUMH7D60mo8O 8UDUvNHQiXTW7zWL4qB7usQ lnbjogbGVmdDsgdmVydGljY WwtYWxp F206SYRabTrzFqJnkDJrMFo vdGQ+WDKeBKE2sLpeZCzwLW QnbJ3pCVPhL4h3LcHoXkM4J LsaX8Xx QAHrdzjzEu51gP9qNbDsKfH 7BGbkX7JdmjB9UQNqpEClLO ikNCZ4A60za9K2SHDqRCHbO WW1uEY2 bE4koFbmosjraCGzqZbfigS xkScpPMnbZEywD420XKQsrH rdMl32rAPjpPsiwxN7V0UaP jwvdHI+ FW13THEtYP01pPHogAUbc4n ktOn3WgYmPZKbJIF0uHudTD igd6XpJIXnH99qnAJdt3H1D GNvbGxh eHHsEsUskMB9aK7qYXynanr jo7mvaoznMosim3wsts73nK 78U72tTZdhYQEiCGCtPDJbT HZhbGln qq6daD7sUs5+DWCdoAE9tLY 2oU0yUwMvMrA9ARweO252Kg WqmFMyWdisw8gop3gptTe8Y jIwJSIg lzMwrKsgCEZ4n6ZdBa88I64 sIHdpZHRoPSIyMCUiIHZhbG ooct2fvZ2vLo5+TM8vr5rcs s09sN87 dHI+UJFqRQJ8rOceTOqmRZT rjT1qFVriSpN4FHNxPdTncF 88cFGcDVquKl7vhCltjRcbI S1wTVVy cbljr972IgYya5seRQKabKY iVDjuTGF6C67cp3N3FFPzAI TwVWY4gQG1dU8qwFlvfadhi GVmdDsg xrAwgEsgFDyxAAmfK984BGQ zzOifBfTevQJdQ5pwmsGIBU 1lOjwvdGQ+TNVpEQZ1jYctY SdwYWRk pE4cHXXvK1v2WdOsOyA9GKn kA4ZclmJ9NFQcmLPrPOYbuW SAvL7ebmksk6jgktdzPxNyL DAwMDt0 BZa0FPIbtLyrOnXvALB9MyC 8XNQ2kAEpbC9laDfdcxrmwK 9wOyc+RklOOjwvdGQ+PHRkI GQ2aRln PDrrWJHivH6zUAUoV9p4ChV rDpJ6FVhcJ5SembX2PHCgfG MlWDFnfPJNjK5ifubua7zxa jogIzAw CALcEGu3MXq5CCIryFjoNdZ sEOZ2CsO4VKZ0fBEdzL5jcE tlxbkgyH1nXln+TVJOOjwvd GQ+PHRk MYD2cUxbESbxDSUoiU4eTNN zG0c6VbZoVeV7VYpoE1Tvwp I3KMJemOSsZPGuvUAIuO9im bzpq1cf lebqKhEhZGXbJYh5HTi4NUY gvKgvIsEtABW8DlG4KRD5wI JlhH3zkFikozrqzS3nZed+U WD0LCH1 ZK61QQ92L8WnErqgbYXtfYQ +PHRhYmxlIHdpZHRoPScxMD PuWiAbbJzfRG9uDm5tRSSyJ WNvbGxh cHNl (more content not included)... [facility] Coding Summary.on 07-16-2022 Coding Summary. CD:[id number] Gh0 bWw+PGhlYWQ+PB2IEYIuG40 bmWJptW9iV8XLPZiQTqwjOF USSPkIYeGiliHzCS3phTFnC XJu IC8+FD1yQJEpHcxqvFLaj3Q 7yID8T57pmx3bPBtdrNT6SN VhZlYsawysd3xkpNv2FWiqO mluOyBt IUYxuU25XPO2pA68Hd62jDZ jgHGlf2poxXu7HaYiLYWrFP A6vHiyNKabw0WoYGErS87zt FIvp9Z2 DNPybQcwfVBwEbOiwEI5kB1 dGSrlgrozd1klwezuCxo8yt 50zIGwt9G7cLF0O0DoefM5C GJvbGQg PmcvhUTBsI9kikcja4fguop aKiAmPOJdUZk7XDu9ITTkpB nzIlGiBM39PWV0IWCixbYvE 2FsLWFs qNgtFhZ6v4B3Mb8LW5ZWCmc eT3GIDXGJSQvnbUP+PC90cj 03R1NzXfrhBul7CBXnCEE3o MS3oN9c BZPxEUmij5J4oHH2L7JnnjL ezc7sf7hxRFHnWTdeG30qbI Qfx8K0GGDibPU9WAQikYvuW iBzaG93 Oyc+CMRwvGfir3IkWaeln4u ji8vgeAj0LjwuIZWmhkTosK imNYF9n4UmKy4pYIRcjUQ1n OP5cS4c NnHuYpW8QXyiZ506MlIllGE aPwecT52iT3SdrYG+PHRyPj d4XHUqmNboKY3aN1HpIIUli mctbGVm nXcbBQ2eEOIkaevnRGZyyA5 yBUPlR3t6XfMqVfC9UYvoD4 GmQJPdxygkVx58uG3tSjAbL nO4JUay Z8PyecC2CRYwvLQxQNfwRNW 9E09pw0E7PNYfNEQaWXZ6eK B0vF9cnRejxhqaqRJzsAmty mVydGlj IYrzZBrrZ432WJDfuZhtNaZ vZGluZyBEYXRlOiAgMDMvMT UvMjAyMzwvdGQ+HFAfUFQ4x WxlPSAn oRXqBFyuXl9iyKxajJyrQY0 uTMTcaxrrDVFwdL5uOPDicW OlxHqcOO3hLDEbdvsbq067U iAxMHB0 HLTdwWOeJ5ZoaW1hAcSaQVI mPJYjI4GedYLeRDomI078MG srFkK0WGXvylBkU5UoHXWqo WduOiB0 y7F8Mk5Ek8NoemroH0BpvXI qQiIkRlekAMe1F4RlWqovcY I+UO87OIVcLV15FZh1VVS6a WxlPSdi RVNkF6HbgJ7xAhBmPDQdABR kOyc+PHRhYmxlIHdpZHRoPS ptPTXiMwMivLsaCR3aDn8sV GVyLWNv vAjvrDLtMdWhd9wpXXLsCKu vUZ5uuKxwY1DrhNI0IYEps1 e0Yr26Q41zP0JxbGY+PGNvb DH0oIL5 rI1mRpWzIeY4SZktC040GoA awGJzFzjix8uwx2scjEb5Uv C3TRFkazThzHrkZVR6g6FoJ r69L78g IHdpZHRoPSIxNSUiIHZhbGl twf9hbF1lPa3+YRKkdEN0hG Z7mU4zWtThIzX3OWkfK655R nRvcCIv Dxlia6qgs7jniAg9YqWcFMB zxbFptCotGAR6z2ZoPq28G8 FjnRkvi0AzLkv0wd57eQGlg 5U7wHD6 Z9NwHUCtfamowXPjeJewDV0 gQWRnnmdfOCHbpV9oINHkF9 b1LgQhPtU5KRrpQ2YailL4G GJvbGQg QZJjuXQTrC7xrxsmv7itueh mXbJmJVHjJXk3DGt5JJLqhA juFfVdIAS7CcO9YYN2kPSgt K8gbHfl qrcpqP4lGde+CFC0yTFmwQC IBO2yJqwjcEX+BXNgMQT5tZ ddXBdoZWAkjQ3vXZNuR8p3A iAwLjA1 NVxdT5TjalU2CTIyaHVmVWT svJUPwP4uxrsfd4kggjczSs EhITQiVXl7RBi8CVIpsWdvY iBsZWZ0 YcK1JYD6gZDjdV3smVuxncn ftH7sCuy+TtxbsYbhHRH5YK t5W4YjBew7IJVwzKyfMT1ph GFkZGlu Hd6yfPdbaGgaJV2bIBNvxsw ua076QmZxt7fhOAHnsZEkNJ uqLXX8D95pp3J1OTBeLJBkM WR9zIZ9 mW4niEzptwickXFceYoppcX zbKoaMSyvRUuxW276BZGfiH cwVtQbLRf8Y8SsEku4NHDpb VljZZ5v iDFiMTpbBt4dcStmpLkbWV6 gMLUggxlvb479PiMmg8ryAG CivRPdATpqXLN4E12bd4Y1X CMwMDAw LDW4zQE9sG7bzKzuinvakRD mdDsgdmVydGljYWwtYWxpZ2 55OTKtcIebRsHuaHp0M5NkL rc1QJLm iKnkEU9rrQVrRCjqEo8phPj ivXcxMT7rDQMaxtgyn496Gj Rpz5joXOWduUGnUZczBGJ9Q 59mc5P3 QXIzMPIyBDI5kLC8lW0wfRn nbjogbGVmdDsgdmVydGljYW slBRtfV587WZDtnJcjPnCma GllbnQg RAswJZf2U8JyYvouoXJ+PC9 5GYAyCQ65jSMxmYAnn3qplC f2UvDtRZIpYZD0rKmgBWcyl 3JkZXIt X22olYRhu9Q7ZQAndWozeFF xIeZqhFN3zA4zVRoafwjcn7 sbrawdHcjlo9zeve61iY05B 29sIHdp ZHRoPSIzMCUiIHZhbGlnbj0 mcQ4mCi6+QXQlnAB2uJG3hZ 7xFDZrQpZ5KGllA114FyDrw CIvPjxj r6ufk3eviNk0GvA8SCJddlK dzLtxDEX2c3HzMm75S46gWP dpZHRoPSIyMCUiIHZhbGlnb k3cxG4a Ii8+RSHasTH9oEJ9qE2tEcZ dXxW7YAgpZ101LtIsaSFgGw pcH02cD9PtoJS+CCBdTsi6C CBzdHls ZD2bfSXuUXcrNx6wTLN0UcK rYiSjCKnzG1HxOKLcrhgdbh qdpWS3GLDqTVFtfM03Xr8ij DogMTBw sHGSqQ1deqmes3pmnkmdOpA eASVuMFz9OFb2XKPnnIgqWy DyRJL0GeL3PJJ8zARgzA7br Glnbjog pY6aB9PtVHXjnuxcSj88tX1 uFmWhZrL2BVpfVbp+WlVSQS yuEZLPP4vfLIuocFO+PHRkI TE1yGir QLfjCQLqxL2hNJVxJ6d4LtX dAlK4RDcnO9GzUSEetxhwJh 89lA8vOyTdBnZ6AEdbN1Vaz kC7SFAc jMFdPIbcGMS0L07iq4N0YBN vGJStQZO1uZH4hZ1cvZegnk ogbGVmdDsgdmVydGljYWwtY LiwK711 UCDczEucGoB8VfNbYeV1DjJ 1F8BrKlv6ITUlsUmyEP7oxF JnJAykZo4sgYrqeQuuQS6xQ TBpbjtw CPAqlZ3dQMKpsDBubAaaWD0 lPCUskidcn062YmPeDXV2LY PiiREwT5PqnJ3rNzQrOARuF BKsT0Zn mZScGVcuD166IRgxTqB5NDY dgrKxR3DxVYAhfMoiUmP4t6 L0Nl67JVDJISJdzjmgdZQ+P HRkIHN0 bTobUChfGHPhpZ6pSTGuP6q 3YzOaJvE4BWrsE8AcFUPpfx xpDm09wP3xCiBrUgN4PNtvD 5FkeqB3 ZHPhxENeVOgbDQF1N46kv3D 1NEZoBVRmNIG3gMQ4oD8asT lnbjogbGVmdDsgdmVydGljY WwtYWxp I598YICrpEmcLnXqyYKyYKz vdGQ+RXJeALB6tQesUAirUC UtkW8zOQDgH1g5DkGkJwC1J WoiF0Jy GJEsymrnHj59uK0dOsIuKeW 5KUwpH1FllnV5UBMhcLWaWS qiFZB1U15qh0O1MALfGFHwN GV0iMR2 pJ9aeGcwwebjmOGenBkrvlG goLmlGHxlTHmyC061LDDurW zwPk40yLIopHriqxH4O6HaP jwvdHI+ LY79NRWgIG78zLOdaMNwc3i ojYq1KwYlZMEkAAF5oTmcVS fzh8MbTCVxV81gvWBkl8R6N GNvbGxh sZAtXiVxhJV4vZ7jOIugwmy fn2kunsvpWkvyg8zwka04vB 54H70bLHkjNZIbCRZcLMBvV HZhbGln kg5aqC1pOf8+YUWhoJI5wOK 4pX8dFxWtTpB7BXdbL627Eu VbzRBgZapde3cqe8oaqQm0W jIwJSIg xyEhkKirOWG8k2AqWk43S80 sIHdpZHRoPSIyMCUiIHZhbG qhrs7nzC0mHi4+OT0ha7gqv x62sU66 dHI+HXPcBVA9eEhoUUlkLVO erM9gTUxrRaF0JRZxJdEygV 46rXXjKHjwMz1kiTpnyVljF E4gJDWi yqvhp563YnNlj6phKEUqbUO kAYfcTAC0G05fn3A7ZUEmXM QrSVV7bXN8bG8gqFkixgqsq GVmdDsg ouAncIurUBvyEDwzA138KAE twBtiZoWnwHLgQ9wntsPLFF 1lOjwvdGQ+VEXnZNW0gFffE SdwYWRk sK4iIEHtN3q1BbNpPrC1ZZd bR7GbplN9PSLhmDCeFEBadW ICmF4vudlri6tvfeezZkCpH DAwMDt0 QEi9LULutTdsPoSsLWF5FjZ 1ARU4yPHlmI7aqRgayqsmrU 9wOyc+RklOOjwvdGQ+PHRkI UL1vVtc ADpvUJDsuO6lWHDoR7t6OvO tKfO7ZZpuO2DoatU9PQKjcU VaCUCjpDASeO8dtllni2xwi jogIzAw UVBzOTv2KDn9LAZesByyKxI dGMU3WtC8DXO9dDKfyE4ogT wgtvqddE6iSdn+TVJOOjwvd GQ+PHRk YGZ8bLzvGQtkDYBdsK1nLFN dQ4s6OmMoPaP0BUstC6Zpxq N0RUXavCXmPTZmuAYZiF1tp rzov4uv xssnLlOtECPqPBz6DFm9SIH pwGayWmWxJGK6FfQ4HUB6lB GbwK3iaZcscitffE8jTes+U LV5VOB6 FR75BM03X6EpCarfsWZcaPJ +PHRhYmxlIHdpZHRoPScxMD AeQcLznEmkUQ6sTx0cYLQlE WNvbGxh cHNl (more content not included)... [facility] Consent for Treatmenton 07-02 Consent for Treatment [id number]#1.00C D:127 [facility] Heart and Vascular Office/Cl inic Noteon 07-14-2022 Heart and Vascular Office/Clinic Note Chief Complaint testing f/u History of Present Illness Nitin Leonard is a 57 year old female patient recently seen by Dr. Renteria for further evaluation of dyspnea with exertion. She was referred to MD by her driver wheelchair. She has hypertension and hyperlipidemia. She is a recently reformed cigarette smoker with [id number]-aysy history. She states since her last visit with Dr. Renteria she quit with assistance of [employer]. She was ordered echocardiogram and stress testing and is here today to review results. Stress was negative for ischemia/infarction. Echocardiogram shows normal LV, no significant valve disease, normal RVSP, diastolic dysfunction. Since her last visit, she had PFTs ordered by her driver wheelchair. I do not have these results at time of exam, but she tells me they worsened . Sees her driver wheelchair next month. She has stopped smoking and [...] of function, she follows up with her driver wheelchair next month. She does state that her [...] worsening function. She will follow-up with her driver wheelchair. 4. Smoker (F17.200: Nicotine dependence, unspecified, uncomplicated) She has quite smoking since last visit and her breathing is improved. Orders: atorvastatin, 40 mg = 1 tab(s), Oral, Bedtime, # 30 tab(s), Refills(s) 5, Pharmacy: [facility] #[id number], 153, cm, 07/14/22 10:59:00 EDT, Height/Length Dosing, 97, kg, 07/14/22 10:59:00 EDT, Weight Dosing Follow-up With When Contact Information Myra CAMPBELL, Evin Pearce Within 3 months [address] [place] [address]- [phone] Additional Instructions: FU after visit with driver wheelchair Problem List/Past Medical History Ongoing Anxiety and [...] refills Alba (more content not included)... [facility] Comment on above: Result Comment: Elec tronically Signed By: Candace LOPEZ CNP\.trever\Date and Time Signed: 07/14/22 16:02 EDT Progress Note-Nurseon 2022 Progress Note-Nurse [id number]#1.00 CD:127 [facility] Consent for Treatmenton Consent for Treatment [id number]#1.00C D:127 [facility] Pre-Certification Formon Pre-Certification Form [id number]#1.00C D:127 [facility] Stress EKG Tracingson 2022 Stress EKG Tracings [id number]#1.00 CD:127 [facility] Physician Orderon 06-18-2022 Physician Order [id number]#1.00 CD:127 [facility] Coding Summary.on 06-17-2022 Coding Summary. CD:[id number] Gh0 bWw+PGhlYWQ+PI5JHTTlU80 pgULqfC1NW6oBCJ0YVZCXRH SJFI2RVX7kcEG0UPacD6Sol iAv MtcqtGCoKJ57CFm4VJL3mXy rTPbciF8pnASwN6h0CjNyYT 45hA76HDudBEKmCxY4EhTfr jsgbWFy T7aoRuVjjUJrWqz+PHRhYmx lIHdpZHRoPScxMDAlJyBzdH hhZX5iNa1kJNJuYXThsRitt HNlOiBj c5ixAPYwHZqnTH4egTadV9Q qnUI9VSIel7n9Vd81zKV+PH LxSOX1kTdjLQpmg550HyObo 2hdVML1 cBKrJDzxAPI6S83zy6K2BZF fEMMrRKO3mII9iZ5kvEqreb nuN6SliLPbIoT6ZWW2lXVfg Q4vvFdv joctgY1bFsr+B94TMF2CFYO KCU9CVcs6W8DiHuadzWM+PC 83OJBjNM67lGArvJYcq9uzn Wx3CiXb VFFpMOL0qZjpQYpkw9TpGGR jL30ysAVsn5I0IYVycXuheU RkKhLzlDG5tV6mLIrgqdaxb 2hvdzsn Oqzxn6cyys50xK34H52zDNt sDXZuYYW4HLWyEGBxaJoqei 0giU4yWl7+AIjkr3eou6dwm Fb5RqBs FVFhyhGtqDcvMAI1j4YeFx8 5Y5JwqLtbv2KoPoq8dh94fO Lts2N2eXR2MObnBTPrzI4zO WxlZnQ6 VVLoZoPyrY79fJMkVObsHj0 diQgwaHvmWQ5eNCMziicpAJ QewV6aISFlnFIgzWnzOJ7iW TBpbjtm w628QdWmJHE1NWBajTYwH6P qlS0jGtZxQLCrQWXbZ3SasH YaQHuyV526BMqjEeN3RZHfy mPwI8Vm QAKggYyfIqY7j3R4Uo8Io1W teoenUIH4MVwxNVFoIjV9Qh KkBhM0Z2KxKvw8YLHxaEsjH D6aX0Pc NVJrquawoleboRI5TTQfLSO syP89qBKvZCmzLs5hq7M9f6 70MCWjUPXbwB66Ia5nlPvuM TBwdCBU mO1gagnyb6oujeytPuGxYJZ rLZk2GRg4YWIozSccUuUmZV W8IdK1JVH1oUTzsD2rfUica bvqqK1g Oyc+H09jcE3rFJG7OMJ7yhd yJLCdhuUpFE01TP85R0VbMs wvdGFibGU+PGRpdiBzdHlsZ Q1oZlVr q2fyx0IxMFuaW2InINFmYXy dQsq1UDSaYQF5tNG6eP9jXN EdUJxek2E0bGH2V5FfpoAyy n6no8va FZIgKClwL29qqDBfo2K6CBM iwOY7QYVpcRkbVfYqsN33Qo c+RWVawTmmq5DxUsvni8gdk 3gilBq3 IlCwLIHsgiXatVafSIS3h7P wSy58M64uIXubGXVmXFJzXE YgZXKfuFoavo5aiT1eBf3+P GNvbCB3 tBT6gR9dTPUhZnF9EFpiT27 3EhBazGTgZzqhn5lus2oamW d5UeMjRRJjtvHdhVmeDAN9z 2MmZj10 U43uBVygGJDbPBMqVHWrUYX gjHfqjo4ymU5yEf0+PC9jb2 dfnl22mP23cAI+BJIaEYA6f WxlPSdw RNYfbS0rNLcyLrI0YQItTlO uiG28sDKzKKejQa8awNsfnO xwYD3hLGScmkquz827VqSuc 2xkIDEw xOOhQOpkXHA7Q51bu7B0JHL xIQWrYOU8wHP8aY3rfJoddi ogbGVmdDsgdmVydGljYWwtY JtdY232 IHRvcDsnPlBhdGllbnQgTmF uIFg5Y7RyMbt6OCLhwUoiDE 3ngFEzVNqcGz7ebYptbXwzB P9dSIAa pbguc426ZcUve9vqZACswZA hTByzRBI1H20np4B0UQJqGW VoFCA1hRQ3qU2dlVuqrtltv GVmdDsg nyIqsAxfFEweENwmL003PNN ywYerAfLrbqPmBPZmtZJ7JN 08JJ33pRNfn1A1kDP6I7HkE GRpbmct nwzthXS1UQLxXFPsjA75Wc1 voOwxXm8uCPJaUKZ5ETSyrW HxT3GtdB8fHqEoNNXrPKEtE 3RleHQt BFqiY504KRneIuT9IGFjetZ iR7DgFZIjsFvsNkV2t2H4He 3WM0N3NQ28ON87pVDsv2B1b QF0C9Gm KHQqvxiggvoxoPP0TWYcUDS fyT97Zd9rpEmdUe4uRMHkHC U5EFWuhBLgA3YhbP6mHtVbO DAwMDAw Y8VycWEsQFsqQ509PFvbAaC 1CADinvNbJ5SfDQKfiKyvOq N9r6L6Km6YDZa8CV96GE42r VAig4L7 hIG1M2ZcZOHrgeamtztvvWD 8GTXxIYCbwC37Gw9rvZepOd 8bWVJjCFH7MWIswXYqC3Mbn T6nClEt OQEyAILzH8VnwMEfFNhkV84 9MGopSbT9MQHlssIhG8HeII FmqJocHdP6t6T5Mv6DZKJhZ L33SIX4 nQL5MA22RA79Z6CyEqbebQL ibGU+PHRhYmxlIHdpZHRoPS eaFIPxTwMtrYbpCP6xAc2lL GVyLWNv tAnaqYLaRrBzd3wzBPGgWGf mQR2kbAdiL5XilZG2UQBaa5 h0Gb15M27xO1UczKA+PGNvb BB6wFW9 sK2lTyVuTuO0UVssE111FkP klNWxLldvx8sag9ivwIu7Jh S8LTKjqnXgtLluYYQ8r1VrV q34U86k IHdpZHRoPSIxNSUiIHZhbGl ujn1mhI9wUi8+EVDpbWE7qM A9lO8eMrUtXqJ4TNsoU976P nRvcCIv Vntuo2hgu9wbiXq5PoTzJNJ lwuAckQylXYG4a4XhNe42U6 IbjSzqi3EnNuu8lg25wWNgi 3X5nSL8 L9HeRCRydtkicHYxeWyxQR8 iPCFeoqzyKHVauU4tEYKoI5 b0MnRrSlA9AJoaG7JcjfM2K DEwcHQg GTdeDSS2D82og0U2EQFkMHR fOOZ2mOF8bI2ihCachuvrlB VmdDsgdmVydGljYWwtYWxpZ 246IHRv cHjwXRKkiO4aEZZpcQCmfGk yYP9wCKKuatvbNklPCpRtMD SFQ9uWTGh6B1SyJuu4CEMtd FnfAV0w lCPvRXtoQd6gqHplwGxcTG0 tLQNfcfhcOOYhfC0rTVIznY IqvFrfFY8wCVPgkokxy626Y iAxMHB0 JNBpfRFoE9DqwY2jQhOdOFN wYAHwF8AciWWxSQoeR150OF cbAgI7VFYkcwSwZ8TwVQStz WduOiB0 i9P1Yq1gVX6lPk3iEXY2CN1 9ZB59gLPyr2V3iKQ8U8HkKS ZfsexweckdbMN8CAGpYRQdj M09pHFe KCmvSq3hd6I9y531UHDpKLO zvF00Iv6brBzrTTYzqAEIrL 8taweua2bfctjoCiRcKFHbP Kx7MHo8 QFOnjKrwRwVkWZS2TcY7UCX 9aBHmiV8hkAeqenzmjK6zFp c+MMlmBPShleX5L9SlNdz7G CBzdHls NL8hwBCmRTcpAt1ipHphcLj hQH7eHPVcrqxoTZVklT5tCB NilGCfiAdyYR2fXXOqkugap 250OiAx SMX3FTOqfGRzO2TukX7sGaG gFQXtKHIdG3RbjYVqFMspZ1 63WVohQwS1HPPubaGbW4YfO WFsaWdu CnJ0v6F2So9KCT4izXR3C1B jMjg7GPXmvDipLR1noTCwHC jwRm9yzSbggXtqAF6qDIFaw jtwYWRk vW1lEFGihGYdyAqnDS6mWJZ emblve336WmJrAIK7MBSplD AiD7LqcN9fPoNcHEQqTKHqE 3RleHQt ZNfqV082GJxuZqS2QDFiaiV yX1ZjDIIuoYloVmA6v6L9Jd 1SvAEtEFPqYA05TT63XT65Z 3RyPjwv dGFibGU+PHRhYmxlIHdpZHR sIIytJKUyGuFyxDmpOJ3gBg 9yZGVyLWNvbGxhcHNlOiBjb 2xsYXBz ZTcgIR1qwIikH9JpwWS9TWB vf2c1Os21W18fR4NhvZD+PG RjjAG4vTC4pQ2cMmCrGyX6D XnbQ385 LvPxxQNxIygvj8hbz7dalMf 3LbXqFZNntgThvMlfXWD7h2 KyZk24Z18eLHzqSETsJEBoD CUiIHZh uEmklz2xrV9aTt5+PGNvbCB 4oNJ2jC5xWzXcLvW8ELfvS9 42DbGplWPyZzqaH25pP3Zam XA+PHRy Jip0MCMtuGvjLH3yrEQxFUf bRk1gQYQ5OdGzOvDaGGeoV7 QnODSifuubwjpczSZ4YXMfR DUwaW47 Vl7epHyjGg8rUNBlNVY3RHB haGIlJ4SdwB3lKxXtMYRkXU AjL5RcmGAmJFmuH162MGvyF zV8MPVb tbIhY1FqLEMkjAhyZwY4h2W 4Pm9LgNlhbZEtAF7iSuRcMR w5N3SiRqx9LJUfnVuyMP6pl GFkZGlu Ay8myPbwrTxuIF6xCQBhoyi kx347LrLsk3uxHULyfHLhAZ yqHDH0D97nu2A5UQZcPLPaE VR3vBJ6 qQ0fxOuvcvpvqHOdyRinslN hgTjuSRyaXSmhJ154XRJoeN vkQhJLNbc5D7NaAif7PUBim KjqUB9a qBSgYFvzVy9crFhplQdqJT9 aGTUdfhwah085OkKfx6xuOH IwjBTnSSybDNA1R37ix7W8T CMwMDAw DNL3lNQ0jF3vnDuhqchgnLJ mdDsgdmVydGljYWwtYWxpZ2 85OMZsqVctCd0WTnk9P4SeZ co8XQBa jDwtBF8riKLsDGzaMa9lcKs ytOzzYX6uIWMcnevbq720Hp Vnt7soWBGqfLOnAYihQLI1T 57yy2N4 LZNeXUBbTDB9vZM9lV2qdDx nbjogbGVmdDsgdmVydGljYW flYClgS801ACWxaMohXyAgg WVyOjwv dGQ+AW37qo53P7AuVxwoYer 9IZPiMDP4jWU5hA2sIRTxPS auq1F3lDF3G2WeaiZumr8yb 2xsYXBz ZTog (more content not included)... [facility] [place] Myocardial Spect Rest/Str ess 1 [...] Stress Dose (mCi Tc99M Cardiolite): 26.9 [facility] Coding Summary.on 06-16-2022 Coding Summary. CD:[id number]:[id number] Gh0 bWw+PGhlYWQ+EL4MAOVbW10 qwRFpoZ5PX9lAHC0ZUYRMYU WLCY1MWT5ycLS6ZHpiY7Zov iAv KpggrFXeTU08ERw9ICP5nDh hGGffmP1mpFPeO6p6YfEtMQ 52iN26YTicBYLyQnN3WlQrc jsgbWFy M1scOzZdbZTlKpv+PHRhYmx lIHdpZHRoPScxMDAlJyBzdH tqNA0bLx6hEPSyGRAjxIwmg HNlOiBj v4ucCSNjFQwbMR3yoWtcS1Z reOX1EONqx4d9Zu07xMM+PH OyZIU5uNrqBBuip168ZjIol 5ipPYJ6 gUXgHZglWND3B05lj8L9YVM bXAZbHLQ8tFU2zO9lrRlxsl oyN9ZfcDWmXkH2PRA1tGQws R0nyZul hxltjO5mZse+R17HKM2BICC KMD9CBdb0K1QtXxfswIZ+PC 97NZPzIK59sFAlvINvx1xbr Bc2CvDt RVZjSWS7iLnaLJkmu0FuYLU iH07gpQMzx1R3FDFjxQkqaM QhFhCvpJI4tG8gNCkgkrglf 2hvdzsn Yvvay8mtqq85uF93G17cVYh iFEMnVRE8DXLqVPEvtNdepv 6opU3qDi3+CZbms0reo7gik Om0ByDc MDSxmkTpsAfkXOJ1b5GqWw8 8F7YreVlkd2VlLsd1cz26rB Buj5K9sSA7QBkhFKVazC3gO WxlZnQ6 JFKzGeKksT20lSTcRAbgBd9 omCyswKryBN8oQYNbwxvkHZ CmjA1cVYGqaCHcpQphHL6pD TBpbjtm v477EfQuHIX0YJEgzEWvQ8Q xoX1eMwXyVALyLJJbH7OriP YcTAhpC615IPeyKvC2WJNvl yYtF0Xk CGFhlYysHcP9u7I3Dw5Kc2R oqvueNHC8KQgcKCHaZoUrFu PuWmB1M9SeKjt6SGWiwLfoZ J7cE2Pn HJHklfysrjpurPA9FIEiTOE ynF37eKVmANtyIf4bt9R7a0 60ANWeHFDmeL28Yv8zmHqgN TBwdCBU mS3mhhitn2jmezbzQqFaTYR sCIz4QFy5ZLRmnTyqUzGnWC C5EoX8HYF9kLXvgH6txNoeq pyvnN2e Oyc+X42xeC5hSPU8YPE2kiu nJGPvnrYjOF26BW55W0BdPm wvdGFibGU+PGRpdiBzdHlsZ E9bLvRq e2xzy6SkHEacE4LoJHSvLBv kGwd9WAOpXDT6hUS0yU3eSA KvGGjvj5I9vKQ1O8MahoOet i3pp4mg TXGhLPhnX44qjNPkc6B9WAW kxET2AVEtdGztLgCdnR42Pg c+IBPlhWhjl9QpLtkdd3jbc 7vvcKm5 XhXuLJSdwgGdmWozNZH9u8M fKk28Y52vBUtaXQIhOXDeDW CdMEYjvCupyj4eqI1fZn4+P GNvbCB3 dUC2jJ8mEHYfLtB7HOtbN95 7AzOhcGTkVfobv2wjr5yluJ q8VnFrRSZrqeEnaXaoMOQ0b 1BcUh44 J91uVOrwNEEdBLAyTLTtPZR gqZpxfg3crM3qNy8+PC9jb2 yrto36uX77gSW+STFjGHA5t WxlPSdw EJHnuK1yLYqyDrE5FFFcIwZ htP01nZAsQMoiSd4fnAsbhN pgQZ1sZEEvmpvbd811OxSci 2xkIDEw oSVgWInoBJM5J77bo3M0PIM cOTTbODU2dBP5lJ7mfPuaxc ogbGVmdDsgdmVydGljYWwtY QtcL870 IHRvcDsnPlBhdGllbnQgTmF pQHl4L1FxZyk2QSAicTuiCP 7vzDEcWFdzVe4joScmbCyeO L4wLVXe mzocm792WqVbe1olCRBypVV cDLqvZKF9M85yt2R9VJWjEV FdDNU4rSK9qX3nhJvegjgqd GVmdDsg kiEnhJhhLMnfZVhpG968YGC rtQrsKhGfccReWXAuqWW7QK 13UY07kAVgk0C4zWO1M3SrG GRpbmct hwifiJU9JDLmOZYpsJ91Tj7 aeAqbXa2wICGnFDA3GJZyxC ByW8QepC6tAySyRNHvINYwL 3RleHQt LJqiZ708QUzsYzW5VYMrmkZ fZ8NxROLheIfrZdR2t4S1Lj 7UN3T8WQ84FO98zGYbl2H9v HJ8W5Nd ROCanoyyddygbAI3ZFIfWVB bmM29Fl4twAcaIf0vVRZdTV N3JLVtwGQyN6VhuS9nHyAeB DAwMDAw B0AalXDsWIvyD432WXnqIkG 3LWCiktChW7TmDBKuhZtpTh Q3z7D5Di9PHKn9NL49AK65b PHco8S5 hFU2Z9DeEPSkndrugxefcZL 5GDIoPMYbuB68Ne9itXnvNl 5aICLmHOA4FRFaaNZoX3Cjd A5xZkOi ERJvPBFuZ0QjnDTnFMawJ32 0HOcyIwR3OWGoqgDfP6NzTZ ZoqDblRyY9h2R0Ax6APROjM R43PXY3 cKM3AJ09FP73V0YwGjbwuIW ibGU+PHRhYmxlIHdpZHRoPS zfQMFtQjIuqQetEP3tHt3rQ GVyLWNv nLjyxAIvJzTdx1leASYwPMe iXZ7yuNgrF8SzoNA7WAVjg4 s8Ex30U50pX8UjrHC+PGNvb OI2sLA8 aU1kLlPaHmI0EAixN093GwG mwTMnEtcxk1nqh2wnsNa4Oe K0ISMfemRfhMjxQHH4m1TwS a89J78m IHdpZHRoPSIxNSUiIHZhbGl iqy8asZ2mEo2+SUGqxDN6vW M6uV4mPbFaAfB2FIdvX182I nRvcCIv Nfluv4rir5waqOu8LaUvHYO wzkNftIhpGLA0g3MfBd12M2 KlnBryo7DeSgx8mw44nEYxt 5J9aGY5 X5NiJKXreuirfTEixHsoAY1 aJFPqbfldXFDcjT0xHKAjR0 u7FcTgAzW6NWtoP2CxevF3V DEwcHQg XPrjRXO4P14qp9Z4FBHnKSB sVJY8bOO4vC9tkVfpxkplxV VmdDsgdmVydGljYWwtYWxpZ 246IHRv rKjiBWEmwN1lDMYelJRtkXq lHB3fHWLcvpytOfyMMeUoDE YCI0qTUHe9J2EfFti0DNKnf VqiYI7c nRVnALpaVv3thCbqqLyaYK0 tQOIcoffkTTMsrV0yAXFfwP KznKciYW2lFYZaoirpi275G iAxMHB0 IJFmjGKfN6IumJ3wEaIlALG fAIEfW0VraAFzGNstS575EU ftVhR9BDPeqeBdB7JjZTCts WduOiB0 e8U8Uh9mPV5mRm8qXAN3RS5 7VB64yBWia6Q0mGV0G6YzKP FirmimbbfasNP2IIIwJXZng B14tLQf KFqiTf9to6G9s921RMFcXQC qfR67To6jiKrvVIIzwPLLvX 4igvamh1ovuixmPgOlRIHnZ Uu0CLv2 CUUmsHquBwKpQXX4TcM4SVD 6bXQeoQ0beMkugplmtZ0bOu c+AKafQJZfynN3C5RzHcm8A CBzdHls DV4mzTXqLKerNo2kcMteyFa eAL2mBMUbluytGUJwdT1wEM BaeMUmwPxiED3qANObphpme 250OiAx BKN4CPWnmTByG7TgdU4rRzK bABXwHFDxQ4QskCCiQUndB9 86JNswQlD2HWBmfcAeH5EgU WFsaWdu PvO7c9Z2Mh4SKI6uzDR2W6A mJco1NJDypZorDG2xgCYlXG oyKj8bcLtwtUwsQJ3jDDQhy jtwYWRk kC1xHCPnsARroPzrVT8iMFT nakntm732XuIxIUP7AJSoiK ZhS6EarW2fCbJoHZGfIXHhS 3RleHQt GTxiJ570ZRkzBeW6ZDYeluW nA5KvJXHsnUdvXaG1c3Q2Zs 8VfIWmCJIqJN97HC56ID58Z 3RyPjwv dGFibGU+PHRhYmxlIHdpZHR rAGabLXHzRyXzjHodHL4qYl 9yZGVyLWNvbGxhcHNlOiBjb 2xsYXBz XGsqJP4dfHunT6FhzHS9CMZ ev9n9Dp87R10iS0GfiZQ+PG CjiGY8wKH6xS0yQfTtJxT9V AmjX249 SzPrmFVmJwgwo9hwx7zacQl 3WhSkLBGlreXvkJzjFGJ9l7 ZtDf94X62dDSaxZEOpKUTbZ CUiIHZh rZxodx0bdE3sZu6+PGNvbCB 8fMV3oJ6zJvWlDgI5YEqgX2 33QsZvyCLpGqpjL43qL0Wtl XA+PHRy Zyb1WMIxfEdoWU4xpREuBFx bPk0rJQV4LtThOzVdVMjvL9 PfYKTxjnqjunmyvPO5SYOwG DUwaW47 Nu4kpHykMh1nUQNmMAO4CFG waYQkA7GdnV4lLuBuRJIpXE TdM3QxsHTkULgmP673NQcpS eM6PREa cpVoA4XnXYNhxOvwSuW1j2J 3Fu5EoXqwnRReCQ2oBtSqSZ y7M5WmLdp8KNIulSpoVQ8qt GFkZGlu Hg3txPqscWfsRP6zDXCzvcb hp444WzXrq3xiLDUpiCLqSP efMTZ2S33yv4D7BRMoNDAhP PY5tCY8 mB8umQpwyslkuDTsdYovokX dsFckIWktJRppJ476GOOlnI ceNaMSBte1K0DoFnn2OKDiw OuyTJ3h nSQwXVkpZc4dpNympBxdKL7 tQSHmqthch832LpXkt9bkFI JinBVsDGmsJIE7I89hq7L7Q CMwMDAw TXV5kAR3hJ5rpDylqfecdZQ mdDsgdmVydGljYWwtYWxpZ2 36QADpiImoAn4RVob6V9YpN ll7UYWj hZxvBA0gxDOhQQdjZt6jiWi hhXhqTC8xCHXqkthea178Jk Vig9qaTMAncLCpUSrsEVB9I 07tr3C9 NGIiTGVnIJR6eVY9eX0esIx nbjogbGVmdDsgdmVydGljYW nsSPdjD226YZEsdPflVcAgy WVyOjwv dGQ+SC25vt69T8OuVmeoNom 2PQLiCHN4uCB8cO1yXVKgPI zgd5M4rTD8A2VzouMowa7lh 2xsYXBz ZTog (more content not included)... [facility] Coding Summary.on 06-13-2022 Coding Summary. CD:[id number]:[id number] Gh0 bWw+PGhlYWQ+QR6PSYOwV94 hlAGdvK6FR9fXDC2NLUPMWX HXXV0TOU3wuWA0NFjnW4Ukg iAv RfiwbLLbSG56KEb9VBG7sDc oQJrilW9emWWiT9j7RkBxXA 74gZ75DYcxRDEuTyJ4GuAzk jsgbWFy M9lmHdAbzFKqSxc+PHRhYmx lIHdpZHRoPScxMDAlJyBzdH fdQC9yPo6yMQNbYPOryOycr HNlOiBj u7huOYZdDHvdEG1ypXmiL0Z paAK8MFVuh9c5Wg39qXY+PH SzGOQ8lRmzUCwdq509MpNar 4vvLHL5 fTTpOScbNMN8K82xy7W3IJD sVPEwCYB2gQJ4hU1hbJjjyg onY3XtlKFsNjY5FJR8iCCru U5gzLvn grajzX0kBxl+C36GIT1DBVW WWN3NZyv1U6BoImmdyEP+PC 75RTWcTJ86rHXtwVZqg3qyj Cm2CwWz HXHkRXU9uOewZOweb6WhVUB uL34yoEBva5G5WJNviRlgxT AoCrUeqOW7sP7dAGvfcvgoj 2hvdzsn Risth9tswt18lT40G55gRDe qHZJeHIG2IKJqOWVfnArlib 4bhY7eRk2+AWwwj4xbm1qdj Tb0SiIo PQHxbqJhkLkeDUN4m9MsLo3 2M4JbmKfbz3TmStd4mz60dA Weh8S4fTF5PYxzKMAwxS4jC WxlZnQ6 XKIaFoQazC26nSTlEDqeJt0 rxCsccAoxLR1wUGLdnjzmOD DupY6iXGLifEAufNnoLH7xJ TBpbjtm k510DvDiMQM6TWBolVFwZ1Z fiQ6tMyOvNCJrOXOtO4LuiI KfTMgqQ481JMhoNkC6IREwe eTmC2Gf CVBnzPfbFoX2a1L7Gg7Zc1H kgynxSCP6MEvfONMqWbThEx LvXnK5H9KmZii7VTLchCklH R4eM6Rr VXHqmeqwljvgnDB5WAGdGII raV26fGWxULtpCw7ja6V0e3 94ELFuDBIerC10Em9rfPymI TBwdCBU sG3oinrza0serbxbQeBcDZN nSDj6LQp8HMPxgRafEmBnYF C8NsK4PIK7vUBrwX5szEnhv qsecG7u Oyc+Z69tlB0iTWI4NJI5zta aPKYjkbGyRQ41IH41J6BnIn wvdGFibGU+PGRpdiBzdHlsZ G5vBxGh b0rer9NkFPlyY8IyDRWuYIj gWpf8IWRjQZX2zIM9cY5xVF DcSUhcu2P3hCK2B9SofbFfc z2ub6te XVVuJPkuP74ynILfa6M1NGP ouBT1AJWwqKfxZxUpxK57Qx c+SJEtpPlzr3OrNnqzd1ckv 2xpwNs0 XtZaAMErntLzxXgbAGX3d3B vAf80W62nBDvkHXEpHVJkGZ FyTWIszFnjdk7iaY9kLo2+P GNvbCB3 rVF8mG7oMXPmCkU3ZYntG26 8VgNerEQmCtglz6few0tuoZ p3WeEbXHPwvcBdnTvoIOT9b 0WmQu18 W44qZTqjDPWpXJCeGUDpAZF vuVfowd3wqU5sXo7+PC9jb2 ztls34hV60zSU+AMBkPLY3o WxlPSdw RWGafK2eKBefJkT7BTXzMvF eyE84fNNaSFhuWj8qrUcgrL nxLN2aPQSefkmef768MpOqa 2xkIDEw aQWiRCxaVKR1M44zh6E3GMP tDFQzDSL9jGC2sO6oyBnckp ogbGVmdDsgdmVydGljYWwtY MreO009 IHRvcDsnPlBhdGllbnQgTmF yXOd8W6UxYrx2MFJbvQfkVG 4xwMQlJCbsTk5bnTagePrpF C3mXEBe takbf570JtFby9zvHPIrsNR pKSkmTCW9V91ks9A8OCLiTG JzEMQ0bXE2pN5vpBlefykhf GVmdDsg lyMfnEfqWBhzRKngQ619ZUE dyYlyKtFjfqNlOKLwlGI2TO 23QN33uPDse6P3oZJ2R0JaS GRpbmct cidfoBD7XPXiYMJsfK49Bj9 deKxnId9nOIHyUAW8QISrzY YxQ5MfmK9dKtReINOnSULsU 3RleHQt YHfrJ508BIwxVcR3HRMtoeP vV9MdWMLmjZjcGnF2z3Y2Vc 3HP6V6OM81MR28aGAdm8A1v TL6Y8Us FNRojiukleldwEQ3LMSdFIF geV89Ge7qvRvtRj7cRUSaMG I8QOXcgLQrW9NqbT3pFpYiC DAwMDAw O1ZjbDLzUEfkV733LPqrLeG 2IQFylaQgH4AjWGDweKyuXi H8p5Z0Bm7MXOc7ZF66IZ43p PRfw9G7 bZR8K2ZdKWTopkwobmrpyYX 5AGElYGLwdX25Oa9gpVpsSg 9fFCPwJWP4JGEkdBTiZ5Xcv L0sZiNp RMWkDUJzE8ZbdCZpPDshA95 8IOcoEbI8NDLxmlBzK3SjXW TcgHxkVqI8f9D1Tm8GQKFoI Q56UAH3 iZK5WZ11RF54E7FtXlqotFQ ibGU+PHRhYmxlIHdpZHRoPS flLLWsBeKazAhaER8yYb8mH GVyLWNv dYrlwNYxNvEwg0ajBFAbUXq bLB2qpIwjH5MawZQ0ANOpc2 x3Kg79R74yB7LwcHM+PGNvb QR4eTK6 kD7xIsHgMoU0KPikX675BtF yrIIcDlgfm0yzn1catAv8Nc W4ERVnjmWrtQmbELY3h2MpC t38S04g IHdpZHRoPSIxNSUiIHZhbGl kck1opP4zDn0+BTOvlUS3aU C3vC0bSpYhEkK1VBbxT594U nRvcCIv Kesxm2ekf3hiwDv1NpRgYXR ittXyzFyzTTJ3g7AsMf64I9 YalIqss0FkGum1np62mDCzs 3U4xLL9 G5BsYHKgxgutvXKjhOvnVM7 eTXAkgfktSOSdlS1iHRLkC0 m4VlThBmX1UNbiR5RkfuA8J DEwcHQg ONnsZWV8Y70zy2H8HMMgDSH kDNA5sYT6zZ8zaDylorzyjG VmdDsgdmVydGljYWwtYWxpZ 246IHRv qPztYSDzeZ4vAMDfxCOleEn kVQ6rKVNyzmxwVfwJQoPrXQ VSV0eCWNu4E3BsOlf2JAKdd HbiNM2q jQQjZSldPo0adDzlxBspSG7 oNBVqjazyJYXrvY0dJWAcsL MemFltUG4rAFLvtfsfc554O iAxMHB0 WPAbaYOsG3YtjK7pLlHuWLY kTXJeA6OypSYuXDflT020JH sfBrF6RVFhscCpB7HpIGVoa WduOiB0 b0E4Mz4tUS7wDk0hIEK8JX8 0UR64vQQgl6K0dYZ3K1ZbLZ HoywtlzykzeDG4AMWrWDSib O54lGSk ESspSl6rj6Q6v275DXAtYEK jcE63Ep6znYjuQQNneGVAyQ 3rvvihb8ycsmfbTzBrTWUnS Ex9AFe1 ECJobPvvArCiPGD3CzS1JAH 8cICncS3mmLstpoqoqZ5aYi c+MCfxSZZgngZ8R6SgIga3X CBzdHls OL2xyGYxUPhbGs6keVsacMc bMH3nWKCgdoceVMAupA5rIQ ZluSYfcXezPG6dCMCirepbr 250OiAx KJG5VDWfaVHlP3QlzY3wCzN bNQHiZYOvX6BbyUJnAHmmR3 32PYyyRnS8QLBqqlZqF4WrR WFsaWdu YtD7f2B9Va5UTW0enPJ5L7Y lKhu3RKRzzKgnPD8ieJBaJF ynBf2vyKmjdOseTK4dJYSga jtwYWRk gF3uWPAxqBXbdNsdOL9gHBC qqvuvo532McWmMVC5IXLgnT XyG4BobL6rIvDyDCHnDCHcN 3RleHQt HTbmN195IWluOnE6CLEnnvE kF5FeCQAexDztQtO1o9H4Ta 2GaZFaOTDjFS76AB06AP76R 3RyPjwv dGFibGU+PHRhYmxlIHdpZHR fYAebZGHgZcWkfMntOZ9sNu 9yZGVyLWNvbGxhcHNlOiBjb 2xsYXBz UBziDU4uzZmdO0ZjxMB6BIV re0n3Le34Q52nL8SsqUE+PG OqrZK2yNI7nE6jDtGaXdF1H ZhkW300 OaVwyUGwRaman8via4srtRq 0JpZdOFLpccCmaEyxFFR7m7 TxQq87F84cEOgdDBUkFRHlO CUiIHZh wAsftk6xmU4jBy9+PGNvbCB 3mII8zW6wAvYiEfJ3JAeqS0 33VuHtrZVcAzytI59lS4Rfd XA+PHRy Syk1TWZcbHzrMM9yxMPwRKg pCe8uHKF4BvQeVoOmKRrtU3 AsFHVfmxadspbukZS4RJAxK DUwaW47 Td7upYhbCz4wPXDlMKD1ELK krFTmA7RqvB1cRuPhBTLvOC DoR4BtbYKdJWnkN172XIrhP kW7ZXTy cfZxG7UlSRCfnVhpJvB1t4O 3Aq8RqLrupNQfIS9gMbChRS h2W1PnPwb6LFCwuFmkIM0mn GFkZGlu Rb4wpTltyJdyPE3vZHNbmpg dw254FbRns2iwNESnbDYjVL ykXLD8K44zn3H1LQRnNQUqG PY2nCK8 mA6itKizgoyerIYemEuaytW mmUerVObwJExyW556CDVvxO omEzLRWwj3V7QyQll7HYXhk LmqWU0n wJMdEFrrTv0sfQgozHzfNO4 kDBYighvur676GuUia7njAX XvxWUbHQalJQW9T15oo2M3J CMwMDAw NFX7yFW5fO9faVepccvmxLQ mdDsgdmVydGljYWwtYWxpZ2 05CNZrhGflRa7ARbo9N3EnB so4TWPq jZeoNW6hhSItZCegCq7djLs odEehZY4mKZGptcjme716Gp Ige6dhVETapSKhMDpiNKX7R 12tm4D2 GYGtWPCuEUG9kQI8xM1weWu nbjogbGVmdDsgdmVydGljYW kcGRgfU533LADcvYatCeGhk WVyOjwv dGQ+MN42ya80G9HkXczbAqj 5EHEcNZP5jSW1yO9sASUxTX ncq5X9tPU9N2DvfsEoil7kv 2xsYXBz ZTog (more content not included)... Normal [facility] Consent for Treatmenton Consent for Treatment [id number]#1.00C D:127 Normal [facility] CHEMISTRYOrdered By: SYSTEM SYSTEM on 06-10-2022 [...] Remisol Consent for Treatmenton Consent for Treatment [id number]#1.00C D:127 Normal [facility] Lipid Panelon 06-10-2022 Cholesterol [Mass/Vol] 298 mg/dL High 120-200 [facility] Comment on above: Performed By: #### 2 [id number] ####[facility] [address] [place] [address] Cholesterol in HDL [Mass/Vol] 67 mg/dL Invalid Interpretation Code [facility] Comment on above: Result Comment: HDL > or equal to 60 mg/dL: Low cardiovascular risk HDL < 40 mg/dL : High cardiovascular risk Performed By: #### 2 [id number] ####[facility] [address] [place] [address] Cholesterol in LDL [Mass/Vol] 223 mg/dL High <=129 [facility] Comment on above: Performed By: #### 2 [id number] ####[facility] [address] [place] [address] Cholesterol in VLDL [Mass/Vol] 25 mg/dL Normal 7-40 [facility] Comment on above: Performed By: #### 2 [id number] ####[facility] [address] [place] [address] Triglyceride [Mass/Vol] 123 mg/dL Normal <=149 [facility] Comment on above: Performed By: #### 2 [id number] ####[facility] [address] [place] [address] Pre-Certification Formon Pre-Certification Form [id number]#1.00 CD:127 Normal [facility] CARDIAC STRESS TESTon 2022 CARDIAC STRESS [...] with ambulation/activity. Clinical correlation required. Normal [facility] HEMOGLOBINon 06-06-2022 Hemoglobin (Bld) [Mass/Vol] 12.9 g/dL Normal 12.0-16.0 [facility] Comment on above: Performed By: #### H GB #### [facility] [address] [place] [address] Dr. Saroj Cano PULMONARY FUNCTION TESTon PULMONARY [...] with ambulation/activity. Clinical correlation required. Normal [facility] Consent for Treatmenton Consent for Treatment [id number]#1.00C D:127 Normal [facility] Heart and Vascular Office/Cl inic Noteon [...] for sleep apnea. She currently sees a driver wheelchair who referred her to our office. Apparently [...] function t (more content not included)... Normal [facility] Comment on above: Result Comment: Elec tronically Signed By: Myra CAMPBELL, Evin Green.br\Date and Time Signed: 06/05/22 11:21 EST Referrals Officeon 3 Referrals Office [id number]#1.00C D:127 Normal [facility] XR CHEST 2 Von 04-22-2022 XR [...] PHUC LEMON Date: 2022-04-22 17:15 Normal [facility] CBC AUTO DIFFon 01-12-2022 BASO # 0.0 103/ul Normal 0.0-0.1 [facility] Comment on above: Performed By: #### C BC #### [facility] [address] [address] [address] Saroj Cano Basophils/100 WBC (Bld) 0.3 % Normal 0.2-2.0 [facility] Comment on above: Performed By: #### C BC #### [facility] [address] [address] [address] Saroj Cano EO # 0.0 103/ul Normal 0.0-0.7 [facility] Comment on above: Performed By: #### C BC #### [facility] [address] [address] [address] Saroj Cano Eosinophils/100 WBC (Bld) 0.1 % Critically low 0.9-7.0 [facility] Comment on above: Performed By: #### C BC #### [facility] [address] [place] [address] Dr. Saroj Cano Erythrocyte distribution width (RBC) [Ratio] 15.0 % Normal 11.0-15.0 [facility] Comment on above: Performed By: #### C BC #### [facility] [address] [place] [address] Dr. Saroj Cano Hematocrit (Bld) [Volume fraction] 38.0 % Normal 36.0-48.0 [facility] Comment on above: Performed By: #### C BC #### [facility] [address] [place] [address] Dr. Saroj Cano Hemoglobin (Bld) [Mass/Vol] 11.6 g/dL Critically low 12.0-16.0 [facility] Comment on above: Performed By: #### C BC #### [facility] [address] [place] [address] Dr. Saroj Cano IG # 0.11 10e3/ul Critically high 0.00-0.03 [facility] Comment on above: Performed By: #### C BC #### [facility] [address] [place] [address] Dr. Saroj Cano IG % 0.8 % Critically high 0.0-0.5 [facility] Comment on above: Performed By: #### C BC #### [facility] [address] [place] [address] Dr. Saroj Cano LYMPH # 3.8 103/ul Normal 1.2-3.8 [facility] Comment on above: Performed By: #### C BC #### [facility] [address] [place] [address] Dr. Saroj Cano Lymphocytes/100 WBC (Bld) 26.4 % Normal 20.5-60.0 [facility] Comment on above: Performed By: #### C BC #### [facility] [address] [place] [address] Dr. Saroj Cano MANUAL DIFF REQ NO Normal [facility] Comment on above: Performed By: #### C BC #### [facility] [address] [place] [address] Dr. Saroj Cano MCH (RBC) [Entitic mass] 28.2 pg Normal 26.7-34.0 [facility] Comment on above: Performed By: #### C BC #### [facility] [address] [place] [address] Dr. Saroj Cano MCHC (RBC) [Mass/Vol] 30.5 g/dL Normal 29.9-35.2 [facility] Comment on above: Performed By: #### C BC #### [facility] [address] [place] [address] Dr. Saroj Cano MCV (RBC) [Entitic vol] 92.5 fL Normal 81.0-99.0 [facility] Comment on above: Performed By: #### C BC #### [facility] [address] [place] [address] Dr. Saroj Cano MONO # 1.0 103/ul Critically high 0.3-0.8 [facility] Comment on above: Performed By: #### C BC #### [facility] [address] [place] [address] Dr. Saroj Cano Monocytes/100 WBC (Bld) 7.2 % Normal 1.7-12.0 [facility] Comment on above: Performed By: #### C BC #### [facility] [address] [place] [address] Dr. Saroj Cano NEUT # 9.4 103/ul Critically high 1.4-6.5 [facility] Comment on above: Performed By: #### C BC #### [facility] [address] [place] [address] Dr. Saroj Cano Neutrophils/100 WBC (Bld) 65.2 % Normal 43.0-75.0 [facility] Comment on above: Performed By: #### C BC #### [facility] [address] [address] [address] Saroj Cano Platelet mean volume (Bld) [Entitic vol] 10.5 fL Normal 9.5-13.5 [facility] Comment on above: Performed By: #### C BC #### [facility] [address] [address] [address] Saroj Cano PLT 263 103/ul Normal 150-450 [facility] Comment on above: Performed By: #### C BC #### [facility] [address] [address] [address] Saroj Cano RBC 4.11 106/ul Critically low 4.20-5.40 [facility] Comment on above: Performed By: #### C BC #### [facility] [address] [place] [address] Dr. Saroj Cano WBC 14.5 103/ul Critically high 4.0-11.0 [facility] Comment on above: Performed By: #### C BC #### [facility] [address] [place] [address] Dr. Saroj Cano CRPon 01-12-2022 CRP 0.2 mg/dL Normal <=1.0 [facility] Comment on above: Performed By: #### C MP, CRP #### [facility] [address] [place] [address] Dr. Saroj Cano PROF 14(COMP METB)on 022 Albumin [Mass/Vol] 2.6 g/dL Critically low 3.4-5.0 [facility] Comment on above: Performed By: #### C MP, CRP #### [facility] [address] [place] [address] Dr. Saroj Cano Albumin/Globulin [Mass ratio] 0.8 {ratio} Normal [facility] Comment on above: Performed By: #### C MP, CRP #### [facility] [address] [place] [address] Dr. Saroj Cano ALP [Catalytic activity/Vol] 80 U/L Normal 46-116 [facility] Comment on above: Performed By: #### C MP, CRP #### [facility] [address] [address] [address] Saroj Cano ALT [Catalytic activity/Vol] 27 U/L Normal 14-59 [facility] Comment on above: Performed By: #### C MP, CRP #### [facility] [address] [address] [address] Saroj Cano Anion gap [Moles/Vol] 13.1 mmol/L Normal [facility] Comment on above: Performed By: #### C MP, CRP #### [facility] [address] [address] [address] Saroj Cano AST [Catalytic activity/Vol] 8 U/L Critically low 15-37 [facility] Comment on above: Performed By: #### C MP, CRP #### [facility] [address] [address] [address] Saroj Cano Bilirubin [Mass/Vol] 0.1 mg/dL Critically low 0.2-1.0 [facility] Comment on above: Performed By: #### C MP, CRP #### [facility] [address] [address] [address] Saroj Cano Calcium [Mass/Vol] 8.9 mg/dL Normal 8.5-10.1 [facility] Comment on above: Performed By: #### C MP, CRP #### [facility] [address] [address] [address] Saroj Cano Chloride [Moles/Vol] 107 mmol/L Normal 98-107 [facility] Comment on above: Performed By: #### C MP, CRP #### [facility] [address] [address] [address] Saroj Cano CO2 [Moles/Vol] 26.8 mmol/L Normal 21.0-32.0 [facility] Comment on above: Performed By: #### C MP, CRP #### [facility] [address] [address] [address] Saroj Cano Creatinine [Mass/Vol] 0.70 mg/dL Normal 0.55-1.02 [facility] Comment on above: Performed By: #### C MP, CRP #### [facility] [address] [address] [address] Saroj Cano EGFR-AF [place]IZ[place] >60 Normal >=60 [facility] Comment on above: Performed By: #### C MP, CRP #### [facility] [address] [address] [address] Saroj Cano EGFR-NON AF CITIZEN OF [place] >60 Normal >=60 [facility] Comment on above: Performed By: #### C MP, CRP #### [facility] [address] [address] [address] Saroj Cano Globulin (S) [Mass/Vol] 3.3 g/dL Normal [facility] Comment on above: Performed By: #### C MP, CRP #### [facility] [address] [address] [address] Saroj Cano Glucose [Mass/Vol] 153 mg/dL Critically high 74-106 [facility] Comment on above: Performed By: #### C MP, CRP #### [facility] [address] [address] [address] Saroj Cano Potassium [Moles/Vol] 3.9 mmol/L Normal 3.5-5.1 [facility] Comment on above: Performed By: #### C MP, CRP #### [facility] [address] [address] [address] Saroj Cano Protein [Mass/Vol] 5.9 g/dL Critically low 6.4-8.2 [facility] Comment on above: Performed By: #### C MP, CRP #### [facility] [address] [address] [address] Saroj Cano Sodium [Moles/Vol] 143 mmol/L Normal 136-145 [facility] Comment on above: Performed By: #### C MP, CRP #### [facility] [address] [address] [address] Saroj Cano Urea nitrogen [Mass/Vol] 23.0 mg/dL Critically high 7.0-18.0 [facility] Comment on above: Performed By: #### C MP, CRP #### [facility] [address] [place] [address] Dr. Saroj Cano Urea nitrogen/Creatinine [Mass ratio] 32.9 mg/mg Normal [facility] Comment on above: Performed By: #### C MP, CRP #### [facility] [address] [place] [address] Dr. Saroj Cano CBC AUTO DIFFon 01-11-2022 BASO # 0.0 103/ul Normal 0.0-0.1 [facility] Comment on above: Performed By: #### P TT, PT #### [facility] [address] [place] [address] Dr. Saroj Cano Basophils/100 WBC (Bld) 0.3 % Normal 0.2-2.0 [facility] Comment on above: Performed By: #### P TT, PT #### [facility] [address] [place] [address] Dr. Saroj Cano EO # 0.0 103/ul Normal 0.0-0.7 [facility] Comment on above: Performed By: #### P TT, PT #### [facility] [address] [place] [address] Dr. Saroj Cnao Eosinophils/100 WBC (Bld) 0.0 % Critically low 0.9-7.0 [facility] Comment on above: Performed By: #### P TT, PT #### [facility] [address] [place] [address] Dr. Saroj Cano Erythrocyte distribution width (RBC) [Ratio] 14.7 % Normal 11.0-15.0 [facility] Comment on above: Performed By: #### P TT, PT #### [facility] [address] [place] [address] Dr. Saroj Cano Hematocrit (Bld) [Volume fraction] 41.1 % Normal 36.0-48.0 [facility] Comment on above: Performed By: #### P TT, PT #### [facility] [address] [place] [address] Dr. Saroj Cano Hemoglobin (Bld) [Mass/Vol] 12.5 g/dL Normal 12.0-16.0 [facility] Comment on above: Performed By: #### P TT, PT #### [facility] [address] [address] [address] Saroj Cano IG # 0.05 10e3/ul Critically high 0.00-0.03 [facility] Comment on above: Performed By: #### P TT, PT #### [facility] [address] [address] [address] Saroj Cano IG % 0.7 % Critically high 0.0-0.5 [facility] Comment on above: Performed By: #### P TT, PT #### [facility] [address] [address] [address] Saroj Cano LYMPH # 1.7 103/ul Normal 1.2-3.8 [facility] Comment on above: Performed By: #### P TT, PT #### [facility] [address] [place] [address] Dr. Saroj Cano Lymphocytes/100 WBC (Bld) 23.5 % Normal 20.5-60.0 [facility] Comment on above: Performed By: #### P TT, PT #### [facility] [address] [place] [address] Dr. Saroj Cano MANUAL DIFF REQ NO Normal [facility] Comment on above: Performed By: #### P TT, PT #### [facility] [address] [address] [address] Saroj Cano MCH (RBC) [Entitic mass] 27.8 pg Normal 26.7-34.0 [facility] Comment on above: Performed By: #### P TT, PT #### [facility] [address] [address] [address] Saroj Cano MCHC (RBC) [Mass/Vol] 30.4 g/dL Normal 29.9-35.2 [facility] Comment on above: Performed By: #### P TT, PT #### [facility] [address] [address] [address] Saroj Cano MCV (RBC) [Entitic vol] 91.3 fL Normal 81.0-99.0 [facility] Comment on above: Performed By: #### P TT, PT #### [facility] [address] [place] [address] Dr. Saroj Cano MONO # 0.2 103/ul Critically low 0.3-0.8 [facility] Comment on above: Performed By: #### P TT, PT #### [facility] [address] [place] [address] Dr. Saroj Cano Monocytes/100 WBC (Bld) 2.7 % Normal 1.7-12.0 [facility] Comment on above: Performed By: #### P TT, PT #### [facility] [address] [place] [address] Dr. Saroj Cano NEUT # 5.2 103/ul Normal 1.4-6.5 [facility] Comment on above: Performed By: #### P TT, PT #### [facility] [address] [place] [address] Dr. Saroj Cano Neutrophils/100 WBC (Bld) 72.8 % Normal 43.0-75.0 [facility] Comment on above: Performed By: #### P TT, PT #### [facility] [address] [place] [address] Dr. Saroj Cano Platelet mean volume (Bld) [Entitic vol] 10.1 fL Normal 9.5-13.5 [facility] Comment on above: Performed By: #### P TT, PT #### [facility] [address] [place] [address] Dr. Saroj Cano PLT 220 103/ul Normal 150-450 [facility] Comment on above: Performed By: #### P TT, PT #### [facility] [address] [place] [address] Dr. Saroj Cano RBC 4.50 106/ul Normal 4.20-5.40 [facility] Comment on above: Performed By: #### P TT, PT #### [facility] [address] [place] [address] Dr. Saroj Cano WBC 7.2 103/ul Normal 4.0-11.0 [facility] Comment on above: Performed By: #### P TT, PT #### [facility] [address] [place] [address] Dr. Saroj Cano CRPon 01-11-2022 CRP 1.9 mg/dL Critically high <=1.0 [facility] Comment on above: Performed By: #### I HANNAH #### [facility] [address] [place] [address] Dr. Saroj Cano PROF 14(COMP METB)on 022 Albumin [Mass/Vol] 2.8 g/dL Critically low 3.4-5.0 [facility] Comment on above: Performed By: #### I HANNAH #### [facility] [address] [place] [address] Dr. Saroj Cano Albumin/Globulin [Mass ratio] 0.8 {ratio} Normal [facility] Comment on above: Performed By: #### I HANNAH #### [facility] [address] [place] [address] Dr. Saroj Cano ALP [Catalytic activity/Vol] 96 U/L Normal 46-116 [facility] Comment on above: Performed By: #### I HANNAH #### [facility] [address] [place] [address] Dr. Saroj Cano ALT [Catalytic activity/Vol] 35 U/L Normal 14-59 [facility] Comment on above: Performed By: #### I HANNAH #### [facility] [address] [place] [address] Dr. Saroj Cano Anion gap [Moles/Vol] 12.2 mmol/L Normal [facility] Comment on above: Performed By: #### I HANNAH #### [facility] [address] [place] [address] Dr. Saroj Cano AST [Catalytic activity/Vol] 11 U/L Critically low 15-37 [facility] Comment on above: Performed By: #### I HANNAH #### [facility] [address] [place] [address] Dr. Saroj Cano Bilirubin [Mass/Vol] 0.2 mg/dL Normal 0.2-1.0 [facility] Comment on above: Performed By: #### I HANNAH #### [facility] [address] [address] [address] Saroj Cano Calcium [Mass/Vol] 9.1 mg/dL Normal 8.5-10.1 [facility] Comment on above: Performed By: #### I HANNAH #### [facility] [address] [address] [address] Saroj Cano Chloride [Moles/Vol] 105 mmol/L Normal 98-107 [facility] Comment on above: Performed By: #### I AHNNAH #### [facility] [address] [address] [address] Saroj Cano CO2 [Moles/Vol] 25.8 mmol/L Normal 21.0-32.0 [facility] Comment on above: Performed By: #### I HANNAH #### [facility] [address] [place] [address] Dr. Saroj Cano Creatinine [Mass/Vol] 0.66 mg/dL Normal 0.55-1.02 [facility] Comment on above: Performed By: #### I HANNAH #### [facility] [address] [address] [address] Saroj Cano EGFR-AF CITIZ[place] >60 Normal >=60 [facility] Comment on above: Performed By: #### I HANNAH #### [facility] [address] [address] [address] Saroj Cano EGFR-NON AF CITIZ[place] OF [place] >60 Normal >=60 [facility] Comment on above: Performed By: #### I HANNAH #### [facility] [address] [address] [address] Saroj Cano Globulin (S) [Mass/Vol] 3.5 g/dL Normal [facility] Comment on above: Performed By: #### I HANNAH #### [facility] [address] [address] [address] Saroj Cano Glucose [Mass/Vol] 166 mg/dL Critically high 74-106 [facility] Comment on above: Performed By: #### I HANNAH #### [facility] [address] [address] [address] Saroj Cano Potassium [Moles/Vol] 4.0 mmol/L Normal 3.5-5.1 [facility] Comment on above: Performed By: #### I HANNAH #### [facility] [address] [address] [address] Saroj Cano Protein [Mass/Vol] 6.3 g/dL Critically low 6.4-8.2 [facility] Comment on above: Performed By: #### I HANNAH #### [facility] [address] [address] [address] Saroj Cano Sodium [Moles/Vol] 139 mmol/L Normal 136-145 [facility] Comment on above: Performed By: #### I HANNAH #### [facility] [address] [place] [address] Dr. Saroj Cano Urea nitrogen [Mass/Vol] 10.0 mg/dL Normal 7.0-18.0 [facility] Comment on above: Performed By: #### I HANNAH #### [facility] [address] [place] [address] Dr. Saroj Cano Urea nitrogen/Creatinine [Mass ratio] 15.2 mg/mg Normal [facility] Comment on above: Performed By: #### I HANNAH #### [facility] [address] [place] [address] Dr. Saroj Cano ACETONE SERUMon 01-10-2022 ACETONE Negative Normal NEGATIVE [facility] Comment on above: Performed By: #### P TT, PT #### [facility] [address] [place] [address] Dr. Saroj Cano CBC AUTO DIFFon 01-10-2022 BASO # 0.1 103/ul Normal 0.0-0.1 [facility] Comment on above: Performed By: #### I HANNAH #### [facility] [address] [place] [address] Dr. Saroj Cano Basophils/100 WBC (Bld) 0.9 % Normal 0.2-2.0 [facility] Comment on above: Performed By: #### I HANNAH #### [facility] [address] [address] [address] Saroj Cano EO # 0.1 103/ul Normal 0.0-0.7 [facility] Comment on above: Performed By: #### I HANNAH #### [facility] [address] [place] [address] Dr. Saroj Cano Eosinophils/100 WBC (Bld) 0.8 % Critically low 0.9-7.0 [facility] Comment on above: Performed By: #### I HANNAH #### [facility] [address] [place] [address] Dr. Saroj Cano Erythrocyte distribution width (RBC) [Ratio] 15.1 % Critically high 11.0-15.0 [facility] Comment on above: Performed By: #### I HANNAH #### [facility] [address] [place] [address] Dr. Saroj Cano Hematocrit (Bld) [Volume fraction] 46.1 % Normal 36.0-48.0 [facility] Comment on above: Performed By: #### I HANNAH #### [facility] [address] [place] [address] Dr. Saroj Cano Hemoglobin (Bld) [Mass/Vol] 14.1 g/dL Normal 12.0-16.0 [facility] Comment on above: Performed By: #### I HANNAH #### [facility] [address] [place] [address] Dr. Saroj Cano IG # 0.05 10e3/ul Critically high 0.00-0.03 [facility] Comment on above: Performed By: #### I HANNAH #### [facility] [address] [place] [address] Dr. Saroj Cano IG % 0.6 % Critically high 0.0-0.5 [facility] Comment on above: Performed By: #### I HANNAH #### [facility] [address] [place] [address] Dr. Saroj Cano LYMPH # 2.7 103/ul Normal 1.2-3.8 [facility] Comment on above: Performed By: #### I HANNAH #### [facility] [address] [place] [address] Dr. Saroj Cano Lymphocytes/100 WBC (Bld) 30.5 % Normal 20.5-60.0 [facility] Comment on above: Performed By: #### I HANNAH #### [facility] [address] [place] [address] Dr. Saroj Cano MANUAL DIFF REQ NO Normal [facility] Comment on above: Performed By: #### I HANNAH #### [facility] [address] [place] [address] Dr. Saroj Cano MCH (RBC) [Entitic mass] 28.3 pg Normal 26.7-34.0 [facility] Comment on above: Performed By: #### I HANNAH #### [facility] [address] [place] [address] Dr. Saroj Cano MCHC (RBC) [Mass/Vol] 30.6 g/dL Normal 29.9-35.2 [facility] Comment on above: Performed By: #### I HANNAH #### [facility] [address] [place] [address] Dr. Saroj Cano MCV (RBC) [Entitic vol] 92.4 fL Normal 81.0-99.0 [facility] Comment on above: Performed By: #### I HANNAH #### [facility] [address] [place] [address] Dr. Saroj Cano MONO # 0.9 103/ul Critically high 0.3-0.8 [facility] Comment on above: Performed By: #### I HANANH #### [facility] [address] [place] [address] Dr. Saroj Cano Monocytes/100 WBC (Bld) 9.8 % Normal 1.7-12.0 [facility] Comment on above: Performed By: #### I HANNAH #### [facility] [address] [place] [address] Dr. Saroj Cano NEUT # 5.1 103/ul Normal 1.4-6.5 [facility] Comment on above: Performed By: #### I HANNAH #### [facility] [address] [place] [address] Dr. Saroj Cano Neutrophils/100 WBC (Bld) 57.4 % Normal 43.0-75.0 [facility] Comment on above: Performed By: #### I HANNAH #### [facility] [address] [place] [address] Dr. Saroj Cano Platelet mean volume (Bld) [Entitic vol] 9.6 fL Normal 9.5-13.5 [facility] Comment on above: Performed By: #### I HANNAH #### [facility] [address] [place] [address] Dr. Saroj Cano PLT 214 103/ul Normal 150-450 [facility] Comment on above: Performed By: #### I HANNAH #### [facility] [address] [place] [address] Dr. Saroj Cano RBC 4.99 106/ul Normal 4.20-5.40 [facility] Comment on above: Performed By: #### I HANNAH #### [facility] [address] [place] [address] Dr. Saroj Cano WBC 8.9 103/ul Normal 4.0-11.0 [facility] Comment on above: Performed By: #### I HANNAH #### [facility] [address] [place] [address] FACIAL BONES W [...] ANDRIY VASQUEZ Date: 2022-01-10 16:04 Normal [facility] CULTURE BLOODon 01-10-2022 Microscopic examination of blood, culture Culture Observations: NO GROWTH AT 5 DAYS. Normal [facility] Comment on above: Performed By: #### P TT, PT #### [facility] [address] [address] [address] Saroj Cano Microscopic examination of blood, culture Culture Observations: NO GROWTH AT 5 DAYS. Normal [facility] Comment on above: Performed By: #### P TT, PT #### [facility] [address] [address] [address] Saroj Cano Covid-19 PCR ([facility])on SARS-CoV-2 (COVID-19) RNA RIC+probe Ql (Unsp spec) Not detected Normal NOT DETECTED [facility] Comment on above: Result Comment: [...] for this test is supported by the [place] [employer] and Human Service's declaration that [...] used). Performed By: #### I HANNAH #### [facility] [address] [place] [address] Dr. Saroj Cano LACTATE/LACTIC ACIDon 2021 Lactate [Moles/Vol] 1.7 mmol/L Normal 0.4-1.9 [facility] Comment on above: Performed By: #### L ACT #### [facility] [address] [address] [address] Saroj Cano PH VENOUS BLOODon 01-10-2022 PCO2 VENOUS 44.1 mmHg Normal 40.0-52.0 [facility] Comment on above: Performed By: #### P HVEN #### [facility] [address] [place] [address] Dr. Saroj Cano pH VENOUS 7.403 Normal 7.330-7.430 [facility] Comment on above: Performed By: #### P HVEN #### [facility] [address] [place] [address] Dr. Saroj Cano PROF 14(COMP METB)on 022 Albumin [Mass/Vol] 3.3 g/dL Critically low 3.4-5.0 [facility] Comment on above: Performed By: #### P TT, PT #### [facility] [address] [place] [address] Dr. Saroj Cano Albumin/Globulin [Mass ratio] 0.9 {ratio} Normal [facility] Comment on above: Performed By: #### P TT, PT #### [facility] [address] [place] [address] Dr. Saroj Cano ALP [Catalytic activity/Vol] 103 U/L Normal 46-116 [facility] Comment on above: Performed By: #### P TT, PT #### [facility] [address] [place] [address] Dr. Saroj Cano ALT [Catalytic activity/Vol] 43 U/L Normal 14-59 [facility] Comment on above: Performed By: #### P TT, PT #### [facility] [address] [place] [address] Dr. Saroj Cano Anion gap [Moles/Vol] 15.6 mmol/L Normal [facility] Comment on above: Performed By: #### P TT, PT #### [facility] [address] [place] [address] Dr. Saroj Cano AST [Catalytic activity/Vol] 16 U/L Normal 15-37 [facility] Comment on above: Performed By: #### P TT, PT #### [facility] [address] [address] [address] Saroj Cano Bilirubin [Mass/Vol] 0.3 mg/dL Normal 0.2-1.0 [facility] Comment on above: Performed By: #### P TT, PT #### [facility] [address] [address] [address] Saroj Cano Calcium [Mass/Vol] 9.4 mg/dL Normal 8.5-10.1 [facility] Comment on above: Performed By: #### P TT, PT #### [facility] [address] [address] [address] Saroj Cano Chloride [Moles/Vol] 103 mmol/L Normal 98-107 [facility] Comment on above: Performed By: #### P TT, PT #### [facility] [address] [place] [address] Dr. Saroj Cano CO2 [Moles/Vol] 26.8 mmol/L Normal 21.0-32.0 [facility] Comment on above: Performed By: #### P TT, PT #### [facility] [address] [place] [address] Dr. Saroj Cano Creatinine [Mass/Vol] 1.00 mg/dL Normal 0.55-1.02 [facility] Comment on above: Performed By: #### P TT, PT #### [facility] [address] [place] [address] Dr. Saroj Caon EGFR-AF [place]IZ[place] OF [place] >60 Normal >=60 [facility] Comment on above: Performed By: #### P TT, PT #### [facility] [address] [place] [address] Dr. Saroj Cano EGFR-NON AF CITIZEN OF [place] 57 mL/min/1.73m2 Critically low >=60 [facility] Comment on above: Performed By: #### P TT, PT #### [facility] [address] [place] [address] Dr. Saroj Cano Globulin (S) [Mass/Vol] 3.7 g/dL Normal [facility] Comment on above: Performed By: #### P TT, PT #### [facility] [address] [address] [address] Saroj Cano Glucose [Mass/Vol] 151 mg/dL Critically high 74-106 [facility] Comment on above: Performed By: #### P TT, PT #### [facility] [address] [address] [address] Saroj Cano Potassium [Moles/Vol] 3.5 mmol/L Normal 3.5-5.1 [facility] Comment on above: Performed By: #### P TT, PT #### [facility] [address] [address] [address] Saroj Cano Protein [Mass/Vol] 7.0 g/dL Normal 6.4-8.2 [facility] Comment on above: Performed By: #### P TT, PT #### [facility] [address] [address] [address] Saroj Cano Sodium [Moles/Vol] 142 mmol/L Normal 136-145 [facility] Comment on above: Performed By: #### P TT, PT #### [facility] [address] [address] [address] Saroj Cano Urea nitrogen [Mass/Vol] 9.0 mg/dL Normal 7.0-18.0 [facility] Comment on above: Performed By: #### P TT, PT #### [facility] [address] [address] [address] Saroj Cano Urea nitrogen/Creatinine [Mass ratio] 9.0 mg/mg Normal [facility] Comment on above: Performed By: #### P TT, PT #### [facility] [place] [facility] [address] [address] [address] Saroj Cano PROTIMEon 01-10-2022 INR Coag (PPP) [Relative time] 1.01 {INR} [facility] Comment on above: Performed By: #### P TT, PT #### [facility] [place] [facility] [address] [address] [address] Saroj Cano INR GUIDELINES SEE BELOW Normal [facility] Comment on above: Result Comment: EVGENY RED INR: 2.0 - 3.0 CONDITIONS NOT LISTED BELOW 2.5 - 3.5 FOR PROSTHETIC HEART VALVE REPLACEMENT 2.5 - 3.5 RECURRENT THROMBOSIS Performed By: #### P TT, PT #### [facility] [place] [facility] [address] [place] [address] Dr. Saroj Cano PT Coag (PPP) [Time] 10.9 s Normal 9.0-11.6 [facility] [place] [facility] Comment on above: Performed By: #### P TT, PT #### [facility] [place] [facility] [address] [place] [address] Dr. Saroj Cano PTTon 01-10-2022 aPTT Coag (Bld) [Time] 25.2 s Normal 22.3-36.2 [facility] [place] [facility] Comment on above: Performed By: #### P TT, PT #### [facility] [place] [facility] [address] [place] [address] Dr. Saroj Cano BNPon 01-07-2022 Natriuretic peptide B (Bld) [Mass/Vol] 246.0 pg/mL Normal <=900.0 [facility] Comment on above: Performed By: #### I HANNAH #### [facility] [place] [facility] [address] [place] [address] Dr. Saroj Cano CBC AUTO DIFFon 01-07-2022 BASO # 0.1 103/ul Normal 0.0-0.1 [facility] Comment on above: Performed By: #### I HANNAH #### [facility] [place] [facility] [address] [place] [address] Dr. Saroj Cano Basophils/100 WBC (Bld) 0.6 % Normal 0.2-2.0 [facility] [place] [facility] Comment on above: Performed By: #### I HANNAH #### [facility] [place] [facility] [address] [place] [address] Dr. Saroj Cano EO # 0.1 103/ul Normal 0.0-0.7 [facility] [place] [facility] Comment on above: Performed By: #### I HANNAH #### [facility] [place] [facility] [address] [place] [address] Dr. Saroj Cano Eosinophils/100 WBC (Bld) 0.5 % Critically low 0.9-7.0 [facility] Comment on above: Performed By: #### I HANNAH #### [facility] [place] [facility] [address] [place] [address] Dr. Saroj Cano Erythrocyte distribution width (RBC) [Ratio] 15.2 % Critically high 11.0-15.0 [facility] Comment on above: Performed By: #### I HANNAH #### [facility] [place] [facility] [address] [place] [address] Dr. Saroj Cano Hematocrit (Bld) [Volume fraction] 47.5 % Normal 36.0-48.0 [facility] Comment on above: Performed By: #### I HANNAH #### [facility] [place] [facility] [address] [place] [address] Dr. Saroj Cano Hemoglobin (Bld) [Mass/Vol] 14.6 g/dL Normal 12.0-16.0 [facility] Comment on above: Performed By: #### I HANNAH #### [facility] [place] [facility] [address] [place] [address] Dr. Saroj Cano IG # 0.05 10e3/ul Critically high 0.00-0.03 [facility] Comment on above: Performed By: #### I HANNAH #### [facility] [place] [facility] [address] [place] [address] Dr. Saroj Cano IG % 0.5 % Normal 0.0-0.5 [facility] Comment on above: Performed By: #### I HANNAH #### [facility] [place] [facility] [address] [place] [address] Dr. Saroj Cano LYMPH # 1.4 103/ul Normal 1.2-3.8 [facility] Comment on above: Performed By: #### I HANNAH #### [facility] [place] [facility] [address] [place] [address] Dr. Saroj Cano Lymphocytes/100 WBC (Bld) 15.4 % Critically low 20.5-60.0 [facility] Comment on above: Performed By: #### I HANNAH #### [facility] [place] [facility] [address] [place] [address] Dr. Saroj Cano MANUAL DIFF REQ NO Normal [facility] Comment on above: Performed By: #### I HANNAH #### [facility] [place] [facility] [address] [address] [address] Saroj Cano MCH (RBC) [Entitic mass] 27.9 pg Normal 26.7-34.0 [facility] Comment on above: Performed By: #### I HANNAH #### [facility] [place] [facility] [address] [address] [address] Saroj Cano MCHC (RBC) [Mass/Vol] 30.7 g/dL Normal 29.9-35.2 [facility] Comment on above: Performed By: #### I HANNAH #### [facility] [address] [address] [address] Saroj Cano MCV (RBC) [Entitic vol] 90.6 fL Normal 81.0-99.0 [facility] Comment on above: Performed By: #### I HANNAH #### [facility] [address] [address] [address] Saroj Cano MONO # 0.8 103/ul Normal 0.3-0.8 [facility] Comment on above: Performed By: #### I HANNAH #### [facility] [address] [address] [address] Saroj Cano Monocytes/100 WBC (Bld) 8.9 % Normal 1.7-12.0 [facility] Comment on above: Performed By: #### I HANNAH #### [facility] [address] [address] [address] Saroj Cano NEUT # 6.9 103/ul Critically high 1.4-6.5 [facility] Comment on above: Performed By: #### I HANNAH #### [facility] [address] [address] [address] Saroj Cano Neutrophils/100 WBC (Bld) 74.1 % Normal 43.0-75.0 [facility] [place] [facility] Comment on above: Performed By: #### I HANNAH #### [facility] [address] [address] [address] Saroj Cano Platelet mean volume (Bld) [Entitic vol] 9.3 fL Critically low 9.5-13.5 [facility] [place] [facility] Comment on above: Performed By: #### I HANNAH #### [facility] [address] [place], [place] [address] Dr. Saroj Cano PLT 213 103/ul Normal 150-450 [facility] [place] [facility] Comment on above: Performed By: #### I HANNAH #### [facility] [address] [address] [address] Saroj Cano RBC 5.24 106/ul Normal 4.20-5.40 [facility] [place] [facility] Comment on above: Performed By: #### I HANNAH #### [facility] [address] [address] [address] Saroj Cano WBC 9.3 103/ul Normal 4.0-11.0 [facility] [place] [facility] Comment on above: Performed By: #### I HANNAH #### [facility] [place] [facility] [address] [place] [address] HEAD WO CONon [...] DANTE HECTOR Date: 2022-01-07 12:03 Normal [facility] [place] [facility] Covid-19 PCR (CVDTB)on SARS-CoV-2 (COVID-19) RNA RIC+probe Ql (Unsp spec) Not detected Normal NOT DETECTED [facility] [place] [facility] Comment on above: Result Comment: [...] for this test is supported by the [employer] Manager of Health and Human Service's declaration that [...] longer be used). Performed By: #### C VDTBH #### [facility] [place] [facility] [address] [place] [address] Dr. Saroj Cano PROF CHEM 8 (BAS METB)on Anion gap [Moles/Vol] 9.7 mmol/L Normal [facility] Comment on above: Performed By: #### I HANNAH #### [facility] [address] [place] [address] Dr. Saroj Cano Calcium [Mass/Vol] 9.5 mg/dL Normal 8.5-10.1 [facility] Comment on above: Performed By: #### I HANNAH #### [facility] [place] [facility] [address] [place] [address] Dr. Saroj Cano Chloride [Moles/Vol] 103 mmol/L Normal 98-107 [facility] Comment on above: Performed By: #### I HANNAH #### [facility] [place] [facility] [address] [place] [address] Dr. Saroj Cano CO2 [Moles/Vol] 29.3 mmol/L Normal 21.0-32.0 [facility] Comment on above: Performed By: #### I HANNAH #### [facility] [place] [facility] [address] [place] [address] Dr. Saroj Cano Creatinine [Mass/Vol] 0.90 mg/dL Normal 0.55-1.02 [facility] Comment on above: Performed By: #### I HANNAH #### [facility] [place] [facility] [address] [place] [address] Dr. Saroj Cano EGFR-AF CITIZEN OF [place] >60 Normal >=60 [facility] Comment on above: Performed By: #### I HANNAH #### [facility] [place] [facility] [address] [address] [address] Saroj Cano EGFR-NON AF CITIZEN OF [place] >60 Normal >=60 [facility] Comment on above: Performed By: #### I HANNAH #### [facility] [place] [facility] [address] [address] [address] Saroj Cano Glucose [Mass/Vol] 151 mg/dL Critically high 74-106 [facility] Comment on above: Performed By: #### I HANNAH #### [facility] [place] [facility] [address] [address] [address] Saroj Cano Potassium [Moles/Vol] 4.0 mmol/L Normal 3.5-5.1 [facility] Comment on above: Performed By: #### I HANNAH #### [facility] [place] [facility] [address] [address] [address] Saroj Cano Sodium [Moles/Vol] 138 mmol/L Normal 136-145 [facility] Comment on above: Performed By: #### I HANNAH #### [facility] [place] [facility] [address] [address] [address] Saroj Cano Urea nitrogen [Mass/Vol] 15.0 mg/dL Normal 7.0-18.0 [facility] Comment on above: Performed By: #### I HANNAH #### [facility] [place] [facility] [address] [address] [address] Saroj Cano Urea nitrogen/Creatinine [Mass ratio] 16.7 mg/mg Normal [facility] Comment on above: Performed By: #### I HANNAH #### [facility] [place] [facility] [address] [address] [address] Saroj Cano TROPONIN, HIGH SENSITIVITYon 01-07-2022 HSTROP 9.6 pg/mL Normal 4.0-51.3 [facility] Comment on above: Result Comment: CUT- OFF POINTS HAVE BEEN ESTABLISHED BASED ON THE FOURTH UNIVERSAL DEFINITIONS OF MYOCARDIAL INFARCTION. THE UPPER REFERENCE LIMIT (URL) OF TROPONIN, DEFINED THE 99TH PERCENTILE OF cTnI DISTRIBUTION IN A REFERENCE POPULATION, HAS BEEN CONFIRMED THE DECISION THRESHOLD FOR [place] DIAGNOSIS. Performed By: #### I HANNAH #### [facility] [place] [facility] [address] [address] [address] Saroj Cano XR CHEST 1 Von [...] by: DANTE HECTOR Date: 2022-01-07 10:39 Normal [facility] CT LUNG CANCER SCREENINGon 0 12-10-2021 CT [...] DANTE HECTOR Date: 2021-12-10 14:15 Normal [facility] [place] [facility] VC COMP CONSULTATIONon 12-02 VC COMP CONSULTATION Patient: ELZA LEONARD Exam Date: 12/02/2021 : 1965 Gender:F Ordering : DR JARRELL ROUSE . Admission #: [id number] Family : Order #: [id number] CLICK HERE TO VIEW EXAM RADIOLOGY REPORT [...] arterial disease 5. CEAP: C3, EC, , NC PLAN: 1. Continued use of compression stockings [...] Vasquez M.D. on 12/02/2021 at 15:40 Normal [facility] ECHOCARDIO M/2D COMPLETEon 0 11-29-2021 ECHOCARDIO M/2D COMPLETE Patient: NITIN LEONARD Exam Date: 11/29/2021 : 1965 Gender:F Ordering : DR JARRELL ROUSE . Admission #: [id number] Family : Order #: [id number] CLICK HERE TO VIEW EXAM ECHOCARDIOGRAM REPORT [...] John M.D. on 11/29/2021 at 17:43 Normal [facility] [place] [facility] VC VENOUS REFLUX REG LMTon 0 11-25-2021 VC VENOUS REFLUX REG LMT Patient: NITIN LEONARD Exam Date: 11/25/2021 : 1965 Gender:F Ordering : DR JARRELL ROUSE . Admission #: [id number] Family : Order #: [id number] CLICK HERE TO VIEW EXAM RADIOLOGY REPORT [...] chronic thrombus visualized Compressibility: Normal Flow: Normal Coiled Coil Inspector: Dist/med calf 2.2mm with 0s reflux. Tech [...] M.D. on 11/26/2021 at 14:05 Normal [facility] [place] [facility] BNPon 10-22-2021 Natriuretic peptide B (Bld) [Mass/Vol] 207.0 pg/mL Normal <=900.0 [facility] Comment on above: Performed By: #### I HANNAH #### [facility] [place] [facility] [address] [address] [address] Saroj Cano CBC AUTO DIFFon 10-22-2021 BASO # 0.1 103/ul Normal 0.0-0.1 [facility] Comment on above: Performed By: #### P TT, PT #### [facility] [place] [facility] [address] [address] [address] Saroj Cano Basophils/100 WBC (Bld) 0.9 % Normal 0.2-2.0 [facility] Comment on above: Performed By: #### P TT, PT #### [facility] [place] [facility] [address] [address] [address] Saroj Cano EO # 0.2 103/ul Normal 0.0-0.7 [facility] Comment on above: Performed By: #### P TT, PT #### [facility] [place] [facility] [address] [place] [address] Dr. Saroj Cano Eosinophils/100 WBC (Bld) 1.6 % Normal 0.9-7.0 [facility] Comment on above: Performed By: #### P TT, PT #### [facility] [place] [facility] [address] [place] [address] Dr. Saroj Cano Erythrocyte distribution width (RBC) [Ratio] 14.3 % Normal 11.0-15.0 [facility] Comment on above: Performed By: #### P TT, PT #### [facility] [place] [facility] [address] [place] [address] Dr. Saroj Cano Hematocrit (Bld) [Volume fraction] 41.6 % Normal 36.0-48.0 [facility] Comment on above: Performed By: #### P TT, PT #### [facility] [place] [facility] [address] [place] [address] Dr. Saroj Cano Hemoglobin (Bld) [Mass/Vol] 12.9 g/dL Normal 12.0-16.0 [facility] Comment on above: Performed By: #### P TT, PT #### [facility] [place] [facility] [address] [place] [address] Dr. Saroj Cano IG # 0.05 10e3/ul Critically high 0.00-0.03 [facility] Comment on above: Performed By: #### P TT, PT #### [facility] [place] [facility] [address] [place] [address] Dr. Saroj Cano IG % 0.5 % Normal 0.0-0.5 [facility] [place] [facility] Comment on above: Performed By: #### P TT, PT #### [facility] [place] [facility] [address] [place] [address] Dr. Saroj Cano LYMPH # 2.5 103/ul Normal 1.2-3.8 [facility] [place] [facility] Comment on above: Performed By: #### P TT, PT #### [facility] [place] [facility] [address] [place] [address] Dr. Saroj Cano Lymphocytes/100 WBC (Bld) 25.0 % Normal 20.5-60.0 [facility] [place] [facility] Comment on above: Performed By: #### P TT, PT #### [facility] [place] [facility] [address] [place] [address] Dr. Saroj Cano MANUAL DIFF REQ NO Normal [facility] Comment on above: Performed By: #### P TT, PT #### [facility] [place] [facility] [address] [place] [address] Dr. Saroj Cano MCH (RBC) [Entitic mass] 27.7 pg Normal 26.7-34.0 [facility] [place] [facility] Comment on above: Performed By: #### P TT, PT #### [facility] [place] [facility] [address] [place] [address] Dr. Saroj Cano MCHC (RBC) [Mass/Vol] 31.0 g/dL Normal 29.9-35.2 [facility] [place] [facility] Comment on above: Performed By: #### P TT, PT #### [facility] [place] [facility] [address] [place] [address] Dr. Saroj Cano MCV (RBC) [Entitic vol] 89.3 fL Normal 81.0-99.0 [facility] [place] [facility] Comment on above: Performed By: #### P TT, PT #### [facility] [place] [facility] [address] [place] [address] Dr. Saroj Cano MONO # 0.9 103/ul Critically high 0.3-0.8 [facility] Comment on above: Performed By: #### P TT, PT #### [facility] [place] [facility] [address] [place] [address] Dr. Saroj Cano Monocytes/100 WBC (Bld) 8.8 % Normal 1.7-12.0 [facility] [place] [facility] Comment on above: Performed By: #### P TT, PT #### [facility] [place] [facility] [address] [place] [address] Dr. Saroj Cano NEUT # 6.2 103/ul Normal 1.4-6.5 [facility] [place] [facility] Comment on above: Performed By: #### P TT, PT #### [facility] [place] [facility] [address] [place], [place] [id number] Dr. Saroj Cano Neutrophils/100 WBC (Bld) 63.2 % Normal 43.0-75.0 [facility] [place] [facility] Comment on above: Performed By: #### P TT, PT #### [facility] [place] [facility] [address] [place] [address] Dr. Saroj Cano Platelet mean volume (Bld) [Entitic vol] 9.9 fL Normal 9.5-13.5 [facility] [place] [facility] Comment on above: Performed By: #### P TT, PT #### [facility] [place] [facility] [address] [place] [address] Dr. Saroj Cano PLT 305 103/ul Normal 150-450 [facility] Comment on above: Performed By: #### P TT, PT #### [facility] [place] [facility] [address] [place] [address] Dr. Saroj Cano RBC 4.66 106/ul Normal 4.20-5.40 [facility] Comment on above: Performed By: #### P TT, PT #### [facility] [place] [facility] [address] [place] [address] Dr. Saroj Cano WBC 9.8 103/ul Normal 4.0-11.0 [facility] Comment on above: Performed By: #### P TT, PT #### [facility] [address] [place] [address] Dr. Saroj Cano FREE THYROXINE INDEX T7on FTI 3.70 Normal 1.30-4.50 [facility] [place] [facility] Comment on above: Performed By: #### P TT, PT #### [facility] [address] [place] [address] Dr. Saroj Cano T3U 37.0 % Normal 30.0-39.0 [facility] [place] [facility] Comment on above: Performed By: #### P TT, PT #### [facility] [place] [facility] [address] [place] [address] Dr. Saroj Cano T4 [Mass/Vol] 10.00 ug/dL Normal 4.80-13.90 [facility] Comment on above: Performed By: #### P TT, PT #### [facility] [place] [facility] [address] [address] [address] Saroj Cano IRONon 10-22-2021 Iron [Mass/Vol] 68.0 ug/dL Normal 50.0-170.0 [facility] Comment on above: Performed By: #### I HANNAH #### [facility] [place] [facility] [address] [place] [address] Dr. Saroj Cano PROF 14(COMP METB)on 022 Albumin [Mass/Vol] 3.0 g/dL Critically low 3.4-5.0 [facility] Comment on above: Performed By: #### P TT, PT #### [facility] [place] [facility] [address] [place] [address] Dr. Saroj Cano Albumin/Globulin [Mass ratio] 0.8 {ratio} Normal [facility] Comment on above: Performed By: #### P TT, PT #### [facility] [place] [facility] [address] [place] [address] Dr. Saroj Cano ALP [Catalytic activity/Vol] 129 U/L Critically high 46-116 [facility] Comment on above: Performed By: #### P TT, PT #### [facility] [place] [facility] [address] [place] [address] Dr. Saroj Cano ALT [Catalytic activity/Vol] 23 U/L Normal 14-59 [facility] Comment on above: Performed By: #### P TT, PT #### [facility] [place] [facility] [address] [place] [address] Dr. Saroj Cano Anion gap [Moles/Vol] 12.7 mmol/L Normal [facility] Comment on above: Performed By: #### P TT, PT #### [facility] [place] [facility] [address] [place] [address] Dr. Saroj Cano AST [Catalytic activity/Vol] 13 U/L Critically low 15-37 [facility] Comment on above: Performed By: #### P TT, PT #### [facility] [place] [facility] [address] [place] [address] Dr. Saroj Cano Bilirubin [Mass/Vol] 0.2 mg/dL Normal 0.2-1.0 [facility] Comment on above: Performed By: #### P TT, PT #### [facility] [place] [facility] [address] [address] [address] Saroj Cano Calcium [Mass/Vol] 8.8 mg/dL Normal 8.5-10.1 [facility] Comment on above: Performed By: #### P TT, PT #### [facility] [place] [facility] [address] [address] [address] Saroj Cano Chloride [Moles/Vol] 106 mmol/L Normal 98-107 [facility] Comment on above: Performed By: #### P TT, PT #### [facility] [place] [facility] [address] [address] [address] Saroj Cano CO2 [Moles/Vol] 28.1 mmol/L Normal 21.0-32.0 [facility] Comment on above: Performed By: #### P TT, PT #### [facility] [place] [facility] [address] [place] [address] Dr. Saroj Cano Creatinine [Mass/Vol] 0.72 mg/dL Normal 0.55-1.02 [facility] Comment on above: Performed By: #### P TT, PT #### [facility] [place] [facility] [address] [address] [address] Saroj Cano EGFR-AF CITIZEN OF [place] >60 Normal >=60 [facility] Comment on above: Performed By: #### P TT, PT #### [facility] [place] [facility] [address] [place] [address] Dr. Saroj Cano EGFR-NON AF CITIZEN OF [place] >60 Normal >=60 [facility] Comment on above: Performed By: #### P TT, PT #### [facility] [place] [facility] [address] [address] [address] Saroj Cano Globulin (S) [Mass/Vol] 3.7 g/dL Normal [facility] Comment on above: Performed By: #### P TT, PT #### [facility] [place] [facility] [address] [address] [address] Saroj Cano Glucose [Mass/Vol] 122 mg/dL Critically high 74-106 [facility] Comment on above: Performed By: #### P TT, PT #### [facility] [place] [facility] [address] [address] [address] Saroj Cano Potassium [Moles/Vol] 3.8 mmol/L Normal 3.5-5.1 [facility] Comment on above: Performed By: #### P TT, PT #### [facility] [address] [address] [address] Saroj Cano Protein [Mass/Vol] 6.7 g/dL Normal 6.4-8.2 [facility] Comment on above: Performed By: #### P TT, PT #### [facility] [address] [address] [address] Saroj Cano Sodium [Moles/Vol] 143 mmol/L Normal 136-145 [facility] Comment on above: Performed By: #### P TT, PT #### [facility] [place] [facility] [address] [place] [address] Dr. Saroj Cano Urea nitrogen [Mass/Vol] 13.0 mg/dL Normal 7.0-18.0 [facility] Comment on above: Performed By: #### P TT, PT #### [facility] [address] [place] [address] Dr. Saroj Cano Urea nitrogen/Creatinine [Mass ratio] 18.1 mg/mg Normal [facility] Comment on above: Performed By: #### P TT, PT #### [facility] [address] [place] [address] Dr. Saroj Cano TSHon 10-22-2021 TSH 1.202 uIU/mL Normal 0.358-3.740 [facility] Comment on above: Performed By: #### I HANNAH #### [facility] [address] [place] [address] Dr. Saroj Cano US ELVA DOP LEG LTon 10-23-19 US ELVA DOP LEG LT EXAMINATION: US ELVA DOP LEG LT HISTORY: Dyspnea COMPARISON: No relevant comparison available. TECHNIQUE: Grayscale, color and Doppler ultrasound FINDINGS: Region: Left leg Thrombus: None Flow: Normal Augmentation: Normal Compressibility: Normal IMPRESSION: No deep vein thrombus in the left leg *Exam performed in accordance with [facility] practice guidelines- Peripheral venous ultrasound, July 28, 2009. Electronically authenticated by: DANTE HECTOR Date: 2021-10-22 07:07 Normal [facility] XR CHEST 2 Von 10-21-2021 XR CHEST [...] by: CORWIN ASHLEY Date: 2021-10-21 17:53 Normal [facility] CARDIAC STRESS/REST INJE CTIONon 10-09-2020 [facility] CARDIAC STRESS/REST INJECTION Patient Name: NITIN LEONARD STUDY: MYOCARDIAL PERFUSION STRESS TEST WITH LEXISCAN Performing facility: [facility], [address] [place] [address], [address], [address] Provider: Chiquis Laguna MD PCP: Dr. Lily Rouse Supervising provider: Carlos Knox DO, [facility] INDICATION: Chest Pain; HISTORY: Gender: F; Age: 55 y/o ; Height: 154.94 cm; Weight: 84.5740057 kg. High Cholesterol; Palpitations; HTN; Chest Pain; SOB; COPD; Denies smoking. COMPARISON: No comparison. ACCESSION NUMBER(S): [id number]; [id number]; [id number] ORDERING CLINICIAN: CHIQUIS LAGUNA TECHNIQUE: ONE DAY [...] comparison. Electronically signed by: HODA SLAUGHTER MD [facility] Vital Signs Date Time Vital Sign Value Performing Clinician Slime wheeler 07-14-2022 10:49-0400 Blood Pressure Location Candace JESSICA [facility] 07-14-2022 10:49-0400 Diastolic blood pressure 72 mm[Hg] Candace LOPEZ [facility] 07-14-2022 10:49-0400 Heart rate 84 /min Candace LOPEZ [facility] 07-14-2022 10:49-0400 SaO2% (BldA) [Mass fraction] 93 % Candace LOPEZ [facility] 07-14-2022 10:49-0400 Systolic blood pressure 124 mm[Hg] Candace LOPEZ [facility] 06-05-2022 10:42-0500 Blood Pressure Location Evin Renteria [facility] 06-05-2022 10:42-0500 Diastolic blood pressure 78 mm[Hg] Evin Renteria [facility] 06-05-2022 10:42-0500 Heart rate 84 /min Evin Renteria [facility] 06-05-2022 10:42-0500 SaO2% (BldA) [Mass fraction] 91 % Evin Renteria [facility] 06-05-2022 10:42-0500 Systolic blood pressure 131 mm[Hg] Evin Renteria [facility] Encounters Encounter Date Encounter Type Care Provider Facility Start: 09-03-2023 ambulatory [facility] Start: 08-19-2023 End: 08-20-2023 ambulatory [facility] Start: 07-08-2023 End: 07-09-2023 ambulatory [facility] Start: 07-08-2023 End: 07-08-2023 ambulatory [facility] Start: 06-02-2023 End: 06-02-2023 ambulatory JUDE CHAN Not Available Start: 04-28-2023 End: 04-28-2023 ambulatory JUDE Rajput DUSTIN Not Available Start: 04-22-2023 End: 04-22-2023 ambulatory [facility] Start: 04-21-2023 End: 04-21-2023 ambulatory JUDE Rajput DUSTIN Not Available Start: 04-14-2023 End: 04-14-2023 ambulatory JDUE Rajput DUSTIN Not Available Start: 04-07-2023 End: 04-07-2023 ambulatory JUDE M DUSTIN Not Available Start: 03-30-2023 End: 03-30-2023 ambulatory JUDE Rajput DUSTIN Not Available Start: 11-10-2022 End: 11-11-2022 Pre-admission assessment Evin Renteria [facility] Start: 10-23-2022 End: 10-23-2022 ambulatory [facility] Start: 10-13-2022 End: 10-14-2022 ambulatory Evin RENTERIA Facility:[facility] Start: 09-10-2022 End: 10-01-2022 ambulatory PUJA LOPEZ . Facility: Start: 07-14-2022 End: 07-15-2022 ambulatory Candace L JESSICA Facility:[facility] Start: 07-14-2022 End: 07-14-2022 Patient encounter procedure Candace Robins KEANUAnn [facility] Start: 07-09-2022 End: 07-10-2022 ambulatory Evin Pearce RENTERIA Facility:[facility] Start: 07-09-2022 End: 07-09-2022 Patient encounter procedure Evin Pearce Renteria [facility] Start: 06-12-2022 End: 06-13-2022 ambulatory Evin Pearce RENTERIA Facility:[facility] Start: 06-12-2022 End: 06-12-2022 Patient encounter procedure Evin Renteria [facility] Start: 06-10-2022 End: 06-11-2022 ambulatory Evin Pearce MYRA Facility:[facility] Start: 06-10-2022 End: 06-10-2022 Patient encounter procedure Evin Renteria [facility] Start: 06-06-2022 End: 06-07-2022 ambulatory PUJA LOPEZ . Facility: Start: 06-05-2022 End: 06-06-2022 ambulatory PUJAALEKSANDRA LOPEZ Facility:[facility] Start: 06-05-2022 End: 06-05-2022 Patient encounter procedure Evin Pearce Myra [facility] Start: 05-29-2022 ambulatory PUJAALEKSANDRA LOPEZ . Facility :[facility] Start: 04-22-2022 End: 04-23-2022 ambulatory PUJA SAM . Facility:[facility] Start: 01-20-[address] JARRELL ROUSE . Facili ty:[facility] Start: 01-10-2022 End: 01-12-[address] JARRELL ROUSE . Facility:[facility] Start: 01-07-2022 End: 01-07-[address] JARRELL ROUSE . Facility:[facility] Start: 01-01-[address] JARRELL ROUSE . Facili ty:[facility] Start: 12-10-2021 End: 12-11-2021 ambulatory PUJA LOPEZ . Facility:[facility] Start: 12-02-2021 End: 12-03-[address] JARRELL ROUSE . Facility:[facility] Start: 11-29-2021 End: 11-30-[address] JARRELL ROUSE . Facility:[facility] Start: 11-25-2021 End: 11-26-[address] JARRELL [...] Date Payer Category Payer Unknown 2018 Unknown [id number] 1965 Unknown [id number] 2.16.84 0.1.533477.3.579.2.593 1965 Unknown [id number] 2.16.84 0.1.688401.3.579.2.593 1965 Unknown [id number] 2.16.84 0.1.844341.3.579.2.593 1964 Unknown [id number] 2.16.84 0.1.624264.3.579.2.593 1964 Unknown [id number] 2.16.84 0.1.209020.3.579.2.593 1964 Unknown [id number] 2.16.84 0.1.101400.3.579.2.593 1964 Unknown [id number] 2.16.84 0.1.480654.3.579.2.593 1964 Unknown [id number] 2.16.84 0.1.402169.3.579.2.593 1964 Unknown [id number] 2.16.84 0.1.436574.3.579.2.593 1964 Unknown [id number] 2.16.84 0.1.050581.3.579.2.593 1964 Unknown [id number] 2.16.84 0.1.815597.3.579.2.593 1964 Unknown [id number] 2.16.84 0.1.823655.3.579.2.593 1964 Unknown [id number] 2.16.84 0.1.017534.3.579.2.593 1964 Unknown [id number] 2.16.84 0.1.278506.3.579.2.593 1964 Unknown [id number] 2.16.8 40.1.564509.3.579.2.727 1964 Unknown [id number] 2.16.8 40.1.374153.3.579.2.727 1964 Unknown [id number] 2.16.8 40.1.520826.3.579.2.727 1964 Unknown [id number] 2.16.8 40.1.838276.3.579.2.727 1964 Unknown [id number] 2.16.8 40.1.515774.3.579.2.727 1964 Unknown [id number] 2.16.8 40.1.982072.3.579.2.727 1964 Unknown [id number] 2.16.84 0.1.419514.3.579.2.1259 1964 Unknown [id number] 2.16.840 .1.682074.3.579.2.1259 1964 Unknown [id number] 2.16.840 .1.545009.3.579.2.1259 1964 Unknown [id number] 2.16.840 .1.508966.3.579.2.1259 1964 Unknown [id number] 2.16.840 .1.724079.3.579.2.1259 1964 Unknown [id number] 2.16.840 .1.548561.3.579.2.1259 1960 Self-pay [id number] 1960 Unknown [id number] Social History Date Type Detail Facility Start: 12-28-2019 End: 10-13-2022 Tobacco smoking status Ex-smoker (finding) [facility] Tobacco smoking status Smokeless tobacco user within last 30 days [facility] Sex Assigned At Female [facility] Functional Status Date Assessment Result Facility 07-14-2022 Functional Status No [facility] 06-05-2022 Functional Status No [facility] Clinical Notes 06-05-2022 to 09-03-2023 LaboratoryLaboratoryRadiologyRadiologyRadiologyLaboratory Note Date & Type Note Facility 09-03-2023 Note Attestation signed by Alanis Mosqueda MD at 09/04/2023 11:05 AM Total time spent on day of encounter: 30 minutes Fissure only 80% complete, can proceed with air leak assessment and if there is no evidence of collateral ventilation intraoperatively will proceed with BLVR PATEL. Patient would like to discuss with her primary driver wheelchair and will let us know if she would like to proceed Attending attestation: GC: I personally spoke with this patient via telephone on the day of the encounter, performed the grissom portion(s) of the service and participated in the management and confirm the fellow's documentation. Physical examination was not performed and may limit some portions of the clinical encounter. Please note there may be an additional personal documentation from me. Pulmonary Tele Visit Note Patient: Nitin Leonard Age: 58 y.o. : 1965 Account No.: [id number] Referring physician: Dr. Lopez Chief complaint: [place] valve evaluation HPI 58 years old female past medical history significant for smoking quit June 2022, COPD emphysema on Breztri, on oxygen as needed. Patient was referred to us by Dr. Lopez for Zypher valve evaluation. Patient endorsing exertional shortness of breath, denies any flareup in the past year, compliant with inhalers. PFT on 03/06/2023 FVC 71% predicted FEV1 is 42% predicted FEV1/FVC is 46 RV 179% predicted TLC 130% predicted Corrected DLCO 86% Past Medical History: Diagnosis Date COPD (chronic obstructive pulmonary disease) ([facility]) Hyperlipidemia Hypertension Past Surgical History: Procedure Laterality Date CATARACT EXTRACTION March-April 2023 Allergies: Acetaminophen, Other, Oxycodone, Oxycodone-acetaminophen, and Propoxyphene n-acetaminophen Prior to Admission medications Medication Sig Start Date End Date Taking? Authorizing Provider albuterol 90 mcg/actuation inhaler Inhale 90 puffs if needed each day. 07/30/22 Yes Historical Provider, ALPRAZolam (Xanax) 0.5 mg tablet Take 0.5 mg by mouth if needed in the morning, at noon, and at bedtime. 10/21/22 Yes Historical Provider, aspirin 81 mg EC tablet Take 81 mg by mouth in the morning. Yes Historical Provider, atorvastatin (Lipitor) 80 mg tablet Take 1 tablet (80 mg) by mouth in the morning. 10/23/22 10/23/23 Yes MD Everardo Reveles Aerosphere 160-9-4.8 mcg/actuation HFA aerosol inhaler 160 puffs in the morning and at bedtime. 06/19/22 Yes Historical Provider, MD buPROPion XL (Wellbutrin XL) 300 mg 24 hr tablet Take 300 mg by mouth in the morning. 08/05/22 Yes Historical Provider, desvenlafaxine (Pristiq) 100 mg 24 hr tablet Take 50 mg by mouth in the morning. 07/12/22 Yes Historical Provider, dilTIAZem CD (Cardizem CD) 240 mg 24 hr capsule Take 240 mg by mouth in the morning. 07/01/22 Yes Historical Provider, Dupixent Pen 300 mg/2 mL pen injector 03/26/23 Yes Historical Provider, ezetimibe (Zetia) 10 mg tablet Take 1 tablet (10 mg) by mouth in the morning. 04/22/23 04/21/24 Yes Andrea John MD gabapentin (Neurontin) 600 mg tablet Take 600 mg by mouth in the morning and at bedtime. 10/06/22 Yes Historical Provider, lisinopril 10 mg tablet Take 10 mg by mouth in the morning. 08/05/22 Yes Historical Provider, meloxicam (Mobic) 15 mg tablet Take 15 mg by mouth in the morning. 08/05/22 Yes Historical Provider, metFORMIN (Glucophage) 500 mg tablet Take 500 mg by mouth with breakfast and with evening meal. 04/20/23 Yes Historical Provider, metoprolol tartrate (Lopressor) 25 mg tablet Take 25 mg by mouth in the morning and at bedtime. 08/05/22 Yes Historical Provider, montelukast (Singulair) 10 mg tablet Take 10 mg by mouth in the morning. 08/05/22 Yes Historical Provider, omeprazole (PriLOSEC) [address] capsule 1capsule Orally twice daily Yes Historical Provider, pantoprazole (ProtoNix) 40 mg EC tablet Take 40 mg by mouth before breakfast. Do not crush, chew, or split. Yes Historical Provider, predniSONE (Deltasone) 10 mg tablet Take 10 mg by mouth. 12/10/21 Yes Historical Provider, theophylline ER (Uniphyl) 400 mg 24 hr tablet Take 400 mg by mouth in the morning. 04/02/23 Yes Historical Provider, hydroCHLOROthiazide (Microzide) 12.5 mg capsule Take 12.5 mg by mouth. 10/13/22 04/22/23 Historical Provider, Social history: reports that she has quit smoking. Her smoking use included cigarettes. She has never used smokeless tobacco. She reports current alcohol use. Family History Problem Relation Name Age of Onset Diabetes Mother Stroke Father Review of Systems: -ve except as above Labs Results: No results found for: HGB , HCT , WBC , BUN , CREATININE , NA , K , BICARB , CO2 , PH , PHART , PHVEN , PCO2P (more content not included)... [facility] 08-11-2023 Note . [facility] 04-22-2023 Note ID Cardiology - [facility] Subjective Nitin Leonard is a [...] Disp: , Rfl (more content not included)... [facility] 10-23-2022 Note ID Cardiology - [facility] Jesus Leonard is a 57 y.o. year old [...] alkaline phosphatase mil (more content not included)... [facility] 10-13-2022 Evaluation + Plan note Future Scheduled TestsLipid Panel 10/13/22Lipid Panel 08/25/22 [facility] 07-12-2022 Note Echocardiology Procedure Exam Date/Time Accession # Ordering Echo Transthoracic 07/09/2022 11:28 EST [id number] Evin Renteria MD Complete CPT code 72323 25029 Reason for Exam (Echo Transthoracic Complete) R06.09;Shortness of breath (SOB) Report Version: 1 Study ID: [id number] [facility] [address] [place] [address] Adult Echocardiogram Report Name: NITIN LEONARD Study Date: 07/09/2022, 11: 00 AM Patient Location: [facility] : 1965 (MM/DD/YYYY) Gender: Female Age: 57 Years Height: 152.4 cm BP: 131 / 80 mmHg Weight: 95.256 kg HR: 70 bpm BSA: 1.91 m? Ordering Physician: Evin Renteria Referring Physician: Evin Renteria Performed By: Mila Flores, JEEVAN, RVT Reason For Study: Shortness of breath (SOB) [...] Holt MD Transcribed by: [facility] Technologist: [facility] 06-18-2022 Hospital Discharge instructions Follow Up Care 06/18/2022 13:52:29 With:Evin Renteria MD Address: [address] [place] [phone] When:3 months Comments:FU after visit with driver wheelchair [facility] 06-05-2022 Evaluation + Plan note Future Scheduled TestsLipid Panel 06/05/22NM Myocardial Spect Rest/Stress 1 Day 06/05/22Echo Transthoracic Complete 06/05/22 [facility] Evaluation + Plan note Future Appointments Appointment Date:06/12/2022 12:00:00 PM Scheduled [facility] Appointment Type:NM Myocard Spect Multi Rest/Stress-Res Appointment Date:06/12/2022 01:00:00 PM Scheduled Provider: Location:[facility] Appointment Type:NM Myocard Spect Multi Rest/Stress - R Appointment Date:06/12/2022 01:30:00 PM Scheduled Provider: Location:[facility] Appointment Type:NM Myocard Spect Multi Rest/Stress-Str Appointment Date:06/12/2022 02:30:00 PM Scheduled Provider: [facility] Appointment Type:NM Myocar Spect Multi Rest/Stress - St Appointment Date:07/09/2022 11:00:00 AM Scheduled Provider: [facility]oint[facility] Type:CV Echo ([facility]) Future Scheduled TestsNM Myocardial Spect Rest/Stress 1 Day 06/12/22Echo Transthoracic Complete 07/09/22 [facility] Evaluation + Plan note Future Appointments Appointment Date:07/09/2022 11:00:00 AM Scheduled Provider: [facility] Appoint[facility] Type:CV Echo (FT) Future Scheduled TestsEcho Transthoracic Complete 07/09/22 [facility] Evaluation + Plan note Future Appointments Appointment Date:07/14/2022 11:00:00 AM Scheduled Provider:Candace LOPEZ CNP Location:[facility] Appointment Type:Cardiology Follow Up (FT) [facility] Evaluation + Plan note Future Appointments Appointment Date:10/13/2022 11:15:00 AM Scheduled Provider:Evin Renteria MD [facility] Type:Cardiology Follow Up (FT) Future Scheduled TestsLipid Panel 08/25/22 [facility] Hospital course Narrative No data available for this section [facility] Hospital Discharge instructions No data available for this section [facility] Progress note No data available for this section [facility] Summary Purpose Family History No Family History Records FoundNo Family History Records FoundNo Family History Records FoundNo Family History Records FoundNo Family History Records Found Advance Directives No Advanced Directives Records FoundNo Advanced Directives Records FoundNo Advanced Directives Records FoundNo Advanced Directives Records FoundNo Advanced Directives Records Found Additional Source Comments INFORMATION SOURCE (unrecogn ized section and content) DATE CREATED AUTHOR 10/12/2020 [facility] DATE CREATED AUTHOR AUTHOR'S ORGANIZ ATION 10/10/2022 [facility] DATE CREATED AUTHOR AUTHOR'S ORGANIZ ATION 12/11/2022 [facility] DATE CREATED AUTHOR AUTHOR'S ORGANIZ ATION 06/03/2023 [facility] DATE CREATED AUTHOR AUTHOR'S ORGANIZ ATION 09/07/2023 [facility] Patient Care team informatio n (unrecognized section and content) Personnel Name: Jarrell Rouse MD Address: Address: [address] [place] [address] Personnel Name: Jarrell Rouse MD Address: Address: [address] [place] [address] Personnel Name: Jarrell Rouse MD Address: Address: [address] [place] [address] Personnel Name: Jarrell Rouse MD Address: Address: [address] [place] [address] Personnel Name: Jarrell Rouse MD Address: Address: [address] [place] [address] Personnel Name: Jarrell Rouse MD Address: Address: [address] [place] [address] FOR RECORDS PERTAINING TO PATIENTS WHO ARE [...] BE BASED ON THE PRIMARY CLINICAL RECORDS. [employer] provides no warranty or guarantee of the accuracy or completeness of information in this document.
--- NOTE | 2023-12-02 15:22 | W.PM.PROCNOT ---
Date of procedure: 12/02/23 Procedure: 6 Minute Walk Date: 12/01/2023 Indication: Chronic hypoxic respiratory failure Resting data: -BP: 148/88 -HR: 124 -SpO2: 94% -FiO2: Room air -Luis Angel: 0 Description: 6 minute walk was initiated according to standard protocol. Patient ambulated for a total of 6 minutes with the lowest SpO2 at 90%, the highest heart rate at 148, and highest Luis Angel 5. Recovery data: -BP: 165/97 -HR: 146 -SpO2: 92% -FiO2: Room air -Luis Angel: 3 Ambulation: Patient ambulated a total of 213m which is 65% predicted. There was 1 stop reported for dyspnea - she stopped for 2 minutes.. Impressions: No ambulatory desaturations. Mildly decreased walk distance. 1 stop for dyspnea. Increased heart rate which may suggest deconditioning. Recommendations: No supplemental O2 require based on this testing, though unclear if she would be able to stay about 88% if she ambulated for the entire 6 minutes (speculative). Clinical correlation required. Surgeon: Michael Archibald
== END 2023-12-01 09:51 | disposition home or self-care (01) ==
LOC: CARD 09:50
PROVIDERS: PCP Family Medicine; Visit Provider Internal Medicine
DX: J96.11 Chronic respiratory failure with hypoxia (principal)
CPT/HCPCS: 94618

== ENCOUNTER 2023-12-18 12:57 | Outpatient (OUT) | payer OTHER, SELFPAY ==
--- NOTE | 2023-12-18 13:03 | CT_ITS ---
[address] [address] Patient Name: NITIN LEONARD MRN: [id number] date: 1965 Sex: F Assigned Patient Location: CT Current Patient Location: Accession/Order Number: [id number] Exam Date: 12/18/2023 13:05 Report Date: 12/22/2023 07:55 At the request of: PUJA LOPEZ Procedure: CT lung screening low-dose EXAMINATION: CT lung screening low-dose HISTORY: Z87.891 COMPARISON: 12/15/2022 TECHNIQUE: Axial, Coronal, and Sagittal images were created without the administration of IV contrast material. Dose reduction techniques were achieved by using automated exposure control and/or adjustment of mA and/or kV according to patient size and/or use of iterative reconstruction technique. FINDINGS: LUNGS: Scattered subcentimeter solid and semisolid nodules throughout both lungs the largest is in the right lower lobe, axial image 79 measuring 6.6 mm in diameter, semisolid. Mild diffuse centrilobular emphysema PLEURA: No mass, effusion, or pneumothorax. VASCULATURE: No abnormality. DANIEL: No mass or pathologic adenopathy. MEDIASTINUM: No mass or pathologic adenopathy. CARDIAC: No enlargement or pericardial effusion CORONARY ARTERIES: Coronary calcifications are mild. AORTA: No aneurysm or dissection. CHEST WALL: No mass or axillary adenopathy BONES: No bone lesion or fracture. LIMITED ABDOMEN: No suspicious findings. Limited images of the upper abdomen. OTHER: Negative. CT/CT lung screening low-dose IMPRESSION: LUNG SCREENING: Lung-RADS Category 2- Benign Appearance or Behavior. Nodules with a very low likelihood of becoming a clinically active cancer due to size or lack of growth. 2. Continue annual screening with LDCT in 12 months. Electronically authenticated by: DANTE HECTOR Date: 12/22/2023 07:55
== END 2023-12-18 12:58 | disposition home or self-care (01) ==
LOC: CT 12:57
PROVIDERS: PCP Family Medicine; Visit Provider Internal Medicine
DX: J43.9 Emphysema, unspecified (principal); Z87.891 Personal history of nicotine dependence
CPT/HCPCS: 71271

== ENCOUNTER 2024-04-04 12:47 | Outpatient (OUT) | payer OTHER, SELFPAY ==
[2024-04-04 12:57] LABS: Hemoglobin 11.8 g/dL (12.0-16.0)
--- OUTSIDE RECORDS SUMMARY | 2024-04-04 12:59 | XMS_ITS | CCD ---
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 Name Role Phone Jarrell Rouse Primary Care [...] Unavailable TAWNY, DR DANTE Boone Attending Unavailable TANWY, DR DANTE Boone Admitting Unavailable TAWNY, DR [...] HOY ., DR VIEYRA Primary Care Unavailable SH[place]O, DR DANTE Boone Consulting Unavailable SAMSA ., [...] J Admitting Unavailable Evin RENTERIA Attending Unavailable Evin RENTERIA Referring Unavailable Evin RENTERIA Admitting Unavailable Stanton Holt Consulting Unavaila Stanton Sebastian Consulting Unavaila Stanton Sebastian Consulting Unavaila ble Evin RENTERIA Attending Unavailable Bradley RENTERIAel J Referring Unavailable MYRA Evin J Admitting Unavailable Evin RENTERIA Attending Unavailable Evin RENTERIA J Admitting Unavailable SAMSA, PUJA P Referring Unavailable RENTERIA Evin J Attending Unavailable MYRA Evin J Admitting Unavailable OMBALLI, MOHAMED Referring Unavailable OMBALLI, MOHAMED Referring Unavailable OMBALLI, MOHAMED Referring Unavailable OMBALLI, MOHAMED Referring Unavailable OMBALLI, MARCO ANTONIOAMED Attending Unavailable MOUKAANDREA STEELE Attending Unavailable MOUKAANDREA STEELE Attending Unavailable JUDE CHAN Attending Unavailable JUDE CHAN Attending Unavailable JUDE CHAN Attending Unavailable DELVIN CHUA Attending Unavailable VISCDELVIN Clayton Referring Unavailable JUDE CHAN Attending Unavailable JUDE CHAN Attending Unavailable JUDE CHAN Attending Unavailable Allergies Allergy Classification Reported Allergen(s) Allergy Type Date of Onset Reaction(s) Facility (7 sources) Acetaminophen / oxyCODONE; Translations: [acetaminophen-ox ycodone] Drug Allergy Eruption of skin (disorder) [facility] [place] (7 sources) acetaminophen / propoxyphene; Translations: [acetaminophen-pr opoxyphene] Drug Allergy Eruption of skin (disorder) [facility] [place] (1 source) Acetaminophen / oxyCODONE Drug Allergy 5 [facility] Repository (1 source) Darvocet-N 100 Drug allergy (disorder) 5 [facility] (1 source) No Known Medication Allergies; Translations: [No Known Medication Allergies] Propensity to adverse reactions (disorder) [facility] Repository (1 source) Acetaminophen; Translations: [ACETAMINOPHEN] Drug Allergy 4 [facility] (1 source) Acetaminophen / oxyCODONE; Translations: [OXYCODONE-ACETAM INOPHEN] Drug Allergy 3 [facility] (1 source) oxyCODONE; Translations: [OXYCODONE] Drug Allergy 4 [facility] (1 source) OTHER; Translations: [OTHER] Propensity to adverse reactions (disorder) 3 [facility] (1 source) PROPOXYPHENE N-ACETAMINOPHEN; Translations: [PROPOXYPHENE N-ACETAMINOPHEN] Propensity to adverse reactions to drug (disorder) 3 [facility] Medications Current Medications Medication Drug Class(es) [...] Bedtime, # 30 tab(s), Refills(s) 5, [facility]acy: [facility][id number], 153, cm, 07/14/22 10:59:00 EDT, Height/Length Dosing, [...] # 30 cap(s), Refills(s) 5, Pharmacy: [facility][id number], 153, cm, 10/13/22 11:19:00 EDT, Height/Length Dosing, [...] 10-24-2021 Episodic Other aftercare (1 source) Other fdc (current) drug therapy; Translations: [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 The complete report is available in the patient's medical record. If you cannot access the medical record, please contact the sending organization for a detailed fax or copy. EXAMINATION: BI MAMMOGRAM SCREENING TOMOSYNTHESIS BILATERAL CLINICAL HISTORY:screen COMPARISON: August 04, 2017. RESULT: Density: The breasts are almost entirely fatty Overall appearance is stable. There is no suspicious mass, asymmetry, architectural distortion, or calcification IMPRESSION: BIRADS 1 - Negative Follow-up: Routine Screening Mamm Board Certified Radiologists. Accredited by the ACR and FDA. MAMMOGRAPHY IS VERY IMPORTANT TO YOUR HEALTH. THE [place] GUIDELINES RECOMMEND THAT WOMEN 40 YEARS OF AGE AND OLDER SHOULD HAVE A MAMMOGRAM EVERY YEAR. A REMINDER LETTER WILL BE SENT AT THE APPROPRIATE TIME. THIS FACILITY UTILIZES A REMINDER SYSTEM TO ENSURE ALL PATIENTS RECEIVE REMINDER NOTIFICATIONS AT THE APPROPRIATE TIME BASED ON THE RECOMMENDATIONS OF THIS EXAM. THIS INCLUDES REMINDERS FOR ROUTINE SCREENING MAMMOGRAMS, DIAGNOSTIC MAMMOGRAMS IN WHICH THE PATIENT IS ASKED TO RETURN FOR ADDITIONAL VIEWS, OR OTHER BREAST IMAGING INTERVENTIONS WHEN APPROPRIATE. THE PATIENT WILL BE PLACED IN THE APPROPRIATE REMINDER SYSTEM INCLUDING A REMINDER AT THE APPROPRIATE TIME FOR ANY PENDING ADDITIONAL VIEWS. 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 stratx -negative (fissure not complete). Dr Delong to explain. nw Normal [facility] CT CHEST WO IV CONTRASTon CT CHEST WO IV CONTRAST CT CHEST WITHOUT CONTRAST HISTORY: Emphysema, [place] valve consult COMPARISON: 12/15/2022 TECHNIQUE: Routine CT [...] lower lobe. Electronically signed: Puja Lozano. Normal [facility] Office Visiton 04-22-2023 Follow-up visit [id number] Vidal Leonardwilmer Robins 1965 F Date Provider Department Center 04/22/2023 ANDREA VILLAFANA [facility] Family History Problem Relation Age of Onset Diabetes Mother Stroke Father Family Status - Relation Status Age at Mother Father Level of Service:01090 UT OFFICE/OUTPATIENT ESTABLISHED MOD MDM 30 MIN Normal [facility] Referrals Officeon 3 Referrals Office [id number] CD:127 Reached patient on the phone, she states she found a national flatbed truck driver in [place]. Normal [facility] and Vascular Office/Cl inic Noteon [...] for sleep apnea. 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 [...] Oral, Daily (more content not included)... Normal [facility] Comment on above: Result Comment: Elec tronically Signed By: Myra CAMPBELL, Evin Pearce Other Comment: Proba ble no-show. Office Visiton 10-23-2022 Follow-up visit [id number] Nitin Leonard 1965 F Date Provider Department Center 10/23/2022 Emeka-[facility] Family History Problem Relation Age of Onset Diabetes Mother Stroke Father Family Status - Relation Status Age at Mother Father Level of Service:11261 UT OFFICE/OUTPATIENT NEW MODERATE MDM 45-59 MINUTES Reason for Visit and Comments: Establish Care [42] - DIASTOLIC DYSFUNCTION HOY Normal [facility] Consent for Treatmenton 10-02 Consent for Treatment [id number] D:127 Normal [facility] V[facility] Office/Cl inic Noteon 10-13-2022 Heart and Vascular Office/Clinic Note History of Present Illness Patient is a very pleasant 57-year-old moderately obese nondiabetic female with ongoing tobacco use of about 3 cigarettes/day but used to smoke between 1 and 3 packs/day 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 She no longer works in a [employer] shop. She is a former patient of [...] for sleep apnea. 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 [...] depression Ast (more content not included)... Normal [facility] Comment on above: Result Comment: Elec tronically Signed By: Myra CAMPBELL, Evin Pearce\.br\Date and Time Signed: 10/13/22 11:50 EDT Physician Orderon 10-13-2022 Physician Order [id number] CD:127 Normal [facility] Coding Summary.on 07-23-2022 Coding Summary. CD:[id number] Gh0 bWw+PGhlYWQ+IL4DWJMhI84 ieMAufG5kS4DYUHuZEezvLD VJEQeKXaBvngFeXV0jlWZaM XJu IC8+CI7vVHAsTqzydNHro2F 2kFN0Q21dho4gJAqyoPN1UB GvMwCmauxxh2bqrGh5WOxuY mluOyBt DKWozW43MBB3eZ45Cs44tVK rwOWqs8asgRp6LwIfZCIvDE G2lYbqNZdbs2YkHPAeH82mr PHul7N0 UALshMbvrWCsLwMjnVK2tA5 zYXbfpdyyg8kxvqpgAue4oa 18qIJxw6V3zZZ9P5ZimtP6T GJvbGQg FyuleBBQaX8lptkhw9vmmhy dMcErGLCsQJt9IHg5ATGhrA kcYiJyUH27BFG4XHCpykOtF 2FsLWFs lUvsNsC0i6G9Kh4AR3AJHkd jW9GVARQAYRewtVG+PC90cj 60J7AvZsvxOvl8FGQnNBT9c WW5tI4u QFYaXNytv1I9mLX9R0XceuR gzg5fi5maJYTtFUktW52dlV Inq0C3CJDrpWV0KOYwbFllO iBzaG93 Oyc+DBSrdScrc1BsJlxbd5b bu5rzqFf1VkqkQXYhlcWpbM duERH2w8LwHd9pXYWdvFD9l GL8eJ1w FiRvNzX9BEhwP456IqNlvDO gNatwP43xR6WspJX+PHRyPj g2ODMlfJxzTD1iD1KkGBUtg mctbGVm pOalDH3hHFNsziysZGDmqU6 sVMKaX1i2BvQgUpC2NAjcQ0 TcFCZvzwvqYn93xG4sWlTmO oX7YWpk X7OkbiT7KAIpgBAqLGmyYYI 4N22kw8E1JCCpTAHaDTK4nZ H1qY4ttOnbvemyeXZzqQxfn mVydGlj PEmyFBdqH569AFKfkUlxTdS vZGluZyBEYXRlOiAgMDMvMj IvMjAyMzwvdGQ+TQMeWFC0i WxlPSAn oLCxCVjuWz3gbFogkGloIR1 dUJPtzypvJFSmgQ1aYJUypD RvkWgyJQ9oSQHisredy954Q iAxMHB0 VJHpmXCuB7BoyW4tDmVbRBL fSTKqY3JuxZGsAZdbU312LC lcTjB6DOXmcqTmR2PrCNZcw WduOiB0 n8E0Pl2Ej2QrmlwmQ8KszPQ dXnSuMhlbAGj9Y4RsVslfoY I+OR51MNHeXN84OTs3XBB7j WxlPSdi MPYaF6SbwF6xVcVsFARlMGF kOyc+PHRhYmxlIHdpZHRoPS naTYGdLbFtbNquGD7kTx1uD GVyLWNv yAzjuCEvWjXpd9ihKZVqAZe yHQ8krYznD3JwaYO1FQGna9 j3Va31K99mK5RljMY+PGNvb LQ7zIY4 hM3hDoSpAzQ9AVnjU562WoS xjWTqWojad9ldp7earUj5Dd S9DWAukzYwdLxpANS4o9IoZ c02V87r IHdpZHRoPSIxNSUiIHZhbGl uvd0fwU9aYf2+DONoaQH8oL O4cU5vCwWqMkF0KFaqE503L nRvcCIv Sucof2nxm5rosSr6JkHdAFH hdzCefMpjTRK2m9YsYn94J6 HovWvgg1GbKal4ux00lHKfk 8P6rTP4 E3OiVMIfyhmjpQZscHwvSP0 xITSsicpoHLMqtD7pALCoB2 k5UeKgAbL4EJpaD6UhglY7A GJvbGQg LBGkcSCWbV1ocxfbs2qmfwm bNhRqFTGgVWt3YWq2XLDbtP jcVkYpTFW3EtW1DOY8bLYwu Y5kyVbw ejrisH0xYww+YEH3rHCtnPM CKF5nNyapxCV+VGMcBLB6pU whDZglTSIxaB7lQVKwT9c5H iAwLjA1 POvgP7AqhqD8GBApnNTtVOG mtSVSbT7zjxqes0yvpmqqTp ZyRQQxTIp5IMu3NPBnyPdhZ iBsZWZ0 EcE0YFD4pLLefK4mpGzfwoz jbC5lTio+JquklDwkJOA8OY z0O7VkSam9PZKqnEwwGF6wi GFkZGlu Uk3llTebbSmgCL0dBVZmkry ax617AfInj2jfCLPjtWPcIK bkNRT5A57gw6E7JJDiAFSaU SX7aGK9 kY4seWjpyhejqMSxoDvaorR qeNmuTTraFRjgT116BJJxbO nyNgRbZJa0R7RzYlj2XYYed KzbSK2z xGMnECokJd4lnYbniVohVK1 tLXZcxyuze001JmVhh3srSJ CltBUyLJswRIW7Q76cv0K3R CMwMDAw RHQ1mZX9aL5ilTkzwlcliCV mdDsgdmVydGljYWwtYWxpZ2 76FIYdrVdmGjKxeDf0E7LeA kk6OOQw zKnqVT3zmWUgWKrfGj2dyRf ipInzIM1kGXNpkddjn028Cu Hdf9djFKIlgBHeCDfxKTM7D 44at8E2 DHGrYVYiQWP8aYB7eI2inZv nbjogbGVmdDsgdmVydGljYW mdZHiwX450KUHjpAvwTjWmh GllbnQg TVjvBHi0F2MvBqvbkUQ+PC9 0KKSqHH14aDZjuYQhe3lrnO w5RgCbZICbGFD5kKxlGPoou 3JkZXIt O97uvHOfl5K5TLJgsNampLT tJiIdaXP7fP2gIPqlhmnpx2 dmrttmRpfeo3urax59qS24K 29sIHdp ZHRoPSIzMCUiIHZhbGlnbj0 ksX9vLh1+IXCimBP9aKT9wR 6nGOBlScN8RPapQ962CgKen CIvPjxj w5bba9yghDb7WiT2OBGfvyS wjOlnYPH5i8CcAe13A60hYY dpZHRoPSIyMCUiIHZhbGlnb o9kuZ2t Ii8+EGEgwFV2dIT9gM2oCbV aIcE2TLunP791BcCuxBCzXt cwM00uI0LekHW+ARXeDmy5W CBzdHls XM8ukDWzMKdoKc7iRUQ3GdO gXgBvMWemH9KbJFSungikyf lyxJZ9UUViNSPytA00Ag4ds DogMTBw lEZSkT8pezwlo9auggdmMzT bDDIaUIc9FDq9MAMqwPgcTp QrPXL7UfX2BCG9bUAhpQ7za Glnbjog nZ3hP7OvBRKqnjlhBi15mG5 yEpExAjF4MRqkVcg+WlVSQS qjNTATZ3llHSmofFC+PHRkI MG2lWrs YGfcPIGgzG2vGCHiF0t0DdQ mLpH9BWolY5OuPTCyecfcGq 63uY9kPqIsDnB8OZbxJ2Rqu pM2TLQv vIEbCHorDTI8V15rd8G0LES vAKFuWJF8dME0wR7lhDmquc ogbGVmdDsgdmVydGljYWwtY VzcT005 MQLujFroRcQ2NqFgNnQ0OpN 4L1SrGbq6GPIwnZukFO8eiJ DiCTnbOs4jtRucgVprIP6lO TBpbjtw ENIvaA1iJKDakRJrgVxaHK2 uHFFdxfrrx526SgEvEFH7NE XuuAFeQ0AikW7oUzZjCGXoS KNeF8Zr kNAmMUepR908OZxxItL2IJS nihDqF4ZwKOZlqVzfIvB0k7 Q5Bq50OMEKHIPqyxxbwAI+P HRkIHN0 dXnaBKfvSTHksA3gTHHfT2b 2KpQpZmW5FHhoK7PwZHEupb yaJu93iL5oHtIsLvD0YUpbP 8UhylY0 AOEydTTzYSweDSM1L00qs5K 9MEOiCSTwDSB0cCT9fT5cvD lnbjogbGVmdDsgdmVydGljY WwtYWxp D215NYElaAfjRoTqjBDnIMd vdGQ+HQYaDLJ5lRuhBPocQC XdvR5tXJIjG5d8XqBmBnK1I SbwW0Gb YRHnlpcgBa60fN8yFgDkWlY 1DJurB0GnlqO7FJVfqFFiZZ lsZNO7D48ud8S0NTTmPKHzD JF2nUY3 iR8qmZgkfadvnCWszFmqixW joOfnUFfaCZzhN771MNOzyT boUz30oTTzwLjtycZ1L4VlL jwvdHI+ WR48UFQxQH06iKKvwHMal0l jnMh8NjNmNGYvQDA7tWnzSH nhf6UiHYPjQ75pgUXvs1T6X GNvbGxh tNSeZuLbvBN9uY7fADgcyfn pm0pjluxeZvqxi3fomu38sE 87C79dSJjpZCFhOHWzRTUyM HZhbGln bt7ieG9kSj9+DFEjmDH7fUZ 0tQ4gAfLnVpH7ZCyrQ199Vp SrfPHfEdpbs1xwr0twcDh6W jIwJSIg evWkpQytPXI5c6UiMs73L29 sIHdpZHRoPSIyMCUiIHZhbG zrqc1eiI2gUp3+QJ9fz9zmg k89rO58 dHI+UXRmZXC6pNfrWTggLBK hwN2oEJtoHtZ9XCMhMtApqJ 12xNTbNQopJb3waAqpvTxsC T8vRHAx iyldz542AxYus1bmJYZigUP aMWqvOWO5I42mo6Q2VUWlSB ZwKDX9oYE5aQ3vpCoraqjbd GVmdDsg tzMkcUdaDKrnTVorU931UJD mfMumKhJhfOAsO5tltuHUOK 1lOjwvdGQ+HCWbOFC1qHfrV SdwYWRk xG9qXBWjY1j8OrNrFkK5FLf oE1XpflY0IYXzjHZzXFGpqD GEcT6astfak1dqdseeLcYrJ DAwMDt0 SJw5VSMfeMguZoGiFQY2DoU 6NWB3jEZpiE3ssIrmslqdyU 9wOyc+RklOOjwvdGQ+PHRkI RE9jQis FRtqWFTrwF8tJYYwX9l8GvT bXnC1DGhsN5LlnrC5CPHmnN IqDZBkuSIRhS7tpqaqy5rtw jogIzAw RQLoNWt9PXz6KTZckGtsSlB gDPT1GbH2NOP9tLVidH3yrZ hsvbrarX9bVev+TVJOOjwvd GQ+PHRk YZI5iJbvDXmdNBEwhH4xQHB cB0s0IzWzQyR4YIvyY1Nhob P7SOVayWQuDKRumHVFyX4ph pvpd8iy fjynTvUyTWPqPCk4ZNc5DVI ikMvnWgChGFT4LzI2HDJ3uT XwnS8xlJcxlhvvfC1yCyz+U XZ4KAX2 WN94CL64O7NzLohuiUKfcSQ +PHRhYmxlIHdpZHRoPScxMD WqTaZgbIluPT1iAo3oUBMsH WNvbGxh cHNl (more content not included)... Normal [facility] Coding Summary.on 07-16-2022 Coding Summary. CD:[id number] Gh0 bWw+PGhlYWQ+HG9CAXVsX44 whDXomX3mO0JSEFqMKxofGK JIWPcIJeTmwzIfKF5neWOlR XJu IC8+OY4uNWLmBhzghSNwd1P 7hFA7Y93uqe9yFPmlqIQ2ZR FtCiGhyxlyx1tpmIx8HYzoM mluOyBt QUHgiQ21LAL4kC29Jm67wRL mnIXyi3qruSm5ZzVrSDLiPR D4iUczSHhwc4YhJKHtD90cl KZgv2I6 FKNnsUtrrVXvWiFcsMI5jA6 cFPnvxashy4wolnygZmg7er 83iHBwh8N4uVN2G1KvxwY9E GJvbGQg QdphqSEHvE4cgvnwc7sisnd dNrQfWFTlORj1OFr5XDHkhL rbOdMrEU97EFB1FQCmjuOjR 2FsLWFs eNbmObZ6d9A2Ir6YF3TUGhz lO1EXAMBGYIivaUF+PC90cj 07L4LdNpxeFct8HLKhYFN2h JA5wM9h WUMzITjed7U2kGZ9Q4JjtcN jpz9yu1zbRWEfSPgfY53puP Jfi5H9NZWapPU3NLVrwCogV iBzaG93 Oyc+KLQviEuss7QvIntvt0n om9nckFs6PcbsMHYgwaNmiJ keWMM7d6SrPv6yTSTzuYV4x PM0bE6u ErZbTgX5UIhtH729EzVptEY eVailU38bU0EamCR+PHRyPj y9IJSmdJjaUR2gN0XeJBMkb mctbGVm kAzqYT6tAIDertgfWVKjpD8 zATKrB7r3MfYbQwG3ACshY9 ToORYbqskbFv01mE4lPxHpF uX0IOkk M4BllxR2HLWqlXXkSGyqCDG 7Z35zn8C0ZCTmIMKkLBH9fT O9fR4geEsspgfspFGuvYonx mVydGlj WKfmOMlbM448JGBcjDldGfX vZGluZyBEYXRlOiAgMDMvMT UvMjAyMzwvdGQ+RVHjLYH2u WxlPSAn eXXiYJdfPq2nfNhsdElkVA0 kKBSdjxzlLZHwsC6uRRMjbR CosJapRS0yPKDpgxxqh511Q iAxMHB0 NGBgqSDgI7QtkR5mYcFoPHM pSAKyQ9LghYZdYUzjU928UQ gtJoS5CQPsyzMlN5RqEROmc WduOiB0 e3Q9Sf1Wb2FjpcfhE9UbyWS zMlVqQmakFIv7F5DxMovqyC I+IH49NRIcHM82SGx1RHJ9v WxlPSdi YEWtL1UviO5rTtNtJHYwBYF kOyc+PHRhYmxlIHdpZHRoPS mfAANtZgIrmQlaKQ0xZq1mW GVyLWNv dDpvzBIkKeAlv3aoXFXyGHo vGQ1juVeyC1VesVS1YOCwj4 r1Ce52W53tF6GslXZ+PGNvb CS0cDL1 eY0fVzWoNxN5FEveC223JnY ucIBgMwfgv4wst4codNa5Kc X3RAMnleGjfNmhSLA6z7CuL v63G63s IHdpZHRoPSIxNSUiIHZhbGl spm7sbI6sRc3+AEUbyJN2jA E3fU5iTrRoEkN3LIewA619M nRvcCIv Eezsm2dlc4oqnIp8WyAeIEB pkuDiySmtEKV2y8AqRy51U6 AphHzyq2OiUux5wk58dFCaq 9S1xBW3 R1NrMJQheszsiGWhcSrrNS9 oPROyxfqjIJOifV0yONEeQ5 d9VrUvLrI9WSyoE2RgpwV7N GJvbGQg XBWakVAVbU4cengyr1jtrgv yUgBcDROeIKd6ILt5SQCjmA msAtTeYWH8ZaL0EPN5oISxz B0jmHoc cabwtB7cOpu+VBH2cVZwfLL ZVW7bFxiekUU+FGWnILL8kB sxCRujUHNezA7sTJCdU0m1E iAwLjA1 ZDcxV4TybcV3EIMyqTHpZJO bdSPIhD0tqfsbo5hkpjanVq WiIRCvQPd3DOs8YGQwnKmqT iBsZWZ0 PfS2MAH0kBYumR0gsBmahza epS0xHcw+OospfBgmQOE7ST y4Y5YuXfd7EKRahDmzCB7yb GFkZGlu Bp7zkTndgWjcTC4cPWEdalq wh352AtFrg8bjTXCaoLGuSP haRMF1R72ic3A0BQNiYSIfP TN4iHQ6 dM4wmYbjpehijQArsZvuljE rzChxCVocKNicI423DBXvgG cyShBzRMy9E5RlBkg5RSRvl OruPS1c hKXuZQvhJt2szYfddAhhBR0 mBMOrhipzh731OeHjq3dvGC BziOQpELogOLJ7F71mg8V2C CMwMDAw DCZ2pWM3mU5bgDqiwduggDD mdDsgdmVydGljYWwtYWxpZ2 30RRXphHdcLfFdiKb0K7SvJ ws5RHVw yNzaPN1sjKEjIYviXv3ymRj ruTrnTZ4qHCStwmhoz343Ve Fdg6vhMEYluKDbWTlvETB8X 35si3B1 LWWkQYCaMEO3gCW1uG3zlEb nbjogbGVmdDsgdmVydGljYW nkGDmqS495HWYpqGnqPeYex GllbnQg OQchEDn8Q0KoSpivrFH+PC9 4CQHlOK41hWQrsWOqy6nbdG y3AuWyMBJnWDY1tIipFVhpm 3JkZXIt D65oxKKrz5G1NBDtaRuvrKU eRgWrhBW1qD2qWGmombuzq0 uejmkdUqjkl8wwpo22kM93H 29sIHdp ZHRoPSIzMCUiIHZhbGlnbj0 asN0zKn7+OOEvvJA0tHP6sK 2uPJYhSsW3GZllY805ByXuv CIvPjxj m5tdy4kraYd6RqH7HUQvolB gxOjfMOP3h6RoEs97X47wLN dpZHRoPSIyMCUiIHZhbGlnb g3gnA1v Ii8+KVOxiJM1oZA0jA5aJmT uJgU8JXkrT335TpDubVMeOq xvP94wO7SlvXX+ZSMlDbk5Q CBzdHls XE5vqVVzXGiiXp9aWEB2VpL nIlVnXNnsE0KjXPGseevack muwDO9SOHtLCUajX35Rv8jp DogMTBw yCTJfG7byqziv8xsexmwRjY nURVeWTk9QZu7XSHhaOpvXb WbQHY2DiC4GVT4dMCosH5ig Glnbjog aZ7gY0ZxHVTbelnxXa70sQ2 wAsPiMlL6UZmjUix+WlVSQS pjKBEJC7oaWRttnWV+PHRkI CE1wQln FOdxYURybH5lKGIzS0a5JeB sBcO5RGbuZ8CkGNFwzheeQk 21cE9tYqWhUcR9RSrrJ4Wus xM8TRZb uMFgGEsyWBZ0C11xi8R6GHE eYRVsVWA0jKY1aT1jhZshtx ogbGVmdDsgdmVydGljYWwtY PrfK474 HRNbvLosTkN8FcWkFmL7JaS 5A6TaBbd9VMWvjMnqPN5ozA EfQYvaNg6qyBebyQflLI1aB TBpbjtw NYPmzX5sGGBxrSRxqRyxZX9 zNPQksbdwa806ChXmJEH4IO MncRPmC2WbbJ2lEePjSHKjL PTkN6Je eLEbCBzmJ986CRsyMqF6RNA wzyGlC0IeIGAulHvpBzR0a3 J3Fc82PXMSVSQdgzxuyQU+P HRkIHN0 wPvsVCkkTONhhW2jDLLiZ5a 6EoFjSeP4KMuuG3XzGINcbs xwGx83iR3zUrKeJwY2LQumZ 0KpehG5 MTObrYRoCLgiUTR9S76br5K 5LUBtACNpDLN9yCV1uU4vyI lnbjogbGVmdDsgdmVydGljY WwtYWxp K330DJBfqJviGzDwyROxMVo vdGQ+BROjOYO7sQbaWQzaIP RdpB5bGCYqL9z2StUuRuZ4D OwxY2Tn LDPgqtgsEp25oG2hGmJuJbG 3UQqcN9LpttT5GSJioPOmOO uxXYS6D34lw3B6VUPzWWYfJ CJ3yXZ1 oB2miNrxevgzsRSgpZavqyL dwAhaFQnxYKdhX990XBMhzF xpBk60qCKgfLwnjzY6V6KzC jwvdHI+ AU05VAJlXB40nJKdhTHgb7i hrKt8WqBpNZGvLUI5vQsyLD jxz4GdSQNcE21ozJZrv6F7A GNvbGxh jUHtEuUtiNT4oT1qMLufjuh lo0vpredaXpqzb1zpzt02iH 97X94fNXuwSPKfOCHqGOPrO HZhbGln ri1qzV8aZo9+CBXqhII6oQW 7vZ9wGrSyDtF6OVgmE716Tl MtpEPnHpmzd1pyy8qnxTi3S jIwJSIg jbCxsQrmUPQ8u9VhWu35N29 sIHdpZHRoPSIyMCUiIHZhbG hdzn4enN9kOy2+HT1gh5ova f51zY52 dHI+TDDaGMN7qHwqJVnyAHO ctC8mJXjjVlN7NCBlEoUabZ 22dUQjIGmcPh3niDlorRerU L1rEMBe otrfx994JqJgp3ecFKEjiIL xQMowIYM2O84vx5Z2PQXyOA GdRKC8gAI0sF7ppIucwopvk GVmdDsg srOznMnvZZjwPFkrT437KXQ xnMacEeKytXKfS8gwphVBGN 1lOjwvdGQ+EFQyOOP2wDdnP SdwYWRk tD3xOWGtS4z8OjDxAwS9TBk eA7CglyH2GLXhzQPuKJCfyR QLaA0zlhajm1wweeixXzFcE DAwMDt0 ASx1UALfyJctLaJvUPH6ZuQ 4KEM9rKObyS7idHkahkyzaP 9wOyc+RklOOjwvdGQ+PHRkI DM9xXdo YGpwSCAzdK2eQWCvQ7v8SqT wXgM4WHviO4LeeeI4DQBlaY PrLJTtyZNBvB5qtizmt5chj jogIzAw TRHlGDb0PGb5JMSedGvxMeL nITV1RqI2LAV1yUIjjG8hwC ndcsyspS8jOyg+TVJOOjwvd GQ+PHRk WQC8bVbwQOteQRNnlB3oJKC kL4b3LrCxLpR9KNqaH9Ekvx X3ACRetVNiANUpeTKOjR3nt pfoc0am wdlqJuDsCXAaLKj2RPs9UJR igPwkMqIjZAU2WbP1KIK2hQ IpyS3bjWgsoenafC9dZcw+U MO4FAA0 EL09JR54P1JsIsvtcWFgnLT +PHRhYmxlIHdpZHRoPScxMD HiPvHqiTyvXF3zIc2uIFTxQ WNvbGxh Nl (more content not included)... Normal [facility] Consent for Treatmenton 07-02 Consent for Treatment [id number]#1.00C D:127 Normal [facility] Heart and Vascular Office/Cl inic Noteon 07-14-2022 Heart and Vascular Office/Clinic Note Chief Complaint testing f/u History of Present Illness Nitin Leonard is a 57 year old female patient recently seen by Dr. Renteria for further evaluation of dyspnea with exertion. She was referred to MD by her national flatbed truck driver. She has hypertension and hyperlipidemia. She is a recently reformed cigarette smoker with 84-xhjl-tecl history. She states since her last visit with Dr. Renteria she quit with assistance of [employer]. She was ordered echocardiogram and stress testing and is here today to review results. Stress was negative for ischemia/infarction. Echocardiogram shows normal LV, no significant valve disease, normal RVSP, diastolic dysfunction. Since her last visit, she had PFTs ordered by her national flatbed truck driver. I do not have these results at time of exam, but she tells me they worsened . Sees her national flatbed truck driver next month. She has stopped smoking [...] of function, she follows up with her national flatbed truck driver next month. She does state that [...] worsening function. She will follow-up with her national flatbed truck driver. 4. Smoker (F17.200: Nicotine dependence, unspecified, uncomplicated) She has quite smoking since last visit and her breathing is improved. Orders: atorvastatin, 40 mg = 1 tab(s), Oral, Bedtime, # 30 tab(s), Refills(s) 5, Pharmacy: [facility] #[id number], 153, cm, 07/14/22 10:59:00 EDT, Height/Length Dosing, 97, kg, 07/14/22 10:59:00 EDT, Weight Dosing Follow-up With When Contact Information Evin Renteria MD Within 3 months [address] [place] [address] [phone] Additional Instructions: FU after visit with national flatbed truck driver Problem List/Past Medical History Ongoing Anxiety [...] mg= 1 tab(s), Oral, Bedtime, 5 refills Brez (more content not included)... [facility] Comment on above: Result Comment: Elec tronically Signed By: JESSICA LEONARD, Candace Robins\.br\Date and Time Signed: 07/14/22 16:02 EDT Progress Note-Nurseon 2022 Progress Note-Nurse [id number]#1.00 CD:127 [facility] Consent for Treatmenton Consent for Treatment [id number]#1.00C D:127 [facility] Pre-Certification Formon Pre-Certification Form [id number]#1.00C D:127 [facility] Stress EKG Tracingson 2022 Stress EKG Tracings [id number]#1.00 CD:127 [facility] Physician Orderon 06-18-2022 Physician Order [id number]#1.00 CD:127 [facility] Coding Summary.on 06-17-2022 Coding Summary. CD:[id number] Gh0 bWw+PGhlYWQ+JV3WYKYyF36 ffCGblB4PJ1mQTU4LXOZJTA BNRL1MMP5ctVQ7RZvgF3Gtl iAv PjfnzULoLI10VXk0AYL6rYq uLEanuZ6kdPXoL0v4LbUoLH 85uG69RPnxQXInQhH0HqJfb jsgbWFy I9xcAoUelZItTfy+PHRhYmx lIHdpZHRoPScxMDAlJyBzdH gfNR4dMe2bLMJtYDDtfUobl HNlOiBj n4gvGGMkRVxrHQ0abEnaM7H rtNJ0XKNwt2i9Yg81xXW+PH IyFFJ5xArqDEqvc744EkOkx 0opGJC9 kFQcEKxyYKX5U46ff6J2FHU nKFTqTUD2yHB8gV7yiZiugi bwA9KadINzZlU1EKA4tCUdq O4vjErh ugmpzK6tGuz+S36JFA1RRZD OMT1TKew1C6EuUbjjxYR+PC 57XQPxGV23jCLkfNIju3ezi Fx7WgZz SJSkYKE6nJiwVDnbh0YzWNS pN27fsELvs2Q8QVGeaRqwqU WxJzAkcFG4gQ3lFJdsvataq 2hvdzsn Fbtos3zwpi03bP90H61qVZv kBRQzQCD1MSQwEAFbcPhaws 1moA6bAw3+CKous8zfl1hhp Cn6IkPx XXFpffJowMmuSGQ8a9MpJt3 8B1PwcBlau6KqVfj5pq30eM Xit4L6fON4UQyeASUukZ4vN WxlZnQ6 KMXjQjQmnF97oXWeGMeeAt8 gqOpmdWmwZV5oVMKraqbdRG NedB8hFCSetRIzwKzxNQ4bP TBpbjtm c607OsDyLTM2JSKlnHJhS1Q svU9yHeFdWCHsGYOeJ6QimV NkEDwlK584AHmqRiI9GOEft aVsJ8Eb SAPuwQjbLcM1r3J4Ox7Ys8A zhbxoYMM3NUxbXOTgLuB0Is WzTuE4H7GsXuu7KAXufGojQ N8eI8Sj NCDotckznltttJQ3PNJoYBR buW61bRZvMEyrTq4ex7R0l7 53VOXtXIOzaU92Fe2vlPifJ TBwdCBU dT2xovqsf7dvxudwTsZqNLK mALv4HWp0GKLtlVcwFnYeXV G2MvL3AYV2pBAemB7alKzes uqqsN0a Oyc+G04vpU7xXIX3KKP7iew aJGFjdvEtCT45ZM71B7CjUz wvdGFibGU+PGRpdiBzdHlsZ H2iJjLp m4mco6XaAVbsZ4SpOSFcAOe uWbt6AIGuXRN4yMM2hE7cJX PeEAojk4X5lUO1T9UspbKdi r8rs4ns VGHqAUjuF89sqHQmj5G1ZZP cgRC9HKTgkOwsJsGejB23Rx c+GAJctVflv5TpSsljh6bkv 1ldqSd5 GxBoKIAlgkHxhSsnVRP0f8M pUw06K64gFGqgBKPmKLJrAH ZmWYIewStvsr2nfN4yOe9+P GNvbCB3 hCW0pV5zUDAxDqE6CXktU93 0GzDnmNUrYdlqz0tku0qevZ g7LxOmVZHlypJvkWluOQD0x 7AiAz15 K35tQDzbUSXpGJGlRRVqREL shRqeil3bhC9lVi6+PC9jb2 jkpp96sF34xUX+VRWeNSF7z WxlPSdw XARbdE9jJCcaTsX4YAUxVlI piU54bJNqMWhwGg2wdMybqK wkJF2kPIGxmjxyc308RjFyv 2xkIDEw aXTtNJbpWOT5J41jx8C0GRD sQWEePYV6oNF7gN0avEwgqk ogbGVmdDsgdmVydGljYWwtY AyeH721 IHRvcDsnPlBhdGllbnQgTmF aWEf8N6KxBea2VYNifLdcEZ 6mhRTcBTxwEy0itNserPqeH J9rTPAc eoywq947IoEyr9yiQHTuwRQ wTAdhRVE4U70cg7G8OYIyPH UlNBO5lHX1rW5lmUdswnwtc GVmdDsg ycQyuDcbDGyyNHehF750GDI bjJhfXjAoeoMbTHVogUJ2SO 44LE08yBKvi8O8qRN3O3WpJ GRpbmct bvzsmBG2IBEaPYQndF00Sw8 jhHyvJf0wNWDyLDA0AEMtsE EoA8JgdK8kNiJzQONpUZEkG 3RleHQt NXlxT826QLccXbO8BTPeegF qL3MeYBCxaKklKyE5e7S3Yg 7TG3N1SZ68VY83lQDyv7R0o OE9N6Pd SHTgtdtakxmjeVM5IGPxFUJ nnV31Ev1tpShnIk4jTWAjJF G3XSBoqFGtA3PnnN1zRpLcD DAwMDAw K2KdnEMaNXbhV830PQwmZqQ 3MDTmiiDgW6NqZHEvbWogFw N2m0O8Pa4YIOy2SP99BX02t PVtp2B5 sTC3F7XmEEFqnpkmmofmbFT 1YAJxWZFxmX86Yw3fkDwgMr 9hBQTwIWY1FLLavHRiH1Qze D2pBcSn EWMxUGNmD7TzaKEgQKxkC78 1IShaZeQ0BAJlwpFdR2IvEX LxzQkaYiF3m9C1Ss2XTTYdJ D48IEA8 zRP7CF89PN63C1HuDrtirVJ ibGU+PHRhYmxlIHdpZHRoPS bcGSXvCsDsbOoyHI7dFh3yM GVyLWNv sPtjxGMmTpOps2bhPKMjHIn pYU8wtJisL4QspBY6SYDsn9 c4Dk65G56gQ6EqlQK+PGNvb GO9lEI7 nU0iNvCrGxA6ROswX272NoX efLPfYypaj9mxh6otkIc1Un N8OQJbwrLblIqeYND0h1BxV p74T55c IHdpZHRoPSIxNSUiIHZhbGl yka6hpA6uGr9+LGHlfBP7rN C2tI8qJuDjZcX7XIjnM169T nRvcCIv Kjrje3vdg7jnoZs8JtOyZGA gboBabJodAIO0w0PtVs85M1 BziBtqq9DuQpv2sa23fHVwh 3B9iAZ9 U3IpOXJircgodWGmmVeyEA2 aXQIvcsvlQASufI8eUDIlB7 w4AvOxEaH6DDfeL8TznyK4E DEwcHQg LNdeAYX9C36or5V8SMHtYQK hOAO5eNS4sP2bwXrkhpcexT VmdDsgdmVydGljYWwtYWxpZ 246IHRv eSrqDUPwzY0gRSLpqKZydWh oQP1nUVWsrugkFonHEaOvDJ COV8sNRXj7V4HbYaw0SPBis MmfUT8d rIItTKcdLv2idXykbSvaGC8 gIFMkkmjjMDFjtL7gIRKvaC FajUguCW3nZDUkjcaju599E iAxMHB0 TFFlcZGeI6XbgY9bSuBqPSI vNCKmS8JzwLJmFOkpG770RD gpSgI7PBWfwnMfW5LxJUZgp WduOiB0 t3Z7Jv9hRV8wHr3gBZV2YR1 5CU60dWVed3I8aTI2X3DrTI TbzdgacjtonCS3OIUwQMEos M15iUId DFmcOj8ml2C0o082UHZjYHX gqT29Tg0yoJwyPAFyfUXKhF 6wocsci2vazxeyHoTrQOFbC Uu4PLa9 BREukWkvPaXvQJJ2QsP8NQO 5zROqrZ2zdOhzeqqkxY7qMl c+XOxjRSGtavI0U5EkXnp9D CBzdHls TJ7skUGvLZbpJu5npGtfpEb pMC7xOMUndjqlRNKbmB6lHG LcoINlaTcmWD1mBSDzxccpo 250OiAx AHJ7IVXgwQDqX1XfcR9mWsB eSGAxDCQwR7CpgPPiECesC4 25GDpgUhS2GFIsmrGkD9MgK WFsaWdu ShI3u3Y9Eo3YGA6knDB5D2W hMvb1YCLcmDthOQ3smJSkLB leOz6wkUkodPfgNP2lZZPwm jtwYWRk tF7fNYNgsYZojHviTD3jGJL zjscya579XuWyUZT7RPMpdM VaK6LyaO9mJbEoMAWbBNCfA 3RleHQt VEnkC480REjvUoC2KWJifpY sD5NhXGXjaJiaQsN8c0I1Cg 2WnGPtKNZiVT04BL59FL24B 3RyPjwv dGFibGU+PHRhYmxlIHdpZHR fSGttKLDsXjIklSxwQS1cFt 9yZGVyLWNvbGxhcHNlOiBjb 2xsYXBz ZTddBI4jdPqnO4JjzJB7ULH kh9c6Iq68X84kU7MmdRG+PG JmnFG7vKA7jE5sBnYoGoM2U JsxU181 HdWunPGtLoxrj1nkw6zbwKg 7QcVkCIJlwiJexAxdUZT9a9 ObXo17K72wBUsrELQtSNWcG CUiIHZh hJyvrl1dzX8yRq7+PGNvbCB 1aSZ0iL4mDvNuCfR1HPovD1 05RxRukMMnMwkpQ16oJ1Oxh XA+PHRy Vqi2WKIhtYxwNJ0ikPZlYEg lJr8fCAZ2BfAgTpJkTBloO6 RiTUFyllpjuxuwlOA5VXMxN DUwaW47 Nk0qmMrvYh0yHYKqTFT3MLL yvZIoP2KhhM1oWqGaEVMnQO DlT1YfsKQjFLbjE004HDflO iR0STUb bxXsF6VkXQAapPpfRyN3y6M 8Ps3JwIipoVXxOG5zOqPlKD w6B3JwQyi1MUEznVveYF3oi GFkZGlu Ft8qfQcnwAyqGX5vBFRooac qf683ZxEtk4qhVXIxzYCtGS twKKR8I37uu0Z4VBHxYCAaN OS7fVG5 tZ0ltVozjdlmjFBhlBxnnzP pdRxdEYjoXJzyY861TRTrhD iuObFFNvs9Q1CsKhb0LXFvk NczEE4c wVVuNXdzMf5gsTpxvPhdDX9 tTYUetayhf569UkKgx8bqVV CmvPTvHZutUTR3L41lv2L7A CMwMDAw WHD5tZB6oF8agMjkuaqxkDA mdDsgdmVydGljYWwtYWxpZ2 69QWHzjXbfWp2DLkh9O4MbC cx9QVNr zJvtYD6sqXJcOJnvLi9zuNc juXlrXU9uNUPvfuxca002Gr Dcm8nnCTMphMFyLDhbEZR9Q 07db2J8 VOFiDLWeKNV4dPW8fK2ofMi nbjogbGVmdDsgdmVydGljYW jtQPlqH962VLKblEibWzYaw WVyOjwv dGQ+DC85be83V6McPthxGiw 4AUKoYRR0nIB7lS8tEEJlLC dun8W9jYD3B0KttlMaor3uz 2xsYXBz ZTog (more content not included)... Normal [facility] [place] Myocardial Spect Rest/Str ess 1 [...] Stress Dose (mCi Tc99M Cardiolite): 26.9 Normal [facility] Coding Summary.on 06-16-2022 Coding Summary. CD:[id number]:[id number] Gh0 bWw+PGhlYWQ+KT8CVTWpQ85 drFNvaN8PG3pEDQ7QQWIOIA XCJW0IGA9gmST7QNthA4Doc iAv JkjddTCiVM61QMw0QVP4rKt eWYnoyA7fsABaM5n5ZyUcYV 38dU28QCldSQFxHfS0UjVmy jsgbWFy E2igKuMtrLBrIcm+PHRhYmx lIHdpZHRoPScxMDAlJyBzdH poQD8gBq1dRDGfZRAepHozj HNlOiBj z3nvCMAiGZjlBV1bpZkfD0J mtND0VAQdc2v6Fi27hZG+PH KsOCY2oKdaHQged060MuMog 3nqWTD1 bPMgQVxmNGR8K17em5D5UAR fTDNrJYJ6rMA7xE8gkTxhnk vdT0GzeRBeByW0MAN6aZYuf H8myGxw kfkzqY8nYbs+G91ULF9RPPQ QDU7LWqp7D6MwCgdzdNO+PC 22BRRbKR14fTUuwAEkx0zpk Yb6UgPy YHUqPOC0vAhqHRdkb1YsCXC gY92ntZJds0X5IREflYiiaA MsMyBxuTU9wP2lGOvgvpkpi 2hvdzsn Tgteo1esaq09qZ97V24nPOm cPIFlCSQ8YNRkGHZmlAxivw 8qzA5iCf2+PJuyp3kbd5bht Re4OmRt HPQptqBzmXveVZL8q6YpVe8 8A5XmtByct9CySjj0im41dK Xze7C1lBH4XIqvOTQbjH7xC WxlZnQ6 SZGfHmNuqA46fHAbTTpdSl4 hnTsibWfwOX6oFWCatrevRJ TuoF4pCSZxuIHfaFbaLJ6nL TBpbjtm n125IvRnIUY9TNYxzTDbH6T bdD2qHkBrUUEoLUPdQ0PjeK RtDSdgA674TEjkStI4IUFon qQsS0To WMHwkLvtGpY7c5W5Aq6Gb1H ovvrfZPC0IPkpPVIeVwDzKl AaKgC8N1WoYxy3FXLfiNioN H4aI4Lf BZHyovuoptngzCS9VXAtJSE xqF74jPRvKAdxIx5me6X7w0 03NMOgEOIreT98Hp9saPnrM TBwdCBU hB5addccb2lxnhtxRuOjJCI kLEx5PIi8RAHaeTjeDpReCH J1YyQ6DQZ8wRWvuY6cyHzoy kgnkG9b Oyc+V78kkP3iCTN2CWT8llv qXSOyipWoWV15TC38T9RhBx wvdGFibGU+PGRpdiBzdHlsZ C8lBgQa d6mpv6BcMVvbB4BsZOFbTPy rCvb3LCVnIXP6eZN4kL2kBE XmKAclb1Y7rMA8J7CwmoNov s4jy1xm AZUqINmvE15beCBpc4B1BTN kdGJ6JLJiaXnvFhVeaD86Zj c+POBemNena2CvVysbx9gfw 0nxfRm8 TuCvWMSorfMacQwmUHP5r8I xEd58G73hQGgyEZPmTLScLA LsAJGipUdcqy1evN0cZq2+P GNvbCB3 jQR2cG8fBJKrClJ0ZSulI49 4QrQmeXZgNwuyt4dap8bbwT z8OaKtKGUqfuIimNftPBT7b 8KwWn65 I68pOEptOOFiBROcAEPoUME qcOtumg0ztP7xRz6+PC9jb2 lrbs71hU47cNQ+NMBdKLG1m WxlPSdw UQUehK3dVGpcDcU1AMBeClO xeL13sYDeHTulTh5wrOuzbK tsLD9eMTOyxezda207NaSpl 2xkIDEw yOZmKCbiFPH9O38or3O6YPT dCSTjDDX1tTS5gM9miWsqfq ogbGVmdDsgdmVydGljYWwtY FnpM550 IHRvcDsnPlBhdGllbnQgTmF bLXf7U6BbFwu4BVGujLsxIV 9alWRwJMegEr7jcMctjAmyK F5aBBMg tqona194SaDsz4bnPQUcoZO rPZaiUJR5A55rj3L2UIFmCO FfBOS0wOR0xF6ocItwrjvvd GVmdDsg roEjxUqzNBbmMHjmN710ZAM biWikUyBkonQnONGjbIA8CE 33QF62cVPnu1N7oTQ4T9AfA GRpbmct vwyjhFN3PZAnTQJwmL65Yv6 jiFpaRc7cHTGkGUJ3WCOlgU RkM5ShpD6pNzFfNBKnAOZoE 3RleHQt SHtzK576NBfrRhE0BBQcfzN zB5QaJZOokLtjPdC2z5T4Aw 5DI6S6QK32AV89eQAhw9W0t FG0O2Zn KAHwslmvuhlqhUK5LMBzLEW odO99Te2dtPymWg2uEYOlSC N0ZTRjbKOnU9DnoF9oWdSsV DAwMDAw F3MegGIuZEbfA215KWhgEmC 1YXVpdvOeA6PvFNVixKasAz E9h6R2Fc8DZPm6GZ58MW03y NWlv5Z8 aUM7X7ZeNIVksntjckwxbST 3AWNbVWJavM38Zc7gcNjvEt 1dSNStRES3FGRlkRZcE0Vwq H1ySpIv ZCNdCGHvX6SilOAuOEhiL85 5KUzsMlT8WOAxdqEzH4AhJF YxuBpcOdS0e8W7Op3OTEZqR I76AGW4 hAU6ZH20VW60L9RyLixqtMS ibGU+PHRhYmxlIHdpZHRoPS gwLXOyEjHomWxzMI5xDh4fL GVyLWNv mJytwIArQnZfd5coJNAyEZw vXE2snJjiU6XkyQH8SRJnm8 s3Aq85O50uE5QmuKC+PGNvb NF6tID9 hB7lOmZzRxO0VHlqZ216XnJ lnTHcJepfv9ptm3nmkZq2Ny T9IJSnkhZqgAuqDKI1s3TlG q06B18p IHdpZHRoPSIxNSUiIHZhbGl ggs1ujX9vEa2+EKXquZY1oH A2bD8dYpAgSeS3MNjhV063G nRvcCIv Ubjva2yxu8pubLq5QrHqFSO emrYqwTcnOCM0k4QbMc94W4 RhoSsbp6OsBpm2gv69aVCua 8Z8cKV1 L6CxSNObtmpeoFQvgJqtQB9 yTWHczhgsJMAxpE3yZKYpW2 o6WiSnBeZ9AIwwG0VirwK4K DEwcHQg RXozIQS3T74ge2O5RWQhYTJ fYCU4hZC5dK3opPhkcophpL VmdDsgdmVydGljYWwtYWxpZ 246IHRv jMmfIQOtsG0yMIMlcPIfuIc gKD9iQQVmboozVgiQHyWxLX GIE9nWKBi9X6IuWsb7CRMzo FghIC5e lUWkGOnlAj1wxDqrpFogLM3 xHXOecigbKFApdR3eRUIbeF KcsTbySV5gOLAfjglvp003G iAxMHB0 ERMysJEvO0YvwG4fMbYfBBJ bPNYyH0SimMYeKFqxL852JY jiAeQ4QKYvlsYjL4ZcQDYvw WduOiB0 a0Y9Am2sAQ3hTj2dWBU2XX7 9WM85iNMlr7W1sYX0G6EyNU MqvxrpestucJU2NXUaYMJdm L38rZKe QJexFw5dv8Q4r862TTNoJXW eiU38Ju4bqCamZLEbqPXWbF 7ttqqxu4huwnpvYhNwRKWjP Bb6CQk2 WNOzxHclRnRdZVL8DoJ7PZQ 6uHFbgH6iaCetgxjftD3cQw c+SPtmNEAlexN0J0SnKvw0P CBzdHls BB7irYIrOHkzAg8bxNnbxJl gLT6dHTCnzrbwTAXnpQ6qOW SdlWVaiFpvIJ0vURDhstsia 250OiAx CKW2UXIxdJIkA9ZpsT8mRiK bNPDrRWYvX5BgcUMeNFwlW2 77FQqaRaA5QWZraqZlY3VsO WFsaWdu SzN6l5W8Xf3UCQ1emCR0H5U hNnw8ZWGiiHwjJS2saXFnCQ woHl5clQtalYqyVW2lOVGtv jtwYWRk zE8rSDGtmCHoaAkrZK2vDWF rhtzdb325FlZpGPD9BYNlcV ObD2VgmV2gAyRoQEAjWXVaF 3RleHQt YUdtI144ANwnAeE3ICEgogW vS2IeUMJhcMsrDyM7g7P5Vc 3UeAYyQKAvVY78NC38TJ21L 3RyPjwv dGFibGU+PHRhYmxlIHdpZHR vIAsbOQTmWcLmrLolAA5rEd 9yZGVyLWNvbGxhcHNlOiBjb 2xsYXBz JJuuMN6wyZdzL3UxkCX1ZWJ dp5i8Ra32U62nB2PjhXO+PG GwaAH2pZG0gS6qOtMoQwY5Q YofG667 BtSvsJFdGtanu1usv5rrjSd 3UaTiWUJvnbExpPdbUYR4j8 LlFw94N17tYXkiAJUtWOEqP CUiIHZh kBdpot7lnJ3xBl2+PGNvbCB 5pIW7tZ0tAjXsBkQ4ISfjN6 85ZlWdsNSrUajiQ34bB3Ybv XA+PHRy Nsd4KEJjfCciXQ0jbFFnRVh nVz9nJXJ2AwLvXnJiOItkW0 ZdDWTuibnqqijjfMI6EJImE DUwaW47 Uu3dgYqcYu4sXRMjXRH3FPR frLQcR7OdzR2vJzSeLMTxDL EyK8UteWTlSEccL807FAzcG sC3JAXi xbRgJ4TbOKEbxGamQqL7i7O 0Ms6XkCoztLEmDG9zVyHfNQ b3X4ZwEiv4BOEyqXhbQV8md GFkZGlu Qk4wvCpgsHxeDZ7bQBJaxps om225HvTfs0gvIZVenSVvBJ vvDVV7X36np0T6ZFPzMMHyI QC2gQV8 gP6ajIcvavqghJWczTwyqvU tvZcxWNchFEkbD909DYEylP lpMsHEAcn8V5GuSqf4XJIvz MxjDD3m eLFjXNuzSq6jaTztfYyyZU0 uORHwvugmc450DxWwy4quCN HnhNLhDVviRHZ9J37rt1H1F CMwMDAw LMV9rYX1nW4cfMouietdwZX mdDsgdmVydGljYWwtYWxpZ2 75VIOvfAoeBy6OYzr9Y2VdX mb0JMIo oHooMM6glVNgMOovWf1aeDy zmDffXG9sABRwrtron286Yt Foo0xhXLRenDMhOAyiBQB6C 98tj4D8 MRKwZRDrIZW8cDK9zE1vvEg nbjogbGVmdDsgdmVydGljYW kfWJlxX691DEJoqCitPvFdw WVyOjwv dGQ+OE87mz39X7KiCyjzCag 2ASVrMNH1rMA2rQ0vWUYwOM qhv2Y3gKJ3I1DrpmZmhi0mr 2xsYXBz ZTog (more content not included)... Normal [facility] Coding Summary.on 06-13-2022 Coding Summary. CD:[id number]:[id number] Gh0 bWw+PGhlYWQ+AB2NDJEzL76 tfQFdhQ4MS9yQLN3AIVXQVR VZLP9TRA3phVS2YFnsP1Pyx iAv LkkcnNUlJB13YEb6DFG1jQi qKUnyhK1sxOPeC0w0TmNuGI 77yU80KPzuSBOoGlY9ZvBcv jsgbWFy S3pwGsRhdEIkXke+PHRhYmx lIHdpZHRoPScxMDAlJyBzdH moGV7hKy7dZSQcKBSofEkzt HNlOiBj n6oqNRJoTQzsGZ0amAgrF7V ybDO0WJLyg6z1Xk61cEK+PH YwXKY0nHxhBIfyw108XyCtd 5ywRLU2 xFClICzcZQA2S96ge4G6QMM bPBNiJXI8fMQ9xC3jfAoyci fkY6YdmKXeEoQ5SGI4qKRys U4gqFtv pwnloI6fGvt+P30CFU9ZASH HOM3WToh7H1ZzZhrpnJV+PC 55HMUxXV98dVSktRFkw4rvj Xa4ByYd JBLtPHW0yRpkPEusr6ZuHPS xO86emEJga5Z6DADktJaykZ PaCoHueBF0kG1jIIeyblmil 2hvdzsn Glpla0npzt48dM64G59yHAy kWZMzPBZ6GHSnWIIveMayir 4ljH7vQh4+JQfir3yvi3udl Xn3EmIy CPJxrkQtvWltXYP2b8SlLd1 4K2VoxLinz6KgYwy8lf10xD Uwl4R4nXQ8QGalHUMxhC6oF WxlZnQ6 BJZjZeUgqI77yRCfSXcnEi0 xfLljrMwpXR9qHDKbltsyNN DfoH5eWUJbpHZvwEafKU1pM TBpbjtm q093ByMkXSJ6CPRtrCMyS8B zjP6yIvIgULYfIYMbE3KeqF KtOZsfX247OMxdZeR9TIOwn uKcD2Dd RXXsgAxyXzN0m2O8Un3Me1J jkuhzKAS4AJmmKLMxTeKfSc BvFkW8S7YeOtn3JZNoqYhwN Q0pJ7Mk OHAfdrtlejrchUQ4JHKjBXF ucG98kUYuDRkoQp8pl0U3x8 59EKOnZGXjqK92Ud0hcQeqH TBwdCBU jS2mfuupk9rlsbdbKmKdGWO cRCq1PIl0RDSohJzxPqHbLV R3TmL6MIH2iLXfwA4zsCfun zkalC6t Oyc+K55qqN9kGWW9HGD6nqr iOBVevpZwPT98QN89E9MzSo wvdGFibGU+PGRpdiBzdHlsZ I9jEtRk e7dcl1DuIGdoF3JuIHYrQNf rPbl6PQQvFLV8qFQ5hF4fOB XnUEcnb0J7eKW1E2IhjwVsw y8ni0jb XYDhIFnuC91qfNVun1E1CTJ asQO6JBAuyJsbLxGfvO43Wh c+EYJbqLcpc9HdCajwl2jqo 7szyCa6 ZwSyHFWvwuTwgNjkUOM7s3Z zZg30N52zWCgtTLOwMBPxJF NfJBQibIwpce4cwR8eVm4+P GNvbCB3 xTY0tP9fIZMqSbV5CYdrM55 8RrLutAKlItryd5lqv3rafV f4CnDnZIAejcZspSavZMI1f 6CzTz78 T86kVNauXKTtYSDfAFPuKBF bgTmovf0xqR1yPc1+PC9jb2 gwwe48tG14bQL+UAEvXKU1g WxlPSdw XFHxmL3hIBqpBnI3QFTfVfN fpC35cVPqRImsOs0txSzmpF tiGF6rZIOyqdsiy915AhTax 2xkIDEw jWEbYYncLBV1J25ci0H4XZW oSBTkPZJ7dRA8jT7ciTcegq ogbGVmdDsgdmVydGljYWwtY DyyB403 IHRvcDsnPlBhdGllbnQgTmF xSDm1T9EdRch8FAItwUufNK 4zsJGeNIpcPz4ogYxsiBibI N4wQHUd rabne243MwOhg2vlEORutOY vDRdoEQF1N17ww1J9FBChRZ TaWJY2sSO0oD1mbAghbjdzk GVmdDsg qkOynIymFJhmEStrU226MKJ gdJrwKyRdhiSvGXUkwKX7IH 58PB15rVYjx3K8pMJ6G5StA GRpbmct ptpwzAT8JMCbROKafZ71Ti2 qySqcMy6sHAAsIFP3YYScnJ XbP4XoaT7wUjSyINEzHCWlE 3RleHQt ERxvN744ZWukVbP0FPVjbtO wB1YbXZVedWjbBdR1z6Y5Oh 1QZ3T3KM04MY17xZQei0J4v DL1Y0Ne DSFejzfxmyxavAI1UZXmDLG yjD19Hi7fjXlbOc6bERLuQS V1AFXkbKApQ2KhyV5mGuFyJ DAwMDAw Q6SzuUDwRTetY135EShzHoC 8ECXylsHyZ6TzCLZpxXmfUi S9w9X8Eb6PGLh3XM22WJ85l GHxb2W3 oSE3I0MqTWMubqhnnyfywPL 5YBXaTBJlaR55Yg7vgLezSj 7lDXOkXZF9DWEccZYuZ5Bnt H4gAzIe GCXmDVEuS5YbzFDyCTfmE83 8OFwlPpJ5SLGmbkGcT7HtNT UtvKekDiQ0a5W3Th9EBWEyK S39ONS5 wWL3FL14BU34A1DvEabixQB ibGU+PHRhYmxlIHdpZHRoPS fsNROfUbArqGkdRV3wJg3iL GVyLWNv xPrzzGOoNvHip5nrNQLbCTc lBW5grKcfI8WcpTS5CRUeg2 z1Ij11A37pK2GjwHE+PGNvb II8bUV4 yW7iDeAcDkF0ORogO477EeS gzWShXsxcd6dbe7dddRn3Sb M4AGPuzuQrjMmcKAJ3u4IbA t82J39s IHdpZHRoPSIxNSUiIHZhbGl wce1gtG2cUw5+VVFovDK2jX Z5yE2xSuQrSiI7CSdvF767I nRvcCIv Tozsf7vfc2rhfJo2VvPhZXH bxpYueLuxQSK9k1AqYt89K0 OdpNpge7NpYky3tp52iYTjz 2K7lRJ9 F4VzPFThlhlyeKXkiJjvML4 sQQHcqpcfCEAurD8vMJJaU5 v7AkMpUyT6VWjhO1ZlfvS4X DEwcHQg KQvlJXZ0E59ly8I7GYObOXM hBDX7kCP7oK1pxZjsozfxhG VmdDsgdmVydGljYWwtYWxpZ 246IHRv ySsqHTDblH5qKFQovTYzhWk lER4vPAXthbmqOshBWkRdUZ AXX7pVVDl8I1CbFjb9OWCcs MynTQ6n mSMtEJauJm4ctStajPqaPH4 qQVUzrwgiBIDjiD4oCDWvbI LxlUwcRF9aMKAjeeqml743T iAxMHB0 UPAthRYeP6EinW4kDhNaMDC tGOEbD4XesJTyFGqdU819PI bbXcR7NMQqtlIeA9TiALTkx WduOiB0 u5E6Lq9qGN8cEv6mVPX5OT2 1WH59mCBmz2F3aUD2M6WlTM SmhomplwmzdGU1CSUjJEAev H69gBXt CKevPs4rn3H9z995LVNzNZJ tqA17Vs3lzOomRTSbcIKSsU 2kqxctp3qzphezUdBiCQYyM Rr8RCq4 CVJupJnzSmSvDTF0GqS0XIQ 0kVAofI1foIquzbtybK6eZb c+RMzvWPPrpwH4P4BnUea8Y CBzdHls HA3qsKWxFJinTv0trMqdnOa kUM6pHHSnjpqkKPOyaT0cXC UteVXheVlwGZ2zHHAhuqbgj 250OiAx DBW3VFThuTJkH7OdaN7mZyT lPCVvKNTfV9YupEMrCJeeM1 26ROmeTxL3RSPvirOjJ4GhP WFsaWdu WqG6s7O6Uq3LZM6qlLH2D4V kSwu8TFCknImuIX7weOAtZE xfMc3dhDepnHezIH7jSOMod jtwYWRk uL1pPYUgsRPbmEioUJ1vGHC plofir515YbEaDCB8XLPgkC OuP0HecN2bJpBwONGhLIGoH 3RleHQt XCfiW926QNlpLtK2UWPasyO bE9KwIZEexYubFuW3q0O4Hz 8IvXPfZCNtTA56OK83CR29C 3RyPjwv dGFibGU+PHRhYmxlIHdpZHR tWBdqGLEfVbLciVrdMS5yUq 9yZGVyLWNvbGxhcHNlOiBjb 2xsYXBz GPivQL4yhVjgF1FjeNG6QVQ rp7w3Gv40I70aE1CvcCB+PG CpgRA0lQC3lM2zBjHmCuE8G EjeI475 EdGxcFCzMavmw6wus5zkfIw 1LxUwSPGhacYjvAsnHKT9f3 ZmMm69B69nIQbvQWEbRHWwO CUiIHZh kAnfpn9lsU9uAp7+PGNvbCB 9zCH4hR6yHdIcVpR8XGbxC2 50YiSquJBwIeuyA13kC1Jnz XA+PHRy Qxl9AQAkfEvqMY6ldPIsHBk sBu8wPZR3UxBlUcRxYKhnF2 FiFEAwpgmfegwxwCZ2CQGiV DUwaW47 Gu0btLuoZu5jRUUwBGM1YKW jhENxY2NqoB1mLzEoECYvDN YnO6IhsMExNRfbL298WAkzD yD2GOEi rqXbF2UwAJSffWqhJnK0o6A 2Pj5EwZkvzLKnIO9iHpTmVR u8R7IhWli5MUAppGikRB6qn GFkZGlu Hg1umMsbbBuyPH3dDFEfqwx rb501PgEfb5tpLLQyrQDeFZ yyJHF1R06mo5N5WAAoWQGjF FJ3kDX8 vD9spTfglpamfIKsoYxbfaL icMtxETssXIhvU798MBDssT zjYdBGKbf2S7LqOii5AZTqw KxfHN7l sZPmIJhgIn6arZypqRmjZW0 eUHXgjkfnm514AtWdo5pqMW NgpGJxWNseZSE5L42ws5C5P CMwMDAw ZZN1qLX4yD7jqWfxshixiMW mdDsgdmVydGljYWwtYWxpZ2 80VWYmtEqvYm8MXjo5K8MnX rw2MKLm rAyjWF7esXOuNStjVl4hgPv taSmdPH1uVUAbrdliw606Al Eup8dpCMTdjOPpTJxqOYA8U 45zf6Y0 IFKyQMTsGIP0nHA0iJ2yyCn nbjogbGVmdDsgdmVydGljYW opLOzmK688HBWhfObjObDkv WVyOjwv dGQ+JT39wq42Y0BbCscaJbv 8KKDbBFE9uZI1wU5tJKVmHM mfc6W9wIP9N0PtuqVyik0su 2xsYXBz ZTog (more content not included)... Normal [facility] Consent for Treatmenton Consent for Treatment [id number]#1.00C D:127 Normal [facility] CHEMISTRYOrdered By: SYSTEM SYSTEM on 06-10-2022 Cholesterol [Mass/Vol] 298 mg/dL High 120 - 200 mg/dL [facility] Cholesterol in HDL [Mass/Vol] 67 mg/dL Invalid Interpretation Code [facility] Cholesterol in LDL [Mass/Vol] 223 mg/dL High <=129mg/dL [facility] Cholesterol in VLDL [Mass/Vol] 25 mg/dL Normal 7 - 40 mg/dL [facility] Triglyceride [Mass/Vol] 123 mg/dL Normal <=149mg/dL [facility] Consent for Treatmenton Consent for Treatment [id number]#1.00C D:127 Normal [facility] Lipid Panelon 06-10-2022 Cholesterol [Mass/Vol] 298 mg/dL High 120-200 [facility] Comment on above: Performed By: #### 2 [id number] ####[facility] [address] [place] [address] Cholesterol in HDL [Mass/Vol] 67 mg/dL Invalid Interpretation Code [facility] Comment on above: Result Comment: HDL > or equal to 60 mg/dL: Low cardiovascular risk HDL < 40 mg/dL : High cardiovascular risk Performed By: #### 2 [id number] ####[facility] [address] [place] [address] Cholesterol in LDL [Mass/Vol] 223 mg/dL High <=129 [facility] Comment on above: Performed By: #### 2 [id number] ####[facility] [address] [place] [address] Cholesterol in VLDL [Mass/Vol] 25 mg/dL Normal 7-40 [facility] Comment on above: Performed By: #### 2 [id number] ####[facility] [address] [place] [address] Triglyceride [Mass/Vol] 123 mg/dL Normal <=149 [facility] Comment on above: Performed By: #### 2 [id number] ####[address] [place] [address] Pre-Certification Formon Pre-Certification Form [id number]#1.00 CD:127 Normal [facility] CARDIAC STRESS TESTon 2022 CARDIAC STRESS [...] with ambulation/activity. Clinical correlation required. Normal [facility] HEMOGLOBINon 06-06-2022 Hemoglobin (Bld) [Mass/Vol] 12.9 g/dL Normal 12.0-16.0 [facility] Comment on above: Performed By: #### H GB #### [facility] [address] [address] [address] Saroj Cano PULMONARY FUNCTION TESTon PULMONARY [...] minute with ambulation/activity. Clinical correlation required. Normal [facility] Consent for Treatmenton Consent for Treatment [id number]#1.00C D:127 Normal [facility] Heart and Vascular Office/Cl inic Noteon [...] for sleep apnea. 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 [...] function t (more content not included)... Normal [facility] Comment on above: Result Comment: Elec tronically Signed By: Myra CAMPBELL, Evin Pearce\.trever\Date and Time Signed: 06/05/22 11:21 EST Referrals Officeon 3 Referrals Office [id number] [facility] [id number]#1.00C D:127 Normal [facility] XR CHEST 2 Von 04-22-2022 XR [...] [facility] LEMON Date: 2022-04-22 17:15 Normal [facility] CBC AUTO DIFFon 01-12-2022 BASO # 0.0 103/ul Normal 0.0-0.1 [facility] Comment on above: Performed By: #### C BC #### [facility] [address] [place] [address] Dr. Saroj Cano Basophils/100 WBC (Bld) 0.3 % Normal 0.2-2.0 [facility] Comment on above: Performed By: #### C BC #### [facility] [address] [place] [address] Dr. Saroj Cano EO # 0.0 103/ul Normal 0.0-0.7 [facility] Comment on above: Performed By: #### C BC #### [facility] [address] [place] [address] Dr. Saroj Cano Eosinophils/100 WBC (Bld) 0.1 % Critically low 0.9-7.0 [facility] Comment on above: Performed By: #### C BC #### [facility] [address] [place] [address] Dr. Saroj Cano Erythrocyte distribution width (RBC) [Ratio] 15.0 % Normal 11.0-15.0 [facility] Comment on above: Performed By: #### C BC #### [facility] [address] [place] [address] Dr. Saroj Cano Hematocrit (Bld) [Volume fraction] 38.0 % Normal 36.0-48.0 [facility] Comment on above: Performed By: #### C BC #### [facility] [address] [place] [address] Dr. Saroj Cano Hemoglobin (Bld) [Mass/Vol] 11.6 g/dL Critically low 12.0-16.0 [facility] Comment on above: Performed By: #### C BC #### [facility] [address] [place] [address] Dr. Saroj Cano IG # 0.11 10e3/ul Critically high 0.00-0.03 [facility] Comment on above: Performed By: #### C BC #### [facility] [address] [place] [address] Dr. Saroj Cano IG % 0.8 % Critically high 0.0-0.5 [facility] Comment on above: Performed By: #### C BC #### [facility] [address] [place] [address] Dr. Saroj Cano LYMPH # 3.8 103/ul Normal 1.2-3.8 [facility] Comment on above: Performed By: #### C BC #### [facility] [address] [place] [address] Dr. Saroj Cano Lymphocytes/100 WBC (Bld) 26.4 % Normal 20.5-60.0 [facility] Comment on above: Performed By: #### C BC #### [facility] [address] [place] [address] Dr. Saroj Cano MANUAL DIFF REQ NO Normal [facility] Comment on above: Performed By: #### C BC #### [facility] [address] [place] [address] Dr. Saroj Cano MCH (RBC) [Entitic mass] 28.2 pg Normal 26.7-34.0 [facility] Comment on above: Performed By: #### C BC #### [facility] [address] [place] [address] Dr. Saroj Cano MCHC (RBC) [Mass/Vol] 30.5 g/dL Normal 29.9-35.2 [facility] Comment on above: Performed By: #### C BC #### [facility] [id number] Saroj Cano MCV (RBC) [Entitic vol] 92.5 fL Normal 81.0-99.0 [facility] Comment on above: Performed By: #### C BC #### [facility] [id number] Saroj Cano MONO # 1.0 103/ul Critically high 0.3-0.8 [facility] Comment on above: Performed By: #### C BC #### [facility] [address] [address] [address] Saroj Cano Monocytes/100 WBC (Bld) 7.2 % Normal 1.7-12.0 [facility] Comment on above: Performed By: #### C BC #### [facility] [address] [place] [address] Dr. Saroj Cano NEUT # 9.4 103/ul Critically high 1.4-6.5 [facility] Comment on above: Performed By: #### C BC #### [facility] [address] [place] [address] Dr. Saroj Cano Neutrophils/100 WBC (Bld) 65.2 % Normal 43.0-75.0 [facility] Comment on above: Performed By: #### C BC #### [facility] [address] [place] [address] Dr. Saroj Cano Platelet mean volume (Bld) [Entitic vol] 10.5 fL Normal 9.5-13.5 [facility] Comment on above: Performed By: #### C BC #### [facility] [address] [place] [address] Dr. Saroj Cano PLT 263 103/ul Normal 150-450 [facility] Comment on above: Performed By: #### C BC #### [facility] [address] [place], [place] [id number] Dr. Saroj Cano RBC 4.11 106/ul Critically low 4.20-5.40 [facility] Comment on above: Performed By: #### C BC #### [facility] [address] [address] [address] Saroj Cano WBC 14.5 103/ul Critically high 4.0-11.0 [facility] Comment on above: Performed By: #### C BC #### [facility] [address] [place] [address] Dr. Saroj Cano CRPon 01-12-2022 CRP 0.2 mg/dL Normal <=1.0 [facility] Comment on above: Performed By: #### C MP, CRP #### [facility] [address] [place] [address] Dr. aSroj Cano PROF 14(COMP METB)on 022 Albumin [Mass/Vol] 2.6 g/dL Critically low 3.4-5.0 [facility] Comment on above: Performed By: #### C MP, CRP #### [facility] [address] [place] [address] Dr. Saroj Cano Albumin/Globulin [Mass ratio] 0.8 {ratio} Normal [facility] Comment on above: Performed By: #### C MP, CRP #### [facility] [address] [place] [address] Dr. Saroj Cano ALP [Catalytic activity/Vol] 80 U/L Normal 46-116 [facility] Comment on above: Performed By: #### C MP, CRP #### [facility] [address] [place] [address] Dr. Saroj Cano ALT [Catalytic activity/Vol] 27 U/L Normal 14-59 [facility] Comment on above: Performed By: #### C MP, CRP #### [facility] [address] [place] [address] Dr. Saroj Cano Anion gap [Moles/Vol] 13.1 mmol/L Normal [facility] Comment on above: Performed By: #### C MP, CRP #### [facility] [address] [place] [address] Dr. Saroj Cano AST [Catalytic activity/Vol] 8 U/L Critically low 15-37 [facility] Comment on above: Performed By: #### C MP, CRP #### [facility] [address] [address] [address] Saroj Cano Bilirubin [Mass/Vol] 0.1 mg/dL Critically low 0.2-1.0 [facility] Comment on above: Performed By: #### C MP, CRP #### [facility] [address] [place] [address] Dr. Saroj Cano Calcium [Mass/Vol] 8.9 mg/dL Normal 8.5-10.1 [facility] Comment on above: Performed By: #### C MP, CRP #### [facility] [address] [place] [address] Dr. Saroj Cano Chloride [Moles/Vol] 107 mmol/L Normal 98-107 [facility] Comment on above: Performed By: #### C MP, CRP #### [facility] [address] [place] [address] Dr. Saroj Cano CO2 [Moles/Vol] 26.8 mmol/L Normal 21.0-32.0 [facility] Comment on above: Performed By: #### C MP, CRP #### [facility] [address] [place] [address] Dr. Saroj Cano Creatinine [Mass/Vol] 0.70 mg/dL Normal 0.55-1.02 [facility] Comment on above: Performed By: #### C MP, CRP #### [facility] [address] [place] [address] Dr. Saroj Cano EGFR-AF SLOVENIAN >60 Normal >=60 [facility] Comment on above: Performed By: #### C MP, CRP #### [facility] [address] [place] [address] Dr. Saroj Cano EGFR-NON AF SLOVENIAN >60 Normal >=60 [facility] Comment on above: Performed By: #### C MP, CRP #### [facility] [address] [place] [address] Dr. Saroj Cano Globulin (S) [Mass/Vol] 3.3 g/dL Normal [facility] Comment on above: Performed By: #### C MP, CRP #### [facility] [address] [place] [address] Dr. Saroj Cano Glucose [Mass/Vol] 153 mg/dL Critically high 74-106 [facility] Comment on above: Performed By: #### C MP, CRP #### [facility] [address] [place] [address] Dr. Saroj Cano Potassium [Moles/Vol] 3.9 mmol/L Normal 3.5-5.1 [facility] Comment on above: Performed By: #### C MP, CRP #### [facility] [address] [place] [address] Dr. Saroj Cano Protein [Mass/Vol] 5.9 g/dL Critically low 6.4-8.2 [facility] Comment on above: Performed By: #### C MP, CRP #### [facility] [address] [place] [address] Dr. Saroj Cano Sodium [Moles/Vol] 143 mmol/L Normal 136-145 [facility] Comment on above: Performed By: #### C MP, CRP #### [facility] [address] [place] [address] Dr. Saroj Cano Urea nitrogen [Mass/Vol] 23.0 mg/dL Critically high 7.0-18.0 [facility] Comment on above: Performed By: #### C MP, CRP #### [facility] [address] [place] [address] Dr. Saroj Cano Urea nitrogen/Creatinine [Mass ratio] 32.9 mg/mg Normal [facility] Comment on above: Performed By: #### C MP, CRP #### [facility] [address] [place] [address] Dr. Saroj Cano CBC AUTO DIFFon 01-11-2022 BASO # 0.0 103/ul Normal 0.0-0.1 [facility] Comment on above: Performed By: #### P TT, PT #### [facility] [address] [place] [address] Dr. Saroj Cano Basophils/100 WBC (Bld) 0.3 % Normal 0.2-2.0 [facility] Comment on above: Performed By: #### P TT, PT #### [facility] [address] [place] [address] Dr. Saroj Cano EO # 0.0 103/ul Normal 0.0-0.7 [facility] Comment on above: Performed By: #### P TT, PT #### [facility] [address] [place] [address] Dr. Saroj Cano Eosinophils/100 WBC (Bld) 0.0 % Critically low 0.9-7.0 [facility] Comment on above: Performed By: #### P TT, PT #### [facility] [address] [place] [address] Dr. Saroj Cano Erythrocyte distribution width (RBC) [Ratio] 14.7 % Normal 11.0-15.0 [facility] Comment on above: Performed By: #### P TT, PT #### [facility] [address] [place] [address] Dr. Saroj Cano Hematocrit (Bld) [Volume fraction] 41.1 % Normal 36.0-48.0 [facility] Comment on above: Performed By: #### P TT, PT #### [facility] [address] [place] [address] Dr. Saroj Cano Hemoglobin (Bld) [Mass/Vol] 12.5 g/dL Normal 12.0-16.0 [facility] Comment on above: Performed By: #### P TT, PT #### [facility] [address] [place] [address] Dr. Saroj Cano IG # 0.05 10e3/ul Critically high 0.00-0.03 [facility] Comment on above: Performed By: #### P TT, PT #### [facility] [address] [place] [address] Dr. Saroj Cano IG % 0.7 % Critically high 0.0-0.5 [facility] Comment on above: Performed By: #### P TT, PT #### [facility] [address] [place] [address] Dr. Saroj Cano LYMPH # 1.7 103/ul Normal 1.2-3.8 [facility] Comment on above: Performed By: #### P TT, PT #### [facility] [address] [place] [address] Dr. Saroj Cano Lymphocytes/100 WBC (Bld) 23.5 % Normal 20.5-60.0 [facility] Comment on above: Performed By: #### P TT, PT #### [facility] [address] [place] [address] Dr. Saroj Cano MANUAL DIFF REQ NO Normal [facility] Comment on above: Performed By: #### P TT, PT #### [facility] [address] [place] [address] Dr. Saroj Cano MCH (RBC) [Entitic mass] 27.8 pg Normal 26.7-34.0 [facility] Comment on above: Performed By: #### P TT, PT #### [facility] [address] [place] [address] Dr. Saroj Cano MCHC (RBC) [Mass/Vol] 30.4 g/dL Normal 29.9-35.2 [facility] Comment on above: Performed By: #### P TT, PT #### [facility] [address] [place] [address] Dr. Saroj Cano MCV (RBC) [Entitic vol] 91.3 fL Normal 81.0-99.0 [facility] Comment on above: Performed By: #### P TT, PT #### [facility] [address] [place] [address] Dr. Saroj Cano MONO # 0.2 103/ul Critically low 0.3-0.8 [facility] Comment on above: Performed By: #### P TT, PT #### [facility] [address] [place] [address] Dr. Saroj Cano Monocytes/100 WBC (Bld) 2.7 % Normal 1.7-12.0 [facility] Comment on above: Performed By: #### P TT, PT #### [facility] [address] [place] [address] Dr. Saroj Cano NEUT # 5.2 103/ul Normal 1.4-6.5 [facility] Comment on above: Performed By: #### P TT, PT #### [facility] [address] [place] [address] Dr. Saroj Cano Neutrophils/100 WBC (Bld) 72.8 % Normal 43.0-75.0 [facility] Comment on above: Performed By: #### P TT, PT #### [facility] [address] [place] [address] Dr. Saroj Cano Platelet mean volume (Bld) [Entitic vol] 10.1 fL Normal 9.5-13.5 [facility] Comment on above: Performed By: #### P TT, PT #### [facility] [address] [place] [address] Dr. Saroj Cano PLT 220 103/ul Normal 150-450 [facility] Comment on above: Performed By: #### P TT, PT #### [facility] [address] [place] [address] Dr. Sraoj Cano RBC 4.50 106/ul Normal 4.20-5.40 [facility] Comment on above: Performed By: #### P TT, PT #### [facility] [address] [place] [address] Dr. Saroj Cano WBC 7.2 103/ul Normal 4.0-11.0 [facility] Comment on above: Performed By: #### P TT, PT #### [facility] [address] [place] [address] Dr. Saroj Cano CRPon 01-11-2022 CRP 1.9 mg/dL Critically high <=1.0 [facility] Comment on above: Performed By: #### I HANNAH #### [facility] [address] [place] [address] Dr. Saroj Cano PROF 14(COMP METB)on 022 Albumin [Mass/Vol] 2.8 g/dL Critically low 3.4-5.0 [facility] Comment on above: Performed By: #### I HANNAH #### [facility] [address] [place] [address] Dr. Saroj Cano Albumin/Globulin [Mass ratio] 0.8 {ratio} Normal [facility] Comment on above: Performed By: #### I HANNAH #### [facility] [address] [place] [address] Dr. Saroj Cano ALP [Catalytic activity/Vol] 96 U/L Normal 46-116 [facility] Comment on above: Performed By: #### I HANNAH #### [facility] [address] [address] [address] Saroj Cano ALT [Catalytic activity/Vol] 35 U/L Normal 14-59 [facility] Comment on above: Performed By: #### I HANNAH #### [facility] [address] [place] [address] Dr. Saroj Cano Anion gap [Moles/Vol] 12.2 mmol/L Normal [facility] Comment on above: Performed By: #### I HANNAH #### [facility] [address] [place] [address] Dr. Saroj Cano AST [Catalytic activity/Vol] 11 U/L Critically low 15-37 [facility] Comment on above: Performed By: #### I HANNAH #### [facility] [address] [place] [address] Dr. Saroj Cano Bilirubin [Mass/Vol] 0.2 mg/dL Normal 0.2-1.0 [facility] Comment on above: Performed By: #### I HANNAH #### [facility] [address] [place] [address] Dr. Saroj Cano Calcium [Mass/Vol] 9.1 mg/dL Normal 8.5-10.1 [facility] Comment on above: Performed By: #### I HANNAH #### [facility] [address] [address] [address] Saroj Cano Chloride [Moles/Vol] 105 mmol/L Normal 98-107 [facility] Comment on above: Performed By: #### I HANNAH #### [facility] [address] [place] [address] Dr. Saroj Cano CO2 [Moles/Vol] 25.8 mmol/L Normal 21.0-32.0 [facility] Comment on above: Performed By: #### I HANNAH #### [facility] [address] [address] [address] Saroj Cano Creatinine [Mass/Vol] 0.66 mg/dL Normal 0.55-1.02 [facility] Comment on above: Performed By: #### I HANNAH #### [facility] [address] [address] [address] Saroj Cano EGFR-AF SLOVENIAN >60 Normal >=60 [facility] Comment on above: Performed By: #### I HANNAH #### [facility] [address] [address] [address] Saroj Cano EGFR-NON AF SLOVENIAN >60 Normal >=60 [facility] Comment on above: Performed By: #### I HANNAH #### [facility] [address] [address] [address] Saroj Cano Globulin (S) [Mass/Vol] 3.5 g/dL Normal [facility] Comment on above: Performed By: #### I HANNAH #### [facility] [address] [address] [address] Saroj Cano Glucose [Mass/Vol] 166 mg/dL Critically high 74-106 [facility] Comment on above: Performed By: #### I HANNAH #### [facility] [address] [address] [address] Saroj Cano Potassium [Moles/Vol] 4.0 mmol/L Normal 3.5-5.1 [facility] Comment on above: Performed By: #### I HANNAH #### [facility] [address] [address] [address] Saroj Cano Protein [Mass/Vol] 6.3 g/dL Critically low 6.4-8.2 [facility] Comment on above: Performed By: #### I HANNAH #### [facility] [address] [address] [address] Saroj Cano Sodium [Moles/Vol] 139 mmol/L Normal 136-145 [facility] Comment on above: Performed By: #### I HANNAH #### [facility] [address] [place] [address] Dr. Saroj Cano Urea nitrogen [Mass/Vol] 10.0 mg/dL Normal 7.0-18.0 [facility] Comment on above: Performed By: #### I HANNAH #### [facility] [address] [place] [address] Dr. Saroj Cano Urea nitrogen/Creatinine [Mass ratio] 15.2 mg/mg Normal [facility] Comment on above: Performed By: #### I HANNAH #### [facility] [address] [place] [address] Dr. Saroj Cano ACETONE SERUMon 01-10-2022 ACETONE Negative Normal NEGATIVE [facility] Comment on above: Performed By: #### P TT, PT #### [facility] [address] [place] [address] Dr. Saroj Cano CBC AUTO DIFFon 01-10-2022 BASO # 0.1 103/ul Normal 0.0-0.1 [facility] Comment on above: Performed By: #### I HANNAH #### [facility] [address] [place] [address] Dr. Saroj Cano Basophils/100 WBC (Bld) 0.9 % Normal 0.2-2.0 [facility] Comment on above: Performed By: #### I HANNAH #### [facility] [address] [place] [address] Dr. Saroj Cano EO # 0.1 103/ul Normal 0.0-0.7 [facility] Comment on above: Performed By: #### I HANNAH #### [facility] [address] [place] [address] Dr. Saroj Cano Eosinophils/100 WBC (Bld) 0.8 % Critically low 0.9-7.0 [facility] Comment on above: Performed By: #### I HANNAH #### [facility] [address] [place] [address] Dr. Saroj Cano Erythrocyte distribution width (RBC) [Ratio] 15.1 % Critically high 11.0-15.0 [facility] Comment on above: Performed By: #### I HANNAH #### [facility] [address] [address] [address] Saroj Cano Hematocrit (Bld) [Volume fraction] 46.1 % Normal 36.0-48.0 [facility] Comment on above: Performed By: #### I HANNAH #### [facility] [address] [address] [address] Saroj Cano Hemoglobin (Bld) [Mass/Vol] 14.1 g/dL Normal 12.0-16.0 [facility] Comment on above: Performed By: #### I HANNAH #### [facility] [address] [address] [address] Saroj Cano IG # 0.05 10e3/ul Critically high 0.00-0.03 [facility] Comment on above: Performed By: #### I HANNAH #### [facility] [address] [place] [address] Dr. Saroj Cano IG % 0.6 % Critically high 0.0-0.5 [facility] Comment on above: Performed By: #### I HANNAH #### [facility] [address] [place] [address] Dr. Saroj Cano LYMPH # 2.7 103/ul Normal 1.2-3.8 [facility] Comment on above: Performed By: #### I HANNAH #### [facility] [address] [place] [address] Dr. Saroj Cano Lymphocytes/100 WBC (Bld) 30.5 % Normal 20.5-60.0 [facility] Comment on above: Performed By: #### I HANNAH #### [facility] [address] [place] [address] Dr. Saroj Cano MANUAL DIFF REQ NO Normal [facility] Comment on above: Performed By: #### I HANNAH #### [facility] [address] [place] [address] Dr. Saroj Cano MCH (RBC) [Entitic mass] 28.3 pg Normal 26.7-34.0 [facility] Comment on above: Performed By: #### I HANNAH #### [facility] [address] [place] [address] Dr. Saroj Cano MCHC (RBC) [Mass/Vol] 30.6 g/dL Normal 29.9-35.2 [facility] Comment on above: Performed By: #### I HANNAH #### [facility] [address] [place] [address] Dr. Saroj Cano MCV (RBC) [Entitic vol] 92.4 fL Normal 81.0-99.0 [facility] Comment on above: Performed By: #### I HANNAH #### [facility] [address] [place] [address] Dr. Saroj Cano MONO # 0.9 103/ul Critically high 0.3-0.8 [facility] Comment on above: Performed By: #### I HANNAH #### [facility] [address] [place] [address] Dr. Saroj Cano Monocytes/100 WBC (Bld) 9.8 % Normal 1.7-12.0 [facility] Comment on above: Performed By: #### I HANNAH #### [facility] [address] [place] [address] Dr. Saroj Cano NEUT # 5.1 103/ul Normal 1.4-6.5 [facility] Comment on above: Performed By: #### I HANNAH #### [facility] [address] [place] [address] Dr. Saroj Cano Neutrophils/100 WBC (Bld) 57.4 % Normal 43.0-75.0 [facility] Comment on above: Performed By: #### I HANNAH #### [facility] [address] [place] [address] Dr. Saroj Cano Platelet mean volume (Bld) [Entitic vol] 9.6 fL Normal 9.5-13.5 [facility] Comment on above: Performed By: #### I HANNAH #### [facility] [address] [place] [address] Dr. Saroj Cano PLT 214 103/ul Normal 150-450 [facility] Comment on above: Performed By: #### I HANNAH #### [facility] [address] [place] [address] Dr. Saroj Cano RBC 4.99 106/ul Normal 4.20-5.40 [facility] Comment on above: Performed By: #### I HANNAH #### [facility] [address] [place] [address] Dr. Saroj Cano WBC 8.9 103/ul Normal 4.0-11.0 [facility] Comment on above: Performed By: #### I HANNAH #### [facility] [address] [place] [address] FACIAL BONES W CONon CT FACIAL BONES W CON EXAMINATION: CT [...] ANDRIY VASQUEZ Date: 2022-01-10 16:04 Normal [facility] CULTURE BLOODon 01-10-2022 Microscopic examination of blood, culture Culture Observations: NO GROWTH AT 5 DAYS. Normal [facility] Comment on above: Performed By: #### P TT, PT #### [facility] [address] [place] [address] Dr. Saroj Cano Microscopic examination of blood, culture Culture Observations: NO GROWTH AT 5 DAYS. Normal [facility] Comment on above: Performed By: #### P TT, PT #### [facility] [address] [place] [address] Dr. Saroj Cano Covid-19 PCR ([facility])on SARS-CoV-2 (COVID-19) RNA RIC+probe Ql (Unsp spec) Not detected Normal NOT DETECTED [facility] Comment on above: Result Comment: When diagnostic [...] for this test is supported by the Drifting of Health and Human Service's declaration that [...] used). Performed By: #### I HANNAH #### [facility] [address] [place] [address] Dr. Saroj Cano LACTATE/LACTIC ACIDon 2021 Lactate [Moles/Vol] 1.7 mmol/L Normal 0.4-1.9 [facility] Comment on above: Performed By: #### L ACT #### [facility] [address] [place] [address] Dr. Saroj Cano PH VENOUS BLOODon 01-10-2022 PCO2 VENOUS 44.1 mmHg Normal 40.0-52.0 [facility] Comment on above: Performed By: #### P HVEN #### [facility] [address] [place] [address] Dr. Saroj Cano pH VENOUS 7.403 Normal 7.330-7.430 [facility] Comment on above: Performed By: #### P HVEN #### [facility] [address] [place] [address] Dr. Saroj Cano PROF 14(COMP METB)on 022 Albumin [Mass/Vol] 3.3 g/dL Critically low 3.4-5.0 [facility] Comment on above: Performed By: #### P TT, PT #### [facility] [address] [address] [address] Saroj Cano Albumin/Globulin [Mass ratio] 0.9 {ratio} Normal [facility] Comment on above: Performed By: #### P TT, PT #### [facility] [address] [address] [address] Saroj Cano ALP [Catalytic activity/Vol] 103 U/L Normal 46-116 [facility] Comment on above: Performed By: #### P TT, PT #### [facility] [address] [address] [address] Saroj Cano ALT [Catalytic activity/Vol] 43 U/L Normal 14-59 [facility] Comment on above: Performed By: #### P TT, PT #### [facility] [address] [place] [address] Dr. Saroj Cano Anion gap [Moles/Vol] 15.6 mmol/L Normal [facility] Comment on above: Performed By: #### P TT, PT #### [facility] [address] [place] [address] Dr. Saroj Cano AST [Catalytic activity/Vol] 16 U/L Normal 15-37 [facility] Comment on above: Performed By: #### P TT, PT #### [facility] [address] [place] [address] Dr. Saroj Cano Bilirubin [Mass/Vol] 0.3 mg/dL Normal 0.2-1.0 [facility] Comment on above: Performed By: #### P TT, PT #### [facility] [address] [address] [address] Saroj Cano Calcium [Mass/Vol] 9.4 mg/dL Normal 8.5-10.1 [facility] Comment on above: Performed By: #### P TT, PT #### [facility] [address] [address] [address] Saroj Cano Chloride [Moles/Vol] 103 mmol/L Normal 98-107 [facility] Comment on above: Performed By: #### P TT, PT #### [facility] [address] [address] [address] Saroj Cano CO2 [Moles/Vol] 26.8 mmol/L Normal 21.0-32.0 [facility] Comment on above: Performed By: #### P TT, PT #### [facility] [address] [address] [address] Saroj Cano Creatinine [Mass/Vol] 1.00 mg/dL Normal 0.55-1.02 [facility] Comment on above: Performed By: #### P TT, PT #### [facility] [address] [address] [address] Saroj Cano EGFR-AF SLOVENIAN >60 Normal >=60 [facility] Comment on above: Performed By: #### P TT, PT #### [facility] [address] [address] [address] Saroj Cano EGFR-NON AF SLOVENIAN 57 mL/min/1.73m2 Critically low >=60 [facility] Comment on above: Performed By: #### P TT, PT #### [facility] [address] [address] [address] Saroj Cano Globulin (S) [Mass/Vol] 3.7 g/dL Normal [facility] Comment on above: Performed By: #### P TT, PT #### [facility] [address] [address] [address] Saroj Cano Glucose [Mass/Vol] 151 mg/dL Critically high 74-106 [facility] Comment on above: Performed By: #### P TT, PT #### [facility] [address] [address] [address] Saroj Cano Potassium [Moles/Vol] 3.5 mmol/L Normal 3.5-5.1 [facility] Comment on above: Performed By: #### P TT, PT #### [facility] [address] [address] [address] Saroj Cano Protein [Mass/Vol] 7.0 g/dL Normal 6.4-8.2 [facility] Comment on above: Performed By: #### P TT, PT #### [facility] [address] [place] [address] Dr. Saroj Cano Sodium [Moles/Vol] 142 mmol/L Normal 136-145 [facility] Comment on above: Performed By: #### P TT, PT #### [facility] [address] [place] [address] Dr. Saroj Cano Urea nitrogen [Mass/Vol] 9.0 mg/dL Normal 7.0-18.0 [facility] Comment on above: Performed By: #### P TT, PT #### [facility] [address] [place] [address] Dr. Saroj Cano Urea nitrogen/Creatinine [Mass ratio] 9.0 mg/mg Normal [facility] Comment on above: Performed By: #### P TT, PT #### [facility] [address] [place] [address] Dr. Saroj Cano PROTIMEon 01-10-2022 INR Coag (PPP) [Relative time] 1.01 {INR} Normal [facility] Comment on above: Performed By: #### P TT, PT #### [facility] [address] [place] [address] Dr. Saroj Cano INR GUIDELINES SEE BELOW Normal [facility] Comment on above: Result Comment: EVGENY RED INR: 2.0 - 3.0 CONDITIONS NOT LISTED BELOW 2.5 - 3.5 FOR PROSTHETIC HEART VALVE REPLACEMENT 2.5 - 3.5 RECURRENT THROMBOSIS Performed By: #### P TT, PT #### [facility] [address] [place] [address] Dr. Saroj Cano PT Coag (PPP) [Time] 10.9 s Normal 9.0-11.6 [facility] Comment on above: Performed By: #### P TT, PT #### [facility] [address] [place] [address] Dr. Saroj Cano PTTon 01-10-2022 aPTT Coag (Bld) [Time] 25.2 s Normal 22.3-36.2 [facility] Comment on above: Performed By: #### P TT, PT #### [facility] [address] [place] [address] Dr. Saroj Cano BNPon 01-07-2022 Natriuretic peptide B (Bld) [Mass/Vol] 246.0 pg/mL Normal <=900.0 [facility] Comment on above: Performed By: #### I HANNAH #### [facility] [address] [place] [address] Dr. Saroj Cano CBC AUTO DIFFon 01-07-2022 BASO # 0.1 103/ul Normal 0.0-0.1 [facility] Comment on above: Performed By: #### I HANNAH #### [facility] [address] [place] [address] Dr. Saroj Cano Basophils/100 WBC (Bld) 0.6 % Normal 0.2-2.0 [facility] Comment on above: Performed By: #### I HANNAH #### [facility] [address] [place] [address] Dr. Saroj Cano EO # 0.1 103/ul Normal 0.0-0.7 [facility] Comment on above: Performed By: #### I HANNAH #### [facility] [address] [place] [address] Dr. Saroj Cano Eosinophils/100 WBC (Bld) 0.5 % Critically low 0.9-7.0 [facility] Comment on above: Performed By: #### I HANNAH #### [facility] [address] [place] [address] Dr. Saroj Cano Erythrocyte distribution width (RBC) [Ratio] 15.2 % Critically high 11.0-15.0 [facility] Comment on above: Performed By: #### I HANNAH #### [facility] [address] [place] [address] Dr. Saroj Cano Hematocrit (Bld) [Volume fraction] 47.5 % Normal 36.0-48.0 [facility] Comment on above: Performed By: #### I HANNAH #### [facility] [address] [place] [address] Dr. Saroj Cano Hemoglobin (Bld) [Mass/Vol] 14.6 g/dL Normal 12.0-16.0 [facility] Comment on above: Performed By: #### I HANNAH #### [facility] [address] [place] [address] Dr. Saroj Cano IG # 0.05 10e3/ul Critically high 0.00-0.03 [facility] Comment on above: Performed By: #### I HANNAH #### [facility] [address] [place] [address] Dr. Saroj Cano IG % 0.5 % Normal 0.0-0.5 [facility] Comment on above: Performed By: #### I HANNAH #### [facility] [address] [place] [address] Dr. Saroj Cano LYMPH # 1.4 103/ul Normal 1.2-3.8 [facility] Comment on above: Performed By: #### I HANNAH #### [facility] [address] [place] [address] Dr. Saroj Cano Lymphocytes/100 WBC (Bld) 15.4 % Critically low 20.5-60.0 [facility] Comment on above: Performed By: #### I HANNAH #### [facility] [address] [place] [address] Dr. Saroj Cano MANUAL DIFF REQ NO Normal [facility] Comment on above: Performed By: #### I HANNAH #### [facility] [address] [place] [address] Dr. Saroj Cano MCH (RBC) [Entitic mass] 27.9 pg Normal 26.7-34.0 [facility] Comment on above: Performed By: #### I HANNAH #### [facility] [address] [place] [address] Dr. Saroj Cano MCHC (RBC) [Mass/Vol] 30.7 g/dL Normal 29.9-35.2 [facility] Comment on above: Performed By: #### I HANNAH #### [facility] [address] [place] [address] Dr. Saroj Cano MCV (RBC) [Entitic vol] 90.6 fL Normal 81.0-99.0 [facility] Comment on above: Performed By: #### I HANNAH #### [facility] [address] [address] [address] Saroj Cano MONO # 0.8 103/ul Normal 0.3-0.8 [facility] Comment on above: Performed By: #### I HANNAH #### [facility] [address] [address] [address] Saroj Cano Monocytes/100 WBC (Bld) 8.9 % Normal 1.7-12.0 [facility] Comment on above: Performed By: #### I HANNAH #### [facility] [facility] [address] [address] [address] Saroj Cano NEUT # 6.9 103/ul Critically high 1.4-6.5 [facility] Comment on above: Performed By: #### I HANNAH #### [facility] [address] [place] [address] Dr. Saroj Cano Neutrophils/100 WBC (Bld) 74.1 % Normal 43.0-75.0 [facility] Comment on above: Performed By: #### I HANNAH #### [facility] [address] [address] [address] Saroj Cano Platelet mean volume (Bld) [Entitic vol] 9.3 fL Critically low 9.5-13.5 [facility] Comment on above: Performed By: #### I HANNAH #### [facility] [address] [address] [address] Saroj Cano PLT 213 103/ul Normal 150-450 [facility] Comment on above: Performed By: #### I HANNAH #### [facility] [address] [address] [address] Saroj Cano RBC 5.24 106/ul Normal 4.20-5.40 [facility] Comment on above: Performed By: #### I HANNAH #### [facility] [address] [address] [address] Saroj Cano WBC 9.3 103/ul Normal 4.0-11.0 [facility] Comment on above: Performed By: #### I HANNAH #### [facility] [address] [place], [place] [address] HEAD WO CONon [...] DANTE HECTOR Date: 2022-01-07 12:03 Normal [facility] Covid-19 PCR (CVDTB)on SARS-CoV-2 (COVID-19) RNA RIC+probe Ql (Unsp spec) Not detected Normal NOT DETECTED [facility] Comment on above: Result Comment: When diagnostic [...] for this test is supported by the [employer] of [employer] and Human Service's declaration that [...] used). Performed By: #### C VDTBH #### [facility] [address] [place], [place] [address] Dr. Saroj Cano PROF CHEM 8 (BAS METB)on Anion gap [Moles/Vol] 9.7 mmol/L Normal [facility] Comment on above: Performed By: #### I HANNAH #### [facility] [address] [address] [address] Saroj Cano Calcium [Mass/Vol] 9.5 mg/dL Normal 8.5-10.1 [facility] Comment on above: Performed By: #### I HANNAH #### [facility] [address] [address] [address] Saroj Cano Chloride [Moles/Vol] 103 mmol/L Normal 98-107 [facility] Comment on above: Performed By: #### I HANNAH #### [facility] [address] [place] [address] Dr. Saroj Cano CO2 [Moles/Vol] 29.3 mmol/L Normal 21.0-32.0 [facility] Comment on above: Performed By: #### I HANNAH #### [facility] [address] [place] [address] Dr. Saroj Cano Creatinine [Mass/Vol] 0.90 mg/dL Normal 0.55-1.02 [facility] Comment on above: Performed By: #### I HANNAH #### [facility] [address] [place] [address] Dr. Saroj Cano EGFR-AF SLOVENIAN >60 Normal >=60 [facility] Comment on above: Performed By: #### I HANNAH #### [facility] [address] [place] [address] Dr. Saroj Cano EGFR-NON AF SLOVENIAN >60 Normal >=60 [facility] Comment on above: Performed By: #### I HANNAH #### [facility] [address] [place] [address] Dr. Saroj Cano Glucose [Mass/Vol] 151 mg/dL Critically high 74-106 [facility] Comment on above: Performed By: #### I HANNAH #### [facility] [address] [address] [address] Saroj Cano Potassium [Moles/Vol] 4.0 mmol/L Normal 3.5-5.1 [facility] Comment on above: Performed By: #### I HANNAH #### [facility] [address] [address] [address] Saroj Cano Sodium [Moles/Vol] 138 mmol/L Normal 136-145 [facility] Comment on above: Performed By: #### I HANNAH #### [facility] [address] [place], [place] [address] Dr. Saroj Cano Urea nitrogen [Mass/Vol] 15.0 mg/dL Normal 7.0-18.0 [facility] Comment on above: Performed By: #### I HANNAH #### [facility] [address] [address] [address] Saroj Cano Urea nitrogen/Creatinine [Mass ratio] 16.7 mg/mg Normal [facility] Comment on above: Performed By: #### I HANNAH #### [facility] [address] [address] [address] Saroj Cano TROPONIN, HIGH SENSITIVITYon 01-07-2022 HSTROP 9.6 pg/mL Normal 4.0-51.3 [facility] Comment on above: Result Comment: CUT- OFF POINTS HAVE BEEN ESTABLISHED BASED ON THE FOURTH UNIVERSAL DEFINITIONS OF MYOCARDIAL INFARCTION. THE UPPER REFERENCE LIMIT (URL) OF TROPONIN, DEFINED THE 99TH PERCENTILE OF cTnI DISTRIBUTION IN A REFERENCE POPULATION, HAS BEEN CONFIRMED THE DECISION THRESHOLD FOR [place] DIAGNOSIS. Performed By: #### I HANNAH #### [facility] [address] [address] [address] Saroj Cano XR CHEST 1 Von [...] by: DANTE HECTOR Date: 2022-01-07 10:[address] [facility] [address] LUNG CANCER SCREENINGon 0 12-10-2021 [...] by: DANTE HECTOR Date: 2021-12-10 14:15 Normal [facility] VC COMP CONSULTATIONon 12-02 VC COMP CONSULTATION Patient: ELZA LEONARD Exam Date: 12/02/2021 : 1965 Gender:F Ordering : DR JARRELL ROUSE . Admission #: [id number] Family : Order #: [id number] CLICK HERE TO VIEW EXAM RADIOLOGY REPORT [...] arterial disease 5. CEAP: C3, EC, , [place] PLAN: 1. Continued use of compression stockings [...] Vasquez M.D. on 12/02/2021 at 15:40 Normal [facility] ECHOCARDIO M/2D COMPLETEon 0 11-29-2021 ECHOCARDIO M/2D COMPLETE Patient: NITIN LEONARD Exam Date: 11/29/2021 : 1965 Gender:F Ordering : DR JARRELL ROUSE . Admission #: [id number] Family : Order #: [id number] CLICK HERE TO VIEW EXAM ECHOCARDIOGRAM REPORT [...] John M.D. on 11/29/2021 at 17:43 Normal [facility] VC VENOUS REFLUX REG LMTon 0 11-25-2021 VC VENOUS REFLUX REG LMT Patient: NITIN LEONARD Exam Date: 11/25/2021 : 1965 Gender:F Ordering : DR JARRELL ROUSE . 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 Tech [...] M.D. on 11/26/2021 at 14:05 Normal [facility] BNPon 10-22-2021 Natriuretic peptide B (Bld) [Mass/Vol] 207.0 pg/mL Normal <=900.0 [facility] Comment on above: Performed By: #### I HANNAH #### [facility] [address] [place] [address] Dr. Saroj Cano CBC AUTO DIFFon 10-22-2021 BASO # 0.1 103/ul Normal 0.0-0.1 [facility] Comment on above: Performed By: #### P TT, PT #### [facility] [address] [place] [address] Dr. Saroj Cano Basophils/100 WBC (Bld) 0.9 % Normal 0.2-2.0 [facility] Comment on above: Performed By: #### P TT, PT #### [facility] [address] [place] [address] Dr. Saroj Cano EO # 0.2 103/ul Normal 0.0-0.7 [facility] Comment on above: Performed By: #### P TT, PT #### [facility] [address] [place] [address] Dr. Saroj Cano Eosinophils/100 WBC (Bld) 1.6 % Normal 0.9-7.0 [facility] Comment on above: Performed By: #### P TT, PT #### [facility] [address] [place] [address] Dr. Saroj Cano Erythrocyte distribution width (RBC) [Ratio] 14.3 % Normal 11.0-15.0 [facility] Comment on above: Performed By: #### P TT, PT #### [facility] [address] [place] [address] Dr. Saroj Cano Hematocrit (Bld) [Volume fraction] 41.6 % Normal 36.0-48.0 [facility] Comment on above: Performed By: #### P TT, PT #### [facility] [address] [place] [address] Dr. Saroj Cano Hemoglobin (Bld) [Mass/Vol] 12.9 g/dL Normal 12.0-16.0 [facility] Comment on above: Performed By: #### P TT, PT #### [facility] [address] [place] [address] Dr. Saroj Cano IG # 0.05 10e3/ul Critically high 0.00-0.03 [facility] Comment on above: Performed By: #### P TT, PT #### [facility] [address] [place] [address] Dr. Saroj Cano IG % 0.5 % Normal 0.0-0.5 [facility] Comment on above: Performed By: #### P TT, PT #### [facility] [address] [place] [address] Dr. Saroj Cano LYMPH # 2.5 103/ul Normal 1.2-3.8 [facility] Comment on above: Performed By: #### P TT, PT #### [facility] [address] [place] [address] Dr. Saroj Cano Lymphocytes/100 WBC (Bld) 25.0 % Normal 20.5-60.0 [facility] Comment on above: Performed By: #### P TT, PT #### [facility] [address] [place] [address] Dr. Saroj Cano MANUAL DIFF REQ NO Normal [facility] Comment on above: Performed By: #### P TT, PT #### [facility] [address] [place] [address] Dr. Saroj Cano MCH (RBC) [Entitic mass] 27.7 pg Normal 26.7-34.0 [facility] Comment on above: Performed By: #### P TT, PT #### [facility] [address] [place] [address] Dr. Saroj Cano MCHC (RBC) [Mass/Vol] 31.0 g/dL Normal 29.9-35.2 [facility] Comment on above: Performed By: #### P TT, PT #### [facility] [address] [place] [address] Dr. Saroj Cano MCV (RBC) [Entitic vol] 89.3 fL Normal 81.0-99.0 [facility] Comment on above: Performed By: #### P TT, PT #### [facility] [address] [place] [address] Dr. Saroj Cano MONO # 0.9 103/ul Critically high 0.3-0.8 [facility] Comment on above: Performed By: #### P TT, PT #### [facility] [address] [place] [address] Dr. Saroj Cano Monocytes/100 WBC (Bld) 8.8 % Normal 1.7-12.0 [facility] Comment on above: Performed By: #### P TT, PT #### [facility] [address] [place] [address] Dr. Saroj Cano NEUT # 6.2 103/ul Normal 1.4-6.5 [facility] Comment on above: Performed By: #### P TT, PT #### [facility] [address] [place] [address] Dr. Saroj Cano Neutrophils/100 WBC (Bld) 63.2 % Normal 43.0-75.0 [facility] Comment on above: Performed By: #### P TT, PT #### [facility] [address] [place] [address] Dr. Saroj Cano Platelet mean volume (Bld) [Entitic vol] 9.9 fL Normal 9.5-13.5 [facility] Comment on above: Performed By: #### P TT, PT #### [facility] [address] [place] [address] Dr. Saroj Cano PLT 305 103/ul Normal 150-450 [facility] Comment on above: Performed By: #### P TT, PT #### [facility] [address] [address] [address] Saroj Cano RBC 4.66 106/ul Normal 4.20-5.40 [facility] Comment on above: Performed By: #### P TT, PT #### [facility] [address] [place] [address] Dr. Saroj Cano WBC 9.8 103/ul Normal 4.0-11.0 [facility] Comment on above: Performed By: #### P TT, PT #### [facility] [address] [place] [address] Dr. Saroj Cano FREE THYROXINE INDEX T7on FTI 3.70 Normal 1.30-4.50 [facility] Comment on above: Performed By: #### P TT, PT #### [facility] [address] [place] [address] Dr. Saroj Cano T3U 37.0 % Normal 30.0-39.0 [facility] Comment on above: Performed By: #### P TT, PT #### [facility] [address] [place] [address] Dr. Saroj Cano T4 [Mass/Vol] 10.00 ug/dL Normal 4.80-13.90 [facility] Comment on above: Performed By: #### P TT, PT #### [facility] [address] [place] [address] Dr. Saroj Cano IRONon 10-22-2021 Iron [Mass/Vol] 68.0 ug/dL Normal 50.0-170.0 [facility] Comment on above: Performed By: #### I HANNAH #### [facility] [address] [place] [address] Dr. Saroj Cano PROF 14(COMP METB)on 022 Albumin [Mass/Vol] 3.0 g/dL Critically low 3.4-5.0 [facility] Comment on above: Performed By: #### P TT, PT #### [facility] [address] [place] [address] Dr. Saroj Cano Albumin/Globulin [Mass ratio] 0.8 {ratio} Normal [facility] Comment on above: Performed By: #### P TT, PT #### [facility] [address] [address] [address] Saroj Cano ALP [Catalytic activity/Vol] 129 U/L Critically high 46-116 [facility] Comment on above: Performed By: #### P TT, PT #### [facility] [address] [address] [address] Saroj Cano ALT [Catalytic activity/Vol] 23 U/L Normal 14-59 [facility] Comment on above: Performed By: #### P TT, PT #### [facility] [address] [address] [address] Saroj Cano Anion gap [Moles/Vol] 12.7 mmol/L Normal [facility] Comment on above: Performed By: #### P TT, PT #### [facility] [address] [address] [address] Saroj Cano AST [Catalytic activity/Vol] 13 U/L Critically low 15-37 [facility] Comment on above: Performed By: #### P TT, PT #### [facility] [address] [address] [address] Saroj Cano Bilirubin [Mass/Vol] 0.2 mg/dL Normal 0.2-1.0 [facility] Comment on above: Performed By: #### P TT, PT #### [facility] [address] [address] [address] Saroj Cano Calcium [Mass/Vol] 8.8 mg/dL Normal 8.5-10.1 [facility] Comment on above: Performed By: #### P TT, PT #### [facility] [address] [address] [address] Saroj Cano Chloride [Moles/Vol] 106 mmol/L Normal 98-107 [facility] Comment on above: Performed By: #### P TT, PT #### [facility] [address] [address] [address] Saroj Cano CO2 [Moles/Vol] 28.1 mmol/L Normal 21.0-32.0 [facility] Comment on above: Performed By: #### P TT, PT #### [facility] [address] [address] [address] Saroj Cano Creatinine [Mass/Vol] 0.72 mg/dL Normal 0.55-1.02 [facility] Comment on above: Performed By: #### P TT, PT #### [facility] [address] [address] [address] Saroj Cano EGFR-AF SLOVENIAN >60 Normal >=60 [facility] Comment on above: Performed By: #### P TT, PT #### [facility] [address] [address] [address] Saroj Cano EGFR-NON AF SLOVENIAN >60 Normal >=60 [facility] Comment on above: Performed By: #### P TT, PT #### [facility] [address] [place] [address] Dr. Saroj Cano Globulin (S) [Mass/Vol] 3.7 g/dL Normal [facility] Comment on above: Performed By: #### P TT, PT #### [facility] [address] [address] [address] Saroj Cano Glucose [Mass/Vol] 122 mg/dL Critically high 74-106 [facility] Comment on above: Performed By: #### P TT, PT #### [facility] [address] [place] [address] Dr. Saroj Cano Potassium [Moles/Vol] 3.8 mmol/L Normal 3.5-5.1 [facility] Comment on above: Performed By: #### P TT, PT #### [facility] [address] [address] [address] Saroj Cano Protein [Mass/Vol] 6.7 g/dL Normal 6.4-8.2 [facility] Comment on above: Performed By: #### P TT, PT #### [facility] [address] [address] [address] Saroj Cano Sodium [Moles/Vol] 143 mmol/L Normal 136-145 [facility] Comment on above: Performed By: #### P TT, PT #### [facility] [address] [address] [address] Saroj Cano Urea nitrogen [Mass/Vol] 13.0 mg/dL Normal 7.0-18.0 [facility] Comment on above: Performed By: #### P TT, PT #### [facility] [address] [address] [address] Saroj Cano Urea nitrogen/Creatinine [Mass ratio] 18.1 mg/mg Normal [facility] Comment on above: Performed By: #### P TT, PT #### [facility] [address] [address] [address] Saroj Cano TSHon 10-22-2021 TSH 1.202 uIU/mL Normal 0.358-3.740 [facility] Comment on above: Performed By: #### I HANNAH #### [facility] [address] [address] [address] Saroj Cano US ELVA DOP LEG LTon 10-23-19 22 US ELVA DOP LEG LT EXAMINATION: US [...] by: DANTE HECTOR Date: 2021-10-22 07:07 Normal [facility] XR CHEST 2 Von 10-21-2021 XR [...] by: CORWIN ASHLEY Date: 2021-10-21 17:53 Normal [facility] NO CARDIAC STRESS/REST INJE CTIONon 10-09-2020 NO CARDIAC STRESS/REST INJECTION Patient Name: VIDAL LEONARDGY STUDY: MYOCARDIAL PERFUSION STRESS TEST WITH LEXISCAN Performing facility: [facility], [address], [address], [place] [address] [facility] Provider: Chiquis Laguna MD PCP: Dr. Lily Rouse Supervising provider: Carlos Knox DO, [facility] INDICATION: Chest Pain; HISTORY: Gender: F; Age: 55 y/o ; Height: 154.94 cm; Weight: 84.7927961 kg. High Cholesterol; Palpitations; HTN; Chest Pain; SOB; COPD; Denies smoking. COMPARISON: No comparison. ACCESSION NUMBER(S): [id number]; [id number]; [id number] ORDERING CLINICIAN: CHIQUIS LAGUNA TECHNIQUE: ONE DAY [...] comparison. Electronically signed by: HODA SLAUGHTER MD Normal [facility] Vital Signs Date Time Vital Sign Value Performing Clinician Slime wheeler 07-14-2022 10:49-0400 Blood Pressure Location Candace LOPEZ [facility] 07-14-2022 10:49-0400 Diastolic blood pressure 72 mm[Hg] Candace LOPEZ [facility] 07-14-2022 10:49-0400 Heart rate 84 /min Candace LOPEZ [facility] 07-14-2022 10:49-0400 SaO2% (BldA) [Mass fraction] 93 % Candace LOPEZ [facility] 07-14-2022 10:49-0400 Systolic blood pressure 124 mm[Hg] Candace LOPEZ [facility] 06-05-2022 10:42-0500 Blood Pressure Location Evin Renteria [facility] 06-05-2022 10:42-0500 Diastolic blood pressure 78 mm[Hg] vEin Renteria [facility] 06-05-2022 10:42-0500 Heart rate 84 /min Evin Renteria [facility] 06-05-2022 10:42-0500 SaO2% (BldA) [Mass fraction] 91 % Evin Renteria [facility] 06-05-2022 10:42-0500 Systolic blood pressure 131 mm[Hg] Evin Renteria [facility] Encounters Encounter Date Encounter Type Care Provider Facility Start: 12-23-2023 End: 12-23-2023 ambulatory DELVIN A VISCI Not Available Start: 12-11-2023 End: 12-11-2023 ambulatory DELVIN A VISCI Not Available Start: 09-03-2023 ambulatory ALANIS DELONG [facility] Start: 08-19-2023 End: 08-20-2023 ambulatory [facility] Start: 07-08-2023 End: 07-09-2023 ambulatory [facility] Start: 07-08-2023 End: 07-08-2023 ambulatory [facility] Start: 06-02-2023 End: 06-02-2023 ambulatory JUDE CHAN Not Available Start: 04-28-2023 End: 04-28-2023 ambulatory JUDE Rajput DUSTIN Not Available Start: 04-22-2023 End: 04-22-2023 ambulatory [facility] Start: 04-21-2023 End: 04-21-2023 ambulatory JUDE Rajput DUSTIN Not Available Start: 04-14-2023 End: 04-14-2023 ambulatory JUDE Rajput DUSTIN Not Available Start: 04-07-2023 End: 04-07-2023 ambulatory JUDE Rajput DUSTIN Not Available Start: 03-30-2023 End: 03-30-2023 ambulatory JUDE Rajput DUSTIN Not Available Start: 11-10-2022 End: 11-11-2022 Pre-admission assessment Evin Renteria [facility] Start: 10-23-2022 End: 10-23-2022 ambulatory [facility] Start: 10-13-2022 End: 10-14-2022 ambulatory Evin RENTERIA Facility:[facility] Start: 09-10-2022 End: 10-01-2022 ambulatory PUJAALEKSANDRA LOPEZ Malika Facility: Start: 07-14-2022 End: 07-15-2022 ambulatory Candace LOPEZ Facility:[facility] Start: 07-14-2022 End: 07-14-2022 Patient encounter procedure Candace LOPEZ [facility] Start: 07-09-2022 End: 07-10-2022 ambulatory Evin RENTERIA Facility:[facility] Start: 07-09-2022 End: 07-09-2022 Patient encounter procedure Evin Renteria [facility] Start: 06-12-2022 End: 06-13-2022 ambulatory Evin J MYRA Facility:[facility] Start: 06-12-2022 End: 06-12-2022 Patient encounter procedure Evin Pearce Myra [facility] Start: 06-10-2022 End: 06-11-2022 ambulatory Evin J MYRA Facility:[facility] Start: 06-10-2022 End: 06-10-2022 Patient encounter procedure Evin Pearce Renteria [facility] Start: 06-06-2022 End: 06-07-2022 ambulatory PUJA SAMSA . Facility:[facility] Start: 06-05-2022 End: 06-06-2022 ambulatory PUJA P SAMSA Facility:[facility] Start: 06-05-2022 End: 06-05-2022 Patient encounter procedure Evin Pearce Myra [facility] Start: 05-29-2022 ambulatory PUJA SAMSA . Facility [...] End: 10-23-[address] JARRELL ROUSE . Facility: Start: 10-21-2021 End: 10-22-[address] JARRELL ROUSE . Facility: Procedures Date Procedure Procedure Detail Performing Clinician Closed fracture of t ibia and fibula, shaft (disorder) Evin Renteria Destructive procedure Evin Renteria Excision of lumbar intervertebral disc Evin Renteria Comment on above: L4-L5- Dr. Corado Payers Date Payer Category Payer Unknown 2018 Unknown [id number] 1965 Unknown [id number] 2.16.84 0.1.764508.3.579.2.593 1965 Unknown [id number] 2.16.84 0.1.138613.3.579.2.593 1965 Unknown [id number] 2.16.84 0.1.707613.3.579.2.593 1965 Unknown [id number] 2.16.84 0.1.528115.3.579.2.593 1965 Unknown [id number] 2.16.84 0.1.456721.3.579.2.593 1965 Unknown [id number] 2.16.84 0.1.326814.3.579.2.593 1965 Unknown [id number] 2.16.84 0.1.582772.3.579.2.593 1965 Unknown [id number] 2.16.84 0.1.692054.3.579.2.593 1965 Unknown [id number] 2.16.84 0.1.803371.3.579.2.593 1964 Unknown [id number] 2.16.84 0.1.080271.3.579.2.593 1964 Unknown [id number] 2.16.84 0.1.277397.3.579.2.593 1964 Unknown [id number] 2.16.84 0.1.657388.3.579.2.593 1964 Unknown [id number] 2.16.84 0.1.646916.3.579.2.593 1964 Unknown [id number] 2.16.84 0.1.481809.3.579.2.593 1964 Unknown [id number] 2.16.8 40.1.193518.3.579.2.727 1965 Unknown [id number] 2.16.8 40.1.285444.3.579.2.727 1964 Unknown [id number] 2.16.8 40.1.772651.3.579.2.727 1965 Unknown [id number] 2.16.8 40.1.075915.3.579.2.727 1965 Unknown [id number] 2.16.8 40.1.649555.3.579.2.727 1964 Unknown [id number] 2.16.8 40.1.100386.3.579.2.727 1964 Unknown [id number] 2.16.84 0.1.525797.3.579.2.1259 1964 Unknown [id number] 2.16.84 0.1.141246.3.579.2.1259 1964 Unknown [id number] 2.16.84 0.1.472716.3.579.2.1259 1964 Unknown [id number] 2.16.840 .1.659431.3.579.2.1259 1964 Unknown [id number] 2.16.840 .1.782765.3.579.2.1259 1964 Unknown [id number] 2.16.840 .1.642280.3.579.2.1259 1964 Unknown [id number] 2.16.840 .1.475729.3.579.2.1259 1964 Unknown [id number] 2.16.840 .1.349387.3.579.2.1259 1960 Self-pay [id number] 1960 Unknown [id number] Social History Date Type Detail Facility Start: 12-28-2019 End: 10-13-2022 Tobacco smoking status Ex-smoker (finding) [facility] Tobacco smoking status Smokeless tobacco user within last 30 days [facility] Sex Assigned At Female [facility] Functional Status Date Assessment Result Facility 07-14-2022 Functional Status No [facility] 06-05-2022 Functional Status No [facility] Clinical Notes 06-05-2022 to 09-03-2023 [facility] Note Date & Type Note Facility 09-03-2023 Note Attestation signed by Alanis Delong MD at 09/04/2023 11:05 AM Total time spent on day of encounter: 30 minutes Fissure only 80% complete, can proceed with air leak assessment and if there is no evidence of collateral ventilation intraoperatively will proceed with BLVR PATEL. 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 : 1965 Account No.: [id number] Referring physician: Dr. Lopez Chief complaint: [place] valve evaluation HPI 58 years old female [...] Diagnosis Date COPD (chronic obstructive pulmonary disease) ([facility]) Hyperlipidemia Hypertension Past Surgical History: Procedure Laterality [...] and at bedtime. 06/19/22 Yes Historical Provider, buPROPion XL (Wellbutrin XL) 300 mg 24 [...] PHVEN , PCO2P (more content not included)... [facility] 08-11-2023 Note . [facility] 04-22-2023 Note [place] Cardiology - [facility] Subjective Nitin Leonard is a 58 [...] Disp: , Rfl (more content not included)... [facility] 10-23-2022 Note [place] [facility]iology - [facility] Jesus Leonard is a 57 y.o. year old female patient being seen for Establish Care (DIASTOLIC DYSFUNCTION ANSIM) Patient Active Problem List Diagnosis Vitamin D [...] alkaline phosphatase mil (more content not included)... [facility] 10-13-2022 Evaluation + Plan note Future Scheduled TestsLipid Panel 10/13/22Lipid Panel 08/25/22 [facility] 07-12-2022 Note Echocardiology Procedure Exam Date/Time Accession # Ordering Dr. Trotter Transthoracic 07/09/2022 11:28 EST [id number] Evin Renteria MD Complete CPT code 12876 06817 Reason for Exam (Echo Transthoracic Complete) R06.09;Shortness of breath (SOB) Report Version: 1 Study ID: [id number] [facility] [address] [place] [address] Adult Echocardiogram Report Name: NITIN LEONARD Study Date: 07/09/2022, 11: 00 AM Patient Location: [facility] : 1965 (MM/DD/YYYY) Gender: Female Age: 57 Years Height: 152.4 cm BP: 131 / 80 mmHg Weight: 95.256 kg HR: 70 bpm BSA: 1.91 m? Ordering Physician: Evin Renteria Referring Physician: Evin Renteria Performed By: Mila Flores, LULUCA, T Reason For Study: Shortness of breath (SOB) [...] Signed by: Stanton Holt MD Transcribed by: [facility] Technologist: DAYA [facility] 06-18-2022 Hospital Discharge instructions Follow Up Care 06/18/2022 13:52:29 With:Evin Renteria MD Address: [address] [place] [id number] [phone] When:3 months Comments:FU after visit with national flatbed truck driver [facility] 06-05-2022 Evaluation + Plan note Future Scheduled TestsLipid Panel 06/05/22NM Myocardial Spect Rest/Stress 1 Day 06/05/22Echo Transthoracic Complete 06/05/22 [facility] Evaluation + Plan note Future Appointments Appointment Date:06/12/2022 12:00:00 PM Scheduled Provider: Location:[facility] Appointment Type:NM Myocard Spect Multi Rest/Stress-Res Appointment Date:06/12/2022 01:00:00 PM Scheduled Provider: [facility] Type:NM Myocard Spect Multi Rest/Stress - R Appointment Date:06/12/2022 01:30:00 PM Scheduled Provider: [facility] App[facility] Type:NM Myocard Spect Multi Rest/Stress-Str Appointment Date:06/12/2022 02:30:00 PM Scheduled Provider: [facility] App[facility] Type:NM Myocar Spect Multi Rest/Stress - St Appointment Date:07/09/2022 11:00:00 AM Scheduled Provider: Location:.[facility] Appointment Type:CV Echo (FT) Future Scheduled TestsNM Myocardial Spect Rest/Stress 1 Day 06/12/22Echo Transthoracic Complete 07/09/22 [facility] Evaluation + Plan note Future Appointments Appointment Date:07/09/2022 11:00:00 AM Scheduled Provider: Location:[facility] Appointment Type:CV Echo (FT) Future Scheduled TestsEcho Transthoracic Complete 07/09/22 [facility] Evaluation + Plan note Future Appointments Appointment Date:07/14/2022 11:00:00 AM Scheduled Provider:Candace LOPEZ CNP Location:[facility] Appointment Type:Cardiology Follow Up (FT) [facility] Evaluation + Plan note Future Appointments Appointment Date:10/13/2022 11:15:00 AM Scheduled Provider:Evin Renteria MD [facility] Appointment Type:Cardiology Follow Up (FT) Future Scheduled TestsLipid Panel 08/25/22 [facility] Hospital course Narrative No data available for this section [facility] Hospital Discharge instructions No data available for this section [facility] Progress note No data available for this section [facility] Summary Purpose Family History No [...] section and content) DATE CREATED AUTHOR 10/12/2020 [facility] DATE CREATED AUTHOR AUTHOR'S ORGANIZ ATION 10/10/2022 [facility] DATE CREATED AUTHOR AUTHOR'S ORGANIZ ATION 12/11/2022 [facility] DATE CREATED AUTHOR AUTHOR'S ORGANIZ ATION 09/07/2023 [facility] DATE CREATED AUTHOR AUTHOR'S ORGANIZ ATION 12/31/2023 [facility] EPIC Patient Care team informatio n (unrecognized section and content) Personnel Name: Jarrell Rouse MD Address: Address: [address] [place] [address] Personnel Name: Jarrell Rouse MD Address: Address: [address] [place] [address] Personnel Name: Jarrell Rouse MD Address: Address: [address] [place] [address] [place], [place] [address] Personnel Name: Jarrell Rouse MD Address: Address: [address] [place] [address] [place] [address]- Personnel Name: Nasim CAMPBELL Jarrell Address: Address: [address] [place] [address] [place] [id number] Personnel Name: Rober Rouse MDlas Address: Address: [address] [place] [address] FOR RECORDS PERTAINING TO PATIENTS WHO ARE [...] BE BASED ON THE PRIMARY CLINICAL RECORDS. [facility] [employer] [facility]. provides no warranty or guarantee of the accuracy or completeness of information in this document.
[2024-04-04] MEDS: ALBUTEROL SULFATE 2.5 MG/3 ML VIAL NEB IH (14:00)
--- NOTE | 2024-04-04 14:02 | RT_ITS ---
[facility] Test Date: 2024-04-04 Pat Name: NITIN LEONARD Department: Room: - Gender: Female Touch Up Worker: Lydia Narayan RRT : 1965 Requested By: Michael Archibald Order Number: [id number] Reading MD: Michael Archibald Interpretive Statements Pulmonary function testing was completed according to ATS criteria. Findings were considered accurate and reproducible. Both pre- and post-bronchodilator values utilized for spirometry. Spirometry (based on pre-bronchodilator values): -FEV1/FVC: Reduced @ 46% -FEV1: Severely reduced @ 44% -FVC: Reduced @ 76% -There is a positive bronchodilator response in FEV1 and FVC. Lung volumes by plethysmography: -RV: Increased @ 231% -TLC: Increased @ 146% Diffusion capacity: -DLCO: Very severe reduction @ 30% when corrected for Hb 11.8g/dL Comparison from 03/06/2023: -FEV1: 42% -T% -DLCO: 86%; DLCO from 06/06/2022: 77%; DLCO from 03/15/2020: 96% Impressions: -Spirometry suggests severe obstruction. There is a positive bronchodilator response. An elevated RV and TLC suggest air trapping and hyperinflation respectively. There is a very severely reduced diffusion capacity. Overall study suggests asthma-COPD overlap or COPD with a positive bronchodilator response. When compared to prior testing, there is slight increase in lung volumes, but there is a grossly abnormal drop in DLCO compared to all prior testing, which questions the validity of this portion of the testing. Clinical correlation required. Electronically Signed On 04-05-2024 16:04:28 EST by Michael Archibald
== END 2024-04-04 12:48 | disposition home or self-care (01) ==
LOC: CARD 12:48
PROVIDERS: PCP Family Medicine; Visit Provider Internal Medicine
DX: J45.50 Severe persistent asthma, uncomplicated (principal)
CPT/HCPCS: 36415; 85018; 94060; 94726; 94729